=== PATIENT | male | born 1945 | race Caucasian/White ===

== ENCOUNTER → 2018-08-25 | Outpatient (CLI) | payer MEDICARE | END | disposition home or self-care (01) | LOC: LABWHC1 11:49 | PROVIDERS: ATTEND Urology | DX: N40.1 Benign prostatic hyperplasia with lower urinary tract symptoms (principal) | CPT/HCPCS: 36415; 84153 ==

== ENCOUNTER 2018-11-19 08:04 | Emergency (ER) | payer MEDICARE ==
[2018-11-19 08:21] VITALS: TEMP 98.4
--- NOTE | 2018-11-19 08:49 | ED ---
Extremity Problem HPI - General Chief complaint: Extremity Problem,Nontraumatic Stated complaint: Leg pain Time Seen by Provider: 11/19/18 08:26 Source: patient, RN notes reviewed, old records reviewed Mode of arrival: ambulatory Limitations: no limitations - History of Present Illness Initial comments: 33-year-old male with history of CABG hypertension hyperlipidemia presents recurrent today with complaints of left lower extremity swelling and pain. He reports it's nontraumatic. He reports pain over the medial aspect of the ankle. Patient states that he's had history of blood clots of 4. Not currently on blood thinners. He denies any chest pain or shortness of breath. - Related Data Home Medications Medication Instructions Recorded Confirmed Aspirin 81 mg PO DAILY 06/08/14 11/19/18 Carvedilol [Coreg] 6.25 mg PO BID 06/08/14 11/19/18 Dutasteride [Avodart] 0.5 mg PO Q48H 06/08/14 11/19/18 Enalapril [Vasotec] 10 mg PO BID 06/08/14 11/19/18 Fluticasone/Salmeterol [Advair 1 puff INHALATION RT-BID 06/08/14 11/19/18 500-50 Diskus] Montelukast [Singulair] 10 mg PO HS 06/08/14 11/19/18 Simvastatin [Zocor] 80 mg PO DAILY 06/08/14 11/19/18 Tamsulosin [Flomax] 0.4 mg PO BID 06/08/14 11/19/18 Levothyroxine Sodium [Synthroid] 175 mcg PO DAILY 11/19/18 11/19/18 Previous Rx's Medication Instructions Recorded Clopidogrel [Plavix] 75 mg PO DAILY #90 tablet 06/10/14 Isosorbide Mononitrate ER [Imdur] 30 mg PO DAILY #90 tab 06/10/14 Apixaban [Eliquis] 5 mg PO BID #70 tab 11/19/18 Allergies Allergy/AdvReac Type Severity Reaction Status Date / Time No Known Allergies Allergy Verified 11/19/18 09:12 Review of Systems ROS Statement: Those systems with pertinent positive or pertinent negative responses have been documented in the HPI. ROS Other: All systems not noted in ROS Statement are negative. Past Medical History Past Medical History: Asthma, Chest Pain / Angina, Hyperlipidemia, Hypertension, [place]ocardial Infarction ([place]), Prostate Disorder, Thyroid Disorder Additional Past Medical History / Comment(s): ENLARGED PROSTATE,CURRENT CHRONIC UTI, CURRENTLY HAVING CHEST TIGHTNESS WHEN LAYING DOWN AT NIGHTTIME. RT GROIN PUNCTURE SITE-HAD HEMATOMA FROM HEART CATH 06-09-14- STATES "LOOKS GOOD NOW" Last Myocardial Infarction Date:: 2003 History of Any Multi-Drug Resistant Organisms: None Reported Past Surgical History: Coronary Bypass/CABG, Heart Catheterization, Heart Catheterization With Stent, Hernia Repair, Orthopedic Surgery Additional Past Surgical History / Comment(s): CABG-4 VESSEL 2003,UMBILICAL HERNIA REPAIR, RT ANKLE REPLACEMENT,HEART CATH , HEART CATH/ANGIO /STENT PLACEMENT Past Anesthesia/Blood Transfusion Reactions: No Reported Reaction Date of Last Stent Placement:: 06-18-14 Past Psychological History: No Psychological Hx Reported Smoking Status: Never smoker Past Alcohol Use History: None Reported Past Drug Use History: None Reported - Past Family History Father Family Medical History: Myocardial Infarction ([place]) Brother(s) Family Medical History: Myocardial Infarction ([place]) General Exam - General Exam Comments Initial Comments: 73-year-old male. Alert and oriented 3. Patient appears in no significant distress. Limitations: no limitations General appearance: alert, in no apparent distress Head exam: Present: atraumatic, normocephalic, normal inspection Eye exam: Present: normal appearance, PERRL, EOMI. Absent: scleral icterus, conjunctival injection, periorbital swelling ENT exam: Present: normal exam, mucous membranes moist Neck exam: Present: normal inspection. Absent: tenderness, meningismus, lymphadenopathy Respiratory exam: Present: normal lung sounds bilaterally. Absent: respiratory distress, wheezes, rales, rhonchi, stridor Cardiovascular Exam: Present: regular rate, normal rhythm, normal heart sounds. Absent: systolic murmur, diastolic murmur, rubs, gallop, clicks GI/Abdominal exam: Present: soft, normal bowel sounds. Absent: distended, tenderness, guarding, rebound, rigid Left Lower Leg exam: Present: normal inspection, full ROM, erythema Ankle exam: Present: full ROM, tenderness (Patient is tenderness over the medial malleolus), swelling. Absent: normal inspection Foot/Toe exam: Present: normal inspection, full ROM Neurovascular tendon exam: Present: no vascular compromise (Doppler pulse was obtained.) Gait: observed and normal Back exam: Present: normal inspection Neurological exam: Present: alert, oriented X3, CN II-XII intact Psychiatric exam: Present: normal affect, normal mood Skin exam: Present: warm, dry, intact, normal color. Absent: rash Course Vital Signs 11/19/18 11/19/18 11/19/18 08:18 09:00 09:30 Temperature 98.4 F Pulse Rate 70 64 65 Respiratory 18 16 17 Rate Blood Pressure 120/79 97/55 103/87 O2 Sat by Pulse 99 96 97 Oximetry Medical Decision Making - Medical Decision Making Patient is a 73-year-old male presents emergency department today with chief complaint of left leg swelling. Nontraumatic swelling. He does have some erythema. Ultrasound was completed and does show evidence of a DVT. In the mid popliteal vein. There is a question of this could be old. He does have a h istory of blood clots. With patient's worsening swelling and pain I will treat the Patient with Herminia Anderson. Given 1 month free starter pack and emergency department. Discussed that if you having any chest pain or shortness of breath to return. He denies any blow symptoms at this time. All questions were answered and return parameters were discussed. 11/19/18 09:03 EKG shows sinus rhythm with PACs. Otherwise normal EKG. She is a 65 bpm. Was 140 ms. QS duration is 80 ms. QT QTc is 380/43 ms. - Radiology Data Radiology results: report reviewed SHOWS DVT WITHIN THE MID LEFT POPLITEAL VEIN. THIS MAY BE OLD WITH INCOMPLETE OBSTRUCTION AND ECHOGENIC MATERIAL WITHIN THE VESSEL. SOME DISTAL FEMORAL VEIN THROMBOSIS MAY BE PRESENT WELL. Disposition Clinical Impression: DVT (deep venous thrombosis) Disposition: HOME SELF-CARE Condition: Good Instructions (If sedation given, give patient instructions): Deep Vein Thrombosis (ED), Deep Vein Thrombosis Prevention (ED) Additional Instructions: Patient advised to take medication as prescribed. Have close follow-up with PCP. Return to emergency department if any alarming signs or symptoms occur. Prescriptions: Apixaban [Eliquis] 5 mg PO BID #70 tab Is patient prescribed a controlled substance at d/c from ED?: No Referrals: Dom Yeh MD [Primary Care Provider] - 1-2 days Time of Disposition: 10:03
--- NOTE | 2018-11-19 09:32 | US ---
EXAMINATION TYPE: US venous doppler duplex LE LT DATE OF EXAM: 11/19/2018 9:11 AM COMPARISON: NONE CLINICAL HISTORY: Pain. Swellling SIDE PERFORMED: Left TECHNIQUE: The lower extremity deep venous system is examined utilizing real time linear array sonog aneta with graded compression, doppler sonography and color-flow sonography. VESSELS IMAGED: External Iliac Vein (EIV) Common Femoral Vein Deep Femoral Vein Greater Saphenous Vein * Femoral Vein Popliteal Vein Small Saphenous Vein * Proximal Calf Veins (* superficial vessels) Left Leg: Non occluding clot process seen in Lt mid Popliteal vein. Compression occurs, flow is see n around clot. IMPRESSION: 1. Deep venous thrombosis within the left mid popliteal vein. This may be old with incomplete obstruc tion and echogenic material within the vessel. Some distal femoral vein thromboses may be present as well.
[2018-11-19 09:37] VITALS: BP 103/87
[2018-11-19] MEDS ORDERED: APIXABAN 5 MG TAB PO STA (10:06)
[2018-11-19 10:14] VITALS: PULSE 66; RESP 18
== END 2018-11-19 10:27 | disposition home or self-care (01) ==
LOC: EC 08:04
DX: I82.432 Acute embolism and thrombosis of left popliteal vein (principal); J45.909 Unspecified asthma, uncomplicated; E78.5 Hyperlipidemia, unspecified; I10 Essential (primary) hypertension; I25.2 Old myocardial infarction; N42.0 Calculus of prostate; E07.9 Disorder of thyroid, unspecified; Z95.1 Presence of aortocoronary bypass graft; Z95.818 Presence of other cardiac implants and grafts; Z95.5 Presence of coronary angioplasty implant and graft; Z96.661 Presence of right artificial ankle joint; Z79.82 Long term (current) use of aspirin; Z79.51 Long term (current) use of inhaled steroids; Z79.890 Hormone replacement therapy; Z79.899 Other long term (current) drug therapy
CPT/HCPCS: 93005; 99284

== ENCOUNTER 2018-12-15 14:11 | Emergency (ER) | payer MEDICARE ==
[2018-12-15 14:21] VITALS: TEMP 97.3
[2018-12-15] MEDS ORDERED: SODIUM CHLORIDE 0.9% 500 ML 500 ML IV STA (14:34)
[2018-12-15] MEDS ORDERED: IPRATROPIUM-ALBUTEROL 3 ML NEB INHALATION STA (14:39)
--- NOTE | 2018-12-15 14:39 | ED ---
General Adult HPI - General Chief complaint: Dizziness Stated complaint: Dizziness Time Seen by Provider: 12/15/18 14:15 Source: patient, RN notes reviewed Mode of arrival: EMS Limitations: no limitations - History of Present Illness Initial comments: This is a 73-year-old male who presents emergency Department complaining that he is extremely lightheaded. Patient states his been this way for 2 days but is getting worse per patient denies anytime he stands up he thinks he is going to pass out. Patient states over the last 2 days is also quite a bit of diarrhea. Patient denies any nausea vomiting per patient denies any palpitations. Patient denies any chest pain. Patient denies any abdominal pain. Patient denies any headache patient denies any numbness or focal weakness. Patient denies any syncopal episode. - Related Data Home Medications Medication Instructions Recorded Confirmed Aspirin 81 mg PO DAILY 06/08/14 12/15/18 Carvedilol [Coreg] 6.25 mg PO BID 06/08/14 12/15/18 Dutasteride [Avodart] 0.5 mg PO Q48H 06/08/14 12/15/18 Enalapril [Vasotec] 10 mg PO BID 06/08/14 12/15/18 Montelukast [Singulair] 10 mg PO HS 06/08/14 12/15/18 Simvastatin [Zocor] 80 mg PO DAILY 06/08/14 12/15/18 Tamsulosin [Flomax] 0.4 mg PO BID 06/08/14 12/15/18 Levothyroxine Sodium [Synthroid] 175 mcg PO DAILY 11/19/18 12/15/18 Beclomethasone Dipropionate [Qvar 1 puff INHALATION RT-BID 12/15/18 12/15/18 80 mcg] Meclizine [Antivert] 25 mg PO TID 12/15/18 12/15/18 Sulfamethox-Tmp 400-80Mg [Bactrim 1 tab PO DAILY 12/15/18 12/15/18 SS 400-80 mg] Previous Rx's Medication Instructions Recorded Isosorbide Mononitrate ER [Imdur] 30 mg PO DAILY #90 tab 06/10/14 Apixaban [Eliquis] 5 mg PO BID #70 tab 11/19/18 Allergies Allergy/AdvReac Type Severity Reaction Status Date / Time No Known Allergies Allergy Verified 12/15/18 15:14 Review of Systems ROS Statement: Those systems with pertinent positive or pertinent negative responses have been documented in the HPI. ROS Other: All systems not noted in ROS Statement are negative. Past Medical History Past Medical History: Asthma, Chest Pain / Angina, Hyperlipidemia, Hypertension, [place] ([place]), Prostate Disorder, Thyroid Disorder Additional Past Medical History / Comment(s): ENLARGED PROSTATE,CURRENT CHRONIC UTI, CURRENTLY HAVING CHEST TIGHTNESS WHEN LAYING DOWN AT NIGHTTIME. RT GROIN PUNCTURE SITE-HAD HEMATOMA FROM HEART CATH 06-09-14- STATES "LOOKS GOOD NOW" Last Myocardial Infarction Date:: 2003 History of Any Multi-Drug Resistant Organisms: None Reported Past Surgical History: Coronary Bypass/CABG, Heart Catheterization, Heart Cat heterization With Stent, Hernia Repair, Orthopedic Surgery Additional Past Surgical History / Comment(s): CABG-4 VESSEL 2003,UMBILICAL HERNIA REPAIR, RT ANKLE REPLACEMENT,HEART CATH , HEART CATH/ANGIO /STENT PLACEMENT Past Anesthesia/Blood Transfusion Reactions: No Reported Reaction Date of Last Stent Placement:: 06-18-14 Past Psychological History: No Psychological Hx Reported Smoking Status: Never smoker Past Alcohol Use History: None Reported Past Drug Use History: None Reported - Past Family History Father Family Medical History: Myocardial Infarction ([place]) Brother(s) Family Medical History: [place]ocardial Infarction [place] General Exam - General Exam Comments Initial Comments: GENERAL: Patient is well-developed and well-nourished. Patient is nontoxic and well- hydrated and is in mild distress. ENT: Neck is soft and supple. No significant lymphadenopathy is noted. Oropharynx is clear. Moist mucous membranes. Neck has full range of motion without gautam citing any pain. EYES: The sclera were anicteric and conjunctiva were pink and moist. Extraocular movements were intact and pupils were equal round and reactive to light. Eyelids were unremarkable. PULMONARY: Unlabored respirations. Good breath sounds bilaterally. No audible rales rhonchi or wheezing was noted. CARDIOVASCULAR: There is a regular rate and rhythm without any murmurs gallops or rubs. ABDOMEN: Soft and nontender with normal bowel sounds. No palpable organomegaly was note d. There is no palpable pulsatile mass. SKIN: Skin is clear with no lesions or rashes and otherwise unremarkable. NEUROLOGIC: Patient is alert and oriented x3. Cranial nerves II through XII are grossly intact. Motor and sensory are also intact. Normal speech, volume and content. Symmetrical smile. MUSCULOSKELETAL: Normal extremities with adequate strength and full range of motion. LYMPHATICS: No significant lymphadenopathy is noted PSYCHIATRIC: Normal psychiatric evaluation. Limitations: no limitations Course Vital Signs 12/15/18 12/15/18 12/15/18 14:15 14:19 14:33 Temperature 97.3 F L Pulse Rate 75 Pulse Rate [ 83 Left Sitting] Pulse Rate [ Left Standing] Respiratory 16 Rate Blood Pressure 97/64 Blood Pressure 115/92 [Left Arm Sitting] Blood Pressure [Left Arm Standing] O2 Sat by Pulse 97 Oximetry 12/15/18 12/15/18 12/15/18 14:34 15:42 15:48 Temperature Pulse Rate 82 75 Pulse Rate [ Left Sitting] Pulse Rate [ 74 Left Standing] Respiratory 20 Rate Blood Pressure 130/79 Blood Pressure [Left Arm Sitting] Blood Pressure 72/48 [Left Arm Standing] O2 Sat by Pulse 100 Oximetry 12/15/18 15:53 Temperature Pulse Rate 76 Pulse Rate [ Left Sitting] Pulse Rate [ Left Standing] Respiratory Rate Blood Pressure Blood Pressure [Left Arm Sitting] Blood Pressure [Left Arm Standing] O2 Sat by Pulse Oximetry Medical Decision Making - Medical Decision Making EKG shows sinus rhythm with occasional PAC at 80 bpm [place] interval is 134 QRS is 86 QT interval 366 QTC is 422. Patient's EKG shows no ST segment elevation. Patient is orthostatic positive. Chest x-ray shows no acute abnormality. Patient stated he felt considerably better was able to get up and ambulate without any dizziness. Patient was no longer orthostatic after fluids were given. - Lab Data Result diagrams: 12/15/18 15:00 12/15/18 15:00 Lab Results 12/15/18 12/15/18 12/15/18 Range/Units 15:00 15:00 15:00 WBC 4.5 (3.8-10.6) k/uL RBC 4.06 L (4.30-5.90) m/uL Hgb 12.7 L (13.0-17.5) gm/dL Hct 36.3 L (39.0-53.0) % MCV 89.4 (80.0-100.0) fL MCH 31.1 (25.0-35.0) pg MCHC 34.8 (31.0-37.0) g/dL RDW 13.7 (11.5-15.5) % Plt Count 125 L (150-450) k/uL Neutrophils % 75 % Lymphocytes % 13 % Monocytes % 9 % Eosinophils % 2 % Basophils % 0 % Neutrophils # 3.4 (1.3-7.7) k/uL Lymphocytes # 0.6 L (1.0-4.8) k/uL Monocytes # 0.4 (0-1.0) k/uL Eosinophils # 0.1 (0-0.7) k/uL Basophils # 0.0 (0-0.2) k/uL PT 10.4 (9.0-12.0) sec INR 1.0 (<1.2) APTT 26.5 (22.0-30.0) sec Sodium 137 (137-145) mmol/L Potassium 4.5 (3.5-5.1) mmol/L Chloride 106 (98-107) mmol/L Carbon Dioxide 25 (22-30) mmol/L Anion Gap 6 mmol/L BUN 31 H (9-20) mg/dL Creatinine 1.12 (0.66-1.25) mg/dL Est GFR (CKD-EPI)AfAm 75 (>60 ml/min/1.73 sqM) Est GFR (CKD-EPI)NonAf 65 (>60 ml/min/1.73 sqM) Glucose 96 (74-99) mg/dL Calcium 8.2 L (8.4-10.2) mg/dL Magnesium 1.8 (1.6-2.3) mg/dL Total Bilirubin 1.6 H (0.2-1.3) mg/dL AST 40 (17-59) U/L ALT 38 (21-72) U/L Alkaline Phosphatase 25 L (38-126) U/L Troponin I (0.000-0.034) ng/mL Total Protein 5.7 L (6.3-8.2) g/dL Albumin 3.0 L (3.5-5.0) g/dL 12/15/18 Range/Units 15:00 WBC (3.8-10.6) k/uL RBC (4.30-5.90) m/uL Hgb (13.0-17.5) gm/dL Hct (39.0-53.0) % MCV (80.0-100.0) fL MCH (25.0-35.0) pg MCHC (31.0-37.0) g/dL RDW (11.5-15.5) % Plt Count (150-450) k/uL Neutrophils % % Lymphocytes % % Monocytes % % Eosinophils % % Basophils % % Neutrophils # (1.3-7.7) k/uL Lymphocytes # (1.0-4.8) k/uL Monocytes # (0-1.0) k/uL Eosinophils # (0-0.7) k/uL Basophils # (0-0.2) k/uL PT (9.0-12.0) sec INR (<1.2) APTT (22.0-30.0) sec Sodium (137-145) mmol/L Potassium (3.5-5.1) mmol/L Chloride (98-107) mmol/L Carbon Dioxide (22-30) mmol/L Anion Gap mmol/L BUN (9-20) mg/dL Creatinine (0.66-1.25) mg/dL Est GFR (CKD-EPI)AfAm (>60 ml/min/1.73 sqM) Est GFR (CKD-EPI)NonAf (>60 ml/min/1.73 sqM) Glucose (74-99) mg/dL Calcium (8.4-10.2) mg/dL Magnesium (1.6-2.3) mg/dL Total Bilirubin (0.2-1.3) mg/dL AST (17-59) U/L ALT (21-72) U/L Alkaline Phosphatase (38-126) U/L Troponin I 0.018 (0.000-0.034) ng/mL Total Protein (6.3-8.2) g/dL Albumin (3.5-5.0) g/dL Disposition Clinical Impression: Orthostatic hypotension, Diarrhea, Dehydration Disposition: HOME SELF-CARE Condition: Good Instructions (If sedation given, give patient instructions): Hypotension (ED), Acute Diarrhea (ED) Is patient prescribed a controlled substance at d/c from ED?: No Referrals: Dom Yeh MD [Primary Care Provider] - 1-2 days Time of Disposition: 17:42
[2018-12-15 15:20] LABS: Basophils % (A) 0 %; Eosinophils # (A) 0.1 k/uL (0-0.7); Eosinophils % (A) 2 %; HCT 36.3 % (39.0-53.0); HGB 12.7 gm/dL (13.0-17.5); Lymphocytes # (A) 0.6 k/uL (1.0-4.8); Lymphocytes % (A) 13 %; MCH 31.1 pg (25.0-35.0); MCHC 34.8 g/dL (31.0-37.0); MCV 89.4 fL (80.0-100.0); Mean Platelet Volume 7.7; Monocytes # (A) 0.4 k/uL (0-1.0); Monocytes % (A) 9 %; Neutrophils # (A) 3.4 k/uL (1.3-7.7); Neutrophils % (A) 75 %; Platelet Count 125 k/uL (150-450); RBC 4.06 m/uL (4.30-5.90); RDW 13.7 % (11.5-15.5); WBC 4.5 k/uL (3.8-10.6)
[2018-12-15 15:28] LABS: Partial Thromboplastin Time 26.5 sec (22.0-30.0); Prothrombin Time 10.4 sec (9.0-12.0)
[2018-12-15 15:45] LABS: Calcium 8.2 mg/dL (8.4-10.2); Magnesium 1.8 mg/dL (1.6-2.3); Total Bilirubin 1.6 mg/dL (0.2-1.3); Total Protein 5.7 g/dL (6.3-8.2)
[2018-12-15 15:49] VITALS: RESP 20
[2018-12-15 15:53] LABS: Potassium 4.5 mmol/L (3.5-5.1)
--- NOTE | 2018-12-15 16:52 | XR ---
EXAMINATION TYPE: XR chest 2V DATE OF EXAM: 12/15/2018 COMPARISON: Chest x-ray November 20, 2012 HISTORY: Chest pain and dizziness. TECHNIQUE: Frontal and lateral views of the chest are obtained. FINDINGS: Overlying EKG leads are seen. Low lung volumes are redemonstrated with chronic parenchymal change. There is no focal air space opacity, pleural effusion, or pneumothorax seen. The cardiac gloria houette size remains enlarged. Overlying sternal wires are redemonstrated with mediastinal clips. Th e osseous structures are intact. IMPRESSION: Cardiomegaly and chronic parenchymal changes without acute pulmonary process.
[2018-12-15] MEDS ORDERED: SODIUM CHLORIDE 0.9% 1,000 ML IV ONE (18:33)
[2018-12-15] MEDS ORDERED: SODIUM CHLORIDE 0.9% 500 ML 500 ML IV ONE (18:33)
[2018-12-15 19:51] VITALS: BP 144/82; PULSE 86
== END 2018-12-15 19:52 | disposition home or self-care (01) ==
LOC: EC 14:11
DX: I95.1 Orthostatic hypotension (principal); R19.7 Diarrhea, unspecified; E86.0 Dehydration; J45.909 Unspecified asthma, uncomplicated; E78.5 Hyperlipidemia, unspecified; I10 Essential (primary) hypertension; I25.2 Old myocardial infarction; N40.0 Benign prostatic hyperplasia without lower urinary tract symptoms; E07.9 Disorder of thyroid, unspecified; Z95.1 Presence of aortocoronary bypass graft; Z95.818 Presence of other cardiac implants and grafts; Z95.5 Presence of coronary angioplasty implant and graft; Z96.661 Presence of right artificial ankle joint; Z79.82 Long term (current) use of aspirin; Z79.890 Hormone replacement therapy; Z79.51 Long term (current) use of inhaled steroids; Z79.899 Other long term (current) drug therapy
CPT/HCPCS: 36415; 71046; 80053; 83735; 84484; 85025; 85610; 85730; 93005; 94640; 96360; 96361; 99284

== ENCOUNTER 2019-01-24 23:29 | Emergency (ER) | payer MEDICARE ==
[2019-01-25 01:31] LABS: Basophils % (A) 1 %; Eosinophils # (A) 0.3 k/uL (0-0.7); Eosinophils % (A) 6 %; HCT 41.7 % (39.0-53.0); HGB 13.5 gm/dL (13.0-17.5); Lymphocytes # (A) 1.1 k/uL (1.0-4.8); Lymphocytes % (A) 26 %; MCH 30.5 pg (25.0-35.0); MCHC 32.4 g/dL (31.0-37.0); MCV 94.2 fL (80.0-100.0); Mean Platelet Volume 6.7; Monocytes # (A) 0.5 k/uL (0-1.0); Monocytes % (A) 11 %; Neutrophils # (A) 2.4 k/uL (1.3-7.7); Neutrophils % (A) 54 %; Platelet Count 212 k/uL (150-450); RBC 4.43 m/uL (4.30-5.90); RDW 14.3 % (11.5-15.5); WBC 4.4 k/uL (3.8-10.6)
[2019-01-25 01:39] LABS: INR 0.9 (<1.2); Partial Thromboplastin Time 23.7 sec (22.0-30.0)
[2019-01-25 01:40] LABS: ALT 35 U/L (21-72); AST 23 U/L (17-59); Albumin 3.5 g/dL (3.5-5.0); Alkaline Phosphatase 65 U/L (38-126); Anion Gap 3 mmol/L; Blood Urea Nitrogen 27 mg/dL (9-20); Calcium 9.4 mg/dL (8.4-10.2); Carbon Dioxide 32 mmol/L (22-30); Chloride 108 mmol/L (98-107); Glucose 107 mg/dL (74-99); Potassium 4.3 mmol/L (3.5-5.1); Sodium 143 mmol/L (137-145); Total Bilirubin 0.8 mg/dL (0.2-1.3); Total Protein 5.9 g/dL (6.3-8.2)
--- NOTE | 2019-01-25 01:41 | US ---
EXAM: US Duplex Left Lower Extremity Veins CLINICAL HISTORY: ITS.REASON US Reason: Pain TECHNIQUE: Real-time duplex ultrasound scan of the left lower extremity veins integrating B-mode two-dimensional vascular structure, Doppler spectral analysis, color flow Doppler imaging and compression. COMPARISON: 12/02 FINDINGS: Deep veins: Nonocclusive DVT at the proximal popliteal vein. Mid and distal popliteal veins are occluded and not compressible. Superficial veins: Unremarkable. No thrombus in the visualized great saphenous vein. Soft tissues: No suspicious findings. No popliteal cyst. 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 <MYCVCSECTION> Critical Value Communications 01/25/19 01:49 Verify Receipt Verified receipt with Dr. Potter on 01/25 01:48 (-04:00)
[2019-01-25] MEDS ORDERED: ENOXAPARIN 120 MG/0.8 ML SYRINGE SQ STA (01:51)
--- NOTE | 2019-01-25 02:11 | XR ---
EXAM: XR Chest, 2 Views CLINICAL HISTORY: ITS.REASON XR Reason: Pain TECHNIQUE: Frontal and lateral views of the chest. COMPARISON: No relevant prior studies available. FINDINGS: Lungs: Unremarkable. No consolidation. Pleural space: Unremarkable. No pneumothorax. Heart: No suspicious enlargement. Mediastinum: Unremarkable. Bones/joints: No acute fracture. IMPRESSION: No acute findings.
--- NOTE | 2019-01-25 02:34 | ED ---
General Adult HPI - General Source: patient, RN notes reviewed, old records reviewed Mode of arrival: ambulatory Limitations: no limitations <Carl Potter - Last Filed: 01/25/19 03:40> <Indiana Forman - Last Filed: 01/26/19 06:21> - General Chief complaint: Extremity Problem,Nontraumatic Stated complaint: Lt leg swollen Time Seen by Provider: 01/25/19 00:40 - History of Present Illness Initial comments: 73-year-old male patient with passed medical history of coronary artery bypass graft, hypertension, prior DVT presents to ED with approximately 2 days of left lower extremity edema, pain. Patient states that the. There is posterior calf. Patient states that he feels as if his leg is very tight and swollen. Patient denies any chest pain, shortness of breath, abdominal pain, nausea vomiting diarrhea. Patient is currently anticoagulated with eliquis. Denies all other complaints. Systemic: Pt denies fatigue, myalgia, fever/chills, rash. Pt denies weakness, night sweats, weight loss. Neuro: Pt denies headache, visual disturbances, syncope or pre-syncope. HEENT: Pt denies ocular discharge or irritation, otalgia, rhinorrhea, pharyngitis or notable lymphadenopathy. Cardiopulmonary: Pt denies chest pain, SOB, heart palpitations, dyspnea on exertion. Abdominal/GI: Pt denies abdominal pain, n/v/d. : Pt denies dysuria, burning w/ urination, frequency/urgency. Denies new onset urinary or bowel incontinence. MSK: Pt denies myalgia, loss of strength or function in extremities. Neuro: Pt denies new onset weakness, paresthesias. (Carl Potter) - Related Data Home Medications Medication Instructions Recorded Confirmed Aspirin 81 mg PO DAILY 06/08/14 12/15/18 Carvedilol [Coreg] 6.25 mg PO BID 06/08/14 12/15/18 Dutasteride [Avodart] 0.5 mg PO Q48H 06/08/14 12/15/18 Enalapril [Vasotec] 10 mg PO BID 06/08/14 12/15/18 Montelukast [Singulair] 10 mg PO HS 06/08/14 12/15/18 Simvastatin [Zocor] 80 mg PO DAILY 06/08/14 12/15/18 Tamsulosin [Flomax] 0.4 mg PO BID 06/08/14 12/15/18 Levothyroxine Sodium [Synthroid] 175 mcg PO DAILY 11/19/18 12/15/18 Beclomethasone Dipropionate [Qvar 1 puff INHALATION RT-BID 12/15/18 12/15/18 80 mcg] Meclizine [Antivert] 25 mg PO TID 12/15/18 12/15/18 Sulfamethox-Tmp 400-80Mg [Bactrim 1 tab PO DAILY 12/15/18 12/15/18 SS 400-80 mg] Previous Rx's Medication Instructions Recorded Isosorbide Mononitrate ER [Imdur] 30 mg PO DAILY #90 tab 06/10/14 Apixaban [Eliquis] 5 mg PO BID #70 tab 11/19/18 Enoxaparin [Lovenox] 100 mg SQ Q12H #14 syr 01/25/19 Allergies Allergy/AdvReac Type Severity Reaction Status Date / Time No Known Allergies Allergy Verified 01/25/19 00:17 Review of Systems ROS Other: All systems not noted in ROS Statement are negative. <Carl Potter - Last Filed: 01/25/19 03:40> ROS Other: All systems not noted in ROS Statement are negative. <[place]iana Forman - Last Filed: 01/26/19 06:21> ROS Statement: Those systems with pertinent positive or pertinent negative responses have been documented in the HPI. Past Medical History Past Medical History: Asthma, Chest Pain / Angina, Deep Vein Thrombosis (DVT), Hyperlipidemia, Hypertension, Myocardial Infarction ([place]), Prostate Disorder, Thyroid Disorder Additional Past Medical History / Comment(s): ENLARGED PROSTATE,CURRENT CHRONIC UTI, CURRENTLY HAVING CHEST TIGHTNESS WHEN LAYING DOWN AT NIGHTTIME. RT GROIN PUNCTURE SITE-HAD HEMATOMA FROM HEART CATH 06-09-14- STATES "LOOKS GOOD NOW" Last Myocardial Infarction Date:: 2003 History of Any Multi-Drug Resistant Organisms: None Reported Past Surgical History: Coronary Bypass/CABG, Heart Catheterization, Heart Catheterization With Stent, Hernia Repair, Orthopedic Surgery Additional Past Surgical History / Comment(s): CABG-4 VESSEL 2003,UMBILICAL HERNIA REPAIR, RT ANKLE REPLACEMENT,HEART CATH , HEART CATH/ANGIO /STENT PLACEMENT Past Anesthesia/Blood Transfusion Reactions: No Reported Reaction Date of Last Stent Placement:: 06-18-14 Past Psychological History: No Psychological Hx Reported Smoking Status: Never smoker Past Alcohol Use History: None Reported Past Drug Use History: None Reported - Past Family History Father Family Medical History: Myocardial Infarction ([place]) Brother(s) Family Medical History: Myocardial Infarction ([place]) <Carl Potter - Last Filed: 01/25/19 03:40> General Exam Limitations: no limitations <Carl Potter - Last Filed: 01/25/19 03:40> - General Exam Comments Initial Comments: Constitutional: NAD, AOX3, Pt has pleasant affect. HEENT: NC/AT, trachea midline, neck supple, no lymphadenopathy. Posterior pharynx non erythematous, without exudates. External ears appear normal, without discharge. Mucous membranes moist. Eyes PERRLA, EOM intact. There is no scleral icterus. No pallor noted. Cardiopulmonary: RRR, no murmurs, rubs or gallops, no JVD noted. Lungs CTAB in anterior and posterior noel. No peripheral edema. Abdominal exam: Abdomen soft and non-distended. Abdomen non-tender to palpation in all 4 quadrants. Bowel sounds active in LLQ. No hepatosplenomegaly. No ecchymosis Neuro: CN II-XII grossly intact. No nuchal rigidity. MSK: Mild amount of left posterior calf tenderness. Left Tasia sign positive. No right posterior calf tenderness. No Homans sign negative. +1 posterior tibialis pulse bilaterally. Sensation intact in upper and lower extremities. Full active ROM in upper and lower extremities, 5/5 stregnth. (Carl Potter) Course Vital Signs 01/25/19 01/25/19 00:12 04:10 Temperature 98.2 F 98.7 F Pulse Rate 75 73 Respiratory 20 15 Rate Blood Pressure 160/104 154/103 O2 Sat by Pulse 96 96 Oximetry Medical Decision Making - Lab Data Result diagrams: 01/25/19 01:21 01/25/19 01:21 <Carl Potter - Last Filed: 01/25/19 03:40> - Lab Data Result diagrams: 01/25/19 01:21 01/25/19 01:21 <Indiana Forman - Last Filed: 01/26/19 06:21> - Medical Decision Making 73-year-old male patient with passed medical history of coronary artery bypass graft, hypertension, prior DVT presents to ED with approximately 2 days of left lower extremity edema, pain. Patient states that the. There is posterior calf. Patient states that he feels as if his leg is very tight and swollen. Patient denies any chest pain, shortness of breath, abdominal pain, nausea vomiting diarrhea. Patient is currently anticoagulated with eliquis. Denies all other complaints. Pt VSS, afebrile. Physical exam displayed: Mild amount of left posterior calf tenderness. Left Tasia sign positive. No right posterior calf tenderness. No Homans sign negative. +1 posterior tibialis pulse bilaterally. Laboratory investigations revealed non-impressive CBC. Coagulation studies within normal limits. CMP nonimmpressive. Troponin negative. BNP within normal limits. Chest x-ray revealed no acute findings. Ultrasound venous Doppler revealed acute on chronic DVT in the popliteal vein. Nonocclusive DVT at the proximal popliteal vein. Mid and distal popliteal veins occluded and not compressible. Patient understood Lovenox and ED. Patient will be discharged with Lovenox injections every q12. Patient will continue his eliquis. Patient will follow-up with his primary care provider tomorrow. Pt will return to ER if condition worsens. Case discussed with Dr. Forman. Pt physician covering for PCP was attempted to be contacted and did not respond. (Carl Potter) I was available for consultation in the emergency department. The history and physical exam were done by the midlevel provider. I was consulted for this patient's care. I reviewed the case with the midlevel provider, patient is currently on a novel oral anticoagulated but has a propagating distal DVT with no femoral DVT. Patient and family are comfortable with the plan for subcutaneous Lovenox twice a day until he can follow up with their primary care physician to discuss transition to other anticoagulant likely Coumadin. (Indiana Forman) - Lab Data Lab Results 01/25/19 01/25/19 01/25/19 Range/Units 01:21 01:21 01:21 WBC 4.4 (3.8-10.6) k/uL RBC 4.43 (4.30-5.90) m/uL Hgb 13.5 (13.0-17.5) gm/dL Hct 41.7 (39.0-53.0) % MCV 94.2 (80.0-100.0) fL MCH 30.5 (25.0-35.0) pg MCHC 32.4 (31.0-37.0) g/dL RDW 14.3 (11.5-15.5) % Plt Count 212 (150-450) k/uL Neutrophils % 54 % Lymphocytes % 26 % Monocytes % 11 % Eosinophils % 6 % Basophils % 1 % Neutrophils # 2.4 (1.3-7.7) k/uL Lymphocytes # 1.1 (1.0-4.8) k/uL Monocytes # 0.5 (0-1.0) k/uL Eosinophils # 0.3 (0-0.7) k/uL Basophils # 0.0 (0-0.2) k/uL PT 10.0 (9.0-12.0) sec INR 0.9 (<1.2) APTT 23.7 (22.0-30.0) sec Sodium 143 (137-145) mmol/L Potassium 4.3 (3.5-5.1) mmol/L Chloride 108 H (98-107) mmol/L Carbon Dioxide 32 H (22-30) mmol/L Anion Gap 3 mmol/L BUN 27 H (9-20) mg/dL Creatinine 0.96 (0.66-1.25) mg/dL Est GFR (CKD-EPI)AfAm >90 (>60 ml/min/1.73 sqM) Est GFR (CKD-EPI)NonAf 78 (>60 ml/min/1.73 sqM) Glucose 107 H (74-99) mg/dL Calcium 9.4 (8.4-10.2) mg/dL Total Bilirubin 0.8 (0.2-1.3) mg/dL AST 23 (17-59) U/L ALT 35 (21-72) U/L Alkaline Phosphatase 65 (38-126) U/L Troponin I (0.000-0.034) ng/mL NT-Pro-B Natriuret Pep pg/mL Total Protein 5.9 L (6.3-8.2) g/dL Albumin 3.5 (3.5-5.0) g/dL 01/25/19 01/25/19 Range/Units 01:21 01:21 WBC (3.8-10.6) k/uL RBC (4.30-5.90) m/uL Hgb (13.0-17.5) gm/dL Hct (39.0-53.0) % MCV (80.0-100.0) fL MCH (25.0-35.0) pg MCHC (31.0-37.0) g/dL RDW (11.5-15.5) % Plt Count (150-450) k/uL Neutrophils % % Lymphocytes % % Monocytes % % Eosinophils % % Basophils % % Neutrophils # (1.3-7.7) k/uL Lymphocytes # (1.0-4.8) k/uL Monocytes # (0-1.0) k/uL Eosinophils # (0-0.7) k/uL Basophils # (0-0.2) k/uL PT (9.0-12.0) sec INR (<1.2) APTT (22.0-30.0) sec Sodium (137-145) mmol/L Potassium (3.5-5.1) mmol/L Chloride (98-107) mmol/L Carbon Dioxide (22-30) mmol/L Anion Gap mmol/L BUN (9-20) mg/dL Creatinine (0.66-1.25) mg/dL Est GFR (CKD-EPI)AfAm (>60 ml/min/1.73 sqM) Est GFR (CKD-EPI)NonAf (>60 ml/min/1.73 sqM) Glucose (74-99) mg/dL Calcium (8.4-10.2) mg/dL Total Bilirubin (0.2-1.3) mg/dL AST (17-59) U/L ALT (21-72) U/L Alkaline Phosphatase (38-126) U/L Troponin I <0.012 (0.000-0.034) ng/mL NT-Pro-B Natriuret Pep 303 pg/mL Total Protein (6.3-8.2) g/dL Albumin (3.5-5.0) g/dL Disposition Is patient prescribed a controlled substance at d/c from ED?: No <Carl Potter - Last Filed: 01/25/19 03:40> <[place] P - Last Filed: 01/26/19 06:21> Clinical Impression: DVT (deep venous thrombosis) Disposition: HOME SELF-CARE Condition: Stable Instructions (If sedation given, give patient instructions): Deep Vein Thrombosis (ED) Additional Instructions: Patient to adhere to previously discussed treatment plan and will take medication(s) as directed. Patient to follow up with PCP in 1-2 days. Patient to return to ED if symptoms do not improve. Continue to take eliquis. Began taking Lovenox injections every 12 hours. Follow-up with primary care provider tomorrow. Return to ER if condition w sherrie. Prescriptions: Enoxaparin [Lovenox] 100 mg SQ Q12H #14 syr Referrals: Dom Yeh MD [Primary Care Provider] - 1-2 days
[2019-01-25 04:31] VITALS: PULSE 73; TEMP 98.7
[2019-01-25 04:51] VITALS: BP 154/103; RESP 15
== END 2019-01-25 04:48 | disposition home or self-care (01) ==
LOC: EC 23:29
DX: I82.532 Chronic embolism and thrombosis of left popliteal vein (principal); I82.432 Acute embolism and thrombosis of left popliteal vein; J45.909 Unspecified asthma, uncomplicated; E78.5 Hyperlipidemia, unspecified; I10 Essential (primary) hypertension; I25.2 Old myocardial infarction; N40.0 Benign prostatic hyperplasia without lower urinary tract symptoms; E07.9 Disorder of thyroid, unspecified; Z79.82 Long term (current) use of aspirin; Z79.51 Long term (current) use of inhaled steroids; Z79.899 Other long term (current) drug therapy; Z79.01 Long term (current) use of anticoagulants; Z95.5 Presence of coronary angioplasty implant and graft; Z95.1 Presence of aortocoronary bypass graft; Z96.661 Presence of right artificial ankle joint
CPT/HCPCS: 36415; 83880; 80053; 84484; 85025; 85610; 85730; 71046; 93971; 99284; J1650

== ENCOUNTER → 2019-01-27 | Outpatient (CLI) | payer MEDICARE | END | disposition home or self-care (01) | LOC: LABWHC1 15:05 | PROVIDERS: ATTEND Physician Assistant Medical | DX: L29.8 Other pruritus (principal); L12.0 Bullous pemphigoid | CPT/HCPCS: 36415 ==

== ENCOUNTER 2023-01-21 15:18 | Inpatient (IN) | payer MEDICARE ==
[2023-01-21] MEDS ORDERED: SODIUM CHLORIDE 0.9% 500 ML 500 ML IV ONE (15:46)
[2023-01-21] MEDS ORDERED: SODIUM CHLORIDE 0.9% 1,000 ML IV ONE (15:50)
[2023-01-21 16:15] LABS: Glucose,Whole Blood 120 mg/dL (70-110)
--- NOTE | 2023-01-21 16:22 | ED ---
URI HPI - General Chief Complaint: Upper Respiratory Infection Stated Complaint: Flu Time Seen by Provider: 01/21/23 15:42 Source: EMS Mode of arrival: EMS Limitations: altered mental status, physical limitation - History of Present Illness Initial Comments: Patient is a 77-year-old male presenting with chief complaint of altered mental status. I'm unable to obtain any history from the patient. The nurse tells me that patient lives alone, friend went over to visit him today and he was extremely lethargic. Patient has been experiencing URI like symptoms for about a week and has been treated with antibiotics and steroids. Patient vomited while here. - Related Data Home Medications Medication Instructions Recorded Confirmed Carvedilol [Coreg] 6.25 mg PO BID 06/08/14 01/21/23 Dutasteride [Avodart] 0.5 mg PO Q48H 06/08/14 01/21/23 Montelukast [Singulair] 10 mg PO HS 06/08/14 01/21/23 Tamsulosin [Flomax] 0.4 mg PO BID 06/08/14 01/21/23 Acetaminophen Tab [Tylenol Tab] 500 mg PO Q4H PRN 01/21/23 01/21/23 Amoxicillin 500 mg PO Q8H 01/21/23 01/21/23 Atorvastatin [Lipitor] 40 mg PO DIRECTED 01/21/23 01/21/23 Cetirizine HCl [Zyrtec] 10 mg PO DAILY 01/21/23 01/21/23 Enalapril [Vasotec] 20 mg PO DIRECTED 01/21/23 01/21/23 Fluticasone Propion/Salmeterol 1 puff INHALATION DIRECTED 01/21/23 01/21/23 [Wixela 500-50 Inhub] Ibuprofen [Motrin Ib] 200 mg PO Q4H PRN 01/21/23 01/21/23 Levothyroxine Sodium [Synthroid] 150 mcg PO DAILY 01/21/23 01/21/23 Prevagen 1 cap PO DAILY 01/21/23 01/21/23 Triamcinolone 0.1% Lotion [Kenalog 1 applic TOPICAL DAILY PRN 01/21/23 01/21/23 0.1% Lotion] Ubidecarenone [Coenzyme Q10] 200 mg PO DAILY 01/21/23 01/21/23 Previous Rx's Medication Instructions Recorded Apixaban [Eliquis] 5 mg PO BID #70 tab 11/19/18 Allergies Allergy/AdvReac Type Severity Reaction Status Date / Time No Known Allergies Allergy Verified 01/21/23 17:18 Review of Systems ROS Statement: Those systems with pertinent positive or pertinent negative responses have been documented in the HPI. ROS Other: All systems not noted in ROS Statement are negative. Past Medical History Past Medical History: Asthma, Chest Pain / Angina, Deep Vein Thrombosis (DVT), Hyperlipidemia, Hypertension, Myocardial Infarction (IA), Prostate Disorder, Thyroid Disorder Additional Past Medical History / Comment(s): ENLARGED PROSTATE,CURRENT CHRONIC UTI, CURRENTLY HAVING CHEST TIGHTNESS WHEN LAYING DOWN AT NIGHTTIME. RT GROIN PUNCTURE SITE-HAD HEMATOMA FROM HEART CATH 06-09-14- STATES "LOOKS GOOD NOW" Last Myocardial Infarction Date:: 2003 History of Any Multi-Drug Resistant Organisms: None Reported Past Surgical History: Coronary Bypass/CABG, Heart Catheterization, Heart Catheterization With Stent, Hernia Repair, Orthopedic Surgery Additional Past Surgical History / Comment(s): CABG-4 VESSEL 2003,UMBILICAL HERNIA REPAIR, RT ANKLE REPLACEMENT,HEART CATH , HEART CATH/ANGIO /STENT PLACEMENT Past Anesthesia/Blood Transfusion Reactions: No Reported Reaction Date of Last Stent Placement:: 06-18-14 Past Psychological History: No Psychological Hx Reported Smoking Status: Unknown if ever smoked Past Alcohol Use History: None Reported Past Drug Use History: None Reported - Past Family History Father Family Medical History: Myocardial Infarction (IA) Brother(s) Family Medical History: Myocardial Infarction (IA) General Exam Limitations: altered mental status, physical limitation General appearance: lethargic Head exam: Present: atraumatic, normocephalic, normal inspection Eye exam: Present: normal appearance, PERRL, EOMI Neck exam: Present: normal inspection Respiratory exam: Present: rales. Absent: respiratory distress Cardiovascular Exam: Present: normal rhythm, tachycardia, normal heart sounds. Absent: systolic murmur, diastolic murmur, rubs, gallop, clicks Neurological exam: Present: altered Expanded Eye Response: (3) open to voice Motor Response: (5) localizes to pain Verbal Response: (4) confused conversation Danuta Total: 13 Skin exam: Present: warm, dry, intact, normal color. Absent: rash Course Vital Signs 01/21/23 01/21/23 01/21/23 15:22 16:10 16:52 Temperature 99.2 F Pulse Rate 108 H 100 97 Respiratory 18 20 18 Rate Blood Pressure 178/95 154/97 154/97 O2 Sat by Pulse 95 97 98 Oximetry 01/21/23 01/21/23 01/21/23 18:00 20:00 21:53 Temperature Pulse Rate 92 95 82 Respiratory 18 16 17 Rate Blood Pressure 129/80 115/80 O2 Sat by Pulse 99 99 99 Oximetry Medical Decision Making - Medical Decision Making Was pt. sent in by a medical professional or institution (, PA, BULK TANK DRIVER, urgent ca re, hospital, or half-way...) When possible be specific @ -No Did you speak to anyone other than the patient for history (EMS, parent, family, police, friend...)? What history was obtained from this source @ -EMS Did you review nursing and triage notes (agree or disagree)? Why? @ -I reviewed and agree with nursing and triage notes Were old charts reviewed (outside hosp., previous admission, EMS record, old EKG, old radiological studies, urgent care reports/EKG's, half-way records)? Report findings @ -No old charts were reviewed Differential Diagnosis (chest pain, altered mental status, abdominal pain women, abdominal pain men, vaginal bleeding, weakness, fever, dyspnea, syncope, headache, dizziness, GI bleed, back pain, seizure, CVA, palpatations, mental health, musculoskeletal)? @ -MDM Differential Altered Mental Status: Hypoglycemia, DKA, hypercapnia, ETOH, overdose, CO poisoning, trauma, myxedema coma, HTN encephalopathy, infection, encephalitis, psychosis, intercranial hemorrhage, hepatic encephalopathy, meningitis, CVA this is not meant to be an all-inclusive list EKG interpreted by me (3pts min.). @ -Sinus rhythm with sinus arrhythmia ventricular rate 102. QRS 95. QT 322. QTc 381. No acute ischemic changes. Machine read as atrial fibrillation with RVR, however my attending I disagree as P waves are parent and rhythm appears regular X-rays interpreted by me (1pt min.). @ -Chest x-ray shows hypoventilatory changes possible mild pulmonary vascular congestion. Patchy atelectasis versus a developing infiltrate at the left base. CT interpreted by me (1pt min.). @ -CT shows moderate hydrocephalus. Possible normal pressure hydrocephalus with evidence ratio calculated at 0.40 U/S interpreted by me (1pt. min.). @ -None done What testing was considered but not performed or refused? (CT, X-rays, U/S, labs)? Why? @ -None What meds were considered but not given or refused? Why? @ -None Did you discuss the management of the patient with other professionals (professionals i.e. DrViolet, PA, BULK TANK DRIVER, lab, RT, psych nurse, social welfare clerk, bruise trimmer, teacher, trust officer, correctional casework specialist)? Give summary @ -Discussed with admitting physician Dr. Yeh who accepts admission. Discuss CT findings with neurologist on-call Dr. Lee, he agrees to consult during patient's stay Was smoking cessation discussed for >3mins.? @ -No Was critical care preformed (if so, how long)? @ -No Were there social determinants of health that impacted care today? How? (Homelessness, low income, unemployed, alcoholism, drug addiction, transportation, low edu. Level, literacy, decrease access to med. care, alf, rehab)? @ -No Was there de-escalation of care discussed even if they declined (Discuss DNR or withdrawal of care, Hospice)? DNR status @ -No What co-morbidities impacted this encounter? (DM, HTN, Smoking, COPD, CAD, Cancer, CVA, ARF, Chemo, Hep., AIDS, mental health diagnosis, sleep apnea, morbid obesity)? @ -None Was patient admitted / discharged? Hospital course, mention meds given and route, prescriptions, significant lab abnormalities, going to OR and other pertinent info. @ -Patient is a 77-year-old male presenting with altered mental status. He was found to be hypoxic on room air was placed on 2 L nasal cannula. Patient has had a URI for about a week and has been treated with antibiotics and steroids by his PCP. On initial examination I'm unable to obtain any history from the patient, and entire history is obtained from nursing/EMS report. WBC 3.5 and hemoglobin 11.1. BUN 29 and creatinine 1.57. Creatinine kinase 29. Patient is negative for influenza, RSV, and Covid. Chest x-ray shows developing infiltrate. Troponin is elevated at 0.053, likely due to infectious cause as E KG doesn't show any acute ischemic changes. Patient is treated with Rocephin and azithromycin. CT shows possible normal pressure hydrocephalus, I discussed findings with neurologist Dr. Lee who agrees to be on consult during the patient's stay. On reassessment of the patient he is significantly improved he is able to have full conversation with me although still mildly confused. He is much more alert and able to follow commands. He is asking for a sandwich. He denies any chest pain, difficulty breathing, palpitations. Urine is still pending at this time. He'll be admitted, I spoke with Dr. Yeh who accepts admission. Patient agreeable with this plan. I discussed this case with my attending Dr. Blum Undiagnosed new problem with uncertain prognosis? @ -No Drug Therapy requiring intensive monitoring for toxicity (Heparin, Nitro, Insulin, Cardizem)? @ -No Were any procedures done? @ -No Diagnosis/symptom? @ -Hypoxic respiratory failure Acute, or Chronic, or Acute on Chronic? @ -Acute Uncomplicated (without systemic symptoms) or Complicated (systemic symptoms)? @ -Complicated Side effects of treatment? @ -No Exacerbation, Progression, or Severe Exacerbation? @ -No Poses a threat to life or bodily function? How? (Chest pain, USA, IA, pneumonia, PE, COPD, DKA, ARF, appy, cholecystitis, CVA, Diverticulitis, Homicidal, Suicidal, threat to staff... and all critical care pts) @ -yes Diagnosis/symptom? @Pneumonia Acute, or Chronic, or Acute on Chronic? @Acute Uncomplicated (without systemic symptoms) or Complicated (systemic symptoms)? @Complicated Side effects of treatment? @ none Exacerbation, Progression, or Severe Exacerbation] @ no Poses a threat to life or bodily function? @ yes Diagnosis/symptom? @Elevated troponin Acute, or Chronic, or Acute on Chronic? @Acute Uncomplicated (without systemic symptoms) or Complicated (systemic symptoms)? @Complicated Side effects of treatment? @ none Exacerbation, Progression, or Severe Exacerbation] @ no Poses a threat to life or bodily function? @Yes - Lab Data Result diagrams: 01/21/23 16:05 01/21/23 16:05 Lab Results 01/21/23 01/21/23 01/21/23 Range/Units 16:05 16:05 16:05 WBC 3.5 L (3.8-10.6) k/uL RBC 3.71 L (4.30-5.90) m/uL Hgb 11.1 L (13.0-17.5) gm/dL Hct 33.3 L (39.0-53.0) % MCV 89.8 (80.0-100.0) fL MCH 30.0 (25.0-35.0) pg MCHC 33.4 (31.0-37.0) g/dL RDW 12.9 (11.5-15.5) % Plt Count 133 L (150-450) k/uL MPV 8.4 Neutrophils % (Manual) 82 % Band Neuts % (Manual) 5 % Lymphocytes % (Manual) 7 % Monocytes % (Manual) 4 % Eosinophils % (Manual) 1 % Basophils % (Manual) 1 % Myelocytes % Not Reportable Neutrophils # (Manual) 3.00 (1.3-7.7) k/uL Lymphocytes # (Manual) 0.25 L (1.0-4.8) k/uL Monocytes # (Manual) 0.14 (0-1.0) k/uL Eosinophils # (Manual) 0.04 (0-0.7) k/uL Basophils # (Manual) 0.04 (0-0.2) k/uL Myelocytes # (Manual) 0.04 H (0) k/uL Nucleated RBCs 0 (0-0) /100 WBC Manual Slide Review Performed RBC Morphology Normal PT 10.9 (9.0-12.0) sec INR 1.0 (<1.2) APTT 20.2 L (22.0-30.0) sec Sodium (137-145) mmol/L Potassium (3.5-5.1) mmol/L Chloride (98-107) mmol/L Carbon Dioxide (22-30) mmol/L Anion Gap mmol/L BUN (9-20) mg/dL Creatinine (0.66-1.25) mg/dL Est GFR (CKD-EPI)AfAm (>60 ml/min/1.73 sqM) Est GFR (CKD-EPI)NonAf (>60 ml/min/1.73 sqM) Glucose (74-99) mg/dL POC Glucose (mg/dL) (70-110) mg/dL POC Glu Hospice Clinical Supervisor ID Calcium (8.4-10.2) mg/dL Total Bilirubin (0.2-1.3) mg/dL AST (17-59) U/L ALT (4-49) U/L Alkaline Phosphatase (38-126) U/L Creatine Kinase (55-170) U/L Troponin I (0.000-0.034) ng/mL Total Protein (6.3-8.2) g/dL Albumin (3.5-5.0) g/dL Urine Color Yellow Urine Appearance Cloudy (Clear) Urine pH 5.5 (5.0-8.0) Ur Specific [place] 1.014 (1.001-1.035) Urine Protein 1+ H (Negative) Urine Glucose (UA) Negative (Negative) Urine Ketones Negative (Negative) Urine Blood Small H (Negative) Urine Nitrite Positive (Negative) Urine Bilirubin Negative (Negative) Urine Urobilinogen <2.0 (<2.0) mg/dL Ur Leukocyte Esterase Large H (Negative) Urine RBC 6 H (0-5) /hpf Urine WBC >182 H (0-5) /hpf Urine WBC Clumps Few H (None) /hpf Ur Squamous Epith Cells <1 (0-4) /hpf Urine Bacteria Many H (None) /hpf Urine Mucus Rare H (None) /hpf Influenza Type A (PCR) (Not Detectd) Influenza Type B (PCR) (Not Detectd) RSV (PCR) (Not Detectd) SARS-CoV-2 (PCR) (Not Detectd) 01/21/23 01/21/23 01/21/23 Range/Units 16:05 16:05 16:05 WBC (3.8-10.6) k/uL RBC (4.30-5.90) m/uL Hgb (13.0-17.5) gm/dL Hct (39.0-53.0) % MCV (80.0-100.0) fL MCH (25.0-35.0) pg MCHC (31.0-37.0) g/dL RDW (11.5-15.5) % Plt Count (150-450) k/uL MPV Neutrophils % (Manual) % Band Neuts % (Manual) % Lymphocytes % (Manual) % Monocytes % (Manual) % Eosinophils % (Manual) % Basophils % (Manual) % Myelocytes % Neutrophils # (Manual) (1.3-7.7) k/uL Lymphocytes # (Manual) (1.0-4.8) k/uL Monocytes # (Manual) (0-1.0) k/uL Eosinophils # (Manual) (0-0.7) k/uL Basophils # (Manual) (0-0.2) k/uL Myelocytes # (Manual) (0) k/uL Nucleated RBCs (0-0) /100 WBC Manual Slide Review RBC Morphology PT (9.0-12.0) sec INR (<1.2) APTT (22.0-30.0) sec Sodium 138 (137-145) mmol/L Potassium 4.1 (3.5-5.1) mmol/L Chloride 104 (98-107) mmol/L Carbon Dioxide 28 (22-30) mmol/L Anion Gap 6 mmol/L BUN 29 H (9-20) mg/dL Creatinine 1.57 H (0.66-1.25) mg/dL Est GFR (CKD-EPI)AfAm 48 (>60 ml/min/1.73 sqM) Est GFR (CKD-EPI)NonAf 42 (>60 ml/min/1.73 sqM) Glucose 121 H (74-99) mg/dL POC Glucose (mg/dL) (70-110) mg/dL POC Glu Hospice Clinical Supervisor ID Calcium 8.4 (8.4-10.2) mg/dL Total Bilirubin 2.7 H (0.2-1.3) mg/dL AST 19 (17-59) U/L ALT 15 (4-49) U/L Alkaline Phosphatase 59 (38-126) U/L Creatine Kinase 29 L (55-170) U/L Troponin I 0.053 H* (0.000-0.034) ng/mL Total Protein 5.4 L (6.3-8.2) g/dL Albumin 3.2 L (3.5-5.0) g/dL Urine Color Urine Appearance (Clear) Urine pH (5.0-8.0) Ur Specific [place] (1.001-1.035) Urine Protein (Negative) Urine Glucose (UA) (Negative) Urine Ketones (Negative) Urine Blood (Negative) Urine Nitrite (Negative) Urine Bilirubin (Negative) Urine Urobilinogen (<2.0) mg/dL Ur Leukocyte Esterase (Negative) Urine RBC (0-5) /hpf Urine WBC (0-5) /hpf Urine WBC Clumps (None) /hpf Ur Squamous Epith Cells (0-4) /hpf Urine Bacteria (None) /hpf Urine Mucus (None) /hpf Influenza Type A (PCR) Not Detected (Not Detectd) Influenza Type B (PCR) Not Detected (Not Detectd) RSV (PCR) Not Detected (Not Detectd) SARS-CoV-2 (PCR) Not Detected (Not Detectd) 01/21/23 Range/Units 16:14 WBC (3.8-10.6) k/uL RBC (4.30-5.90) m/uL Hgb (13.0-17.5) gm/dL Hct (39.0-53.0) % MCV (80.0-100.0) fL MCH (25.0-35.0) pg MCHC (31.0-37.0) g/dL RDW (11.5-15.5) % Plt Count (150-450) k/uL MPV Neutrophils % (Manual) % Band Neuts % (Manual) % Lymphocytes % (Manual) % Monocytes % (Manual) % Eosinophils % (Manual) % Basophils % (Manual) % Myelocytes % Neutrophils # (Manual) (1.3-7.7) k/uL Lymphocytes # (Manual) (1.0-4.8) k/uL Monocytes # (Manual) (0-1.0) k/uL Eosinophils # (Manual) (0-0.7) k/uL Basophils # (Manual) (0-0.2) k/uL Myelocytes # (Manual) (0) k/uL Nucleated RBCs (0-0) /100 WBC Manual Slide Review RBC Morphology PT (9.0-12.0) sec INR (<1.2) APTT (22.0-30.0) sec Sodium (137-145) mmol/L Potassium (3.5-5.1) mmol/L Chloride (98-107) mmol/L Carbon Dioxide (22-30) mmol/L Anion Gap mmol/L BUN (9-20) mg/dL Creatinine (0.66-1.25) mg/dL Est GFR (CKD-EPI)AfAm (>60 ml/min/1.73 sqM) Est GFR (CKD-EPI)NonAf (>60 ml/min/1.73 sqM) Glucose (74-99) mg/dL POC Glucose (mg/dL) 120 H (70-110) mg/dL POC Glu Hospice Clinical Supervisor ID Tito Theodore Calcium (8.4-10.2) mg/dL Total Bilirubin (0.2-1.3) mg/dL AST (17-59) U/L ALT (4-49) U/L Alkaline Phosphatase (38-126) U/L Creatine Kinase (55-170) U/L Troponin I (0.000-0.034) ng/mL Total Protein (6.3-8.2) g/dL Albumin (3.5-5.0) g/dL Urine Color Urine Appearance (Clear) Urine pH (5.0-8.0) Ur Specific [place] (1.001-1.035) Urine Protein (Negative) Urine Glucose (UA) (Negative) Urine Ketones (Negative) Urine Blood (Negative) Urine Nitrite (Negative) Urine Bilirubin (Negative) Urine Urobilinogen (<2.0) mg/dL Ur Leukocyte Esterase (Negative) Urine RBC (0-5) /hpf Urine WBC (0-5) /hpf Urine WBC Clumps (None) /hpf Ur Squamous Epith Cells (0-4) /hpf Urine Bacteria (None) /hpf Urine Mucus (None) /hpf Influenza Type A (PCR) (Not Detectd) Influenza Type B (PCR) (Not Detectd) RSV (PCR) (Not Detectd) SARS-CoV-2 (PCR) (Not Detectd) Disposition Clinical Impression: Pneumonia, Hypoxia Disposition: ADMITTED IP TO THIS HOSP Condition: Serious
[2023-01-21 16:27] LABS: HCT 33.3 % (39.0-53.0); HGB 11.1 gm/dL (13.0-17.5); MCHC 33.4 g/dL (31.0-37.0); MCV 89.8 fL (80.0-100.0); Mean Platelet Volume 8.4; Platelet Count 133 k/uL (150-450); RBC 3.71 m/uL (4.30-5.90); RDW 12.9 % (11.5-15.5); WBC 3.5 k/uL (3.8-10.6)
[2023-01-21 16:45] LABS: Albumin 3.2 g/dL (3.5-5.0); Calcium 8.4 mg/dL (8.4-10.2); Potassium 4.1 mmol/L (3.5-5.1); Total Bilirubin 2.7 mg/dL (0.2-1.3); Total Protein 5.4 g/dL (6.3-8.2)
--- NOTE | 2023-01-21 16:49 | XR ---
EXAMINATION TYPE: XR chest 2V DATE OF EXAM: 01/21/2023 COMPARISON: 01/25/2019 HISTORY: 77-year-old male confusion, altered mental status TECHNIQUE: AP and lateral views FINDINGS: Median sternotomy wires are present in post-CABG clips. Low lung volumes with crowding of vascular ma rkings. Heart is enlarged. Interstitial/vascular prominence. Patchy left basilar opacity. IMPRESSION: 1. Hypoventilatory changes. Possible mild pulmonary vascular congestion. Clinically correlate. 2. Patchy atelectasis versus a developing infiltrate at the left base.
[2023-01-21 16:51] LABS: Prothrombin Time 10.9 sec (9.0-12.0)
[2023-01-21 17:07] LABS: Partial Thromboplastin Time 20.2 sec (22.0-30.0)
[2023-01-21 17:15] LABS: Band Neutrophils % 5 %; Basophils # (M) 0.04 k/uL (0-0.2); Eosinophils # (M) 0.04 k/uL (0-0.7); Lymphocytes # (M) 0.25 k/uL (1.0-4.8); Monocytes # (M) 0.14 k/uL (0-1.0); Myelocytes # (M) 0.04 k/uL (0); Nucleated Red Blood Cells 0 /100 WBC (0-0); Total Cells Counted 100
[2023-01-21 17:16] LABS: Neutrophils % (M) 82 %
[2023-01-21 17:17] LABS: RBC Morphology Normal
--- NOTE | 2023-01-21 17:42 | CT ---
EXAMINATION TYPE: CT brain wo con DATE OF EXAM: 01/21/2023 COMPARISON: None HISTORY: 77-year-old male altered mental status, confusion, weakness TECHNIQUE: Examination was done in axial plane without intravenous contrast. Coronal and sagittal r econstructions performed. CT DLP: 1155.4 mGycm Automated exposure control for dose reduction was used. FINDINGS: There is no evidence of acute intracranial hemorrhage, acute ischemic changes, mass, mass-effect, or extra-axial fluid collection. There is no effacement of cerebral sulci or basal subarachnoid cister ns. There is moderate hydrocephalus with Cameron ratio calculated at 0.40. Mild periventricular white m atter changes. There is no midline shift. Muller-white matter distinction is preserved. Moderate mucosal thickening ethmoid air cells and maxillary sinuses. Leftward nasal septal deviation. Mastoid air cells are well pneumatized. Orbits and globes are intact. IMPRESSION: Moderate hydrocephalus. Possible normal pressure hydrocephalus with Fidel's ratio calculated at 0.40. Appropriate follow-up recommended. Otherwise, no acute intracranial abnormality seen.
[2023-01-21] MEDS ORDERED: cefTRIAXone IN SWFI 1,000 MG/10 ML SYRINGE IVP STA (19:07)
[2023-01-21] MEDS ORDERED: AZITHROMYCIN 500 MG in SODIUM CHLORIDE 0.9% 250 ML IVPB STA (19:07)
[2023-01-21] MEDS ORDERED: NALOXONE 0.4 MG/ML 1 ML VIAL IV PRN (20:04)
[2023-01-21 22:26] LABS: Appearance,Urine Cloudy (Clear); Bacteria,Urine Many /hpf; Bilirubin,Urine Negative (Negative); Blood,Urine Small (Negative); Color,Urine Yellow; Glucose,Urine (UA) Negative (Negative); Ketones,Urine Negative (Negative); Leukocyte Esterase,Urine Large (Negative); Mucus,Urine Rare /hpf; Nitrite,Urine Positive (Negative); PH, Urine 5.5 (5.0-8.0); Protein,Urine 1+ (Negative); RBC,Urine 6 /hpf (0-5); Specific Gravity,Urine 1.014 (1.001-1.035); Squamous Epithelial Cell,Urine <1 /hpf (0-4); Urobilinogen,Urine <2.0 mg/dL (<2.0); WBC,Urine >182 /hpf (0-5)
[2023-01-21 22:28] LABS: Amphetamine Screen,Urine Not Detected (NotDetected); Barbiturate Screen,Urine Not Detected (NotDetected); Benzodiazepines Screen,Urine Not Detected (NotDetected); Cocaine Screen,Urine Not Detected (NotDetected); Methadone Screen, Urine Not Detected (NotDetected); Opiate Screen,Urine Not Detected (NotDetected); Oxycodone Screen, Urine Not Detected (NotDetected); Phencyclidine Screen,Urine Not Detected (NotDetected); Tricyclic Antidepressant,Urine Not Detected (NotDetected); Urn Cannabinoid Scrn Not Detected (NotDetected)
[2023-01-21] MEDS ORDERED: IBUPROFEN 200 MG TAB PO PRN (22:59)
[2023-01-21] MEDS ORDERED: ACETAMINOPHEN TAB 500 MG TAB PO PRN (22:59)
[2023-01-21] MEDS ORDERED: NON FORMULARY DRUG (Enalapril 20 MG Tab) PO SCH (23:00)
[2023-01-21] MEDS ORDERED: ATORVASTATIN 40 MG TAB PO SCH (23:00)
[2023-01-21] MEDS ORDERED: ASPIRIN 81 MG PO STA (23:34)
[2023-01-21] MEDS ORDERED: HEPARIN SODIUM 1,000 UN/ML (10ML VL) IV PRN (23:37)
[2023-01-21] MEDS ORDERED: HEPARIN SODIUM 1,000 UN/ML (10ML VL) IV ONE (23:37)
[2023-01-21] MEDS ORDERED: HEPARIN SOD,PORK IN 0.45% NACL 25,000 UNIT in 0.45% NACL 1 250ML.BAG IV SCH (23:45)
[2023-01-22] MEDS: PIPERACILLIN-TAZOBACTAM 3.375 GM in SODIUM CHLORIDE 0.9% 100 ML IVPB SCH ×3 (00:03→16:31)
--- NOTE | 2023-01-22 02:40 | HP ---
HISTORY AND PHYSICAL HISTORY OF PRESENT ILLNESS: This is a 77-year-old white male, came with altered mental status, found to have history of being lethargic, found to have pneumonia and urosepsis. Antibiotics and steroids were ordered. Fluids are ordered. HOME MEDICATIONS: 1. Coreg 6.25 b.i.d. 2. Avodart 0.5 every 48. 3. Singulair 10 mg daily. 4. Flomax 0.4 mg b.i.d. 5. Amoxicillin 500 mg q.8h. 6. Lipitor 40 mg q.h.s. 7. Zyrtec 10 mg daily. 8. Vasotec 20 mg daily. 9. Wixela 500/50 one puff b.i.d. 10.Ibuprofen 200 every daily. 11.Synthroid 150 mcg daily. ALLERGIES: Negative. REVIEW OF SYSTEMS: A 14-point review of systems otherwise negative. PAST MEDICAL HISTORY: Asthma, chest pain, angina, DVT, dyslipidemia, hypertension, myocardial infraction, BPH, hypothyroidism. PAST SURGICAL HISTORY: CABG, heart catheterization, hernia repair, orthopedic surgery, surgery, right ankle replacement, and heart stent. FAMILY HISTORY: Father NH, brother NH. PHYSICAL EXAMINATION: GENERAL: Altered mental status, lethargic. O2 saturation 99. HEAD: Normocephalic, atraumatic. Pupils equal, round, reactive. LUNGS: Scattered wheeze. CARDIOVASCULAR: S1, S2. NEUROLOGIC: Cranial nerves intact. LABORATORY DATA: White count 3.5, hemoglobin 11.1, platelets 133, BUN 29, creatinine 1.57. 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 Prognosis guarded. MMODL / IJN: [id number] /
[2023-01-22] MEDS: LEVOTHYROXINE 75 MCG TAB PO SCH (06:32)
[2023-01-22] MEDS: carvediloL 6.25 MG TAB PO SCH ×2 (06:32→17:07)
[2023-01-22 07:36] LABS: Basophils % (A) 0 %; Eosinophils # (A) 0.1 k/uL (0-0.7); Eosinophils % (A) 1 %; HCT 31.4 % (39.0-53.0); HGB 10.3 gm/dL (13.0-17.5); Lymphocytes # (A) 0.5 k/uL (1.0-4.8); Lymphocytes % (A) 7 %; MCH 30.7 pg (25.0-35.0); MCHC 32.7 g/dL (31.0-37.0); Mean Platelet Volume 8.8; Monocytes # (A) 0.7 k/uL (0-1.0); Monocytes % (A) 10 %; Neutrophils % (A) 81 %; Platelet Count 121 k/uL (150-450); RBC 3.34 m/uL (4.30-5.90); RDW 12.7 % (11.5-15.5); WBC 7.4 k/uL (3.8-10.6)
[2023-01-22 08:01] LABS: INR 1.1 (<1.2); Prothrombin Time 11.3 sec (9.0-12.0)
--- NOTE | 2023-01-22 08:20 | CT ---
EXAMINATION TYPE: CT chest wo con CT DLP: 626.5 mGycm, Automated exposure control for dose reduction was used. DATE OF EXAM: 01/22/2023 7:11 AM COMPARISON: Chest radiograph from 01/21/2023 CLINICAL INDICATION:Male, 77 years old with history of dyspnea; PHH, Dyspnea TECHNIQUE: Multiple axial images were obtained through the chest without IV contrast. Lack of IV or o ral contrast limits evaluation of solid and hollow organ viscera. . Coronal and sagittal reformats re viewed. FINDINGS: LUNGS/ PLEURA: No pleural effusion, pneumothorax, or focal consolidation. Linear scarring and/or atel ectasis within the right lower lobe. Right upper lobe 4 mm pulmonary nodule (series 206, image 18). AIRWAY: Patent and unremarkable.. HEART: The heart is mildly increased in size.. Coronary calcifications and/or stents. Post CABG gibbs es. No pericardial effusion. MEDIASTINUM: No gross evidence of adenopathy. VASCULATURE: Ascending thoracic aortic aneurysm measuring up to 4.4 cm. Atherosclerotic calcificatio n of the aorta and its branches. MUSCULOSKELETAL: No acute osseous abnormalities. Lytic lesion within the T12 vertebral body measuring 1.2 cm with additional partially visualized lytic lesion within the L1 vertebral body. Subcentimeter lytic lesion identified within the posterior lateral aspect of the left fourth rib. Median sternotom y wires. SOFT TISSUES/LYMPH NODES: Unremarkable. LOWER NECK: No significant findings. UPPER ABDOMEN: No significant findings. IMPRESSION: 1. No acute thoracic process. 2. Ascending thoracic aortic aneurysm measuring up to 4.4 cm. 3. Right upper lobe 4 mm pulmonary nodule. In a low-risk patient, no follow-up is recommended. In hig h-risk patient, optional CT chest in 12 months is recommended. 4. Couple of nonspecific lytic lesions identified within the T12 and L1 vertebral bodies and the left fourth rib. Consider further evaluation with nuclear medicine bone scan.
[2023-01-22] MEDS ORDERED: TRIAMCINOLONE 0.1% CREAM 80 GM TUBE TOPICAL PRN (09:00)
[2023-01-22] MEDS ORDERED: AZITHROMYCIN 500 MG in SODIUM CHLORIDE 0.9% 250 ML IVPB SCH ×2 (09:00→14:00)
[2023-01-22] MEDS ORDERED: NON FORMULARY DRUG (Prevagen 1 CAP) PO SCH (09:00)
[2023-01-22] MEDS ORDERED: NON FORMULARY DRUG (Ubidecarenone [Coenzyme Q10] 200 MG Capsule) PO SCH (09:00)
[2023-01-22] MEDS: SYMBICORT 160-4.5 MCG INHALER INHALATION SCH ×2 (09:30→21:51)
[2023-01-22] MEDS: LORATADINE 10 MG TAB PO SCH (09:53)
[2023-01-22] MEDS: APIXABAN 5 MG TAB PO SCH ×2 (09:53→20:16)
[2023-01-22] MEDS: FINASTERIDE 5 MG TAB PO SCH (09:53)
[2023-01-22] MEDS: TAMSULOSIN 0.4 MG CAP.ER.24H PO SCH ×2 (09:53→20:16)
--- NOTE | 2023-01-22 13:49 | P.CRDCN ---
History of Present Illness Consult date: 01/22/23 Reason for Consult (text): Elevated troponin History of present illness: History of present illness: This is a 77-year-old male patient of Dr. Freedman last seen in the office May 2022. Patient has a past medical history of coronary artery disease with CABG and stent of the RCA, hypertension, hyperlipidemia, asthma, hypothyroidism. We have been asked to evaluate the patient for elevated troponins. Patient came into the hospital due to having trouble walking trouble with balance and some lightheadedness and dizziness. Patient states this is been going on for a couple of days. He denies having any chest pain, no heaviness or tightness in his chest. He does complain of a cough that is new and he has been on antibiotics and steroids placed by his primary care physician. Patient's daughter is at bedside and saw the patient about a few days ago and he was at his baseline. Patient apparently had some confusion and change in mental status and was brought in for that reason. He was diagnosed with urinary tract infection. He does complain of burning with urination but no bleeding. He denies any fever or chills. No headache. EKG atrial fibrillation with ventricular rate of 102 Chest x-ray: Hypoventilatory changes. Possible mild pulmonary vascular congestion. Patchy atelectasis versus developing infiltrate at the left base. CAT scan of the brain revealed moderate hydrocephalus. Possible normal pressure hydrocephalus otherwise with no acute intracranial abnormality seen. CT of the chest revealed no acute thoracic process. Ascending thoracic aortic aneurysm measuring 4.4 cm. Right upper lobe 4 mm pulmonary nodule. In a low risk patient, no follow-up is recommended. In a high risk patient option of computed tomography scan in 12 months is recommended. Couple of nonspecific lytic lesions identified in the T12 and L1 vertebrae bodies and left fourth rib. Consider further evaluation with nuclear med scan WBC 3.5, hemoglobin 11.1, PERRLA, 133. Electrolytes normal. BUN 29 creatinine 1.57. Troponin 0.053, 0.103 and 0.102. CK 29. Urinalysis positive for urinary tract infection. Urine drug screen negative. Influenza A, influenza B, RSV, Covid 19 not detected. Home cardiac medications: Eliquis 5 mg twice daily, Lipitor 40 mg daily, Coreg 6.25 mg twice daily, Vasotec 20 g daily, levothyroxine 150 g daily Cardiac catheterization [address] Yulissa Kelsey on severe disease involving the mid RCA and subsequently underwent successful stenting with Dr. Dumont patient was also found to have disease involving the proximal left circumflex coronary artery in the intermediate range and LAD was occluded but protected by the [place]. Lexiscan stress test 04/2022 was negative. Probably normal myocardial perfusion and function. EF 51%. Echocardiogram 05/2021 revealed EF of 55%, mild mitral regurgitation, mild tricuspid regurgitation, pulmonary artery systolic pressure 36 mmHg. Review Of Systems: At the time of my evaluation: Constitutional: No fever, no chills. No weakness, fatigue or lethargy. EENT: No headache. No dizziness. Lungs: No shortness of breath, cough, no sputum production. No wheezing. Cardiovascular: No chest pain, no lower extremity edema. No palpitations. No paroxysmal nocturnal dyspnea. No orthopnea. No lightheadedness or dizziness. No syncopal episodes. Abdominal: No abdominal pain. No nausea, vomiting. No diarrhea. No constipation. No bloody or tarry stools. Genitourinary: No dysuria.. No urinary retention. Musculoskeletal: No myalgias. No muscle weakness, no frequent falls. Integumentary: No wounds. No rash. No unusual bruising. Neurologic: No aphasia. No facial droop. No change in mentation. No head injury. No headache. Physical examination: Gen: This is a 77-year-old male. He is resting in bed and appears to be comfortable and in no acute distress. VS: reviewed HEENT: Head is atraumatic, normocephalic. Pupils equal, round. Sclerae is anicteric. NECK: Supple. No JVD. . LUNGS: Clear to auscultation. No wheezes or rhonchi. No intercostal retractions. HEART: Regular rate and rhythm. No murmur. ABDOMEN: Soft No tenderness. EXTREMITIES: No pedal edema. No calf tenderness. NEUROLOGICAL: Patient is awake, alert and oriented x3. Assessment: Elevated troponinS secondary to urinary tract infection and kidney disease History of coronary artery disease with previous CABG and stenting of the RCA Hypertension Hypothyroidism Hyperlipidemia Plan: Continue patient's cardiac medications Discontinue heparin drip No plan for cardiac workup at this time. Patient may follow-up with Dr. Kelsey in 2-3 weeks for outpatient stress testing once patient's infectious process has been treated. Cardiology will sign off and follow on an as-needed basis. Please reconsult for any new concerns. Thank you kindly for this consultation. Nurse practitioner note has been reviewed, I agree with documented findings and plan of care. Patient was seen and examined. Past Medical History Past Medical History: Asthma, Chest Pain / Angina, Deep Vein Thrombosis (DVT), Hyperlipidemia, Hypertension, Myocardial Infarction ([place]), Prostate Disorder, Thyroid Disorder Additional Past Medical History / Comment(s): ENLARGED PROSTATE,CURRENT CHRONIC UTI, CURRENTLY HAVING CHEST TIGHTNESS WHEN LAYING DOWN AT NIGHTTIME. RT GROIN PUNCTURE SITE-HAD HEMATOMA FROM HEART CATH 06-09-14- STATES "LOOKS GOOD NOW" Last Myocardial Infarction Date:: 2003 History of Any Multi-Drug Resistant Organisms: None Reported Past Surgical History: Coronary Bypass/CABG, Heart Catheterization, Heart Catheterization With Stent, Hernia Repair, Orthopedic Surgery Additional Past Surgical History / Comment(s): CABG-4 VESSEL 2003,UMBILICAL HERNIA REPAIR, RT ANKLE REPLACEMENT,HEART CATH , HEART CATH/ANGIO /STENT PLACEMENT Past Anesthesia/Blood Transfusion Reactions: No Reported Reaction Date of Last Stent Placement:: 06-18-14 Past Psychological History: No Psychological Hx Reported Smoking Status: Unknown if ever smoked Past Alcohol Use History: None Reported Past Drug Use History: None Reported - Past Family History Father Family Medical History: Myocardial Infarction ([place]) Brother(s) Family Medical History: Myocardial Infarction ([place]) Medications and Allergies Home Medications Medication Instructions Recorded Confirmed Type Carvedilol [Coreg] 6.25 mg PO BID 06/08/14 01/21/23 History Dutasteride [Avodart] 0.5 mg PO Q48H 06/08/14 01/21/23 History Montelukast [Singulair] 10 mg PO HS 06/08/14 01/21/23 History Tamsulosin [Flomax] 0.4 mg PO BID 06/08/14 01/21/23 History Apixaban [Eliquis] 5 mg PO BID #70 tab 11/19/18 01/21/23 Rx Acetaminophen Tab [Tylenol Tab] 500 mg PO Q4H PRN 01/21/23 01/21/23 History Amoxicillin 500 mg PO Q8H 01/21/23 01/21/23 History Atorvastatin [Lipitor] 40 mg PO DAILY 01/21/23 01/22/23 History Cetirizine HCl [Zyrtec] 10 mg PO DAILY 01/21/23 01/21/23 History Enalapril [Vasotec] 20 mg PO DAILY 01/21/23 01/22/23 History Fluticasone Propion/Salmeterol 1 puff INHALATION RT-BID 01/21/23 01/22/23 History [Wixela 500-50 Inhub] Ibuprofen [Motrin Ib] 200 mg PO Q4H PRN 01/21/23 01/21/23 History Levothyroxine Sodium [Synthroid] 150 mcg PO DAILY 01/21/23 01/21/23 History Prevagen 1 cap PO DAILY 01/21/23 01/21/23 History Triamcinolone 0.1% Lotion [Kenalog 1 applic TOPICAL DAILY PRN 01/21/23 01/21/23 History 0.1% Lotion] Ubidecarenone [Coenzyme Q10] 200 mg PO DAILY 01/21/23 01/21/23 History Allergies Allergy/AdvReac Type Severity Reaction Status Date / Time No Known Allergies Allergy Verified 01/21/23 17:18 Physical Exam Vitals: Vital Signs Temp Pulse Pulse Resp BP BP Pulse Ox 01/22/23 04:00 97.8 F 59 L 18 133/71 98 01/22/23 02:00 18 01/21/23 23:00 98.0 F 73 18 124/72 99 01/21/23 21:53 82 17 115/80 99 01/21/23 20:00 95 16 129/80 99 01/21/23 18:00 92 18 99 01/21/23 16:52 97 18 154/97 98 01/21/23 16:10 100 20 154/97 97 01/21/23 15:22 99.2 F 108 H 18 178/95 95 Intake and Output 01/21/23 01/22/23 01/22/23 22:59 06:59 14:59 Intake Total 0 Output Total 0 425 Balance 0 -425 Intake: Oral 0 Output: Urine 0 425 Other: Voiding Method Urinal Diaper # Voids 0 1 # Bowel Movements 0 1 Weight 104.326 kg Results 01/22/23 07:06 01/21/23 16:05 Cardiac Enzymes 01/21/23 01/21/23 01/21/23 Range/Units 16:05 16:05 22:06 AST 19 (17-59) U/L Troponin I 0.053 H* 0.103 H* (0.000-0.034) ng/mL 01/22/23 Range/Units 00:50 AST (17-59) U/L Troponin I 0.102 H* (0.000-0.034) ng/mL Coagulation 01/21/23 01/22/23 01/22/23 Range/Units 16:05 07:06 07:06 PT 10.9 11.3 (9.0-12.0) sec APTT 20.2 L 35.7 H (22.0-30.0) sec CBC 01/21/23 01/22/23 Range/Units 16:05 07:06 WBC 3.5 L 7.4 (3.8-10.6) k/uL RBC 3.71 L 3.34 L (4.30-5.90) m/uL Hgb 11.1 L 10.3 L (13.0-17.5) gm/dL Hct 33.3 L 31.4 L (39.0-53.0) % Plt Count 133 L 121 L (150-450) k/uL Comprehensive Metabolic Panel 01/21/23 Range/Units 16:05 Sodium 138 (137-145) mmol/L Potassium 4.1 (3.5-5.1) mmol/L Chloride 104 (98-107) mmol/L Carbon Dioxide 28 (22-30) mmol/L BUN 29 H (9-20) mg/dL Creatinine 1.57 H (0.66-1.25) mg/dL Glucose 121 H (74-99) mg/dL Calcium 8.4 (8.4-10.2) mg/dL AST 19 (17-59) U/L ALT 15 (4-49) U/L Alkaline Phosphatase 59 (38-126) U/L Total Protein 5.4 L (6.3-8.2) g/dL Albumin 3.2 L (3.5-5.0) g/dL Current Medications Generic Name Dose Route Start Last Admin Trade Name Freq PRN Reason Stop Dose Admin Acetaminophen 500 mg 01/21/23 22:59 Acetaminophen Tab 500 Mg Tab PO Q4H PRN Pain or Fever > 100.5 Apixaban 5 mg 01/22/23 09:00 Apixaban 5 Mg Tab PO BID [facility] Protocol Budesonide/Formoterol Fumarate 2 puff 01/22/23 08:00 Symbicort 160-4.5 Mcg Inhaler INHALATION RT-BID [facility] Carvedilol 6.25 mg 01/22/23 07:30 01/22/23 06:32 Carvedilol 6.25 Mg Tab PO 6.25 mg BID-W/MEALS [facility] Administration Finasteride 5 mg 01/22/23 09:00 Finasteride 5 Mg Tab PO Q48H [facility] Heparin Sodium (Porcine) 0 unit 01/21/23 23:37 Heparin Sodium 1,000 Un/Ml (10ml Vl) IV PER PROTOCOL PRN Low PTT Protocol Piperacillin Sod/Tazobactam 100 mls @ 25 mls/hr 01/22/23 00:00 01/22/23 00:03 Sod 3.375 gm/ Sodium Chloride IVPB 25 mls/hr Q8HR TOSHIA Administration Protocol Azithromycin 500 mg/ Sodium 250 mls @ 250 mls/hr 01/22/23 09:00 Chloride IVPB 01/24/23 09:59 DAILY [facility] Protocol Heparin Sodium/Sodium Chloride 250 mls @ 10.005 mls/hr 01/21/23 23:45 01/22/23 00:08 25,000 unit/ Sodium Chloride IV 9.59 units/kg/hr .Q24H TOSHIA 10.005 mls/hr Administration Protocol 9.59 UNITS/KG/HR Ibuprofen 200 mg 01/21/23 22:59 Ibuprofen 200 Mg Tab PO Q4H PRN Pain or Fever > 100.5 Levothyroxine Sodium 150 mcg 01/22/23 06:30 01/22/23 06:32 Levothyroxine 75 Mcg Tab PO 150 mcg DAILY@0630 [facility] Administration Loratadine 10 mg 01/22/23 09:00 Loratadine 10 Mg Tab PO DAILY [facility] Montelukast Sodium 10 mg 01/22/23 21:00 Montelukast 10 Mg Tab PO HS [facility] Naloxone HCl 0.2 mg 01/21/23 20:04 Naloxone 0.4 Mg/Ml 1 Ml Vial IV Q2M PRN Opioid Reversal Tamsulosin HCl 0.4 mg 01/22/23 09:00 Tamsulosin 0.4 Mg Cap.Er.24h PO BID [facility] Triamcinolone Acetonide 1 applic 05/09/23 09:00 Triamcinolone 0.1% Cream 80 Gm Tube TOPICAL DAILY PRN irritation Intake and Output 01/21/23 01/22/23 01/22/23 22:59 06:59 14:59 Intake Total 0 Output Total 0 425 Balance 0 -425 Intake: Oral 0 Output: Urine 0 425 Other: Voiding Method Urinal Diaper # Voids 0 1 # Bowel Movements 0 1 Weight 104.326 kg 01/22/23 07:06 01/21/23 16:05
--- NOTE | 2023-01-22 14:34 | P.CNNES ---
History of Present Illness Consult date: 01/22/23 Requesting physician: Billy Corado Reason for Consult: normal pressure hydrocephalus History of Present Illness: This is a 77-year-old gentleman who presented emergency department because of altered mental status. Patient is accompanied with his daughter helps with some of the history. Patient's daughter and the patient resides in the same house. According to patient he felt lightheaded when he stood up and walked. He denies any nausea any vomiting any focal weakness numbness visual disturbance difficulty swallowing. Per the daughter he was sometimes somewhat confused yesterday but drastically improved today. The patient daughter stated that the patient has a wobbling walk-in for the last 6 month and had one episode of a fall that was probably about 6 months ago. Patient has urinary incontinence for the last 1 month. No confusion episodes at home other than that yesterday. No history of seizure. Again the daughter feels the patient's mentation is drastically improved. Yesterday patient had CT of the head and the was suggestive of possible normal pressure hydrocephalus. The ED physician freezer assistant discussed the case with me yesterday and she stated that the she attempted to transfer the patient for neurosurgical evaluation but was notified by the neurosurgeon that that it's an outpatient workup. I did agree with the neurosurgeon that for the NPH it as an outpatient workup. Some of the workup during his hospital visit consisted of: Creatinine is 1.57, AST and ALT, sodium, calcium are within normal limits. Urine analysis C2 suggestive of possible urinary tract infection. Urine drug screen is negative CT of the head is reported as moderate hydrocephalus. Possible normal pressure hydrocephalus with evens ratio calculated at the points 40. Appropriate follow- up recommended. Otherwise no acute intracranial abnormality seen. I personally reviewed the CT and I agree with the report. Review of Systems Review of system: The 12 point system was reviewed and apparent positive and negative per HPI. Past Medical History Past Medical History: Asthma, Chest Pain / Angina, Deep Vein Thrombosis (DVT), Hyperlipidemia, Hypertension, Myocardial Infarction ([place]), Prostate Disorder, Thyroid Disorder Additional Past Medical History / Comment(s): ENLARGED PROSTATE,CURRENT CHRONIC UTI, CURRENTLY HAVING CHEST TIGHTNESS WHEN LAYING DOWN AT NIGHTTIME. RT GROIN PUNCTURE SITE-HAD HEMATOMA FROM HEART CATH 06-09-14- STATES "LOOKS GOOD NOW" Last Myocardial Infarction Date:: 2003 History of Any Multi-Drug Resistant Organisms: None Reported Past Surgical History: Coronary Bypass/CABG, Heart Catheterization, Heart Catheterization With Stent, Hernia Repair, Orthopedic Surgery Additional Past Surgical History / Comment(s): CABG-4 VESSEL 2003,UMBILICAL HERNIA REPAIR, RT ANKLE REPLACEMENT,HEART CATH , HEART CATH/ANGIO /STENT PLACEMENT Past Anesthesia/Blood Transfusion Reactions: No Reported Reaction Date of Last Stent Placement:: 06-18-14 Past Psychological History: No Psychological Hx Reported Smoking Status: Unknown if ever smoked Past Alcohol Use History: None Reported Past Drug Use History: None Reported - Past Family History Father Family Medical History: Myocardial Infarction ([place]) Brother(s) Family Medical History: Myocardial Infarction ([place]) Medications and Allergies Home Medications Medication Instructions Recorded Confirmed Type Carvedilol [Coreg] 6.25 mg PO BID 06/08/14 01/21/23 History Dutasteride [Avodart] 0.5 mg PO Q48H 06/08/14 01/21/23 History Montelukast [Singulair] 10 mg PO HS 06/08/14 01/21/23 History Tamsulosin [Flomax] 0.4 mg PO BID 06/08/14 01/21/23 History Apixaban [Eliquis] 5 mg PO BID #70 tab 11/19/18 01/21/23 Rx Acetaminophen Tab [Tylenol Tab] 500 mg PO Q4H PRN 01/21/23 01/21/23 History Amoxicillin 500 mg PO Q8H 01/21/23 01/21/23 History Atorvastatin [Lipitor] 40 mg PO DAILY 01/21/23 01/22/23 History Cetirizine HCl [Zyrtec] 10 mg PO DAILY 01/21/23 01/21/23 History Enalapril [Vasotec] 20 mg PO DAILY 01/21/23 01/22/23 History Fluticasone Propion/Salmeterol 1 puff INHALATION RT-BID 01/21/23 01/22/23 History [Wixela 500-50 Inhub] Ibuprofen [Motrin Ib] 200 mg PO Q4H PRN 01/21/23 01/21/23 History Levothyroxine Sodium [Synthroid] 150 mcg PO DAILY 01/21/23 01/21/23 History Prevagen 1 cap PO DAILY 01/21/23 01/21/23 History Triamcinolone 0.1% Lotion [Kenalog 1 applic TOPICAL DAILY PRN 01/21/23 01/21/23 History 0.1% Lotion] Ubidecarenone [Coenzyme Q10] 200 mg PO DAILY 01/21/23 01/21/23 History Allergies Allergy/AdvReac Type Severity Reaction Status Date / Time No Known Allergies Allergy Verified 01/21/23 17:18 Physical Examination - Vital Signs Vital Signs: Vital Signs Temp Pulse Pulse Resp BP BP Pulse Ox 01/22/23 12:00 98.1 F 71 18 119/74 98 01/22/23 08:00 98.3 F 61 18 107/62 99 01/22/23 04:00 97.8 F 59 L 18 133/71 98 01/22/23 02:00 18 01/21/23 23:00 98.0 F 73 18 124/72 99 01/21/23 21:53 82 17 115/80 99 01/21/23 20:00 95 16 129/80 99 01/21/23 18:00 92 18 99 01/21/23 16:52 97 18 154/97 98 01/21/23 16:10 100 20 154/97 97 01/21/23 15:22 99.2 F 108 H 18 178/95 95 Intake and Output 01/21/23 01/22/23 01/22/23 22:59 06:59 14:59 Intake Total 0 10 Output Total 0 425 Balance 0 -425 10 Intake: IV 10 Invasive Line 2 10 Oral 0 Output: Urine 0 425 Other: Voiding Method Urinal Urinal Diaper Diaper # Voids 0 1 # Bowel Movements 0 1 Weight 104.326 kg GENERAL: The patient is lying in bed and is not in acute distress. CHEST: The heart rate is regular rate rhythm. No murmurs to auscultation. LUNG: Clear to auscultation bilaterally no wheezing noted throughout. Not labored breathing. ABDOMEN/GI: Bowel sounds present in all 4 quadrants. No tenderness to palpation throughout. NEUROLOGICAL: Higher mental function: The patient is awake, alert, oriented to self, place. Correctly stated the current year. With options he chose the current month. Patient is following commands. No aphasia and no neglect. Cranial nerves: The pupils are round, equal and reactive to light and accommodation. Visual noel are full to confrontation throughout. Extraocular movement is intact no nystagmus is noted. Facial sensation is normal to touch throughout. The facial strength is normal throughout. Hearing is mildly to moderately decreased bilaterally to hand rub. Tongue is midline and moved [id number] without any difficulty. No dysarthria is noted. Shoulder shrug is normal bilaterally. Motor: Gait is mildly slow. The strength is 5 over 5 throughout. Normal tone and bulk. Cerebellum: Normal finger to nose heel to chin bilaterally. Sensation: Sensation is normal to touch throughout. Reflexes (right/left): 1+ throughout. Plantars are mute bilaterally. Results - Laboratory Findings CBC and BMP: 01/22/23 07:06 01/21/23 16:05 Abnormal Lab Findings: Abnormal Labs 01/21/23 01/21/23 01/21/23 16:05 16:05 16:05 WBC 3.5 L RBC 3.71 L Hgb 11.1 L Hct 33.3 L Plt Count 133 L Lymphocytes # Lymphocytes # (Manual) 0.25 L Myelocytes # (Manual) 0.04 H APTT 20.2 L D-Dimer BUN Creatinine Glucose POC Glucose (mg/dL) Total Bilirubin Creatine Kinase Troponin I Total Protein Albumin Urine Protein 1+ H Urine Blood Small H Ur Leukocyte Esterase Large H Urine RBC 6 H Urine WBC >182 H Urine WBC Clumps Few H Urine Bacteria Many H Urine Mucus Rare H 01/21/23 01/21/23 01/21/23 16:05 16:05 16:14 WBC RBC Hgb Hct Plt Count Lymphocytes # Lymphocytes # (Manual) Myelocytes # (Manual) APTT D-Dimer BUN 29 H Creatinine 1.57 H Glucose 121 H POC Glucose (mg/dL) 120 H Total Bilirubin 2.7 H Creatine Kinase 29 L Troponin I 0.053 H* Total Protein 5.4 L Albumin 3.2 L Urine Protein Urine Blood Ur Leukocyte Esterase Urine RBC Urine WBC Urine WBC Clumps Urine Bacteria Urine Mucus 01/21/23 01/22/23 01/22/23 22:06 00:50 00:50 WBC RBC Hgb Hct Plt Count Lymphocytes # Lymphocytes # (Manual) Myelocytes # (Manual) APTT D-Dimer 1.50 H BUN Creatinine Glucose POC Glucose (mg/dL) Total Bilirubin Creatine Kinase Troponin I 0.103 H* 0.102 H* Total Protein Albumin Urine Protein Urine Blood Ur Leukocyte Esterase Urine RBC Urine WBC Urine WBC Clumps Urine Bacteria Urine Mucus 01/22/23 01/22/23 07:06 07:06 WBC RBC 3.34 L Hgb 10.3 L Hct 31.4 L Plt Count 121 L Lymphocytes # 0.5 L Lymphocytes # (Manual) Myelocytes # (Manual) APTT 35.7 H D-Dimer BUN Creatinine Glucose POC Glucose (mg/dL) Total Bilirubin Creatine Kinase Troponin I Total Protein Albumin Urine Protein Urine Blood Ur Leukocyte Esterase Urine RBC Urine WBC Urine WBC Clumps Urine Bacteria Urine Mucus Assessment and Plan Assessment: Probable normal pressure hydrocephalus (per daughter wobbly gait for past 6 month, urinary incontinence for 1 month) Likely underlying urinary tract infection Altered mental status seems due to underlying acute UTI as well as metabolic encephalopathy--mentation improved Plan: I ordered MRI of the brain without. I highly recommend the patient to follow-up with neurologist and neurosurgery as outpatient within 1-2 weeks for Normal pressure hydrocephalus. Recommend a large volume tap and if there is improvement to pursue with the [employer] shunt as outpatient. We'll defer the rest of the medical measure the primary team The plan is discussed with patient and his daughter who is at bedside. Thank you for the consultation Arthur Lee M.D. Time with Patient: Greater than 30
[2023-01-22] MEDS: MONTELUKAST 10 MG TAB PO SCH (20:16)
--- NOTE | 2023-01-22 20:35 | P.CONS ---
History of Present Illness - Reason for Consult Consult date: 01/22/23 - History of Present Illness Patient is a 77-year-old male with a past medical history significant for asthma hypertension hyperlipidemia DVT [place] prostate disorder patient has been brought into the ER yesterday afternoon for evaluation of mental status changes apparently the patient went over to visit the patient and he was noted to be extremely lethargic patient apparently has been complaining of URI symptoms that been going on for about a week and the patient subsequently has developed an cough which has been moderate intensity with occasional sputum production hemoptysis no pleuritic chest pain patient denies any nausea vomiting abdominal pain or any diarrhea on presentation to the hospital did have a low-grade fever of 99.2 patient did have a white count of 3.5 BUN/creatinine was mildly elevated liver enzymes are normal troponin was elevated he did have a positive UA urine testing was negative patient did have a chest x-ray hypoventilatory changes possible mild pulmonary vascular congestion and concern for possible developing infiltrate left base CT of the chest no acute thoracic process ascending thoracic aortic aneurysm and right upper lobe nodule patient has been treated with the Zosyn and Zithromax infectious disease was consulted for further management of antibiotic therapy Past Medical History Past Medical History: Asthma, Chest Pain / Angina, Deep Vein Thrombosis (DVT), Hyperlipidemia, Hypertension, Myocardial Infarction ([place]), Prostate Disorder, Thyroid Disorder Additional Past Medical History / Comment(s): ENLARGED PROSTATE,CURRENT CHRONIC UTI, CURRENTLY HAVING CHEST TIGHTNESS WHEN LAYING DOWN AT NIGHTTIME. RT GROIN PUNCTURE SITE-HAD HEMATOMA FROM HEART CATH 06-09-14- STATES "LOOKS GOOD NOW" Last Myocardial Infarction Date:: 2003 History of Any Multi-Drug Resistant Organisms: None Reported Past Surgical History: Coronary Bypass/CABG, Heart Catheterization, Heart Catheterization With Stent, Hernia Repair, Orthopedic Surgery Additional Past Surgical History / Comment(s): CABG-4 VESSEL 2003,UMBILICAL H ERNIA REPAIR, RT ANKLE REPLACEMENT,HEART CATH , HEART CATH/ANGIO /STENT PLACEMENT Past Anesthesia/Blood Transfusion Reactions: No Reported Reaction Date of Last Stent Placement:: 06-18-14 Past Psychological History: No Psychological Hx Reported Smoking Status: Unknown if ever smoked Past Alcohol Use History: None Reported Past Drug Use History: None Reported - Past Family History Father Family Medical History: Myocardial Infarction ([place]) Brother(s) Family Medical History: Myocardial Infarction ([place]) Medications and Allergies Home Medications Medication Instructions Recorded Confirmed Type Carvedilol [Coreg] 6.25 mg PO BID 06/08/14 01/21/23 History Dutasteride [Avodart] 0.5 mg PO Q48H 06/08/14 01/21/23 History Montelukast [Singulair] 10 mg PO HS 06/08/14 01/21/23 History Tamsulosin [Flomax] 0.4 mg PO BID 06/08/14 01/21/23 History Apixaban [Eliquis] 5 mg PO BID #70 tab 11/19/18 01/21/23 Rx Acetaminophen Tab [Tylenol Tab] 500 mg PO Q4H PRN 01/21/23 01/21/23 History Amoxicillin 500 mg PO Q8H 01/21/23 01/21/23 History Atorvastatin [Lipitor] 40 mg PO DAILY 01/21/23 01/22/23 History Cetirizine HCl [Zyrtec] 10 mg PO DAILY 01/21/23 01/21/23 History Enalapril [Vasotec] 20 mg PO DAILY 01/21/23 01/22/23 History Fluticasone Propion/Salmeterol 1 puff INHALATION RT-BID 01/21/23 01/22/23 History [Wixela 500-50 Inhub] Ibuprofen [Motrin Ib] 200 mg PO Q4H PRN 01/21/23 01/21/23 History Levothyroxine Sodium [Synthroid] 150 mcg PO DAILY 01/21/23 01/21/23 History Prevagen 1 cap PO DAILY 01/21/23 01/21/23 History Triamcinolone 0.1% Lotion [Kenalog 1 applic TOPICAL DAILY PRN 01/21/23 01/21/23 History 0.1% Lotion] Ubidecarenone [Coenzyme Q10] 200 mg PO DAILY 01/21/23 01/21/23 History Allergies Allergy/AdvReac Type Severity Reaction Status Date / Time No Known Allergies Allergy Verified 01/21/23 17:18 Physical Exam Vitals: Vital Signs Temp Pulse Pulse Resp BP BP Pulse Ox 01/22/23 04:00 97.8 F 59 L 18 133/71 98 01/22/23 02:00 18 01/21/23 23:00 98.0 F 73 18 124/72 99 01/21/23 21:53 82 17 115/80 99 01/21/23 20:00 95 16 129/80 99 01/21/23 18:00 92 18 99 01/21/23 16:52 97 18 154/97 98 01/21/23 16:10 100 20 154/97 97 01/21/23 15:22 99.2 F 108 H 18 178/95 95 Intake and Output 01/21/23 01/22/23 01/22/23 22:59 06:59 14:59 Intake Total 0 Output Total 0 425 Balance 0 -425 Intake: Oral 0 Output: Urine 0 425 Other: Voiding Method Urinal Diaper # Voids 0 1 # Bowel Movements 0 1 Weight 104.326 kg Results CBC & Chem 7: 01/22/23 07:06 01/21/23 16:05 Labs: Abnormal Lab Results - Last 24 Hours (Table) 01/21/23 01/21/23 01/21/23 Range/Units 16:05 16:05 16:05 WBC 3.5 L (3.8-10.6) k/uL RBC 3.71 L (4.30-5.90) m/uL Hgb 11.1 L (13.0-17.5) gm/dL Hct 33.3 L (39.0-53.0) % Plt Count 133 L (150-450) k/uL Lymphocytes # (1.0-4.8) k/uL Lymphocytes # (Manual) 0.25 L (1.0-4.8) k/uL Myelocytes # (Manual) 0.04 H (0) k/uL APTT 20.2 L (22.0-30.0) sec D-Dimer (<0.60) mg/L FEU BUN (9-20) mg/dL Creatinine (0.66-1.25) mg/dL Glucose (74-99) mg/dL POC Glucose (mg/dL) (70-110) mg/dL Total Bilirubin (0.2-1.3) mg/dL Creatine Kinase (55-170) U/L Troponin I (0.000-0.034) ng/mL Total Protein (6.3-8.2) g/dL Albumin (3.5-5.0) g/dL Urine Protein 1+ H (Negative) Urine Blood Small H (Negative) Ur Leukocyte Esterase Large H (Negative) Urine RBC 6 H (0-5) /hpf Urine WBC >182 H (0-5) /hpf Urine WBC Clumps Few H (None) /hpf Urine Bacteria Many H (None) /hpf Urine Mucus Rare H (None) /hpf 01/21/23 01/21/23 01/21/23 Range/Units 16:05 16:05 16:14 WBC (3.8-10.6) k/uL RBC (4.30-5.90) m/uL Hgb (13.0-17.5) gm/dL Hct (39.0-53.0) % Plt Count (150-450) k/uL Lymphocytes # (1.0-4.8) k/uL Lymphocytes # (Manual) (1.0-4.8) k/uL Myelocytes # (Manual) (0) k/uL APTT (22.0-30.0) sec D-Dimer (<0.60) mg/L FEU BUN 29 H (9-20) mg/dL Creatinine 1.57 H (0.66-1.25) mg/dL Glucose 121 H (74-99) mg/dL POC Glucose (mg/dL) 120 H (70-110) mg/dL Total Bilirubin 2.7 H (0.2-1.3) mg/dL Creatine Kinase 29 L (55-170) U/L Troponin I 0.053 H* (0.000-0.034) ng/mL Total Protein 5.4 L (6.3-8.2) g/dL Albumin 3.2 L (3.5-5.0) g/dL Urine Protein (Negative) Urine Blood (Negative) Ur Leukocyte Esterase (Negative) Urine RBC (0-5) /hpf Urine WBC (0-5) /hpf Urine WBC Clumps (None) /hpf Urine Bacteria (None) /hpf Urine Mucus (None) /hpf 01/21/23 01/22/23 01/22/23 Range/Units 22:06 00:50 00:50 WBC (3.8-10.6) k/uL RBC (4.30-5.90) m/uL Hgb (13.0-17.5) gm/dL Hct (39.0-53.0) % Plt Count (150-450) k/uL Lymphocytes # (1.0-4.8) k/uL Lymphocytes # (Manual) (1.0-4.8) k/uL Myelocytes # (Manual) (0) k/uL APTT (22.0-30.0) sec D-Dimer 1.50 H (<0.60) mg/L FEU BUN (9-20) mg/dL Creatinine (0.66-1.25) mg/dL Glucose (74-99) mg/dL POC Glucose (mg/dL) (70-110) mg/dL Total Bilirubin (0.2-1.3) mg/dL Creatine Kinase (55-170) U/L Troponin I 0.103 H* 0.102 H* (0.000-0.034) ng/mL Total Protein (6.3-8.2) g/dL Albumin (3.5-5.0) g/dL Urine Protein (Negative) Urine Blood (Negative) Ur Leukocyte Esterase (Negative) Urine RBC (0-5) /hpf Urine WBC (0-5) /hpf Urine WBC Clumps (None) /hpf Urine Bacteria (None) /hpf Urine Mucus (None) /hpf 01/22/23 01/22/23 Range/Units 07:06 07:06 WBC (3.8-10.6) k/uL RBC 3.34 L (4.30-5.90) m/uL Hgb 10.3 L (13.0-17.5) gm/dL Hct 31.4 L (39.0-53.0) % Plt Count 121 L (150-450) k/uL Lymphocytes # 0.5 L (1.0-4.8) k/uL Lymphocytes # (Manual) (1.0-4.8) k/uL Myelocytes # (Manual) (0) k/uL APTT 35.7 H (22.0-30.0) sec D-Dimer (<0.60) mg/L FEU BUN (9-20) mg/dL Creatinine (0.66-1.25) mg/dL Glucose (74-99) mg/dL POC Glucose (mg/dL) (70-110) mg/dL Total Bilirubin (0.2-1.3) mg/dL Creatine Kinase (55-170) U/L Troponin I (0.000-0.034) ng/mL Total Protein (6.3-8.2) g/dL Albumin (3.5-5.0) g/dL Urine Protein (Negative) Urine Blood (Negative) Ur Leukocyte Esterase (Negative) Urine RBC (0-5) /hpf Urine WBC (0-5) /hpf Urine WBC Clumps (None) /hpf Urine Bacteria (None) /hpf Urine Mucus (None) /hpf Microbiology - Last 24 Hours (Table) 01/21/23 16:05 Urine Culture - Preliminary Urine,Voided Assessment and Plan Plan: 1patient was in the hospital mental status changes weakness lethargy with initial concern for possible pneumonia as the patient did have some respiratory symptoms however the patient did have a chest x-ray as well as CT of the chest that has been negative for acute infiltrate did have a positive UA and high clinical suspicion for possible UTI/pyelonephritis 2-positive blood culture gram-negative bacilli likely urinary source 3-we will obtain ultrasound of the kidney bladder area to rule out obstructive uropathy 4-discontinue Zosyn and Zithromax 5-start the patient Rocephin 2 g daily while waiting for the culture to finalize We will follow on clinical condition and cultures to further adjust medication if needed Thank you for this consultation we will follow the patient along with you Time with Patient: Greater than 30
[2023-01-23] MEDS: LEVOTHYROXINE 75 MCG TAB PO SCH (06:00)
[2023-01-23] MEDS: carvediloL 6.25 MG TAB PO SCH ×2 (06:00→16:48)
[2023-01-23] MEDS: LORATADINE 10 MG TAB PO SCH (08:25)
[2023-01-23] MEDS: APIXABAN 5 MG TAB PO SCH ×2 (08:25→20:35)
[2023-01-23] MEDS: TAMSULOSIN 0.4 MG CAP.ER.24H PO SCH ×2 (08:25→20:35)
[2023-01-23] MEDS: SYMBICORT 160-4.5 MCG INHALER INHALATION SCH ×2 (08:33→18:46)
--- NOTE | 2023-01-23 08:49 | US ---
EXAMINATION TYPE: US kidneys/renal and bladder DATE OF EXAM: 01/23/2023 COMPARISON: NONE CLINICAL INDICATION: Male, 77 years old with history of uti and bacteremia; UTI and bacteremia. EXAM MEASUREMENTS: Right Kidney: 10.7 x 6.3 x 5.0 cm Left Kidney: 9.7 x 4.8 x 5.4 cm Multiple grayscale and color Doppler ultrasound images of the kidneys and urinary bladder are obtaine d. Right Kidney: No hydronephrosis or masses seen Left Kidney: No hydronephrosis or masses seen Bladder: Limited, not fully distended. Bilateral Jets seen: Not seen during exam. Limited evaluation due to bladder not being fully disten ded. Prominent prostate seen in bladder imaging. Prostate measures: 6.4 x 6.6 x 6.1 cm. No hydronephrosis, solid mass, or nephrolithiasis identified involving both kidneys. Limited evaluati on urinary bladder due to under distention. No ureteral jets identified. Enlarged prostate gland iden tified which indents upon the urinary bladder base. IMPRESSION: 1. No hydronephrosis or nephrolithiasis. 2. Limited evaluation of the urinary bladder due to under distention. 3. Prostatomegaly. Correlate with PSA values.
--- NOTE | 2023-01-23 11:59 | MR ---
EXAMINATION TYPE: MR brain wo con DATE OF EXAM: 01/23/2023 COMPARISON: CT brain from 2 days earlier. HISTORY: Altered Mental Status TECHNIQUE: Multiplanar, multisequence imaging of the brain and brainstem is performed without IV cont rast. FINDINGS: Diffusion weighted images demonstrate no evidence of a recent infarct or other diffusion abnormality. Prominent ventricular system is redemonstrated greater than degree of sulcal effacement. No fourth ve ntricle dilatation is noted. There are foci of T2 hyperintensity in the white matter that are conflue nt at the periventricular levels presumed product of ependymal flow of CSF. Midline structures demonstrate thinning of the corpus callosum. The craniocervical junction appears within normal limits. Normal vascular flow voids are present. [id number] mucosal thickening inv olving the bilateral maxillary sinuses and ethmoid sinuses is seen. IMPRESSION: No MRI evidence for recent infarct. Moderate normal pressure hydrocephalus redemonstrated . Correlation with old outside CT or MRI would be beneficial. Underlying mild chronic small vessel is chemic change is felt present.
--- NOTE | 2023-01-23 14:52 | P.PN ---
Subjective Progress Note Date: 01/23/23 Principal diagnosis: Urinary tract infection and bacteremia Patient is a 77-year-old male with a past medical history significant for asthma hypertension hyperlipidemia DVT [place] prostate disorder patient has been brought into the ER for mental status changes weakness cough with initial concern for possible pneumonia patient also have a positive UA and blood cultures came back positive with E. coli. On today's evaluation that is 01/23/2023, the patient denies having any fever or any chills he is breathing comfortably on room air patient denies having any chest pain occasional cough no nausea no vomiting no abdominal pain and no diarrhea Objective - Vital Signs Vital signs: Vital Signs Temp 98.2 F 01/23/23 08:18 Pulse 66 01/23/23 13:05 Resp 18 01/23/23 11:35 BP 134/66 01/23/23 11:35 Pulse Ox 98 01/23/23 11:35 FiO2 Intake & Output 01/22/23 01/23/23 01/23/23 18:59 06:59 18:59 Intake Total 710 118 Output Total 350 Balance 710 -350 118 Intake: IV 10 Invasive Line 2 10 Oral 700 118 Output: Urine 350 Other: Voiding Method Urinal Urinal Toilet Diaper Diaper Urinal Diaper # Voids 3 2 # Bowel Movements 1 1 - Exam GENERAL DESCRIPTION: An elderly male lying in bed in no distress RESPIRATORY SYSTEM: Unlabored breathing , decreased breath sounds at bases HEART: S1 S2 regular rate and rhythm , ABDOMEN: Soft , no tenderness EXTREMITIES: No edema feet - Labs CBC & Chem 7: 01/22/23 07:06 01/21/23 16:05 Labs: Abnormal Lab Results - Last 24 Hours (Table) 01/23/23 01/23/23 Range/Units 07:24 07:24 C-Reactive Protein 12.1 H (<1.0) mg/dL Procalcitonin 69.90 H (0.02-0.09) ng/mL Microbiology - Last 24 Hours (Table) 01/21/23 16:05 Urine Culture - Preliminary Urine,Voided Gram Neg Bacilli 01/21/23 20:05 Blood Culture Gram Stain - Preliminary Blood Blood Culture - Preliminary Escherichia coli Assessment and Plan (1) E coli bacteremia Current Visit: Yes Status: Acute Code(s): R78.81 - BACTEREMIA; B96.20 - UNSP ESCHERICHIA COLI THE CAUSE OF DISEASES CLASSD [id number] SNOMED Code(s): 999731296571 (2) UTI (urinary tract infection) Current Visit: Yes Status: Acute Code(s): N39.0 - URINARY TRACT INFECTION, SITE NOT SPECIFIED SNOMED Code(s): 58974607 Plan: 1patient was in the hospital mental status changes weakness lethargy with initial concern for possible pneumonia as the patient did have some respiratory symptoms however the patient did have a chest x-ray as well as CT of the chest that has been negative for acute infiltrate did have a positive UA and high clinical suspicion for possible UTI/pyelonephritis 2-positive blood culture E. coli likely urinary source 3-ultrasound of the kidney bladder area did not show any hydronephrosis 4Patient to continue Rocephin 2 g daily and monitor clinical course closely Time with Patient: Less than 30
--- NOTE | 2023-01-23 15:41 | P.CNPUL ---
History of Present Illness Consult date: 01/22/23 Reason for consult: dyspnea, cough, other Chief complaint: Altered mental status History of present illness: Patient is a 77-year-old male with multiple complex medical issues and problem patient was admitted into hospital with altered mental status x-ray was abnormal with suggestion of left lower lobe atelectasis or pneumonia I was asked to evaluate the patient, patient is arousable still slightly confused but more or less oriented there is a family member present at bedside most of the data obtained from her however his baseline problems includes coronary artery disease status post CABG with history of stent placement, hypertension hypertensive cardiovascular disease, dyslipidemia, asthma and COPD patient was brought into hospital due to confusion and weakness also having component of dizziness lightheadedness his urine analysis suggestive of infectious etiology chest x-ray suggestive of possible left lower lobe pneumonia versus atelectasis however computed tomography scan of the chest is unremarkable except finding of lytic lesion in the lower thoracic vertebra for which a bone scan has been ordered patient is being treated with bronchodilators as well as broad-spectrum antibiotics and rehydration with progressive improvement. Urine for drug screen as well as influenza A and B RSV and cord has been negative Review of Systems All systems: negative Past Medical History Past Medical History: Asthma, Chest Pain / Angina, Deep Vein Thrombosis (DVT), Hyperlipidemia, Hypertension, Myocardial Infarction ([place]), Prostate Disorder, Thyroid Disorder Additional Past Medical History / Comment(s): ENLARGED PROSTATE,CURRENT CHRONIC UTI, CURRENTLY HAVING CHEST TIGHTNESS WHEN LAYING DOWN AT NIGHTTIME. RT GROIN PUNCTURE SITE-HAD HEMATOMA FROM HEART CATH 06-09-14- STATES "LOOKS GOOD NOW" Last Myocardial Infarction Date:: 2003 History of Any Multi-Drug Resistant Organisms: None Reported Past Surgical History: Coronary Bypass/CABG, Heart Catheterization, Heart Catheterization With Stent, Hernia Repair, Orthopedic Surgery Additional Past Surgical History / Comment(s): CABG-4 VESSEL 2003,UMBILICAL HERNIA REPAIR, RT ANKLE REPLACEMENT,HEART CATH , HEART CATH/ANGIO /STENT PLACEMENT Past Anesthesia/Blood Transfusion Reactions: No Reported Reaction Date of Last Stent Placement:: 06-18-14 Past Psychological History: No Psychological Hx Reported Smoking Status: Unknown if ever smoked Past Alcohol Use History: None Reported Past Drug Use History: None Reported - Past Family History Father Family Medical History: Myocardial Infarction ([place]) Brother(s) Family Medical History: Myocardial Infarction ([place]) Medications and Allergies Home Medications Medication Instructions Recorded Confirmed Type Carvedilol [Coreg] 6.25 mg PO BID 06/08/14 01/21/23 History Dutasteride [Avodart] 0.5 mg PO Q48H 06/08/14 01/21/23 History Montelukast [Singulair] 10 mg PO HS 06/08/14 01/21/23 History Tamsulosin [Flomax] 0.4 mg PO BID 06/08/14 01/21/23 History Apixaban [Eliquis] 5 mg PO BID #70 tab 11/19/18 01/21/23 Rx Acetaminophen Tab [Tylenol Tab] 500 mg PO Q4H PRN 01/21/23 01/21/23 History Amoxicillin 500 mg PO Q8H 01/21/23 01/21/23 History Atorvastatin [Lipitor] 40 mg PO DAILY 01/21/23 01/22/23 History Cetirizine HCl [Zyrtec] 10 mg PO DAILY 01/21/23 01/21/23 History Enalapril [Vasotec] 20 mg PO DAILY 01/21/23 01/22/23 History Fluticasone Propion/Salmeterol 1 puff INHALATION RT-BID 01/21/23 01/22/23 History [Wixela 500-50 Inhub] Ibuprofen [Motrin Ib] 200 mg PO Q4H PRN 01/21/23 01/21/23 History Levothyroxine Sodium [Synthroid] 150 mcg PO DAILY 01/21/23 01/21/23 History Prevagen 1 cap PO DAILY 01/21/23 01/21/23 History Triamcinolone 0.1% Lotion [Kenalog 1 applic TOPICAL DAILY PRN 01/21/23 01/21/23 History 0.1% Lotion] Ubidecarenone [Coenzyme Q10] 200 mg PO DAILY 01/21/23 01/21/23 History Allergies Allergy/AdvReac Type Severity Reaction Status Date / Time No Known Allergies Allergy Verified 01/21/23 17:18 Physical Exam Vitals: Vital Signs Temp Pulse Pulse Resp BP BP Pulse Ox 01/22/23 12:00 98.1 F 71 18 119/74 98 01/22/23 08:00 98.3 F 61 18 107/62 99 01/22/23 04:00 97.8 F 59 L 18 133/71 98 01/22/23 02:00 18 01/21/23 23:00 98.0 F 73 18 124/72 99 01/21/23 21:53 82 17 115/80 99 01/21/23 20:00 95 16 129/80 99 01/21/23 18:00 92 18 99 01/21/23 16:52 97 18 154/97 98 01/21/23 16:10 100 20 154/97 97 01/21/23 15:22 99.2 F 108 H 18 178/95 95 Intake and Output 01/21/23 01/22/23 01/22/23 22:59 06:59 14:59 Intake Total 0 10 Output Total 0 425 Balance 0 -425 10 Intake: IV 10 Invasive Line 2 10 Oral 0 Output: Urine 0 425 Other: Voiding Method Urinal Urinal Diaper Diaper # Voids 0 1 # Bowel Movements 0 1 Weight 104.326 kg - Constitutional General appearance: average body habitus, cooperative, disheveled, mild distress - EENT Eyes: EOMI, PERRLA, normal appearance ENT: normal oropharynx Ears: bilateral: normal - Neck Neck: normal ROM Carotids: bilateral: upstroke normal Thyroid: bilateral: normal size - Respiratory Respiratory: bilateral: diminished - Cardiovascular Rhythm: regular Heart sounds: normal: S1, S2 - Gastrointestinal General gastrointestinal: normal bowel sounds, soft - Integumentary +3 chronic edema of the lower extremity Integumentary: normal - Neurologic Neurologic: CNII-XII intact - Musculoskeletal Musculoskeletal: gait normal, generalized weakness, strength equal bilaterally - Psychiatric Psychiatric: A&O x's 3, appropriate affect, intact judgment & insight Results - Laboratory Findings CBC and BMP: 01/22/23 07:06 01/21/23 16:05 PT/INR, D-dimer PT 11.3 sec (9.0-12.0) 01/22/23 07:06 INR 1.1 (<1.2) 01/22/23 07:06 D-Dimer 1.50 mg/L FEU (<0.60) H 01/22/23 00:50 Abnormal lab findings: Abnormal Labs 01/21/23 01/21/23 01/21/23 16:05 16:05 16:05 WBC 3.5 L RBC 3.71 L Hgb 11.1 L Hct 33.3 L Plt Count 133 L Lymphocytes # Lymphocytes # (Manual) 0.25 L Myelocytes # (Manual) 0.04 H APTT 20.2 L D-Dimer BUN Creatinine Glucose POC Glucose (mg/dL) Total Bilirubin Creatine Kinase Troponin I Total Protein Albumin Urine Protein 1+ H Urine Blood Small H Ur Leukocyte Esterase Large H Urine RBC 6 H Urine WBC >182 H Urine WBC Clumps Few H Urine Bacteria Many H Urine Mucus Rare H 01/21/23 01/21/23 01/21/23 16:05 16:05 16:14 WBC RBC Hgb Hct Plt Count Lymphocytes # Lymphocytes # (Manual) Myelocytes # (Manual) APTT D-Dimer BUN 29 H Creatinine 1.57 H Glucose 121 H POC Glucose (mg/dL) 120 H Total Bilirubin 2.7 H Creatine Kinase 29 L Troponin I 0.053 H* Total Protein 5.4 L Albumin 3.2 L Urine Protein Urine Blood Ur Leukocyte Esterase Urine RBC Urine WBC Urine WBC Clumps Urine Bacteria Urine Mucus 01/21/23 01/22/23 01/22/23 22:06 00:50 00:50 WBC RBC Hgb Hct Plt Count Lymphocytes # Lymphocytes # (Manual) Myelocytes # (Manual) APTT D-Dimer 1.50 H BUN Creatinine Glucose POC Glucose (mg/dL) Total Bilirubin Creatine Kinase Troponin I 0.103 H* 0.102 H* Total Protein Albumin Urine Protein Urine Blood Ur Leukocyte Esterase Urine RBC Urine WBC Urine WBC Clumps Urine Bacteria Urine Mucus 01/22/23 01/22/23 07:06 07:06 WBC RBC 3.34 L Hgb 10.3 L Hct 31.4 L Plt Count 121 L Lymphocytes # 0.5 L Lymphocytes # (Manual) Myelocytes # (Manual) APTT 35.7 H D-Dimer BUN Creatinine Glucose POC Glucose (mg/dL) Total Bilirubin Creatine Kinase Troponin I Total Protein Albumin Urine Protein Urine Blood Ur Leukocyte Esterase Urine RBC Urine WBC Urine WBC Clumps Urine Bacteria Urine Mucus - Diagnostic Findings Chest x-ray: report reviewed, image reviewed (Chest x-ray Patchy infiltrate at the left base, post CABG changes lobe volume with vascular markings, CT chest of 4 mm lung nodule seen in the right upper lobe, lytic lesion was seen in 12 thoracic vertebra and first lumbar vertebra and left fourth rib) CT scan - chest: report reviewed, image reviewed (Finding as noted above) Assessment and Plan Assessment: Altered mental status Sepsis Urinary tract infection Possible pneumonia COPD Likely sleep disorder breathing and sleep apnea Elevated troponin History of coronary artery disease status post CABG and stent placement in RCA Elevated d-dimer likely related to inflammatory process and sepsis Plan: Continue broad-spectrum antibiotics Gentle rehydration Follow-up on urine and blood cultures Continue bronchodilator Patient has signs and symptoms is still of severe and significant sleep disorder breathing and sleep apnea would recommend evaluation and sleep study as outpatient Time with Patient: Greater than 30
--- NOTE | 2023-01-23 15:49 | P.PN ---
Subjective Progress Note Date: 01/23/23 Principal diagnosis: Altered mental status secondary due to E. coli bacteremia and urinary tract infection Sepsis related to E. coli likely source urinary tract Lytic process in an L1 and T12 and fourth left rib of unknown significance bone scan is pending Urinary tract infection Possible pneumonia COPD Likely sleep disorder breathing and sleep apnea Elevated troponin History of coronary artery disease status post CABG and stent placement in RCA Elevated d-dimer likely related to inflammatory process and sepsis 01/23/2023, patient seen eval examined during rounds overall mental status more clear now awake and alert, denies any chest pain, denies any back pain, mental status including confusion almost resolved, patient able to get him move around, not using any oxygen, bone scan has been done and results are pending also have MRI of the brain no acute process except normal pressure hydrocephalus seen, abdominal and bladder ultrasound unremarkable, computed tomography scan positive for lytic lesion in T12-L1 and left fourth vertebra bone scan is pending in addition urine and blood has been positive for E. coli with a likely source of urinary tract infection Patient is a 77-year-old male with multiple complex medical issues and problem patient was admitted into hospital with altered mental status x-ray was abnormal with suggestion of left lower lobe atelectasis or pneumonia I was asked to evaluate the patient, patient is arousable still slightly confused but more or less oriented there is a family member present at bedside most of the data obtained from her however his baseline problems includes coronary artery disease status post CABG with history of stent placement, hypertension hypertensive cardiovascular disease, dyslipidemia, asthma and COPD patient was brought into hospital due to confusion and weakness also having component of dizziness lightheadedness his urine analysis suggestive of infectious etiology chest x-ray suggestive of possible left lower lobe pneumonia versus atelectasis however computed tomography scan of the chest is unremarkable except finding of lytic lesion in the lower thoracic vertebra for which a bone scan has been ordered patient is being treated with bronchodilators as well as broad-spectrum antibiotics and rehydration with progressive improvement. Urine for drug screen as well as influenza A and B RSV and cord has been negative Objective - Vital Signs Vital signs: Vital Signs Temp 98.2 F 01/23/23 08:18 Pulse 66 01/23/23 13:05 Resp 18 01/23/23 11:35 BP 134/66 01/23/23 11:35 Pulse Ox 98 01/23/23 11:35 FiO2 Intake & Output 01/22/23 01/23/23 01/23/23 18:59 06:59 18:59 Intake Total 710 118 Output Total 350 Balance 710 -350 118 Intake: IV 10 Invasive Line 2 10 Oral 700 118 Output: Urine 350 Other: Voiding Method Urinal Urinal Toilet Diaper Diaper Urinal Diaper # Voids 3 2 # Bowel Movements 1 1 - Exam - Constitutional General appearance: average body habitus, cooperative, disheveled, mild distress - EENT Eyes: EOMI, PERRLA, normal appearance ENT: normal oropharynx Ears: bilateral: normal - Neck Neck: normal ROM Carotids: bilateral: upstroke normal Thyroid: bilateral: normal size - Respiratory Respiratory: bilateral: diminished - Cardiovascular Rhythm: regular Heart sounds: normal: S1, S2 - Gastrointestinal General gastrointestinal: normal bowel sounds, soft - Integumentary +3 chronic edema of the lower extremity Integumentary: normal - Neurologic Neurologic: CNII-XII intact - Musculoskeletal Musculoskeletal: gait normal, generalized weakness, strength equal bilaterally - Psychiatric Psychiatric: A&O x's 3, appropriate affect, intact judgment & insight - Labs CBC & Chem 7: 01/22/23 07:06 01/21/23 16:05 Labs: Abnormal Lab Results - Last 24 Hours (Table) 01/23/23 01/23/23 Range/Units 07:24 07:24 C-Reactive Protein 12.1 H (<1.0) mg/dL Procalcitonin 69.90 H (0.02-0.09) ng/mL Microbiology - Last 24 Hours (Table) 01/21/23 16:05 Urine Culture - Preliminary Urine,Voided Gram Neg Bacilli 01/21/23 20:05 Blood Culture Gram Stain - Preliminary Blood Blood Culture - Preliminary Escherichia coli Assessment and Plan Assessment: Altered mental status secondary due to E. coli bacteremia and urinary tract infection Sepsis related to E. coli likely source urinary tract Lytic process in an L1 and T12 and fourth left rib of unknown significance bone scan is pending Urinary tract infection Possible pneumonia COPD Likely sleep disorder breathing and sleep apnea Elevated troponin History of coronary artery disease status post CABG and stent placement in RCA Elevated d-dimer likely related to inflammatory process and sepsis Plan: Continue broad-spectrum antibiotics and have been simplified to Rocephin from Zosyn Gentle rehydration Follow-up on bone scan Reviewed reports of culture of urine and blood cultures Continue bronchodilator Patient has signs and symptoms is still of severe and significant sleep disorder breathing and sleep apnea would recommend evaluation and sleep study as outpatient Time with Patient: Greater than 30
--- NOTE | 2023-01-23 15:59 | NM ---
EXAMINATION TYPE: NM bone scan whole body DATE OF EXAM: 01/23/2023 COMPARISON: 01/22/2023 CT chest HISTORY: Spinal lytic lesions Delayed whole-body scanning was performed following the injection of 22.8 mCi Tc 99m MDP. Images wer e acquired 6 hours post injection. FINDINGS: There is mild increased radiotracer accumulation at the bilateral ankles, likely degenerative in natu re. Attention is paid to the T12-L1 region. No suspicious uptake is evident within these regions. No larg e photopenic defect or focal uptake at the thoracolumbar junction to correspond to the large defect i dentified on the CT is evident. IMPRESSION: 1. Suspicious uptake to suggest metastasis not identified.
--- NOTE | 2023-01-23 16:06 | P.PN ---
Subjective Progress Note Date: 01/23/23 The patient seen at bedside and he is accompanied with his daughter and his girlfriend and his mentation is improved and the family are in agreement. Denies any new neurological issues. No further confusions. Objective - Vital Signs Vital signs: Vital Signs Temp 98.1 F 01/23/23 15:04 Pulse 70 01/23/23 15:04 Resp 18 01/23/23 15:04 BP 155/86 01/23/23 15:04 Pulse Ox 97 01/23/23 15:04 FiO2 Intake & Output 01/22/23 01/23/23 01/23/23 18:59 06:59 18:59 Intake Total 710 118 Output Total 350 Balance 710 -350 118 Intake: IV 10 Invasive Line 2 10 Oral 700 118 Output: Urine 350 Other: Voiding Method Urinal Urinal Toilet Diaper Diaper Urinal Diaper # Voids 3 3 # Bowel Movements 1 1 - Exam GENERAL: The patient is sitting at side of bed and is not in acute distress. NEUROLOGICAL: Higher mental function: The patient is awake, alert, oriented to self, place. Correctly stated the current year. With options he chose the current month. Patient is following commands. No aphasia and no neglect. Cranial nerves: The pupils are round, equal and reactive to light and accommodation. Visual noel are full to confrontation throughout. Extraocular movement is intact no nystagmus is noted. Facial sensation is normal to touch throughout. The facial strength is normal throughout. Hearing is mildly to moderately decreased bilaterally to hand rub. Tongue is midline and moved [id number] without any difficulty. No dysarthria is noted. Shoulder shrug is normal bilaterally. Motor: The strength is 5 over 5 throughout. Normal tone and bulk. Cerebellum: Normal finger to nose heel to chin bilaterally. Sensation: Sensation is normal to touch throughout. Reflexes (right/left): 1+ throughout. Plantars are mute bilaterally. Some of the workup during his hospital visit consisted of: Creatinine is 1.57, AST and ALT, sodium, calcium are within normal limits. Urine analysis C2 suggestive of possible urinary tract infection. Urine drug screen is negative CT of the head is reported as moderate hydrocephalus. Possible normal pressure hydrocephalus with evens ratio calculated at the points 40. Appropriate follow- up recommended. Otherwise no acute intracranial abnormality seen. I personally reviewed the CT and I agree with the report. MRI the brain is reported as no MRI evidence for recurrent infarct. Moderate normal pressure hydrocephalus redemonstrated. Correlation with old outside CT or MRI could be beneficial. Underlying mild chronic small vessel ischemic c hange is felt present. - Labs CBC & Chem 7: 01/22/23 07:06 01/21/23 16:05 Labs: Abnormal Lab Results - Last 24 Hours (Table) 01/23/23 01/23/23 Range/Units 07:24 07:24 C-Reactive Protein 12.1 H (<1.0) mg/dL Procalcitonin 69.90 H (0.02-0.09) ng/mL Microbiology - Last 24 Hours (Table) 01/21/23 16:05 Urine Culture - Preliminary Urine,Voided Gram Neg Bacilli 01/21/23 20:05 Blood Culture Gram Stain - Preliminary Blood Blood Culture - Preliminary Escherichia coli Assessment and Plan Assessment: Probable normal pressure hydrocephalus (per daughter wobbly gait for past 6 month, urinary incontinence for 1 month) Likely underlying urinary tract infection Altered mental status seems due to underlying acute UTI as well as metabolic encephalopathy--mentation improved Plan: I highly recommend the patient to follow-up with neurologist and neurosurgery (consider Dr. Kevin Mendez over at [facility]) as outpatient within 1-2 weeks for Normal pressure hydrocephalus. Recommend a large volume tap and if there is improvement to pursue with the EMERGENCY MANAGEMENT PROGRAM SPECIALIST shunt as outpatient. We'll defer the rest of the medical measure the primary team The plan is discussed with patient and his daughter who is at bedside. Otherwise no additional work-up and patient is clear from neurological perspective. Will sign off. Please reconsult if needed. Time with Patient: Less than 30
[2023-01-23] MEDS ORDERED: ALBUTEROL NEBULIZED 2.5 MG/3 ML INHALATION PRN (18:36)
[2023-01-23] MEDS: IPRATROPIUM-ALBUTEROL 3 ML NEB INHALATION SCH (18:46)
[2023-01-23] MEDS: MONTELUKAST 10 MG TAB PO SCH (20:35)
--- NOTE | 2023-01-24 00:35 | PN ---
PROGRESS NOTE SUBJECTIVE: This 77-year-old white male remains on Rocephin, antibiotics for UTI. Waiting for antibiotics culture to come back from E. coli and bacteremia treatment for this as well. White count is 7.4, hemoglobin is 7.3. He had a D-dimer of 1.50. We ordered a CTA of the chest, BUN is 49, creatinine is 1.57 on admission. He came with some confusion. Did have a brain MRI ordered by Neurology, which showed moderate normal- pressure hydrocephalus, no recent infarct. Wait for Neurology recommendations on this. He had a bone scan due to possible spots on his bones that were seen on a CAT scan. No suspicious uptake was seen on the nuclear bone scan, will order a CTA of the chest as he has positive D-dimer. He had a regular CT of the chest which shows a right upper lobe 4 mm pulmonary nodule, scar in the right lower lobe, ascending thoracic aneurysm 4.[address] of the chest due to elevated D-dimer. Continue current treatment for E. coli UTI and bacteremia. PROGNOSIS: Guarded. Wait for final culture. MMODL / IJN: [id number] /
[2023-01-24] MEDS: LEVOTHYROXINE 75 MCG TAB PO SCH (06:06)
[2023-01-24] MEDS: carvediloL 6.25 MG TAB PO SCH ×2 (06:06→17:24)
[2023-01-24] MEDS: SYMBICORT 160-4.5 MCG INHALER INHALATION SCH ×2 (09:20→21:28)
[2023-01-24] MEDS: FINASTERIDE 5 MG TAB PO SCH (09:20)
[2023-01-24] MEDS: IPRATROPIUM-ALBUTEROL 3 ML NEB INHALATION SCH ×4 (09:20→21:28)
[2023-01-24] MEDS: LORATADINE 10 MG TAB PO SCH (09:20)
[2023-01-24] MEDS: TAMSULOSIN 0.4 MG CAP.ER.24H PO SCH ×2 (09:20→20:55)
[2023-01-24] MEDS: APIXABAN 5 MG TAB PO SCH ×2 (09:20→20:55)
[2023-01-24 10:12] LABS: Basophils % (A) 0 %; Eosinophils # (A) 0.3 k/uL (0-0.7); Eosinophils % (A) 5 %; HCT 33.5 % (39.0-53.0); HGB 10.8 gm/dL (13.0-17.5); Lymphocytes # (A) 0.5 k/uL (1.0-4.8); Lymphocytes % (A) 9 %; MCH 30.1 pg (25.0-35.0); MCHC 32.2 g/dL (31.0-37.0); MCV 93.5 fL (80.0-100.0); Mean Platelet Volume 8.6; Monocytes # (A) 0.5 k/uL (0-1.0); Monocytes % (A) 9 %; Neutrophils # (A) 4.1 k/uL (1.3-7.7); Neutrophils % (A) 74 %; Platelet Count 153 k/uL (150-450); RBC 3.59 m/uL (4.30-5.90); RDW 12.4 % (11.5-15.5); WBC 5.6 k/uL (3.8-10.6)
[2023-01-24 10:40] LABS: Calcium 8.4 mg/dL (8.4-10.2); Potassium 3.9 mmol/L (3.5-5.1); Total Bilirubin 0.8 mg/dL (0.2-1.3); Total Protein 5.1 g/dL (6.3-8.2)
--- NOTE | 2023-01-24 12:48 | CA ---
Transthoracic Echo Report Name: Kash Kruse Age: 77 Gender: M : 1945 Exam Date: 01/24/2023 07:24 Exam Location: [place] [facility] Ht (in): 75 Wt (lb): 230 Ordering Physician: Jett Yeh MD Attending/Referring Phys: Broadcast Operations Technician Evelina Mendes RDCS Procedure CPT: Indications: dyspnea Cardiac Hx: Technical Quality: Fair Contrast 1: Total Dose (mL): Contrast 2: Total Dose (mL): MEASUREMENTS (Male / Female) Normal Values 2D ECHO LV Diastolic Diameter PLAX 6.1 cm 4.2 - 5.9 / 3.9 - 5.3 cm LV Systolic Diameter PLAX 4.5 cm IVS Diastolic Thickness 1.3 cm 0.6 - 1.0 / 0.6 - 0.9 cm LVPW Diastolic Thickness 1.3 cm 0.6 - 1.0 / 0.6 - 0.9 cm LV Relative Wall Thickness 0.4 RV Internal Dim ED PLAX 3.1 cm LVOT Diameter 2.5 cm LA Systolic Diameter LX 4.4 cm 3.0 - 4.0 / 2.7 - 3.8 cm LA Volume 84.0 cm??? 18 - 58 / 22 - 52 cm??? M-MODE Aortic Root Diameter MM 4.0 cm MV E Point Septal Separation 0.8 cm AV Cusp Separation MM 1.5 cm DOPPLER AV Peak Velocity 226.2 cm/s AV Peak Gradient 20.5 mmHg AV Mean Velocity 152.6 cm/s AV Mean Gradient 10.6 mmHg AV Velocity Time Integral 51.4 cm LVOT Peak Velocity 94.0 cm/s LVOT Peak Gradient 3.5 mmHg AV Area Cont Eq pk 2.1 cm??? MV Area PHT 2.6 cm??? Mitral E Point Velocity 70.9 cm/s Mitral A Point Velocity 94.5 cm/s Mitral E to A Ratio 0.8 MV Deceleration Time 291.0 ms MV E' Velocity 7.4 cm/s Mitral E to MV E' Ratio 9.5 TR Peak Velocity 257.3 cm/s TR Peak Gradient 26.5 mmHg Right Ventricular Systolic Press 31.5 mmHg FINDINGS Left Ventricle Left ventricular ejection fraction is estimated at 40-45 %. Mildly increased septal wall thickness. Mildly increased left ventricular diastolic diameter. Mildly reduced global left ventricular systolic function. Right Ventricle Normal right ventricular size. Right ventricular systolic pressure within normal limits. Right Atrium Normal right atrial size. Left Atrium Mildly increased left atrial diameter. Severely increased left atrial volume. Mildly increased left atrial area. Mitral Valve Mild mitral annular calcification. Mild mitral regurgitation. Aortic Valve Trileaflet aortic valve. Aortic valve sclerosis. Mild aortic stenosis with a peak gradient of 21 mmHg and a mean gradient of 11 mmHg. Tricuspid Valve Tricuspid valve not well visualized. Mild tricuspid regurgitation. Pulmonic Valve Pulmonic valve not well visualized. Pericardium Normal pericardium. No pericardial effusion. Aorta Mild aortic dilatation at the level of the sinuses of valsalva 40 mm CONCLUSIONS Left ventricular ejection fraction 40-45% Mildly increased left ventricular wall thickness Mildly dilated left atrium Mild aortic stenosis Mild tricuspid regurgitation No pericardial effusion RVSP 31 Previewed by: Dr. Saleem Glover DO (Electronically Signed) Final Date: 24 Jan 2023 12:47
--- NOTE | 2023-01-24 14:17 | CDI ---
Documentation Clarification Form Date: 01/24/2023 1:50:47 PM From: Taty Thurston RN, CCDS Admit Date: 01/21/2023 9:40:00 PM Patient Name: Kash Kruse Visit Number: [id number] Discharge Date: ATTENTION: The Clinical Documentation Specialists (CDI) and [facility] Coding Staff appreciate your assistance in clarifying documentation. Please respond to the clarification below the line at the bottom and electronically sign. The CDI & [facility] Coding staff will review the response and follow-up if needed. Please note: Queries are made part of the Legal Health Record. If you have any questions, please contact the author of this message via ITS. Dr. Alayna Wall There is documentation of E coli bacteremia likely urinary source. Bacteremia is considered a lab finding. Additional clarification regarding bacteremia is requested. Patient history/risk factors: Hypertension, Hyperlipidemia Asthma, Clinical Indicators: 77-year-old male present with mental status changes weakness, concern for possible pneumonia and ruled in for UTI /Pyelonephritis. 01/21 VS: 178/95 108 18 99.2 95% 2/L NC 01/21 WBC: 3.5 BUN 29, Creatinine 1.57 01/21 Blood Culture: Escherichia coli 01/21 UA: Leukocyte Esterase Large, WBC >182 01/23 C-Reactive Protein 12.1, Procalcitonin 69.90 Treatment: Cardiac/Telemetry monitoring Rocephin 2 GM Daily 01/22-01/24 Invanz 1 GM IVPB Daily 01/24 Please provide additional clarification regarding the etiology/cause and/or clinical significance of the bacteremia: [ ] Bacteremia is related to sepsis secondary to UTI [ x ] Bacteremia is due to UTI without Sepsis [ ] Other, please specify [ ] Unable to determine (Template Last Revised: November 2020) MTDD
--- NOTE | 2023-01-24 15:14 | P.PN ---
Subjective Progress Note Date: 01/24/23 Principal diagnosis: Urinary tract infection and bacteremia Patient is a 77-year-old male with a past medical history significant for asthma hypertension hyperlipidemia DVT IL prostate disorder patient has been brought into the ER for mental status changes weakness cough with initial concern for possible pneumonia patient also have a positive UA and blood cultures came back positive with E. coli. On today's evaluation that is 01/24/2023, the patient remains to be afebrile, the patient is breathing comfortably on room air patient denies having any chest pain occasional cough no nausea no vomiting no abdominal pain and no diarrhea Objective - Vital Signs Vital signs: Vital Signs Temp 98.3 F 01/24/23 08:00 Pulse 75 01/24/23 12:00 Resp 16 01/24/23 12:00 BP 146/70 01/24/23 12:00 Pulse Ox 96 01/24/23 12:00 FiO2 Intake & Output 01/23/23 01/24/23 01/24/23 18:59 06:59 18:59 Intake Total 236 540 120 Balance 236 540 120 Intake: Oral 236 540 120 Other: Voiding Method Toilet Toilet Toilet Urinal Urinal Urinal Diaper Diaper Diaper # Voids 1 1 # Bowel Movements 1 - Exam GENERAL DESCRIPTION: An elderly male lying in bed in no distress RESPIRATORY SYSTEM: Unlabored breathing , decreased breath sounds at bases HEART: S1 S2 regular rate and rhythm , ABDOMEN: Soft , no tenderness EXTREMITIES: No edema feet - Labs CBC & Chem 7: 01/24/23 09:52 01/24/23 09:52 Labs: Abnormal Lab Results - Last 24 Hours (Table) 01/24/23 01/24/23 Range/Units 09:52 09:52 RBC 3.59 L (4.30-5.90) m/uL Hgb 10.8 L (13.0-17.5) gm/dL Hct 33.5 L (39.0-53.0) % Lymphocytes # 0.5 L (1.0-4.8) k/uL BUN 26 H (9-20) mg/dL Creatinine 1.73 H (0.66-1.25) mg/dL Glucose 111 H (74-99) mg/dL Total Protein 5.1 L (6.3-8.2) g/dL Albumin 3.0 L (3.5-5.0) g/dL Microbiology - Last 24 Hours (Table) 01/21/23 20:05 Blood Culture Gram Stain - Final Blood Blood Culture - Final Escherichia coli 01/21/23 16:05 Urine Culture - Preliminary Urine,Voided Gram Neg Bacilli Assessment and Plan (1) E coli bacteremia Current Visit: Yes Status: Acute Code(s): R78.81 - BACTEREMIA; B96.20 - UNSP ESCHERICHIA COLI THE CAUSE OF DISEASES [facility] SNOMED Code(s): 493336938892 (2) UTI (urinary tract infection) Current Visit: Yes Status: Acute Code(s): N39.0 - URINARY TRACT INFECTION, SITE NOT SPECIFIED SNOMED Code(s): 94846390 Plan: 1patient was in the hospital mental status changes weakness lethargy with initial concern for possible pneumonia as the patient did have some respiratory symptoms however the patient did have a chest x-ray as well as CT of the chest that has been negative for acute infiltrate did have a positive UA and high clinical suspicion for possible UTI/pyelonephritis 2-positive blood culture E. coli likely urinary source, initially identified as this to pathogen however now has been identified as ESBL E. coli 3-ultrasound of the kidney bladder area did not show any hydronephrosis 4we will discontinue Rocephin and start the patient on Invanz he will need IV antibiotic on discharge Time with Patient: Less than 30
[2023-01-24] MEDS: ERTAPENEM 1 GM in SODIUM CHLORIDE 0.9% 50 ML IVPB SCH (17:24)
[2023-01-24] MEDS: MONTELUKAST 10 MG TAB PO SCH (20:55)
[2023-01-24] MEDS ORDERED: hydrALAZINE HCL 20 MG/ML 1 ML VIAL IVP PRN (23:13)
--- NOTE | 2023-01-25 01:03 | PN ---
PROGRESS NOTE SUBJECTIVE: Remains on ertapenem IV for UTI with E coli sepsis. Home medicines have been reordered. He is on Eliquis, Symbicort, DuoNeb, , ertapenem, carvedilol, Synthroid, Claritin, Singulair, Flomax, Kenalog. The patient is slowly improving. He has normal-pressure hydrocephalus. Neurology is being monitoring him. OBJECTIVE: VITAL SIGNS: Temperature 97.3, pulse 74, respiratory rate 16 to 18, blood pressure 117/96, and O2 is 96 on room air. CARDIOVASCULAR: S1, S2. LUNGS: Clear. GI: ASSESSMENT: Normal-pressure hydrocephalus, UTI, COPD, E coli sepsis. He had echocardiogram which showed biventricular systolic pressure 31, ejection fraction 40% to 45% with mildly reduced global systolic function, severely increased left atrial pressure, mild aortic stenosis. Mild tricuspid regurgitation, mild aortic stenosis. Prognosis guarded. Continue with IV antibiotics. Cardiac workup in for systolic heart failure , wait for cardiology recommendations. Please see further orders. Normal-pressure hydrocephalus, Dr. Arthur Lee has given his recommendations. Prognosis guarded. MMODL / IJN: [id number] /
[2023-01-25] MEDS: SACUBITRIL/VALSARTAN 24 MG-26 MG TABLET PO SCH ×3 (01:38→20:18)
[2023-01-25] MEDS: FAMOTIDINE 20 MG TAB PO SCH ×2 (01:38→09:43)
[2023-01-25] MEDS: carvediloL 6.25 MG TAB PO SCH ×2 (06:47→17:17)
[2023-01-25] MEDS: LEVOTHYROXINE 75 MCG TAB PO SCH (06:47)
[2023-01-25] MEDS: IPRATROPIUM-ALBUTEROL 3 ML NEB INHALATION SCH ×4 (07:45→21:19)
[2023-01-25] MEDS: SYMBICORT 160-4.5 MCG INHALER INHALATION SCH ×2 (07:45→21:18)
[2023-01-25] MEDS: ERTAPENEM 1 GM in SODIUM CHLORIDE 0.9% 50 ML IVPB SCH (09:42)
[2023-01-25] MEDS: APIXABAN 5 MG TAB PO SCH ×2 (09:43→20:18)
[2023-01-25] MEDS: LORATADINE 10 MG TAB PO SCH (09:43)
[2023-01-25] MEDS: TAMSULOSIN 0.4 MG CAP.ER.24H PO SCH ×2 (09:43→20:18)
[2023-01-25 10:02] LABS: Basophils % (A) 1 %; Eosinophils # (A) 0.3 k/uL (0-0.7); Eosinophils % (A) 5 %; HCT 33.7 % (39.0-53.0); HGB 11.2 gm/dL (13.0-17.5); Lymphocytes # (A) 0.5 k/uL (1.0-4.8); Lymphocytes % (A) 11 %; MCH 29.9 pg (25.0-35.0); MCHC 33.2 g/dL (31.0-37.0); MCV 89.9 fL (80.0-100.0); Mean Platelet Volume 8.7; Monocytes # (A) 0.5 k/uL (0-1.0); Monocytes % (A) 10 %; Neutrophils # (A) 3.4 k/uL (1.3-7.7); Neutrophils % (A) 70 %; Platelet Count 172 k/uL (150-450); RBC 3.75 m/uL (4.30-5.90); RDW 12.7 % (11.5-15.5); WBC 4.8 k/uL (3.8-10.6)
--- NOTE | 2023-01-25 10:15 | P.PN ---
Subjective Progress Note Date: 01/25/23 Principal diagnosis: Altered mental status secondary due to E. coli bacteremia and urinary tract infection ESBL E. coli sepsis and bacteremia Lytic process in an L1 and T12 and fourth left rib of unknown significance bone scan is not suggestive of metastatic disease Urinary tract infection Possible pneumonia COPD Likely sleep disorder breathing and sleep apnea Elevated troponin History of coronary artery disease status post CABG and stent placement in RCA Elevated d-dimer likely related to inflammatory process and sepsis 01/25/2023, patient seen eval examined during rounds labs reviewed medications reviewed care plan discussed with the daughter present at bedside as well as the patient, patient continued to manifest signs symptoms of sleep disorder breathing at night time with the snoring and apneic events however patient is reluctant to be evaluated by Ketan agreeable to follow-up as outpatient. Hemodynamically stable, CBC within normal limit, urine and blood culture has been positive for gram-negative bacilli which is E. coli however is ESBL patient has been appropriately placed on Ertapenem 1 g once daily and ID service have been following 01/23/2023, patient seen eval examined during rounds overall mental status more clear now awake and alert, denies any chest pain, denies any back pain, mental status including confusion almost resolved, patient able to get him move around, not using any oxygen, bone scan has been done and results are pending also have MRI of the brain no acute process except normal pressure hydrocephalus seen, abdominal and bladder ultrasound unremarkable, computed tomography scan positive for lytic lesion in T12-L1 and left fourth vertebra bone scan is pending in addition urine and blood has been positive for E. coli with a likely source of urinary tract infection Patient is a 77-year-old male with multiple complex medical issues and problem patient was admitted into hospital with altered mental status x-ray was abnormal with suggestion of left lower lobe atelectasis or pneumonia I was asked to evaluate the patient, patient is arousable still slightly confused but more or less oriented there is a family member present at bedside most of the data obtained from her however his baseline problems includes coronary artery disease status post CABG with history of stent placement, hypertension hypertensive card iovascular disease, dyslipidemia, asthma and COPD patient was brought into hospital due to confusion and weakness also having component of dizziness lightheadedness his urine analysis suggestive of infectious etiology chest x-ray suggestive of possible left lower lobe pneumonia versus atelectasis however computed tomography scan of the chest is unremarkable except finding of lytic lesion in the lower thoracic vertebra for which a bone scan has been ordered patient is being treated with bronchodilators as well as broad-spectrum antibiotics and rehydration with progressive improvement. Urine for drug screen as well as influenza A and B RSV and cord has been negative Objective - Vital Signs Vital signs: Vital Signs Temp 98.0 F 01/25/23 08:00 Pulse 68 01/25/23 08:01 Resp 16 01/25/23 08:00 BP 155/94 01/25/23 08:00 Pulse Ox 98 01/25/23 08:00 FiO2 Intake & Output 01/24/23 01/25/23 01/25/23 18:59 06:59 18:59 Intake Total 360 240 Balance 360 240 Intake: Oral 360 240 Other: Voiding Method Toilet Toilet Toilet Urinal Urinal Urinal Diaper Diaper Diaper # Voids 2 1 - Exam - Constitutional General appearance: average body habitus, cooperative, disheveled, mild distress - EENT Eyes: EOMI, PERRLA, normal appearance ENT: normal oropharynx Ears: bilateral: normal - Neck Neck: normal ROM Carotids: bilateral: upstroke normal Thyroid: bilateral: normal size - Respiratory Respiratory: bilateral: diminished - Cardiovascular Rhythm: regular Heart sounds: normal: S1, S2 - Gastrointestinal General gastrointestinal: normal bowel sounds, soft - Integumentary +3 chronic edema of the lower extremity Integumentary: normal - Neurologic Neurologic: CNII-XII intact - Musculoskeletal Musculoskeletal: gait normal, generalized weakness, strength equal bilaterally - Psychiatric Psychiatric: A&O x's 3, appropriate affect, intact judgment & insight - Labs CBC & Chem 7: 01/25/23 09:26 01/24/23 09:52 Labs: Abnormal Lab Results - Last 24 Hours (Table) 01/24/23 01/24/23 01/25/23 Range/Units 09:52 09:52 09:26 RBC 3.59 L 3.75 L (4.30-5.90) m/uL Hgb 10.8 L 11.2 L (13.0-17.5) gm/dL Hct 33.5 L 33.7 L (39.0-53.0) % Lymphocytes # 0.5 L 0.5 L (1.0-4.8) k/uL BUN 26 H (9-20) mg/dL Creatinine 1.73 H (0.66-1.25) mg/dL Glucose 111 H (74-99) mg/dL Total Protein 5.1 L (6.3-8.2) g/dL Albumin 3.0 L (3.5-5.0) g/dL Microbiology - Last 24 Hours (Table) 01/21/23 16:05 Urine Culture - Final Urine,Voided Escherichia coli 01/21/23 20:05 Blood Culture Gram Stain - Final Blood Blood Culture - Final Escherichia coli Assessment and Plan Assessment: Altered mental status secondary due to E. coli bacteremia and urinary tract infection Sepsis related to E. coli likely source urinary tract Lytic process in an L1 and T12 and fourth left rib of unknown significance bone scan is pending Urinary tract infection Possible pneumonia COPD Likely sleep disorder breathing and sleep apnea Elevated troponin History of coronary artery disease status post CABG and stent placement in RCA Elevated d-dimer likely related to inflammatory process and sepsis Plan: Continue broad-spectrum antibiotics and have been switched to ertapenem being ESBL E. coli Gentle rehydration Follow-up on bone scan report reviewed suspicious uptake to suggest metastasis and not identified Reviewed reports of culture of urine and blood cultures Continue bronchodilator Patient has signs and symptoms is still of severe and significant sleep disorder breathing and sleep apnea would recommend evaluation and sleep study as outpatient We will sign off now follow-up as outpatient for further workup and evaluation of sleep disorder breathing and COPD Time with Patient: Greater than 30
[2023-01-25 10:16] LABS: Calcium 8.5 mg/dL (8.4-10.2); Potassium 4.1 mmol/L (3.5-5.1); Total Bilirubin 0.7 mg/dL (0.2-1.3); Total Protein 5.2 g/dL (6.3-8.2)
--- NOTE | 2023-01-25 12:19 | P.PN ---
Subjective Progress Note Date: 01/25/23 History of present illness: This is a 77-year-old male patient of Dr. Freedman last seen in the office Raymond dabry 2021. Patient has a past medical history of coronary artery disease with CABG and stent of the RCA, hypertension, hyperlipidemia, asthma, hypothyroidism, paroxysmal atrial fibrillation on eliquis. We have been asked to evaluate the patient for elevated troponins. Patient came into the hospital due to having trouble walking trouble with balance and some lightheadedness and dizziness. Patient states this is been going on for a couple of days. He denies having any chest pain, no heaviness or tightness in his chest. He does complain of a cough that is new and he has been on antibiotics and steroids placed by his primary care physician. Patient's daughter is at bedside and saw the patient about a few days ago and he was at his baseline. Patient apparently had some confusion and change in mental status and was brought in for that reason. He was diagnosed with urinary tract infection. He does complain of burning with urination but no bleeding. He denies any fever or chills. No headache. EKG atrial fibrillation with ventricular rate of 102 Chest x-ray: Hypoventilatory changes. Possible mild pulmonary vascular congestion. Patchy atelectasis versus developing infiltrate at the left base. CAT scan of the brain revealed moderate hydrocephalus. Possible normal pressure hydrocephalus otherwise with no acute intracranial abnormality seen. CT of the chest revealed no acute thoracic process. Ascending thoracic aortic aneurysm measuring 4.4 cm. Right upper lobe 4 mm pulmonary nodule. In a low risk patient, no follow-up is recommended. In a high risk patient option of computed tomography scan in 12 months is recommended. Couple of nonspecific lytic lesions identified in the T12 and L1 vertebrae bodies and left fourth rib. Consider further evaluation with nuclear med scan WBC 3.5, hemoglobin 11.1, PERRLA, 133. Electrolytes normal. BUN 29 creatinine 1.57. Troponin 0.053, 0.103 and 0.102. CK 29. Urinalysis positive for urinary tract infection. Urine drug screen negative. Influenza A, influenza B, RSV, Covid 19 not detected. Home cardiac medications: Eliquis 5 mg twice daily, Lipitor 40 mg daily, Coreg 6.25 mg twice daily, Vasotec 20 g daily, levothyroxine 150 g daily Cardiac catheterization [address] Yulissa Kelsey on severe disease involving the mid RCA and subsequently underwent successful stenting with Dr. Dumont patient was also found to have disease involving the proximal left circumflex coronary artery in the intermediate range and LAD was occluded but protected by the [place]. Lexiscan stress test 04/2022 was negative. Probably normal myocardial perfusion and function. EF 51%. Echocardiogram 05/2021 revealed EF of 55%, mild mitral regurgitation, mild tricuspid regurgitation, pulmonary artery systolic pressure 36 mmHg. 01/25 Patient was previously seen by cardiology on 01/22 for elevated troponins secondary to acute kidney injury and abnormal renal function, urinary tract infection. Cardiology signed off at that time. We have been reconsulted regarding coronary artery disease. Patient has known coronary artery disease with previous CABG followed by stenting of the RCA. She denies having any chest pain or shortness of breath. He has E. coli bacteremia and according to his daughter, he will be going home on IV antibiotics. Likely today. Telemetry is a sinus rhythm with PACs. Physical examination: Gen: This is a 77-year-old male. He is resting in bed and appears to be comfortable and in no acute distress. VS: reviewed HEENT: Head is atraumatic, normocephalic. Pupils equal, round. Sclerae is anicteric. NECK: Supple. No JVD. . LUNGS: Clear to auscultation. No wheezes or rhonchi. No intercostal retractions. HEART: Irregular rate and rhythm. No murmur. ABDOMEN: Soft No tenderness. EXTREMITIES: No pedal edema. No calf tenderness. NEUROLOGICAL: Patient is awake, alert and oriented x3. Assessment: Elevated troponinS secondary to urinary tract infection and kidney disease History of coronary artery disease with previous CABG and stenting of the RCA Paroxysmal atrial fibrillation on eliquis Hypertension Hypothyroidism Hyperlipidemia Plan: Continue patient's cardiac medications Patient may follow-up with Dr. Freedman in 2-3 weeks for outpatient stress testing once patient's infectious process has been treated. Cardiology will sign off and follow on an as-needed basis. Please reconsult for any new concerns. Thank you kindly for this consultation. Nurse practitioner note has been reviewed, I agree with documented findings and plan of care. Patient was seen and examined. Objective - Vital Signs Vital signs: Vital Signs Temp 98.0 F 01/25/23 08:00 Pulse 68 01/25/23 08:01 Resp 16 05/12/23 08:00 BP 155/94 01/25/23 08:00 Pulse Ox 98 01/25/23 08:00 FiO2 Intake & Output 01/24/23 01/25/23 01/25/23 18:59 06:59 18:59 Intake Total 360 240 Balance 360 240 Intake: Oral 360 240 Other: Voiding Method Toilet Toilet Toilet Urinal Urinal Urinal Diaper Diaper Diaper # Voids 2 1 - Labs CBC & Chem 7: 01/25/23 09:26 01/25/23 09:26 Labs: Abnormal Lab Results - Last 24 Hours (Table) 01/25/23 01/25/23 Range/Units 09:26 09:26 RBC 3.75 L (4.30-5.90) m/uL Hgb 11.2 L (13.0-17.5) gm/dL Hct 33.7 L (39.0-53.0) % Lymphocytes # 0.5 L (1.0-4.8) k/uL Carbon Dioxide 32 H (22-30) mmol/L BUN 24 H (9-20) mg/dL Creatinine 1.89 H (0.66-1.25) mg/dL Glucose 102 H (74-99) mg/dL AST 15 L (17-59) U/L Total Protein 5.2 L (6.3-8.2) g/dL Albumin 3.0 L (3.5-5.0) g/dL Microbiology - Last 24 Hours (Table) 01/21/23 16:05 Urine Culture - Final Urine,Voided Escherichia coli 01/21/23 20:05 Blood Culture Gram Stain - Final Blood Blood Culture - Final Escherichia coli
--- NOTE | 2023-01-25 13:30 | P.PN ---
Subjective Progress Note Date: 01/25/23 Principal diagnosis: Urinary tract infection and bacteremia Patient is a 77-year-old male with a past medical history significant for asthma hypertension hyperlipidemia DVT DE prostate disorder patient has been brought into the ER for mental status changes weakness cough with initial concern for possible pneumonia patient also have a positive UA and blood cultures came back positive with E. coli. On today's evaluation that is 01/25/2023, the patient continues to be afebrile, the patient is breathing comfortably on room air patient denies chest pain shortness of breath or cough, no nausea no vomiting no abdominal pain no diarrhea Objective - Vital Signs Vital signs: Vital Signs Temp 98.0 F 01/25/23 08:00 Pulse 68 01/25/23 08:01 Resp 16 01/25/23 08:00 BP 155/94 01/25/23 08:00 Pulse Ox 98 01/25/23 08:00 FiO2 Intake & Output 01/24/23 01/25/23 01/25/23 18:59 06:59 18:59 Intake Total 360 240 Balance 360 240 Intake: Oral 360 240 Other: Voiding Method Toilet Toilet Toilet Urinal Urinal Urinal Diaper Diaper Diaper # Voids 2 1 - Labs CBC & Chem 7: 01/25/23 09:26 01/25/23 09:26 Labs: Abnormal Lab Results - Last 24 Hours (Table) 01/25/23 01/25/23 Range/Units 09:26 09:26 RBC 3.75 L (4.30-5.90) m/uL Hgb 11.2 L (13.0-17.5) gm/dL Hct 33.7 L (39.0-53.0) % Lymphocytes # 0.5 L (1.0-4.8) k/uL Carbon Dioxide 32 H (22-30) mmol/L BUN 24 H (9-20) mg/dL Creatinine 1.89 H (0.66-1.25) mg/dL Glucose 102 H (74-99) mg/dL AST 15 L (17-59) U/L Total Protein 5.2 L (6.3-8.2) g/dL Albumin 3.0 L (3.5-5.0) g/dL Microbiology - Last 24 Hours (Table) 01/21/23 16:05 Urine Culture - Final Urine,Voided Escherichia coli 01/21/23 20:05 Blood Culture Gram Stain - Final Blood Blood Culture - Final Escherichia coli Assessment and Plan (1) E coli bacteremia Current Visit: Yes Status: Acute Code(s): R78.81 - BACTEREMIA; B96.20 - UNSP ESCHERICHIA COLI THE CAUSE OF DISEASES CLASSD [facility] SNOMED Code(s): 54085 6603874 (2) UTI (urinary tract infection) Current Visit: Yes Status: Acute Code(s): N39.0 - URINARY TRACT INFECTION, SITE NOT SPECIFIED SNOMED Code(s): 93314564 Plan: 1patient was in the hospital mental status changes weakness lethargy with init ial concern for possible pneumonia as the patient did have some respiratory symptoms however the patient did have a chest x-ray as well as CT of the chest that has been negative for acute infiltrate did have a positive UA and high clinical suspicion for possible UTI/pyelonephritis 2-positive blood culture E. coli likely urinary source, initially identified as sensitive pathogen however that culture has been finalized as ESBL E. coli 3-ultrasound of the kidney bladder area did not show any hydronephrosis 4patient to continue with Invanz daily, patient will need midline for outpatient IV antibiotics therapy 10 days this was explained in detail to the patient daughter well as case management specialist Time with Patient: Less than 30
[2023-01-25] MEDS: MONTELUKAST 10 MG TAB PO SCH (20:18)
--- NOTE | 2023-01-25 23:22 | PN ---
PROGRESS NOTE SUBJECTIVE: This is a 77-year-old white male with E coli sepsis. EKG shows atrial fibrillation with RVR. Chest x-ray, pulmonary vascular congestion, patchy infiltrates at the base. CAT scan of the brain shows moderate hydrocephalus. CT of the chest negative except for an aneurysm 4.4 cm, 4 mm pulmonary nodule, nonspecific vertebral areas which were negative with a bone scan. The patient remains on systolic CHF medications including Eliquis, carvedilol, Lipitor, levothyroxine. Cardiac catheterization with Dr. Freedman shows severe disease in the past of the mid RCA, which has been fixed. He had a negative stress test in April 2022. Echo recently done, please see report. OBJECTIVE: HEENT: Normocephalic, atraumatic. LUNGS: Clear. HEART: S1, S2. ABDOMEN: Soft. EXTREMITIES: No cyanosis, clubbing, or edema. NEUROLOGIC: Alert and oriented x3. ASSESSMENT: Elevated troponin secondary to urinary tract infection, kidney disease, history of coronary disease with previous CABG, stenting of the RCA, paroxysmal atrial fib on Eliquis, hypertension, hypothyroidism, dyslipidemia. Current cardiac medications, Cardiology signed off. Will wait for further IV antibiotics per Dr. Wall's recommendation. Possibly IV antibiotics for a week or 2 at the intermediate for E. coli sepsis. He has no nausea, vomiting, diarrhea. BUN is 24, creatinine 1.89, hemoglobin is 11.2. He has UTI, E coli bacteremia from UTI, positive blood cultures from urinary source, ESBL E coli. No hydronephrosis on kidney ultrasound. Continue on daily for 10 days. 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 Prognosis guarded. MMODL / IJN: [id number] /
[2023-01-26] MEDS: LEVOTHYROXINE 75 MCG TAB PO SCH (05:54)
[2023-01-26] MEDS: carvediloL 6.25 MG TAB PO SCH ×2 (05:54→16:16)
[2023-01-26] MEDS: FAMOTIDINE 20 MG TAB PO SCH (08:50)
[2023-01-26] MEDS: ERTAPENEM 1 GM in SODIUM CHLORIDE 0.9% 50 ML IVPB SCH (08:51)
[2023-01-26] MEDS: APIXABAN 5 MG TAB PO SCH ×2 (08:51→20:06)
[2023-01-26 08:52] LABS: Basophils % (A) 1 %; Eosinophils # (A) 0.3 k/uL (0-0.7); Eosinophils % (A) 8 %; HCT 33.9 % (39.0-53.0); Lymphocytes # (A) 0.7 k/uL (1.0-4.8); Lymphocytes % (A) 16 %; MCH 29.2 pg (25.0-35.0); MCHC 32.4 g/dL (31.0-37.0); Mean Platelet Volume 8.4; Monocytes # (A) 0.3 k/uL (0-1.0); Monocytes % (A) 8 %; Neutrophils # (A) 2.7 k/uL (1.3-7.7); Neutrophils % (A) 64 %; Platelet Count 180 k/uL (150-450); RBC 3.76 m/uL (4.30-5.90); RDW 12.8 % (11.5-15.5); WBC 4.3 k/uL (3.8-10.6)
[2023-01-26] MEDS: FINASTERIDE 5 MG TAB PO SCH (08:52)
[2023-01-26] MEDS: SACUBITRIL/VALSARTAN 24 MG-26 MG TABLET PO SCH ×2 (08:52→20:06)
[2023-01-26] MEDS: LORATADINE 10 MG TAB PO SCH (08:52)
[2023-01-26] MEDS: TAMSULOSIN 0.4 MG CAP.ER.24H PO SCH ×2 (08:52→20:06)
[2023-01-26 09:07] LABS: Albumin 2.8 g/dL (3.5-5.0); Calcium 8.3 mg/dL (8.4-10.2); Potassium 3.7 mmol/L (3.5-5.1); Total Bilirubin 0.7 mg/dL (0.2-1.3); Total Protein 4.9 g/dL (6.3-8.2)
[2023-01-26] MEDS: IPRATROPIUM-ALBUTEROL 3 ML NEB INHALATION SCH ×4 (09:35→20:33)
[2023-01-26] MEDS: SYMBICORT 160-4.5 MCG INHALER INHALATION SCH ×2 (09:36→20:33)
[2023-01-26] MEDS: MONTELUKAST 10 MG TAB PO SCH (20:06)
--- NOTE | 2023-01-26 21:51 | P.PN ---
Subjective Progress Note Date: 01/26/23 Principal diagnosis: Urinary tract infection and bacteremia Patient is a 77-year-old male with a past medical history significant for asthma hypertension hyperlipidemia DVT [place] prostate disorder patient has been brought into the ER for mental status changes weakness cough with initial concern for possible pneumonia patient also have a positive UA and blood cultures came back positive with E. coli. On today's evaluation that is 01/26/2023, the patient continues to be afebrile, the patient is breathing comfortably on room air, the patient denies chest pain shortness of breath or cough, , the patient denies nausea no vomiting no abdominal pain no diarrhea Objective - Vital Signs Vital signs: Vital Signs Temp 97.9 F 01/26/23 12:00 Pulse 72 01/26/23 13:02 Resp 17 01/26/23 12:00 BP 144/68 01/26/23 12:00 Pulse Ox 99 01/26/23 12:00 FiO2 Intake & Output 01/25/23 01/26/23 01/26/23 18:59 06:59 18:59 Intake Total 240 450 Balance 240 450 Intake: Oral 240 450 Other: Voiding Method Toilet Toilet Toilet Urinal Urinal Urinal Diaper Diaper Diaper # Voids 2 1 - Exam GENERAL DESCRIPTION: An elderly male lying in bed in no distress RESPIRATORY SYSTEM: Unlabored breathing , decreased breath sounds at bases HEART: S1 S2 regular rate and rhythm , ABDOMEN: Soft , no tenderness EXTREMITIES: No edema feet - Labs CBC & Chem 7: 01/26/23 08:02 01/26/23 08:02 Labs: Abnormal Lab Results - Last 24 Hours (Table) 01/26/23 01/26/23 Range/Units 08:02 08:02 RBC 3.76 L (4.30-5.90) m/uL Hgb 11.0 L (13.0-17.5) gm/dL Hct 33.9 L (39.0-53.0) % Lymphocytes # 0.7 L (1.0-4.8) k/uL BUN 21 H (9-20) mg/dL Creatinine 1.72 H (0.66-1.25) mg/dL Glucose 138 H (74-99) mg/dL Calcium 8.3 L (8.4-10.2) mg/dL AST 13 L (17-59) U/L Total Protein 4.9 L (6.3-8.2) g/dL Albumin 2.8 L (3.5-5.0) g/dL Microbiology - Last 24 Hours (Table) 01/24/23 10:06 Blood Culture - Preliminary Blood Assessment and Plan (1) E coli bacteremia Current Visit: Yes Status: Acute Code(s): R78.81 - BACTEREMIA; B96.20 - UNSP ESCHERICHIA COLI THE CAUSE OF DISEASES CL[facility]SD [facility] SNOMED Code(s): 602092746044 (2) UTI (urinary tract infection) Current Visit: Yes Status: Acute Code(s): N39.0 - URINARY TRACT INFECTION, SITE NOT SPECIFIED SNOMED Code(s): 59170718 Plan: 1patient was in the hospital mental status changes weakness lethargy with initial concern for possible pneumonia as the patient did have some respiratory symptoms however the patient did have a chest x-ray as well as CT of the chest that has been negative for acute infiltrate did have a positive UA and high clinical suspicion for possible UTI/pyelonephritis 2-positive blood culture E. coli likely urinary source, initially identified as sensitive pathogen however that culture has been finalized as ESBL E. coli, blood culture had been repeatedly so far negative 3-ultrasound of the kidney bladder area did not show any hydronephrosis 4patient to continue with Invanz daily, patient will need midline for outpatient IV antibiotics therapy, possibly planned for Saturday Time with Patient: Less than 30
--- NOTE | 2023-01-27 00:28 | PN ---
PROGRESS NOTE SUBJECTIVE: A 77-year-old white male remains on Symbicort inhaler, DuoNeb updrafts, Eliquis for atrial fibrillation for DVT and PE prophylaxis, Coreg for hypertension, ertapenem for E coli, ESBL with bacteremia, Pepcid for GI prophylaxis, Synthroid for hypothyroidism, Claritin for significant allergic rhinitis, Entresto for systolic CHF, Flomax for BPH. The patient appears to be sitting up, giving appropriate answers. OBJECTIVE: CARDIOVASCULAR: S1, S2. LUNGS: Clear. PSYCH: Fair mood and affect. GI: Soft. VITAL SIGNS: Temperature 98.5, , pulse 87. ASSESSMENT: Systolic CHF, UTI, COPD, bacteremia from E coli, for IV antibiotics and use 7 more days of treatment for systolic CHF. PROGNOSIS: Guarded. BELLAL / IJN: [id number] /
[2023-01-27] MEDS: LEVOTHYROXINE 75 MCG TAB PO SCH (06:06)
[2023-01-27] MEDS: carvediloL 6.25 MG TAB PO SCH ×2 (06:06→16:26)
[2023-01-27] MEDS: SYMBICORT 160-4.5 MCG INHALER INHALATION SCH ×2 (08:09→21:26)
[2023-01-27] MEDS: IPRATROPIUM-ALBUTEROL 3 ML NEB INHALATION SCH ×4 (08:10→21:26)
[2023-01-27] MEDS: TAMSULOSIN 0.4 MG CAP.ER.24H PO SCH ×2 (09:33→21:02)
[2023-01-27] MEDS: ERTAPENEM 1 GM in SODIUM CHLORIDE 0.9% 50 ML IVPB SCH (09:33)
[2023-01-27] MEDS: LORATADINE 10 MG TAB PO SCH (09:33)
[2023-01-27] MEDS: SACUBITRIL/VALSARTAN 24 MG-26 MG TABLET PO SCH ×2 (09:33→21:02)
[2023-01-27] MEDS: APIXABAN 5 MG TAB PO SCH ×2 (09:34→21:02)
[2023-01-27] MEDS: FAMOTIDINE 20 MG TAB PO SCH (09:39)
[2023-01-27 11:11] LABS: HCT 32.5 % (39.0-53.0); HGB 10.9 gm/dL (13.0-17.5); MCH 30.3 pg (25.0-35.0); MCHC 33.5 g/dL (31.0-37.0); MCV 90.5 fL (80.0-100.0); Mean Platelet Volume 8.4; Platelet Count 193 k/uL (150-450); RBC 3.59 m/uL (4.30-5.90); WBC 4.9 k/uL (3.8-10.6)
[2023-01-27 11:24] LABS: Albumin 2.7 g/dL (3.5-5.0); Calcium 8.3 mg/dL (8.4-10.2); Potassium 4.1 mmol/L (3.5-5.1); Total Bilirubin 0.5 mg/dL (0.2-1.3); Total Protein 4.7 g/dL (6.3-8.2)
[2023-01-27 13:22] LABS: Band Neutrophils % 1 %; Basophils # (M) 0.05 k/uL (0-0.2); Eosinophils # (M) 0.29 k/uL (0-0.7); Lymphocytes # (M) 0.78 k/uL (1.0-4.8); Monocytes # (M) 0.59 k/uL (0-1.0); Myelocytes # (M) 0.05 k/uL (0); Myelocytes % 1 %; Neutrophils % (M) 65 %; Nucleated Red Blood Cells 0 /100 WBC (0-0); Total Cells Counted 200
--- NOTE | 2023-01-27 15:04 | P.PN ---
Subjective Progress Note Date: 01/27/23 Principal diagnosis: Urinary tract infection and bacteremia Patient is a 77-year-old male with a past medical history significant for asthma hypertension hyperlipidemia DVT PR prostate disorder patient has been brought into the ER for mental status changes weakness cough with initial concern for possible pneumonia patient also have a positive UA and blood cultures came back positive with E. coli. On today's evaluation that is 01/27/2023, the patient remains to be afebrile, the patient is breathing comfortably on room air, the patient denies chest pain shortness of breath and no significant cough, , the patient denies nausea no vomiting no abdominal pain no diarrhea with antibiotic therapy Objective - Vital Signs Vital signs: Vital Signs Temp 97.7 F 01/27/23 12:00 Pulse 64 01/27/23 12:00 Resp 16 01/27/23 12:00 BP 158/93 01/27/23 12:00 Pulse Ox 97 01/27/23 12:00 FiO2 21 01/27/23 08:05 Intake & Output 01/26/23 01/27/23 01/27/23 18:59 06:59 18:59 Intake Total 450 240 Balance 450 240 Intake: Oral 450 240 Other: Voiding Method Toilet Toilet Toilet Urinal Urinal Urinal Diaper Diaper Diaper # Voids 1 2 1 - Exam GENERAL DESCRIPTION: An elderly male lying in bed in no distress RESPIRATORY SYSTEM: Unlabored breathing , decreased breath sounds at bases HEART: S1 S2 regular rate and rhythm , ABDOMEN: Soft , no tenderness EXTREMITIES: No edema feet - Labs CBC & Chem 7: 01/27/23 10:49 01/27/23 10:49 Labs: Abnormal Lab Results - Last 24 Hours (Table) 01/27/23 01/27/23 Range/Units 10:49 10:49 RBC 3.59 L (4.30-5.90) m/uL Hgb 10.9 L (13.0-17.5) gm/dL Hct 32.5 L (39.0-53.0) % Lymphocytes # (Manual) 0.78 L (1.0-4.8) k/uL Myelocytes # (Manual) 0.05 H (0) k/uL Carbon Dioxide 32 H (22-30) mmol/L BUN 22 H (9-20) mg/dL Creatinine 1.85 H (0.66-1.25) mg/dL Glucose 116 H (74-99) mg/dL Calcium 8.3 L (8.4-10.2) mg/dL AST 15 L (17-59) U/L Total Protein 4.7 L (6.3-8.2) g/dL Albumin 2.7 L (3.5-5.0) g/dL Microbiology - Last 24 Hours (Table) 01/25/23 09:50 Blood Culture - Preliminary Blood 01/24/23 10:06 Blood Culture - Preliminary Blood Assessment and Plan (1) E coli bacteremia Current Visit: Yes Status: Acute Code(s): R78.81 - BACTEREMIA; B96.20 - UNSP ESCHERICHIA COLI THE CAUSE OF DISEASES CLASSD [facility] SNOMED Code(s): 823593457899 (2) UTI (urinary tract infection) Current Visit: Yes Status: Acute Code(s): N39.0 - URINARY TRACT INFECTION, SITE NOT SPECIFIED SNOMED Code(s): 72430018 Plan: 1patient was in the hospital mental status changes weakness lethargy with initial concern for possible pneumonia as the patient did have some respiratory symptoms however the patient did have a chest x-ray as well as CT of the chest that has been negative for acute infiltrate did have a positive UA and high clinical suspicion for possible UTI/pyelonephritis 2-positive blood culture E. coli likely urinary source, initially identified as sensitive pathogen however that culture has been finalized as ESBL E. coli, blood culture had been repeated so far negative 3-ultrasound of the kidney bladder area did not show any hydronephrosis 4patient seemed to showing clinical improvement. Blood cultures have been so far, to continue with Invanz daily, patient will get midline for outpatient IV antibiotics therapy tomorrow, questions concerned were answered Time with Patient: Less than 30
[2023-01-27] MEDS: MONTELUKAST 10 MG TAB PO SCH (21:02)
--- NOTE | 2023-01-27 22:05 | PN ---
PROGRESS NOTE SUBJECTIVE: The patient is doing better. Hemoglobin is stable at 10.9. He is on IV antibiotics at home for tomorrow to go home with. BUN and creatinine is 22 and 0.85, glucose mid 100s. PROGNOSIS: Guarded. FOLLOWUP: In next 24 to 48 hours for discharge. BELLAL / AMANDAN: [id number] /
[2023-01-28] MEDS: LEVOTHYROXINE 75 MCG TAB PO SCH (06:24)
[2023-01-28] MEDS: carvediloL 6.25 MG TAB PO SCH (06:24)
[2023-01-28] MEDS: IPRATROPIUM-ALBUTEROL 3 ML NEB INHALATION SCH ×3 (07:47→15:25)
[2023-01-28] MEDS: SYMBICORT 160-4.5 MCG INHALER INHALATION SCH (07:47)
[2023-01-28] MEDS: SACUBITRIL/VALSARTAN 24 MG-26 MG TABLET PO SCH (09:12)
[2023-01-28] MEDS: FINASTERIDE 5 MG TAB PO SCH (09:13)
[2023-01-28] MEDS: TAMSULOSIN 0.4 MG CAP.ER.24H PO SCH (09:13)
[2023-01-28] MEDS: FAMOTIDINE 20 MG TAB PO SCH (09:13)
[2023-01-28] MEDS: APIXABAN 5 MG TAB PO SCH (09:13)
[2023-01-28] MEDS: LORATADINE 10 MG TAB PO SCH (09:13)
[2023-01-28] MEDS: ERTAPENEM 1 GM in SODIUM CHLORIDE 0.9% 50 ML IVPB SCH (10:24)
[2023-01-28 10:59] VITALS: RESP 16; TEMP 98.5
[2023-01-28 11:59] VITALS: BMI 28.7
[2023-01-28 12:02] VITALS: BP 116/78; PULSE 70
== END 2023-01-28 15:23 | disposition home health service (06) | DRG 689 ==
LOC: EC 15:18 → 3SCARD 21:40
PROVIDERS: ADMIT Family Medicine; ATTEND Family Medicine
DX: N39.0 Urinary tract infection, site not specified (principal); G93.41 Metabolic encephalopathy; Z16.12 Extended spectrum beta lactamase (ESBL) resistance; G91.2 (Idiopathic) normal pressure hydrocephalus; I50.20 Unspecified systolic (congestive) heart failure; N17.9 Acute kidney failure, unspecified; B96.20 Unspecified Escherichia coli [E. coli] as the cause of diseases classified elsewhere; Z71.3 Dietary counseling and surveillance; R32 Unspecified urinary incontinence; Z20.822 Contact with and (suspected) exposure to COVID-19; J45.909 Unspecified asthma, uncomplicated; R77.8 Other specified abnormalities of plasma proteins; E03.9 Hypothyroidism, unspecified; N40.0 Benign prostatic hyperplasia without lower urinary tract symptoms; Z82.49 Family history of ischemic heart disease and other diseases of the circulatory system; E78.5 Hyperlipidemia, unspecified; E86.0 Dehydration; G47.30 Sleep apnea, unspecified; I48.0 Paroxysmal atrial fibrillation; I25.2 Old myocardial infarction; I11.0 Hypertensive heart disease with heart failure; Z79.01 Long term (current) use of anticoagulants; Z79.890 Hormone replacement therapy; Z79.899 Other long term (current) drug therapy; Z95.1 Presence of aortocoronary bypass graft; Z95.5 Presence of coronary angioplasty implant and graft
CPT/HCPCS: 36410; 36415; 70450; 70551; 71046; 71250; 76770; 76937; 78306; 80053; 80306; 81001; 82550; 84145; 84153; 84154; 84484; 85025; 85379; 85610; 85730; 86140; 87040; 87077; 87086; 87186; 87636; 93005; 93306; 94640; 94760; 96361; 96365; 96366; 96375; 99285

== ENCOUNTER 2023-05-07 08:20 | Day surgery (SDC) | payer MEDICARE ==
[2023-05-07 08:42] VITALS: BP 118/67; PULSE 57; RESP 16; TEMP 97.7
[2023-05-07] MEDS ORDERED: diazePAM 5 MG TAB PO STA (08:45)
== END 2023-05-07 09:15 | disposition home or self-care (01) ==
LOC: RADPROMAIN 08:20
PROVIDERS: ATTEND Psychiatry & Neurology Neurology
DX: G91.2 (Idiopathic) normal pressure hydrocephalus (principal); Z53.9 Procedure and treatment not carried out, unspecified reason

== ENCOUNTER 2023-06-04 08:30 | Day surgery (SDC) | payer MEDICARE ==
[2023-06-04 09:31] VITALS: TEMP 98.1
[2023-06-04] MEDS ORDERED: HYDROcodone/APAP 5-325MG 1 EACH TAB PO PRN (11:12)
[2023-06-04 18:53] VITALS: RESP 16
[2023-06-04 18:57] VITALS: PULSE 71
[2023-06-04 19:01] VITALS: BP 139/67
--- NOTE | 2023-06-05 21:43 | FL ---
Lumbar puncture INDICATION: Cisternogram for normal pressure hydrocephalus FINDINGS: Fluoroscopy time: 1 minute 42 seconds. Images obtained: 0. The procedure was explained to the patient. Risks complications and benefits were discussed. Alternat cayden were discussed. All questions were answered. Informed consent was obtained. A timeout was performed. The L3-4 and L4-5 levels were chosen for access. Maximum barrier sterile technique was utilized. The skin was cleansed with Betadine and the patient sterilely prepped and draped in the usual manner. The skin and deeper tissue was anesthetized with 1% Lidocaine. Utilizing a 22-gauge spinal needle the sp inal canal was attempted for access. A couple times at the L3-4 level weren't successful. The L4-5 le miley likewise was unsuccessful. Difficulties were discussed with the patient. Patient agreed to have a n associate attempt at puncture which was then successful. Good CSF return was evident. The scheduled radiotracer was administered successfully. The stylette was replaced and the needle withdrawn. The patient tolerated the procedure well. Discharge instructions were discussed with the patient. e patient will return for nuclear medicine scan at the appropriate time intervals. Findings: Attending nuclear medicine scan IMPRESSION: 1. Successful Lumbar Puncture.
== END 2023-06-04 14:37 | disposition home or self-care (01) ==
LOC: RADPROMAIN 08:30
PROVIDERS: ATTEND Psychiatry & Neurology Neurology
DX: G91.2 (Idiopathic) normal pressure hydrocephalus (principal)
CPT/HCPCS: 62328; J2001

== ENCOUNTER 2023-08-01 15:26 | Inpatient (IN) | payer MEDICARE ==
--- NOTE | 2023-08-01 16:30 | ED ---
General Adult HPI - General Chief complaint: Recheck/Abnormal Lab/Rx Stated complaint: kidney issues Time Seen by Provider: 08/01/23 16:10 Source: patient, RN notes reviewed Mode of arrival: ambulatory Limitations: no limitations - History of Present Illness Initial comments: 78 year old male presents to the emergency department for chief complaint of k idney issues. Patient states that he had preop blood work drawn yesterday and was told that his GFR was 10. Dr. Veronika Yeh sent him to the emergency department because of this. He denies any nausea, vomiting. Denies difficulty urinating, denies hematuria. Denies any pain at this time. Denies known history of CKD. He is scheduled for brain shunt 08/15/23. - Related Data Home Medications Medication Instructions Recorded Confirmed Carvedilol [Coreg] 6.25 mg PO BID 06/08/14 08/01/23 Montelukast [Singulair] 10 mg PO HS 06/08/14 08/01/23 Tamsulosin [Flomax] 0.4 mg PO BID 06/08/14 08/01/23 Acetaminophen Tab [Tylenol] 1,000 mg PO BID 01/21/23 08/01/23 Atorvastatin [Lipitor] 40 mg PO DAILY 01/21/23 08/01/23 Cetirizine HCl [Zyrtec] 10 mg PO DAILY 01/21/23 08/01/23 Fluticasone Propion/Salmeterol 1 puff INHALATION RT-BID 01/21/23 08/01/23 [Wixela 500-50 Inhub] Ibuprofen [Motrin Ib] 200 mg PO Q4H PRN 01/21/23 08/01/23 Levothyroxine Sodium [Synthroid] 150 mcg PO DAILY 01/21/23 08/01/23 Prevagen 1 cap PO DAILY 01/21/23 08/01/23 Triamcinolone 0.1% Lotion [Kenalog 1 applic TOPICAL DAILY PRN 01/21/23 08/01/23 0.1% Lotion] Ubidecarenone [Coenzyme Q10] 200 mg PO DAILY 01/21/23 08/01/23 Clopidogrel [Plavix] 75 mg PO DAILY 05/07/23 08/01/23 Sacubitril/Valsartan [Entresto 24 1 tab PO BID 08/01/23 08/01/23 mg-26 mg Tablet] Previous Rx's Medication Instructions Recorded Apixaban [Eliquis] 5 mg PO BID #70 tab 11/19/18 Famotidine [Pepcid] 20 mg PO DAILY 90 Days #90 tab 01/27/23 Finasteride [Proscar] 5 mg PO Q48H 45 Days #45 tab 01/27/23 Ipratropium-Albuterol Nebulize 3 ml INHALATION RT-QID 30 Days 01/27/23 [Duoneb 0.5 mg-3 mg/3 ml Soln] #120 each Allergies Allergy/AdvReac Type Severity Reaction Status Date / Time No Known Allergies Allergy Verified 08/01/23 20:24 Review of Systems ROS Statement: Those systems with pertinent positive or pertinent negative responses have been documented in the HPI. ROS Other: All systems not noted in ROS Statement are negative. Past Medical History Past Medical History: Asthma, Chest Pain / Angina, Deep Vein Thrombosis (DVT), Hyperlipidemia, Hypertension, Myocardial Infarction ([place]), Prostate Disorder, Thyroid Disorder Additional Past Medical History / Comment(s): ENLARGED PROSTATE,CURRENT CHRONIC UTI, CURRENTLY HAVING CHEST TIGHTNESS WHEN LAYING DOWN AT NIGHTTIME. RT GROIN PUNCTURE SITE-HAD HEMATOMA FROM HEART CATH 06-09-14- STATES "LOOKS GOOD NOW" Last Myocardial Infarction Date:: 2003 History of Any Multi-Drug Resistant Organisms: None Reported Past Surgical History: Coronary Bypass/CABG, Heart Catheterization, Heart Catheterization With Stent, Hernia Repair, Orthopedic Surgery Additional Past Surgical History / Comment(s): CABG-4 VESSEL 2003,UMBILICAL HERNIA REPAIR, RT ANKLE REPLACEMENT,HEART CATH , HEART CATH/ANGIO /STENT PLACEMENT Past Anesthesia/Blood Transfusion Reactions: No Reported Reaction Date of Last Stent Placement:: 06-18-14 Past Psychological History: No Psychological Hx Reported Smoking Status: Never smoker, Unknown if ever smoked Past Alcohol Use History: None Reported Past Drug Use History: None Reported - Past Family History Father Family Medical History: Myocardial Infarction ([place]) Brother(s) Family Medical History: Myocardial Infarction ([place]) General Exam Limitations: no limitations General appearance: alert, in no apparent distress Head exam: Present: atraumatic, normocephalic, normal inspection Eye exam: Present: normal appearance, PERRL, EOMI. Absent: scleral icterus, conjunctival injection, periorbital swelling ENT exam: Present: normal exam, mucous membranes moist Neck exam: Present: normal inspection. Absent: tenderness, meningismus, lymphadenopathy Respiratory exam: Present: normal lung sounds bilaterally. Absent: respiratory distress, wheezes, rales, rhonchi, stridor Cardiovascular Exam: Present: regular rate, normal rhythm, systolic murmur. Absent: diastolic murmur, rubs, gallop, clicks GI/Abdominal exam: Present: soft, normal bowel sounds. Absent: distended, tenderness, guarding, rebound, rigid Back exam: Present: normal inspection. Absent: CVA tenderness (R), CVA tenderness (L) Neurological exam: Present: alert, oriented X3 Psychiatric exam: Present: normal affect, normal mood Skin exam: Present: warm, dry, intact, normal color. Absent: rash Course Vital Signs 08/01/23 08/01/23 08/01/23 16:02 17:25 17:55 Temperature 98.1 F 97.7 F Pulse Rate 68 64 68 Respiratory 18 18 17 Rate Blood Pressure 112/71 124/72 132/86 O2 Sat by Pulse 97 96 95 Oximetry 08/01/23 08/01/23 18:02 19:41 Temperature 97.7 F Pulse Rate 67 67 Respiratory 18 18 Rate Blood Pressure 139/86 136/89 O2 Sat by Pulse 99 95 Oximetry Medical Decision Making - Medical Decision Making Was pt. sent in by a medical professional or institution (, [facility], RAIL BENDER, urgent care, hospital, or halfway...) When possible be specific @ -Patient sent in by PCP Dr. Dom Yeh Did you speak to anyone other than the patient for history (EMS, parent, family, police, friend...)? What history was obtained from this source @ -No Did you review nursing and triage notes (agree or disagree)? Why? @ -I reviewed and agree with nursing and triage notes Were old charts reviewed (outside hosp., previous admission, EMS record, old EKG, old radiological studies, urgent care reports/EKG's, halfway records)? Report findings @ -Prior laboratory studies reviewed from January compared to Cr today Differential Diagnosis (chest pain, altered mental status, abdominal pain women, abdominal pain men, vaginal bleeding, weakness, fever, dyspnea, syncope, headache, dizziness, GI bleed, back pain, seizure, CVA, palpatations, mental he alth, musculoskeletal)? @ -not applicable EKG interpreted by me (3pts min.). @ -EKG at 1814 shows sinus rhythm occasional premature beats, rate 73, RI 151, QRS 91, QTQTc 39 3419 X-rays interpreted by me (1pt min.). @ -None done CT interpreted by me (1pt min.). @ -None done U/S interpreted by me (1pt. min.). @ -Kidney ultrasound shows no acute process What testing was considered but not performed or refused? (CT, X-rays, U/S, labs)? Why? @ -None What meds were considered but not given or refused? Why? @ -None Did you discuss the management of the patient with other professionals (professionals i.e. , PA, RAIL BENDER, lab, RT, psych nurse, social media developer, criminal defense lawyer, teacher, catapult and arresting gear officer, manager rn case)? Give summary @ -Management discussed with [place] Bardales with [facility] who is accepting of the admission Was smoking cessation discussed for >3mins.? @ -No Was critical care preformed (if so, how long)? @ -No Were there social determinants of health that impacted care today? How? (Homelessness, low income, unemployed, alcoholism, drug addiction, transportation, low edu. Level, literacy, decrease access to med. care, senior living, rehab)? @ -No Was there de-escalation of care discussed even if they declined (Discuss DNR or withdrawal of care, Hospice)? DNR status @ -No What co-morbidities impacted this encounter? (DM, HTN, Smoking, COPD, CAD, C ancer, CVA, ARF, Chemo, Hep., AIDS, mental health diagnosis, sleep apnea, morbid obesity)? @ -None Was patient admitted / discharged? Hospital course, mention meds given and route, prescriptions, significant lab abnormalities, going to OR and other pertinent info. @ -admitted. Patient sent in by PCP, Dr. Jake Yeh for renal failure. Linda salguero does not have any significant complaints at this time. Vital signs stable. Laboratory studies show WBC 4.0, hemoglobin 10.1; CMP shows potassium 4.6, BUN 63, creatinine 6.32. Creatinine 01/27/23 1.85. UA shows WBC, leukocyte esterase. Patient will be started on antibiotics for UTI, urine sent for culture. Kidney ultrasound pending at time of admission. Case discussed with Indiana Bardales with [facility] who is accepting of the admission. Case discussed with Dr. Quinones. Undiagnosed new problem with uncertain prognosis? @ -No Drug Therapy requiring intensive monitoring for toxicity (Heparin, Nitro, Insulin, Cardizem)? @ -No Were any procedures done? @ -No Diagnosis/symptom? @ -renal failure Acute, or Chronic, or Acute on Chronic? @ -acute Uncomplicated (without systemic symptoms) or Complicated (systemic symptoms)? @ -uncomplicated Side effects of treatment? @ -No Exacerbation, Progression, or Severe Exacerbation? @ -No Poses a threat to life or bodily function? How? (Chest pain, USA, [place], pneumonia, PE, COPD, DKA, ARF, appy, cholecystitis, CVA, Diverticulitis, Homicidal, Suicidal, threat to staff... and all critical care pts) @ -ARF - Lab Data Result diagrams: 08/01/23 17:15 08/01/23 17:15 Lab Results 08/01/23 08/01/23 08/01/23 Range/Units 17:15 17:15 17:15 WBC 4.0 (3.8-10.6) k/uL RBC 3.07 L (4.30-5.90) m/uL Hgb 10.1 L (13.0-17.5) gm/dL Hct 29.0 L (39.0-53.0) % MCV 94.4 (80.0-100.0) fL MCH 32.9 (25.0-35.0) pg MCHC 34.9 (31.0-37.0) g/dL RDW 12.4 (11.5-15.5) % Plt Count 145 L (150-450) k/uL MPV 8.2 Neutrophils % 66 % Lymphocytes % 19 % Monocytes % 8 % Eosinophils % 6 % Basophils % 1 % Neutrophils # 2.7 (1.3-7.7) k/uL Lymphocytes # 0.8 L (1.0-4.8) k/uL Monocytes # 0.3 (0-1.0) k/uL Eosinophils # 0.2 (0-0.7) k/uL Basophils # 0.0 (0-0.2) k/uL PT 11.5 (10.0-12.5) sec INR 1.1 (<1.2) APTT 25.7 (22.0-30.0) sec Sodium (137-145) mmol/L Potassium (3.5-5.1) mmol/L Chloride (98-107) mmol/L Carbon Dioxide (22-30) mmol/L Anion Gap mmol/L BUN (9-20) mg/dL Creatinine (0.66-1.25) mg/dL Est GFR (CKD-EPI)AfAm (>60 ml/min/1.73 sqM) Est GFR (CKD-EPI)NonAf (>60 ml/min/1.73 sqM) Glucose (74-99) mg/dL Calcium (8.4-10.2) mg/dL Magnesium (1.6-2.3) mg/dL Total Bilirubin (0.2-1.3) mg/dL AST (17-59) U/L ALT (4-49) U/L Alkaline Phosphatase (38-126) U/L Total Protein (6.3-8.2) g/dL Albumin (3.5-5.0) g/dL Urine Color Colorless Urine Appearance Cloudy (Clear) Urine pH 5.0 (5.0-8.0) Ur Specific [place] 1.012 (1.001-1.035) Urine Protein 1+ H (Negative) Urine Glucose (UA) Negative (Negative) Urine Ketones Negative (Negative) Urine Blood Negative (Negative) Urine Nitrite Negative (Negative) Urine Bilirubin Negative (Negative) Urine Urobilinogen <2.0 (<2.0) mg/dL Ur Leukocyte Esterase Large H (Negative) Urine RBC 5 (0-5) /hpf Urine WBC 48 H (0-5) /hpf Ur Squamous Epith Cells 1 (0-4) /hpf Urine Bacteria Occasional H (None) /hpf Urine Mucus Rare H (None) /hpf 08/01/23 Range/Units 17:15 WBC (3.8-10.6) k/uL RBC (4.30-5.90) m/uL Hgb (13.0-17.5) gm/dL Hct (39.0-53.0) % MCV (80.0-100.0) fL MCH (25.0-35.0) pg MCHC (31.0-37.0) g/dL RDW (11.5-15.5) % Plt Count (150-450) k/uL MPV Neutrophils % % Lymphocytes % % Monocytes % % Eosinophils % % Basophils % % Neutrophils # (1.3-7.7) k/uL Lymphocytes # (1.0-4.8) k/uL Monocytes # (0-1.0) k/uL Eosinophils # (0-0.7) k/uL Basophils # (0-0.2) k/uL PT (10.0-12.5) sec INR (<1.2) APTT (22.0-30.0) sec Sodium 142 (137-145) mmol/L Potassium 4.6 (3.5-5.1) mmol/L Chloride 109 H (98-107) mmol/L Carbon Dioxide 23 (22-30) mmol/L Anion Gap 10 mmol/L BUN 63 H (9-20) mg/dL Creatinine 6.32 H (0.66-1.25) mg/dL Est GFR (CKD-EPI)AfAm 9 (>60 ml/min/1.73 sqM) Est GFR (CKD-EPI)NonAf 8 (>60 ml/min/1.73 sqM) Glucose 102 H (74-99) mg/dL Calcium 8.6 (8.4-10.2) mg/dL Magnesium 2.0 (1.6-2.3) mg/dL Total Bilirubin 0.8 (0.2-1.3) mg/dL AST 17 (17-59) U/L ALT 17 (4-49) U/L Alkaline Phosphatase 48 (38-126) U/L Total Protein 5.3 L (6.3-8.2) g/dL Albumin 3.2 L (3.5-5.0) g/dL Urine Color Urine Appearance (Clear) Urine pH (5.0-8.0) Ur Specific [place] (1.001-1.035) Urine Protein (Negative) Urine Glucose (UA) (Negative) Urine Ketones (Negative) Urine Blood (Negative) Urine Nitrite (Negative) Urine Bilirubin (Negative) Urine Urobilinogen (<2.0) mg/dL Ur Leukocyte Esterase (Negative) Urine RBC (0-5) /hpf Urine WBC (0-5) /hpf Ur Squamous Epith Cells (0-4) /hpf Urine Bacteria (None) /hpf Urine Mucus (None) /hpf Disposition Clinical Impression: UTI (urinary tract infection), HILDA (acute kidney injury) Disposition: ADMITTED IP TO THIS HOSP Condition: Stable Is patient prescribed a controlled substance at d/c from ED?: No
[2023-08-01 17:43] LABS: Basophils % (A) 1 %; Eosinophils # (A) 0.2 k/uL (0-0.7); Eosinophils % (A) 6 %; HGB 10.1 gm/dL (13.0-17.5); Lymphocytes # (A) 0.8 k/uL (1.0-4.8); Lymphocytes % (A) 19 %; MCH 32.9 pg (25.0-35.0); MCHC 34.9 g/dL (31.0-37.0); MCV 94.4 fL (80.0-100.0); Mean Platelet Volume 8.2; Monocytes # (A) 0.3 k/uL (0-1.0); Monocytes % (A) 8 %; Neutrophils # (A) 2.7 k/uL (1.3-7.7); Neutrophils % (A) 66 %; Platelet Count 145 k/uL (150-450); RBC 3.07 m/uL (4.30-5.90); RDW 12.4 % (11.5-15.5)
[2023-08-01 17:50] LABS: Appearance,Urine Cloudy (Clear); Bacteria,Urine Occasional /hpf; Bilirubin,Urine Negative (Negative); Blood,Urine Negative (Negative); Color,Urine Colorless; Glucose,Urine (UA) Negative (Negative); Ketones,Urine Negative (Negative); Leukocyte Esterase,Urine Large (Negative); Mucus,Urine Rare /hpf; Nitrite,Urine Negative (Negative); Protein,Urine 1+ (Negative); RBC,Urine 5 /hpf (0-5); Specific Gravity,Urine 1.012 (1.001-1.035); Squamous Epithelial Cell,Urine 1 /hpf (0-4); Urobilinogen,Urine <2.0 mg/dL (<2.0); WBC,Urine 48 /hpf (0-5)
[2023-08-01 17:57] LABS: INR 1.1 (<1.2); Partial Thromboplastin Time 25.7 sec (22.0-30.0); Prothrombin Time 11.5 sec (10.0-12.5)
[2023-08-01 18:15] LABS: ALT 17 U/L (4-49); AST 17 U/L (17-59); African American GFR (CKD) 9 (>60 ml/min/1.73 sqM); Albumin 3.2 g/dL (3.5-5.0); Alkaline Phosphatase 48 U/L (38-126); Anion Gap 10 mmol/L; Blood Urea Nitrogen 63 mg/dL (9-20); Calcium 8.6 mg/dL (8.4-10.2); Carbon Dioxide 23 mmol/L (22-30); Chloride 109 mmol/L (98-107); Glucose 102 mg/dL (74-99); Non-African American GFR(CKD) 8 (>60 ml/min/1.73 sqM); Potassium 4.6 mmol/L (3.5-5.1); Sodium 142 mmol/L (137-145); Total Bilirubin 0.8 mg/dL (0.2-1.3); Total Protein 5.3 g/dL (6.3-8.2)
[2023-08-01] MEDS ORDERED: NALOXONE 0.4 MG/ML 1 ML VIAL IV PRN (19:01)
[2023-08-01] MEDS: SODIUM CHLORIDE 0.9% 1,000 ML IV SCH (19:38)
--- NOTE | 2023-08-01 20:57 | US ---
EXAMINATION TYPE: US kidneys/renal and bladder DATE OF EXAM: 08/01/2023 COMPARISON: 01/23/23 CLINICAL INDICATION: Male, 78 years old with history of ceasrio; Very low GFR. Inpatient. EXAM MEASUREMENTS: Right Kidney: 9.1 x 4.4 x 4.5 cm Left Kidney: 9.9 x 5.3 x 6.1 cm Right Kidney: No hydronephrosis. Cyst sup pole measuring 1.6 x 1.7 x 1.6 cm. Right renal parenchyma i s hyperechoic to liver. Left Kidney: No hydronephrosis or masses seen. Left renal parenchyma is hyperechoic the spleen. Bladder: wnl Bilateral Jets seen: No IMPRESSION: No acute process.
[2023-08-02] MEDS: ACETAMINOPHEN TAB 325 MG TAB PO PRN (02:02)
[2023-08-02] MEDS ORDERED: LIDOCAINE 2% URO-JET JELLY 5 ML KIT URETHRAL ONE (03:07)
[2023-08-02] MEDS: SODIUM CHLORIDE 0.9% 1,000 ML IV SCH ×2 (03:40→10:52)
[2023-08-02] MEDS ORDERED: HYDROcodone/APAP 5-325MG 1 EACH TAB PO STA (03:58)
--- NOTE | 2023-08-02 06:37 | P.GSCN ---
History of Present Illness Consult date: 08/02/23 History of present illness: 78-year-old male who came to the hospital via Dr. Jake Yeh because of kidney failure. Patient had labs done preoperatively at Dr. Yeh's office and his BUNs was 63 and his creatinine was 6.3. Since the emergency room. There is question of urine retention. His urine looked infected. Ultrasound did not show any evidence of hydronephrosis. Bladder scan after catheters placed still showed that there was a lot of urine in the bladder. Nursing staff is having a problem with the catheter. That reason I assessed to see the patient. The patient does have a known history of a larger prostate. He has had urinary frequency as of late but was not really complaining of burning frequency or hematuria. Review the ultrasound and there is no hydronephrosis. I did a bladder scan and there is about 250 mL in the bladder. He was recently incontinent urine here in the emergency room. Review of Systems All systems: negative - Constitutional Denies fever, Denies weight loss - EENT Eyes: denies blurred vision Ears, nose, mouth and throat: Denies dysphagia - Cardiovascular Denies chest pain, Denies shortness of breath - Respiratory Denies cough, Denies 7 - Gastrointestinal Reports as per HPI - Genitourinary Denies dysuria, Denies hematuria - Integumentary Denies rash, Denies unusual bruising - Neurological Denies headaches, Denies syncope - Hematologic/Lymphatic Denies easy bleeding, Denies easy bruising Past Medical History Past Medical History: Asthma, Chest Pain / Angina, Deep Vein Thrombosis (DVT), Hyperlipidemia, Hypertension, Myocardial Infarction ([place]), Prostate Disorder, Thyroid Disorder Additional Past Medical History / Comment(s): ENLARGED PROSTATE,CURRENT CHRONIC UTI, CURRENTLY HAVING CHEST TIGHTNESS WHEN LAYING DOWN AT NIGHTTIME. RT GROIN PUNCTURE SITE-HAD HEMATOMA FROM HEART CATH 06-09-14- STATES "LOOKS GOOD NOW" Last Myocardial Infarction Date:: 2003 History of Any Multi-Drug Resistant Organisms: None Reported Past Surgical History: Coronary Bypass/CABG, Heart Catheterization, Heart Catheterization With Stent, Hernia Repair, Orthopedic Surgery Additional Past Surgical History / Comment(s): CABG-4 VESSEL 2003,UMBILICAL HERNIA REPAIR, RT ANKLE REPLACEMENT,HEART CATH , HEART CATH/ANGIO /STENT PLACEMENT Past Anesthesia/Blood Transfusion Reactions: No Reported Reaction Date of Last Stent Placement:: 06-18-14 Past Psychological History: No Psychological Hx Reported Smoking Status: Never smoker, Unknown if ever smoked Past Alcohol Use History: None Reported Past Drug Use History: None Reported - Past Family History Father Family Medical History: Myocardial Infarction ([place]) Brother(s) Family Medical History: Myocardial Infarction ([place]) Medications and Allergies Home Medications Medication Instructions Recorded Confirmed Type Carvedilol [Coreg] 6.25 mg PO BID 06/08/14 08/01/23 History Montelukast [Singulair] 10 mg PO HS 06/08/14 08/01/23 History Tamsulosin [Flomax] 0.4 mg PO BID 06/08/14 08/01/23 History Apixaban [Eliquis] 5 mg PO BID #70 tab 11/19/18 08/01/23 Rx Acetaminophen Tab [Tylenol] 1,000 mg PO BID 01/21/23 08/01/23 History Atorvastatin [Lipitor] 40 mg PO DAILY 01/21/23 08/01/23 History Cetirizine HCl [Zyrtec] 10 mg PO DAILY 01/21/23 08/01/23 History Fluticasone Propion/Salmeterol 1 puff INHALATION RT-BID 01/21/23 08/01/23 History [Wixela 500-50 Inhub] Ibuprofen [Motrin Ib] 200 mg PO Q4H PRN 01/21/23 08/01/23 History Levothyroxine Sodium [Synthroid] 150 mcg PO DAILY 01/21/23 08/01/23 History Prevagen 1 cap PO DAILY 01/21/23 08/01/23 History Triamcinolone 0.1% Lotion [Kenalog 1 applic TOPICAL DAILY PRN 01/21/23 08/01/23 History 0.1% Lotion] Ubidecarenone [Coenzyme Q10] 200 mg PO DAILY 01/21/23 08/01/23 History Famotidine [Pepcid] 20 mg PO DAILY 90 Days #90 tab 01/27/23 08/01/23 Rx Finasteride [Proscar] 5 mg PO Q48H 45 Days #45 tab 01/27/23 08/01/23 Rx Ipratropium-Albuterol Nebulize 3 ml INHALATION RT-QID 30 Days 01/27/23 08/01/23 Rx [Duoneb 0.5 mg-3 mg/3 ml Soln] #120 each Clopidogrel [Plavix] 75 mg PO DAILY 05/07/23 08/01/23 History Sacubitril/Valsartan [Entresto 24 1 tab PO BID 08/01/23 08/01/23 History mg-26 mg Tablet] Allergies Allergy/AdvReac Type Severity Reaction Status Date / Time No Known Allergies Allergy Verified 08/01/23 20:24 Surgical - Exam Vital Signs Temp Pulse Resp BP Pulse Ox 98.1 F 68 18 112/71 97 08/01/23 16:02 08/01/23 16:02 08/01/23 16:02 08/01/23 16:02 08/01/23 16:02 - General well developed, well nourished, no distress - Eyes normal ocular movement, no icteric - ENT no hearing loss, no congestion - Neck no masses, trachea midline - Respiratory normal respiratory effort, clear to auscultation - Abdomen Abdomen: soft, non tender, no guarding, no rigid, no rebound - Integumentary no rash, no abnormal pigmentation - Neurologic no disoriented, no combative - Psychiatric oriented to time, oriented to person, oriented to place, speech is normal, memory intact Results - Labs 08/01/23 17:15 08/01/23 17:15 Abnormal Lab Results - Last 24 Hours (Table) 08/01/23 08/01/23 08/01/23 Range/Units 17:15 17:15 17:15 RBC 3.07 L (4.30-5.90) m/uL Hgb 10.1 L (13.0-17.5) gm/dL Hct 29.0 L (39.0-53.0) % Plt Count 145 L (150-450) k/uL Lymphocytes # 0.8 L (1.0-4.8) k/uL Chloride 109 H (98-107) mmol/L BUN 63 H (9-20) mg/dL Creatinine 6.32 H (0.66-1.25) mg/dL Glucose 102 H (74-99) mg/dL Total Protein 5.3 L (6.3-8.2) g/dL Albumin 3.2 L (3.5-5.0) g/dL Urine Protein 1+ H (Negative) Ur Leukocyte Esterase Large H (Negative) Urine WBC 48 H (0-5) /hpf Urine Bacteria Occasional H (None) /hpf Urine Mucus Rare H (None) /hpf Diabetes panel 08/01/23 Range/Units 17:15 Sodium 142 (137-145) mmol/L Potassium 4.6 (3.5-5.1) mmol/L Chloride 109 H (98-107) mmol/L Carbon Dioxide 23 (22-30) mmol/L BUN 63 H (9-20) mg/dL Creatinine 6.32 H (0.66-1.25) mg/dL Glucose 102 H (74-99) mg/dL Calcium 8.6 (8.4-10.2) mg/dL AST 17 (17-59) U/L ALT 17 (4-49) U/L Alkaline Phosphatase 48 (38-126) U/L Total Protein 5.3 L (6.3-8.2) g/dL Albumin 3.2 L (3.5-5.0) g/dL Calcium panel 08/01/23 Range/Units 17:15 Calcium 8.6 (8.4-10.2) mg/dL Albumin 3.2 L (3.5-5.0) g/dL Pituitary panel 08/01/23 Range/Units 17:15 Sodium 142 (137-145) mmol/L Potassium 4.6 (3.5-5.1) mmol/L Chloride 109 H (98-107) mmol/L Carbon Dioxide 23 (22-30) mmol/L BUN 63 H (9-20) mg/dL Creatinine 6.32 H (0.66-1.25) mg/dL Glucose 102 H (74-99) mg/dL Calcium 8.6 (8.4-10.2) mg/dL Adrenal panel 08/01/23 Range/Units 17:15 Sodium 142 (137-145) mmol/L Potassium 4.6 (3.5-5.1) mmol/L Chloride 109 H (98-107) mmol/L Carbon Dioxide 23 (22-30) mmol/L BUN 63 H (9-20) mg/dL Creatinine 6.32 H (0.66-1.25) mg/dL Glucose 102 H (74-99) mg/dL Calcium 8.6 (8.4-10.2) mg/dL Total Bilirubin 0.8 (0.2-1.3) mg/dL AST 17 (17-59) U/L ALT 17 (4-49) U/L Alkaline Phosphatase 48 (38-126) U/L Total Protein 5.3 L (6.3-8.2) g/dL Albumin 3.2 L (3.5-5.0) g/dL - Imaging US - kidney/bladder: report reviewed, image reviewed Assessment and Plan Assessment: Impression: Acute on chronic renal failure, nonoliguric and most likely non-urologic. History of recurrent urine infections. History of BPH. Probable urinary infection. Multiple medical illnesses. Recommendations: It is unlikely that his renal failure is due to his bladder and prostate as her is no evidence of hydronephrosis on the ultrasound however rule out the bladder as a contributing factor Long catheter placed. Also can be used for intake and output gentleman's during the evaluation and treatment of the renal insufficiency. I will place a catheter. Time with Patient: Greater than 30
--- NOTE | 2023-08-02 06:40 | P.PCN ---
Date of Procedure: 08/02/23 Preoperative Diagnosis: Urine retention, acute and chronic renal failure, urinary tract infection, inability of nursing staff to place a catheter. Postoperative Diagnosis: Same due to large prostate Procedure(s) Performed: Difficult catheterization with 20 coud-tip catheter., Irrigation of bladder Anesthesia: none Surgeon: Dom Steele Pathology: none sent Condition: stable Indications for Procedure: The patient is in the hospital with acute and chronic renal failure. He is not emptying his bladder very well. He has no hydronephrosis. There is apparent urinary infection. The nursing staffs unable to place a catheter. I will do so. Description of Procedure: The patient is prepped and draped sterilely. Because of previous attempts by the nursing staff at placing catheters in the description of gross hematuria I'll place a 20 coud-tip catheter. With a jelly per urethra and the coud-tip catheter slowly advanced into the bulbar urethra. He is slightly uncomfortable. I'm able to manipulate through the prostate with some difficulty earlier due to patient discomfort. Given the bladder and there is light pink urine. I drained approximately 300 mL. I irrigate the catheter. There may still be a small clot in the bladder. The patient catheter should stay in place until the medical staff is ready to remove it. Catheter can be irrigated as needed.
[2023-08-02 06:50] LABS: Basophils % (A) 0 %; Eosinophils # (A) 0.2 k/uL (0-0.7); Eosinophils % (A) 3 %; HCT 29.2 % (39.0-53.0); HGB 10.1 gm/dL (13.0-17.5); Lymphocytes # (A) 0.7 k/uL (1.0-4.8); Lymphocytes % (A) 11 %; MCH 32.7 pg (25.0-35.0); MCHC 34.5 g/dL (31.0-37.0); MCV 94.7 fL (80.0-100.0); Mean Platelet Volume 8.2; Monocytes # (A) 0.4 k/uL (0-1.0); Monocytes % (A) 7 %; Neutrophils % (A) 78 %; Platelet Count 133 k/uL (150-450); RBC 3.08 m/uL (4.30-5.90); RDW 12.4 % (11.5-15.5); WBC 6.4 k/uL (3.8-10.6)
[2023-08-02 07:05] LABS: African American GFR (CKD) 9 (>60 ml/min/1.73 sqM); Anion Gap 12 mmol/L; Blood Urea Nitrogen 64 mg/dL (9-20); Calcium 8.7 mg/dL (8.4-10.2); Carbon Dioxide 21 mmol/L (22-30); Chloride 111 mmol/L (98-107); Glucose 117 mg/dL (74-99); Non-African American GFR(CKD) 7 (>60 ml/min/1.73 sqM); Potassium 4.9 mmol/L (3.5-5.1); Sodium 144 mmol/L (137-145)
--- NOTE | 2023-08-02 07:48 | P.HPIM ---
History of Present Illness This is a pleasant 78 years old male with multiple medical problems include Asthma, Deep Vein Thrombosis (DVT), Hyperlipidemia, Hypertension benign prostatic hypertrophy, hypothyroidism, previous history of UTI, coronary artery disease status post CABG and stent placement Patient was supposed to get brain shunt and as part of the workup by his PCP his creatinine came back high as 6.3 so he was referred to the emergency room He was here the hospital for acute urinary tract infection and CAT scan of the brain showing dilated ventricle, on computed tomography scan on 01/21/2023 showing moderate hydrocephalus. Patient was referred to his neurologist Dr. Murphy who sent him to neurosurgeon Dr. Damon in [place] where he did spinal tap, some of the fluid and referred him to his PCP to do some preoperative evaluation for shunt placement. Patient has been having some memory issue and problems with balance since before me. But other than that he denies any new current symptom, even as per at bedside patient was has than to come to emergency room yesterday because he didn't complain from any symptoms. He denies chest pain dizziness weakness numbness. No dysuria or urinary complaints. No vomiting diarrhea or abdominal pain. No dyspnea. He denies smoking alcohol or illicit drugs. Has some chronic mild back pain but he takes Tylenol, no nsaids Patient vitals stable Hemoglobin 10.1, platelets 1:30, WBC is normal limits. Creatinine 6.3 and 6.5, baseline around 1. EKG showing normal sinus rhythm at [address] changes Renal ultrasound showed no evidence of hydronephrosis Review of Systems Review of systems CONSTITUTIONAL: No fever, no malaise, no fatigue. HEENT: No recent visual problems or hearing problems. Denied any sore throat. CARDIOVASCULAR: No orthopnea, PND, no palpitations, no syncope. PULMONARY: No shortness of breath, no cough, no hemoptysis. GASTROINTESTINAL: No diarrhea, no nausea, no vomiting, no abdominal pain. Normoactive bowel sounds. NEUROLOGICAL: No headaches, no weakness, no numbness. HEMATOLOGICAL: Denies any bleeding or petechiae. GENITOURINARY: Denies any burning micturition, frequency, or urgency. MUSCULOSKELETAL/RHEUMATOLOGICAL: Denies any joint pain, swelling, or any muscle pain. ENDOCRINE: Denies any polyuria or polydipsia. Past Medical History Past Medical History: Asthma, Chest Pain / Angina, Deep Vein Thrombosis (DVT), Hyperlipidemia, Hypertension, Myocardial Infarction ([place]), Prostate Disorder, Thyroid Disorder Additional Past Medical History / Comment(s): ENLARGED PROSTATE,CURRENT CHRONIC UTI, CURRENTLY HAVING CHEST TIGHTNESS WHEN LAYING DOWN AT NIGHTTIME. RT GROIN PUNCTURE SITE-HAD HEMATOMA FROM HEART CATH 06-09-14- STATES "LOOKS GOOD NOW" Last Myocardial Infarction Date:: 2003 History of Any Multi-Drug Resistant Organisms: None Reported Past Surgical History: Coronary Bypass/CABG, Heart Catheterization, Heart Catheterization With Stent, Hernia Repair, Orthopedic Surgery Additional Past Surgical History / Comment(s): CABG-4 VESSEL 2003,UMBILICAL HERNIA REPAIR, RT ANKLE REPLACEMENT,HEART CATH , HEART CATH/ANGIO /STENT PLACEMENT Past Anesthesia/Blood Transfusion Reactions: No Reported Reaction Date of Last Stent Placement:: 06-18-14 Past Psychological History: No Psychological Hx Reported Smoking Status: Never smoker, Unknown if ever smoked Past Alcohol Use History: None Reported Past Drug Use History: None Reported - Past Family History Father Family Medical History: Myocardial Infarction ([place]) Brother(s) Family Medical History: Myocardial Infarction ([place]) Medications and Allergies Home Medications Medication Instructions Recorded Confirmed Type Carvedilol [Coreg] 6.25 mg PO BID 06/08/14 08/01/23 History Montelukast [Singulair] 10 mg PO HS 06/08/14 08/01/23 History Tamsulosin [Flomax] 0.4 mg PO BID 06/08/14 08/01/23 History Apixaban [Eliquis] 5 mg PO BID #70 tab 11/19/18 08/01/23 Rx Acetaminophen Tab [Tylenol] 1,000 mg PO BID 01/21/23 08/01/23 History Atorvastatin [Lipitor] 40 mg PO DAILY 01/21/23 08/01/23 History Cetirizine HCl [Zyrtec] 10 mg PO DAILY 01/21/23 08/01/23 History Fluticasone Propion/Salmeterol 1 puff INHALATION RT-BID 01/21/23 08/01/23 History [Wixela 500-50 Inhub] Ibuprofen [Motrin Ib] 200 mg PO Q4H PRN 01/21/23 08/01/23 History Levothyroxine Sodium [Synthroid] 150 mcg PO DAILY 01/21/23 08/01/23 History Prevagen 1 cap PO DAILY 01/21/23 08/01/23 History Triamcinolone 0.1% Lotion [Kenalog 1 applic TOPICAL DAILY PRN 01/21/23 08/01/23 History 0.1% Lotion] Ubidecarenone [Coenzyme Q10] 200 mg PO DAILY 01/21/23 08/01/23 History Famotidine [Pepcid] 20 mg PO DAILY 90 Days #90 tab 01/27/23 08/01/23 Rx Finasteride [Proscar] 5 mg PO Q48H 45 Days #45 tab 01/27/23 08/01/23 Rx Ipratropium-Albuterol Nebulize 3 ml INHALATION RT-QID 30 Days 01/27/23 08/01/23 Rx [Duoneb 0.5 mg-3 mg/3 ml Soln] #120 each Clopidogrel [Plavix] 75 mg PO DAILY 05/07/23 08/01/23 History Sacubitril/Valsartan [Entresto 24 1 tab PO BID 08/01/23 08/01/23 History mg-26 mg Tablet] Allergies Allergy/AdvReac Type Severity Reaction Status Date / Time No Known Allergies Allergy Verified 08/01/23 20:24 Physical Exam Vitals: Vital Signs Temp Pulse Pulse Resp BP BP Pulse Ox 08/02/23 06:57 144/95 08/02/23 04:41 78 18 145/75 97 08/02/23 01:12 97.8 F 63 18 120/65 97 08/01/23 22:00 70 17 162/96 98 08/01/23 20:57 65 18 145/87 97 08/01/23 19:41 67 18 136/89 95 08/01/23 18:02 97.7 F 67 18 139/86 99 08/01/23 17:55 97.7 F 68 17 132/86 95 08/01/23 17:25 64 18 124/72 96 08/01/23 16:02 98.1 F 68 18 112/71 97 Intake and Output 08/01/23 08/02/23 08/02/23 22:59 06:59 14:59 Other: Voiding Method Toilet Indwelling Catheter Weight 104.326 kg GENERAL: The patient is alert and oriented x3, not in any acute distress. Well developed, well nourished. HEENT: Pupils are round and equally reacting to light. EOMI. No scleral icterus. No conjunctival pallor. Normocephalic, atraumatic. No pharyngeal erythema. No thyromegaly. CARDIOVASCULAR: S1 and S2 present. No murmurs, rubs, or gallops. PULMONARY: Chest is clear to auscultation, no wheezing , no crackles. ABDOMEN: Soft, nontender, nondistended, normoactive bowel sounds. No palpable organomegaly. MUSCULOSKELETAL: No joint swelling or deformity. EXTREMITIES: No cyanosis, clubbing, or pedal edema. NEUROLOGICAL: Gross neurological examination did not reveal any focal deficits. SKIN: No rashes. no petechiae. Results CBC & Chem 7: 08/02/23 06:24 08/02/23 06:24 Labs: Abnormal Lab Results - Last 24 Hours (Table) 08/01/23 08/01/23 08/01/23 Range/Units 17:15 17:15 17:15 RBC 3.07 L (4.30-5.90) m/uL Hgb 10.1 L (13.0-17.5) gm/dL Hct 29.0 L (39.0-53.0) % Plt Count 145 L (150-450) k/uL Lymphocytes # 0.8 L (1.0-4.8) k/uL Chloride 109 H (98-107) mmol/L Carbon Dioxide (22-30) mmol/L BUN 63 H (9-20) mg/dL Creatinine 6.32 H (0.66-1.25) mg/dL Glucose 102 H (74-99) mg/dL Total Protein 5.3 L (6.3-8.2) g/dL Albumin 3.2 L (3.5-5.0) g/dL Urine Protein 1+ H (Negative) Ur Leukocyte Esterase Large H (Negative) Urine WBC 48 H (0-5) /hpf Urine Bacteria Occasional H (None) /hpf Urine Mucus Rare H (None) /hpf 08/02/23 08/02/23 Range/Units 06:24 06:24 RBC 3.08 L (4.30-5.90) m/uL Hgb 10.1 L (13.0-17.5) gm/dL Hct 29.2 L (39.0-53.0) % Plt Count 133 L (150-450) k/uL Lymphocytes # 0.7 L (1.0-4.8) k/uL Chloride 111 H (98-107) mmol/L Carbon Dioxide 21 L (22-30) mmol/L BUN 64 H (9-20) mg/dL Creatinine 6.53 H (0.66-1.25) mg/dL Glucose 117 H (74-99) mg/dL Total Protein (6.3-8.2) g/dL Albumin (3.5-5.0) g/dL Urine Protein (Negative) Ur Leukocyte Esterase (Negative) Urine WBC (0-5) /hpf Urine Bacteria (None) /hpf Urine Mucus (None) /hpf Assessment and Plan Assessment: Acute kidney injury, nonoliguric chronic kidney disease stage III Acute urinary retention secondary to enlarged prostate most likely status post Long catheter placement Moderate hydrocephalus with embolus gait and memory problems Paroxysmal atrial fibrillation on Eliquis at home Hypertension Hyperlipidemia History of osteoarthritis Hypothyroidism Abnormal urine analysis, asymptomatic, unlike the patient has infection Plan: Continue with Long catheter Continue with normal saline and monitor creatinine Nephrology consult Hold Motrin, losartan from his home medication Labs and medication were reviewed.. Continue same treatment. Continue with symptomatic treatment. Resume home medication. Monitor lytes and vitals. DVT and GI prophylaxis. Further recommendations depends on the clinical course of the patient DVT prophylaxis: eliquis GI Prophylaxis: Pepcid PT/OT: Pending Prognosis is guarded
[2023-08-02] MEDS: ATORVASTATIN 40 MG TAB PO SCH (08:58)
[2023-08-02] MEDS: TAMSULOSIN 0.4 MG CAP.ER.24H PO SCH ×2 (08:58→21:26)
[2023-08-02] MEDS: carvediloL 6.25 MG TAB PO SCH ×2 (08:58→17:13)
[2023-08-02] MEDS: LEVOTHYROXINE 75 MCG TAB PO SCH (08:58)
[2023-08-02] MEDS: FAMOTIDINE 20 MG TAB PO SCH (08:58)
[2023-08-02] MEDS: IPRATROPIUM-ALBUTEROL 3 ML NEB INHALATION PRN ×2 (10:17→21:33)
[2023-08-02] MEDS: SYMBICORT 160-4.5 MCG INHALER INHALATION SCH ×2 (10:17→21:33)
[2023-08-02] MEDS ORDERED: hydrALAZINE HCL 20 MG/ML 1 ML VIAL IVP PRN (11:38)
--- NOTE | 2023-08-02 11:41 | P.NPCON ---
History of Present Illness - Reason for Consult acute renal failure - History of Present Illness Reason for consultation: Acute kidney injury History of present illness: Patient is a 78-year-old male seen in renal consultation for acute kidney injury. Patient's creatinine on admission was 6.32 and a 6.53 this morning. Patient's creatinine in January 2023 was in the range of 1.5-1.8. Noted to be as low as 0.96 in January 2019. Daughter is present at bedside. Patient came to the hospital after hip blood work done and was noted to be in renal failure. He was advised by his primary care physician to come to the ER. Patient has been voiding but has noticed that the urine output was less than the usual amount. He was noted to have urinary retention and Long catheter was placed by urology this morning. No hydronephrosis noted on kidney ultrasound. Patient has history of coronary artery disease and is status post CABG as well as cardiac stent placement in the past. Patient has hydrocephalus and is scheduled for a shunt placement later this month. Patient had an LP done about 3 weeks ago. He denies history of diabetes. Denies use of nonsteroidals. No vomiting or diarrhea. Oral intake.. Hemodynamically stable. Vital signs are stable. General: No acute distress. HEENT: Head exam is unremarkable. LUNGS: No audible rhonchi or wheezes. HEART: Rate and Rhythm are regular. ABDOMEN: Nontender. EXTREMITITES: No edema. Past Medical History Past Medical History: Asthma, Chest Pain / Angina, Deep Vein Thrombosis (DVT), Hyperlipidemia, Hypertension, [place]ocardial Infarction ([place]), Prostate Disorder, Thyroid Disorder Additional Past Medical History / Comment(s): ENLARGED PROSTATE,CURRENT CHRONIC UTI, CURRENTLY HAVING CHEST TIGHTNESS WHEN LAYING DOWN AT NIGHTTIME. RT GROIN PUNCTURE SITE-HAD HEMATOMA FROM HEART CATH 06-09-14- STATES "LOOKS GOOD NOW" Last Myocardial Infarction Date:: 2003 History of Any Multi-Drug Resistant Organisms: None Reported Past Surgical History: Coronary Bypass/CABG, Heart Catheterization, Heart Catheterization With Stent, Hernia Repair, Orthopedic Surgery Additional Past Surgical History / Comment(s): CABG-4 VESSEL 2003,UMBILICAL HERNIA REPAIR, RT ANKLE REPLACEMENT,HEART CATH , HEART CATH/ANGIO /STENT PLACEMENT Past Anesthesia/Blood Transfusion Reactions: No Reported Reaction Date of Last Stent Placement:: 06-18-14 Past Psychological History: No Psychological Hx Reported Smoking Status: Never smoker, Unknown if ever smoked Past Alcohol Use History: None Reported Past Drug Use History: None Reported - Past Family History Father Family Medical History: Myocardial Infarction ([place]) Brother(s) Family Medical History: Myocardial Infarction ([place]) Medications and Allergies Home Medications Medication Instructions Recorded Confirmed Type Carvedilol [Coreg] 6.25 mg PO BID 06/08/14 08/01/23 History Montelukast [Singulair] 10 mg PO HS 06/08/14 08/01/23 History Tamsulosin [Flomax] 0.4 mg PO BID 06/08/14 08/01/23 History Apixaban [Eliquis] 5 mg PO BID #70 tab 11/19/18 08/01/23 Rx Acetaminophen Tab [Tylenol] 1,000 mg PO BID 01/21/23 08/01/23 History Atorvastatin [Lipitor] 40 mg PO DAILY 01/21/23 08/01/23 History Cetirizine HCl [Zyrtec] 10 mg PO DAILY 01/21/23 08/01/23 History Fluticasone Propion/Salmeterol 1 puff INHALATION RT-BID 01/21/23 08/01/23 History [Wixela 500-50 Inhub] Ibuprofen [Motrin Ib] 200 mg PO Q4H PRN 01/21/23 08/01/23 History Levothyroxine Sodium [Synthroid] 150 mcg PO DAILY 01/21/23 08/01/23 History Prevagen 1 cap PO DAILY 01/21/23 08/01/23 History Triamcinolone 0.1% Lotion [Kenalog 1 applic TOPICAL DAILY PRN 01/21/23 08/01/23 History 0.1% Lotion] Ubidecarenone [Coenzyme Q10] 200 mg PO DAILY 01/21/23 08/01/23 History Famotidine [Pepcid] 20 mg PO DAILY 90 Days #90 tab 01/27/23 08/01/23 Rx Finasteride [Proscar] 5 mg PO Q48H 45 Days #45 tab 01/27/23 08/01/23 Rx Ipratropium-Albuterol Nebulize 3 ml INHALATION RT-QID 30 Days 01/27/23 08/01/23 Rx [Duoneb 0.5 mg-3 mg/3 ml Soln] #120 each Clopidogrel [Plavix] 75 mg PO DAILY 05/07/23 08/01/23 History Sacubitril/Valsartan [Entresto 24 1 tab PO BID 08/01/23 08/01/23 History mg-26 mg Tablet] Allergies Allergy/AdvReac Type Severity Reaction Status Date / Time No Known Allergies Allergy Verified 08/01/23 20:24 Physical Exam Vitals: Vital Signs Temp Pulse Pulse Resp BP BP Pulse Ox 08/02/23 11:00 70 18 156/65 98 08/02/23 10:30 75 08/02/23 10:18 71 08/02/23 08:57 80 18 156/104 98 08/02/23 06:57 144/95 08/02/23 04:41 78 18 145/75 97 08/02/23 01:12 97.8 F 63 18 120/65 97 08/01/23 22:00 70 17 162/96 98 08/01/23 20:57 65 18 145/87 97 08/01/23 19:41 67 18 136/89 95 08/01/23 18:02 97.7 F 67 18 139/86 99 08/01/23 17:55 97.7 F 68 17 132/86 95 08/01/23 17:25 64 18 124/72 96 08/01/23 16:02 98.1 F 68 18 112/71 97 Intake and Output 08/01/23 08/02/23 08/02/23 22:59 06:59 14:59 Output Total 500 Balance -500 Output: Urine 500 Other: Voiding Method Toilet Indwelling Catheter Weight 104.326 kg Results - Lab Results Most recent lab results Calcium 8.7 mg/dL (8.4-10.2) 08/02/23 06:24 Magnesium 2.0 mg/dL (1.6-2.3) 08/02/23 06:24 08/02/23 06:24 08/02/23 06:24 Assessment and Plan Plan: Assessment: 1. Acute kidney injury secondary to ATN and urinary retention. Creatinine 6.53 today. Creatinine in the range of 1.5-1.8 in January 2023 and as low as 0.96 in January 2019. No hydronephrosis noted on kidney ultrasound. 2. Urinary retention. Long catheter placed by urology. On Proscar and Flomax. 3. Benign hypertension. 4. Metabolic acidosis secondary to acute kidney injury and IV fluids. 5. Hydrocephalus scheduled for shunt placement later this month. Plan: Maintain normal saline at 75 mL an hour. Maintain Long catheter. Add oral bicarb. Avoid nephrotoxins. Hold entresto for now. Add amlodipine 5 mg once daily. Add as needed hydralazine. Continue to monitor renal function and urine output. Continue to assess daily for need for renal replacement therapy. Thank you for the consultation. I will continue to follow the patient with you during his hospital stay.
[2023-08-02] MEDS: amLODIPine 5 MG TAB PO SCH (12:35)
[2023-08-02] MEDS: SODIUM BICARBONATE TAB 650 MG TAB PO SCH ×2 (12:35→21:26)
[2023-08-02] MEDS: MONTELUKAST 10 MG TAB PO SCH (21:25)
[2023-08-02] MEDS: APIXABAN 5 MG TAB PO SCH (21:26)
[2023-08-03] MEDS: SODIUM CHLORIDE 0.9% 1,000 ML IV SCH ×2 (04:00→13:59)
[2023-08-03] MEDS: carvediloL 6.25 MG TAB PO SCH ×2 (06:27→16:18)
[2023-08-03] MEDS: LEVOTHYROXINE 75 MCG TAB PO SCH (06:27)
[2023-08-03] MEDS: APIXABAN 5 MG TAB PO SCH ×2 (08:09→21:36)
[2023-08-03] MEDS: SODIUM BICARBONATE TAB 650 MG TAB PO SCH ×2 (08:09→21:36)
[2023-08-03] MEDS: FINASTERIDE 5 MG TAB PO SCH (08:09)
[2023-08-03] MEDS: ATORVASTATIN 40 MG TAB PO SCH (08:09)
[2023-08-03] MEDS: amLODIPine 5 MG TAB PO SCH (08:10)
[2023-08-03] MEDS: CLOPIDOGREL 75 MG TAB PO SCH (08:10)
[2023-08-03] MEDS: FAMOTIDINE 20 MG TAB PO SCH (08:10)
[2023-08-03] MEDS: TAMSULOSIN 0.4 MG CAP.ER.24H PO SCH ×2 (08:10→21:36)
[2023-08-03] MEDS: SYMBICORT 160-4.5 MCG INHALER INHALATION SCH ×2 (08:25→21:43)
[2023-08-03] MEDS: IPRATROPIUM-ALBUTEROL 3 ML NEB INHALATION PRN ×3 (08:25→21:43)
[2023-08-03 09:24] LABS: Basophils % (A) 0 %; Eosinophils # (A) 0.2 k/uL (0-0.7); Eosinophils % (A) 4 %; HCT 27.5 % (39.0-53.0); HGB 9.4 gm/dL (13.0-17.5); Lymphocytes # (A) 0.8 k/uL (1.0-4.8); Lymphocytes % (A) 15 %; MCV 97.3 fL (80.0-100.0); Mean Platelet Volume 8.4; Monocytes # (A) 0.5 k/uL (0-1.0); Monocytes % (A) 9 %; Neutrophils # (A) 3.5 k/uL (1.3-7.7); Neutrophils % (A) 70 %; Platelet Count 134 k/uL (150-450); RBC 2.83 m/uL (4.30-5.90); RDW 12.4 % (11.5-15.5)
[2023-08-03 09:32] LABS: Prothrombin Time 11.2 sec (10.0-12.5)
[2023-08-03 09:44] LABS: African American GFR (CKD) 9 (>60 ml/min/1.73 sqM); Anion Gap 10 mmol/L; Blood Urea Nitrogen 66 mg/dL (9-20); Calcium 8.1 mg/dL (8.4-10.2); Carbon Dioxide 19 mmol/L (22-30); Chloride 112 mmol/L (98-107); Glucose 98 mg/dL (74-99); Non-African American GFR(CKD) 8 (>60 ml/min/1.73 sqM); Potassium 4.5 mmol/L (3.5-5.1); Sodium 141 mmol/L (137-145)
--- NOTE | 2023-08-03 10:30 | P.PN ---
Subjective Progress Note Date: 08/03/23 the patient is in the hospital for ARF. Creatinine was 6.5 it is 6.1 today. The patient had a catheter placed for I&O and incomplete voiding. The cr hasnt changed much with the cath and there was no hydro. He has a known history of a large prostate. Objective - Vital Signs Vital signs: Vital Signs Temp 98.1 F 08/03/23 08:06 Pulse 80 08/03/23 08:38 Resp 18 08/03/23 08:06 BP 156/83 08/03/23 08:06 Pulse Ox 92 L 08/03/23 08:06 FiO2 Intake & Output 08/02/23 08/03/23 08/03/23 18:59 06:59 18:59 Intake Total 236 Output Total 1150 1400 Balance -914 -1400 Weight 104.326 kg Intake: Oral 236 Output: Urine 1150 1400 Other: Voiding Method Indwelling Catheter Indwelling Catheter Indwelling Catheter - Labs CBC & Chem 7: 08/03/23 07:21 08/03/23 07:21 Labs: Abnormal Lab Results - Last 24 Hours (Table) 08/03/23 08/03/23 Range/Units 07:21 07:21 RBC 2.83 L (4.30-5.90) m/uL Hgb 9.4 L (13.0-17.5) gm/dL Hct 27.5 L (39.0-53.0) % Plt Count 134 L (150-450) k/uL Lymphocytes # 0.8 L (1.0-4.8) k/uL Chloride 112 H (98-107) mmol/L Carbon Dioxide 19 L (22-30) mmol/L BUN 66 H (9-20) mg/dL Creatinine 6.15 H (0.66-1.25) mg/dL Calcium 8.1 L (8.4-10.2) mg/dL Assessment and Plan Assessment: Impression: ARF uncertain etiology. Incomplete voiding secondary to a large prostate. Plan: Im not certain how much the prostate/bladder is contributing to the ARF. We will follow with you. Continue with the juárez for now.
--- NOTE | 2023-08-03 13:25 | P.PN ---
Subjective Progress Note Date: 08/03/23 Follow-up for acute kidney injury. Urine output of 800 ML's in the last 24 hours. Creatinine still high. Baseline in January 2023 1.5-1.8 MG per DL. No nausea vomiting or diarrhea. Objective - Vital Signs Vital signs: Vital Signs Temp 97.7 F 08/03/23 11:45 Pulse 66 08/03/23 11:45 Resp 18 08/03/23 11:45 BP 134/71 08/03/23 11:45 Pulse Ox 96 08/03/23 11:45 FiO2 Intake & Output 08/02/23 08/03/23 08/03/23 18:59 06:59 18:59 Intake Total 236 120 Output Total 1150 1400 800 Balance -914 -1400 -680 Weight 104.326 kg Intake: Oral 236 120 Output: Urine 1150 1400 800 Other: Voiding Method Indwelling Catheter Indwelling Catheter Indwelling Catheter - Exam No acute distress S1-S2 heard Lungs clear Abdomen soft No edema - Labs CBC & Chem 7: 08/03/23 07:21 08/03/23 07:21 Labs: Abnormal Lab Results - Last 24 Hours (Table) 08/03/23 08/03/23 Range/Units 07:21 07:21 RBC 2.83 L (4.30-5.90) m/uL Hgb 9.4 L (13.0-17.5) gm/dL Hct 27.5 L (39.0-53.0) % Plt Count 134 L (150-450) k/uL Lymphocytes # 0.8 L (1.0-4.8) k/uL Chloride 112 H (98-107) mmol/L Carbon Dioxide 19 L (22-30) mmol/L BUN 66 H (9-20) mg/dL Creatinine 6.15 H (0.66-1.25) mg/dL Calcium 8.1 L (8.4-10.2) mg/dL Microbiology - Last 24 Hours (Table) 08/01/23 17:15 Urine Culture - Final Urine,Voided Assessment and Plan Assessment: #1 acute kidney injury secondary to ATN/urinary retention. -Baseline creatinine 1.5-1.8 MG per DL. -Urine analysis [place]. -Renal ultrasound no hydronephrosis. #2 chronic kidney disease stage III a suspected nephrosclerosis. #3 metabolic acidosis secondary to acute kidney injury #4 hydrocephalus awaiting for surgery this point #5 anemia with chronic kidney disease #6 hypertension with chronic kidney disease Plan: #1 renal function high per stable. #2 continue with normal saline at 75 ML's an hour. #3 Entresto currently on hold. #4 check serology. #5 no acute indication for renal replacement therapy at this time.
--- NOTE | 2023-08-03 18:37 | P.PN ---
Subjective This is a pleasant 78 years old male with multiple medical problems include Asthma, Deep Vein Thrombosis (DVT), Hyperlipidemia, Hypertension benign prostatic hypertrophy, hypothyroidism, previous history of UTI, coronary artery disease status post CABG and stent placement Patient was supposed to get brain shunt and as part of the workup by his PCP his creatinine came back high as 6.3 so he was referred to the emergency room He was here the hospital for acute urinary tract infection and CAT scan of the brain showing dilated ventricle, on computed tomography scan on 01/21/2023 showing moderate hydrocephalus. Patient was referred to his neurologist Dr. Murphy who sent him to neurosurgeon Dr. Damon in [place] where he did spinal tap, some of the fluid and referred him to his PCP to do some preoperative evaluation for shunt placement. Patient has been having some memory issue and problems with balance since before me. But other than that he denies any new current symptom, even as per at bedside patient was has than to come to emergency room yesterday because he didn't complain from any symptoms. He denies chest pain dizziness weakness numbness. No dysuria or urinary complaints. No vomiting diarrhea or abdominal pain. No dyspnea. He denies smoking alcohol or illicit drugs. Has some chronic mild back pain but he takes Tylenol, no nsaids Patient vitals stable Hemoglobin 10.1, platelets 1:30, WBC is normal limits. Creatinine 6.3 and 6.5, baseline around 1. EKG showing normal sinus rhythm at [address] T changes Renal ultrasound showed no evidence of hydronephrosis 08/03/2023 No new complaints. In bed comfortable. He remains on normal saline 75 mL/h. Creatinine is trending down 6.5 down to 6.[address] Gooden at bedside and all questions of the patient and daughter were answered to their satisfaction. Patient wishes no code Active Medications Generic Name Dose Route Start Last Admin Trade Name Freq PRN Reason Stop Dose Admin Acetaminophen 650 mg 08/01/23 19:01 08/02/23 02:02 Acetaminophen Tab 325 Mg Tab PO 650 mg Q6HR PRN Administration Mild Pain or Fever > 100.5 Albuterol/Ipratropium 3 ml 08/02/23 07:42 08/03/23 17:22 Ipratropium-Albuterol 3 Ml Neb INHALATION 3 ml RT-QID PRN Administration Shortness Of Breath Amlodipine Besylate 5 mg 08/02/23 11:45 08/03/23 08:10 Amlodipine 5 Mg Tab PO 5 mg DAILY TOSHIA Administration Apixaban 5 mg 08/02/23 21:00 08/03/23 08:09 Apixaban 5 Mg Tab PO 5 mg BID TOSHIA Administration Protocol Atorvastatin Calcium 40 mg 08/02/23 09:00 08/03/23 08:09 Atorvastatin 40 Mg Tab PO 40 mg DAILY TOSHIA Administration Budesonide/Formoterol Fumarate 2 puff 08/02/23 08:00 08/03/23 08:25 Symbicort 160-4.5 Mcg Inhaler INHALATION 2 puff RT-BID TOSHIA Administration Carvedilol 6.25 mg 08/02/23 09:00 08/03/23 16:18 Carvedilol 6.25 Mg Tab PO 6.25 mg BID-W/MEALS TOSHIA Administration Clopidogrel Bisulfate 75 mg 08/03/23 09:00 08/03/23 08:10 Clopidogrel 75 Mg Tab PO 75 mg DAILY TOSHIA Administration Famotidine 20 mg 08/02/23 09:00 08/03/23 08:10 Famotidine 20 Mg Tab PO 20 mg DAILY TOSHIA Administration Finasteride 5 mg 08/03/23 09:00 08/03/23 08:09 Finasteride 5 Mg Tab PO 5 mg Q48H TOSHIA Administration Hydralazine HCl 10 mg 08/02/23 11:38 Hydralazine Hcl 20 Mg/Ml 1 Ml Vial IVP Q6HR PRN Blood Pressure - High Sodium Chloride 1,000 mls @ 70 mls/hr 08/01/23 18:45 08/03/23 13:59 Saline 0.9% IV 70 mls/hr .[id number] TOSHIA Administration Levothyroxine Sodium 150 mcg 08/02/23 09:00 08/03/23 06:27 Levothyroxine 75 Mcg Tab PO 150 mcg DAILY@0630 TOSHIA Administration Montelukast Sodium 10 mg 08/02/23 21:00 08/02/23 21:25 Montelukast 10 Mg Tab PO 10 mg HS TOSHIA Administration Naloxone HCl 0.2 mg 08/01/23 19:01 Naloxone 0.4 Mg/Ml 1 Ml Vial IV Q2M PRN Opioid Reversal Sodium Bicarbonate 650 mg 08/02/23 11:45 08/03/23 08:09 Sodium Bicarbonate Tab 650 Mg Tab PO 650 mg BID TOSHIA Administration Tamsulosin HCl 0.4 mg 08/02/23 09:00 08/03/23 08:10 Tamsulosin 0.4 Mg Cap.Er.24h PO 0.4 mg BID TOSHIA Administration Objective - Vital Signs Vital signs: Vital Signs Temp 98.1 F 08/03/23 08:06 Pulse 80 08/03/23 08:38 Resp 18 08/03/23 08:06 BP 156/83 08/03/23 08:06 Pulse Ox 92 L 08/03/23 08:06 FiO2 Intake & Output 08/02/23 08/03/23 08/03/23 18:59 06:59 18:59 Intake Total 236 120 Output Total 1150 1400 Balance -914 -1400 120 Weight 104.326 kg Intake: Oral 236 120 Output: Urine 1150 1400 Other: Voiding Method Indwelling Catheter Indwelling Catheter Indwelling Catheter - Exam GENERAL: The patient is alert and oriented x3, not in any acute distress. Well developed, well nourished. HEENT: Pupils are round and equally reacting to light. EOMI. No scleral icterus. No conjunctival pallor. Normocephalic, atraumatic. No pharyngeal erythema. No thyromegaly. CARDIOVASCULAR: S1 and S2 present. No murmurs, rubs, or gallops. PULMONARY: Chest is clear to auscultation, no wheezing , no crackles. ABDOMEN: Soft, nontender, nondistended, normoactive bowel sounds. No palpable organomegaly. MUSCULOSKELETAL: No joint swelling or deformity. EXTREMITIES: No cyanosis, clubbing, or pedal edema. NEUROLOGICAL: Gross neurological examination did not reveal any focal deficits. SKIN: No rashes. no petechiae. - Labs CBC & Chem 7: 08/03/23 07:21 08/03/23 07:21 Labs: Abnormal Lab Results - Last 24 Hours (Table) 08/03/23 08/03/23 Range/Units 07:21 07:21 RBC 2.83 L (4.30-5.90) m/uL Hgb 9.4 L (13.0-17.5) gm/dL Hct 27.5 L (39.0-53.0) % Plt Count 134 L (150-450) k/uL Lymphocytes # 0.8 L (1.0-4.8) k/uL Chloride 112 H (98-107) mmol/L Carbon Dioxide 19 L (22-30) mmol/L BUN 66 H (9-20) mg/dL Creatinine 6.15 H (0.66-1.25) mg/dL Calcium 8.1 L (8.4-10.2) mg/dL Assessment and Plan Assessment: Acute kidney injury, nonoliguric chronic kidney disease stage III Acute urinary retention secondary to enlarged prostate most likely status post Long catheter placement Moderate hydrocephalus with embolus gait and memory problems Paroxysmal atrial fibrillation on Eliquis at home Hypertension Hyperlipidemia History of osteoarthritis Hypothyroidism Abnormal urine analysis, asymptomatic, unlike the patient has infection Plan: Continue with Long catheter Continue with normal saline and monitor creatinine Nephrology consult Hold Motrin, losartan from his home medication Labs and medication were reviewed.. Continue same treatment. Continue with symptomatic treatment. Resume home medication. Monitor lytes and vitals. DVT and GI prophylaxis. Further recommendations depends on the clinical course of the patient DVT prophylaxis: eliquis GI Prophylaxis: Pepcid PT/OT: Pending Prognosis is guarded
[2023-08-03] MEDS: ACETAMINOPHEN TAB 325 MG TAB PO PRN (21:35)
[2023-08-03] MEDS: MONTELUKAST 10 MG TAB PO SCH (21:36)
[2023-08-04] MEDS: SODIUM CHLORIDE 0.9% 1,000 ML IV SCH ×2 (04:00→14:58)
[2023-08-04 06:49] LABS: Hepatitis B Surface AB- Quant 3.5 mIU/mL; Hepatitis B Surface Antigen Nonreactive; Hepatitis C IgG Antibody Nonreactive
[2023-08-04] MEDS: LEVOTHYROXINE 75 MCG TAB PO SCH (06:58)
[2023-08-04] MEDS: carvediloL 6.25 MG TAB PO SCH ×2 (06:58→16:25)
[2023-08-04] MEDS: IPRATROPIUM-ALBUTEROL 3 ML NEB INHALATION PRN ×4 (07:14→21:12)
[2023-08-04] MEDS: SYMBICORT 160-4.5 MCG INHALER INHALATION SCH ×2 (07:15→21:12)
[2023-08-04 08:22] LABS: African American GFR (CKD) 9 (>60 ml/min/1.73 sqM); Anion Gap 7 mmol/L; Blood Urea Nitrogen 61 mg/dL (9-20); Calcium 8.3 mg/dL (8.4-10.2); Carbon Dioxide 22 mmol/L (22-30); Chloride 111 mmol/L (98-107); Glucose 108 mg/dL (74-99); Non-African American GFR(CKD) 8 (>60 ml/min/1.73 sqM); Potassium 4.7 mmol/L (3.5-5.1); Sodium 140 mmol/L (137-145)
[2023-08-04] MEDS: APIXABAN 5 MG TAB PO SCH ×2 (08:53→20:31)
[2023-08-04] MEDS: CLOPIDOGREL 75 MG TAB PO SCH (08:53)
[2023-08-04] MEDS: FAMOTIDINE 20 MG TAB PO SCH (08:54)
[2023-08-04] MEDS: amLODIPine 5 MG TAB PO SCH (08:54)
[2023-08-04] MEDS: SODIUM BICARBONATE TAB 650 MG TAB PO SCH ×2 (08:54→20:32)
[2023-08-04] MEDS: ATORVASTATIN 40 MG TAB PO SCH (08:54)
[2023-08-04] MEDS: TAMSULOSIN 0.4 MG CAP.ER.24H PO SCH ×2 (08:54→20:32)
--- NOTE | 2023-08-04 09:36 | P.PN ---
Subjective This is a pleasant 78 years old male with multiple medical problems include Asthma, Deep Vein Thrombosis (DVT), Hyperlipidemia, Hypertension benign prostatic hypertrophy, hypothyroidism, previous history of UTI, coronary artery disease status post CABG and stent placement Patient was supposed to get brain shunt and as part of the workup by his PCP his creatinine came back high as 6.3 so he was referred to the emergency room He was here the hospital for acute urinary tract infection and CAT scan of the brain showing dilated ventricle, on computed tomography scan on 01/21/2023 showing moderate hydrocephalus. Patient was referred to his neurologist Dr. Murphy who sent him to neurosurgeon Dr. Damon in [place] where he did spinal tap, some of the fluid and referred him to his PCP to do some preoperative evaluation for shunt placement. Patient has been having some memory issue and problems with balance since before me. But other than that he denies any new current symptom, even as per at bedside patient was has than to come to emergency room yesterday because he didn't complain from any symptoms. He denies chest pain dizziness weakness numbness. No dysuria or urinary complaints. No vomiting diarrhea or abdominal pain. No dyspnea. He denies smoking alcohol or illicit drugs. Has some chronic mild back pain but he takes Tylenol, no nsaids Patient vitals stable Hemoglobin 10.1, platelets 1:30, WBC is normal limits. Creatinine 6.3 and 6.5, baseline around 1. EKG showing normal sinus rhythm at [address] T changes Renal ultrasound showed no evidence of hydronephrosis 08/03/2023 No new complaints. In bed comfortable. He remains on normal saline 75 mL/h. Creatinine is trending down 6.5 down to 6.[address] Gooden at bedside and all questions of the patient and daughter were answered to their satisfaction. Patient wishes no code 08/04/2023 Patient remains asymptomatic, lying in bed comfortable with no new complaints Hemodynamics stable Creatinine today 6.09 which is not much different than yesterday. He remains on normal saline 75 mL/h entresto is on hold Objective - Vital Signs Vital signs: Vital Signs Temp 98.0 F 08/04/23 08:50 Pulse 80 08/04/23 08:50 Resp 18 08/04/23 08:51 BP 148/88 08/04/23 08:50 Pulse Ox 95 08/04/23 08:50 FiO2 Intake & Output 08/03/23 08/04/23 08/04/23 18:59 06:59 18:59 Intake Total 240 Output Total 1625 1000 Balance -1385 -1000 Intake: Oral 240 Output: Urine 1625 1000 Other: Voiding Method Indwelling Catheter Indwelling Catheter Indwelling Catheter # Bowel Movements 1 - Exam GENERAL: The patient is alert and oriented x3, not in any acute distress. Well developed, well nourished. HEENT: Pupils are round and equally reacting to light. EOMI. No scleral icterus. No conjunctival pallor. Normocephalic, atraumatic. No pharyngeal erythema. No thyromegaly. CARDIOVASCULAR: S1 and S2 present. No murmurs, rubs, or gallops. PULMONARY: Chest is clear to auscultation, no wheezing , no crackles. ABDOMEN: Soft, nontender, nondistended, normoactive bowel sounds. No palpable organomegaly. MUSCULOSKELETAL: No joint swelling or deformity. EXTREMITIES: No cyanosis, clubbing, or pedal edema. NEUROLOGICAL: Gross neurological examination did not reveal any focal deficits. SKIN: No rashes. no petechiae. - Labs CBC & Chem 7: 08/03/23 07:21 08/04/23 07:29 Labs: Abnormal Lab Results - Last 24 Hours (Table) 08/03/23 08/04/23 Range/Units 07:21 07:29 Chloride 112 H 111 H (98-107) mmol/L Carbon Dioxide 19 L (22-30) mmol/L BUN 66 H 61 H (9-20) mg/dL Creatinine 6.15 H 6.29 H (0.66-1.25) mg/dL Glucose 108 H (74-99) mg/dL Calcium 8.1 L 8.3 L (8.4-10.2) mg/dL Microbiology - Last 24 Hours (Table) 08/01/23 17:15 Urine Culture - Final Urine,Voided Assessment and Plan Assessment: Acute kidney injury, nonoliguric chronic kidney disease stage III Acute urinary retention secondary to enlarged prostate most likely status post Long catheter placement Moderate hydrocephalus with embolus gait and memory problems Paroxysmal atrial fibrillation on Eliquis at home Hypertension Hyperlipidemia History of osteoarthritis Hypothyroidism Abnormal urine analysis, asymptomatic, unlike the patient has infection Plan: Continue with Long catheter Continue with normal saline and monitor creatinine Nephrology consult Hold Motrin, losartan from his home medication Labs and medication were reviewed.. Continue same treatment. Continue with symptomatic treatment. Resume home medication. Monitor lytes and vitals. DVT and GI prophylaxis. Further recommendations depends on the clinical course of the patient DVT prophylaxis: eliquis GI Prophylaxis: Pepcid PT/OT: Pending Prognosis is guarded
--- NOTE | 2023-08-04 15:50 | P.PN ---
Subjective Progress Note Date: 08/04/23 Follow-up for acute kidney injury. Urine output of 2600 ML's in the last 24 hours. Creatinine still high. Baseline in January 2023 1.5-1.8 MG per DL. No nausea vomiting or diarrhea. Daughter at bedside Objective - Vital Signs Vital signs: Vital Signs Temp 98.2 F 08/04/23 14:57 Pulse 84 08/04/23 15:40 Resp 18 08/04/23 14:57 BP 135/71 08/04/23 14:57 Pulse Ox 93 L 08/04/23 14:57 FiO2 Intake & Output 08/03/23 08/04/23 08/04/23 18:59 06:59 18:59 Intake Total 240 120 Output Total 1625 1000 875 Balance -1385 -1000 -755 Intake: Oral 240 120 Output: Urine 1625 1000 875 Other: Voiding Method Indwelling Catheter Indwelling Catheter Indwelling Catheter # Bowel Movements 1 - Exam No acute distress S1-S2 heard Lungs clear Abdomen soft No edema - Labs CBC & Chem 7: 08/03/23 07:21 08/04/23 07:29 Labs: Abnormal Lab Results - Last 24 Hours (Table) 08/04/23 Range/Units 07:29 Chloride 111 H (98-107) mmol/L BUN 61 H (9-20) mg/dL Creatinine 6.29 H (0.66-1.25) mg/dL Glucose 108 H (74-99) mg/dL Calcium 8.3 L (8.4-10.2) mg/dL Microbiology - Last 24 Hours (Table) 08/01/23 17:15 Urine Culture - Final Urine,Voided Assessment and Plan Assessment: #1 acute kidney injury secondary to ATN/urinary retention. -Baseline creatinine 1.5-1.8 MG per DL. -Urine analysis [place]. -Renal ultrasound no hydronephrosis. #2 chronic kidney disease stage III a suspected nephrosclerosis. #3 metabolic acidosis secondary to acute kidney injury #4 hydrocephalus awaiting for surgery this point #5 anemia with chronic kidney disease #6 hypertension with chronic kidney disease Plan: #1 renal function high per stable. #2 continue with normal saline at 75 ML's an hour. #3 Entresto currently on hold. #4 serology pending #5 no acute indication for renal replacement therapy at this time. Discussed with the daughter at length, she is agreeable for dialysis if need arises. All questions answered. Told her to no other definite answer, he needs a kidney biopsy. Awaiting serologies.
[2023-08-04] MEDS: MONTELUKAST 10 MG TAB PO SCH (20:31)
[2023-08-05] MEDS: SODIUM CHLORIDE 0.9% 1,000 ML IV SCH ×2 (04:27→22:44)
[2023-08-05] MEDS: IPRATROPIUM-ALBUTEROL 3 ML NEB INHALATION PRN ×2 (05:32→19:27)
[2023-08-05] MEDS: SYMBICORT 160-4.5 MCG INHALER INHALATION SCH ×2 (05:46→19:27)
[2023-08-05] MEDS: carvediloL 6.25 MG TAB PO SCH ×2 (06:25→16:12)
[2023-08-05] MEDS: LEVOTHYROXINE 75 MCG TAB PO SCH (06:25)
--- NOTE | 2023-08-05 06:37 | P.PN ---
Subjective Progress Note Date: 08/05/23 the patient is in the hospital with arf. There is a question of urine retention. He has a known large prostate. His cr remains elevated at 6.29 Objective - Vital Signs Vital signs: Vital Signs Temp 99 F 08/05/23 04:00 Pulse 85 08/05/23 06:27 Resp 18 08/05/23 04:00 BP 131/63 08/05/23 06:27 Pulse Ox 96 08/05/23 04:00 FiO2 Intake & Output 08/04/23 08/04/23 08/05/23 06:59 18:59 06:59 Intake Total 240 0 Output Total 5333 995 4938 Balance -7840 -862 -2808 Intake: Oral 240 0 Output: Urine 3742 752 5562 Other: Voiding Method Indwelling Catheter Indwelling Catheter Indwelling Catheter - Labs CBC & Chem 7: 08/03/23 07:21 08/04/23 07:29 Labs: Abnormal Lab Results - Last 24 Hours (Table) 08/04/23 Range/Units 07:29 Chloride 111 H (98-107) mmol/L BUN 61 H (9-20) mg/dL Creatinine 6.29 H (0.66-1.25) mg/dL Glucose 108 H (74-99) mg/dL Calcium 8.3 L (8.4-10.2) mg/dL Assessment and Plan Assessment: Impression: ARf Plan: the patients questionable retention[see consult note] doesnt seem to be related to his ARF as the cr hasnot changed since the juárez catheter. the catheter can be removed whenever medicine and nephrology want to.
[2023-08-05 09:04] LABS: African American GFR (CKD) 10 (>60 ml/min/1.73 sqM); Anion Gap 8 mmol/L; Blood Urea Nitrogen 62 mg/dL (9-20); Calcium 8.1 mg/dL (8.4-10.2); Carbon Dioxide 21 mmol/L (22-30); Chloride 112 mmol/L (98-107); Glucose 96 mg/dL (74-99); Non-African American GFR(CKD) 9 (>60 ml/min/1.73 sqM); Potassium 4.3 mmol/L (3.5-5.1); Sodium 141 mmol/L (137-145)
[2023-08-05] MEDS: FAMOTIDINE 20 MG TAB PO SCH (09:37)
[2023-08-05] MEDS: SODIUM BICARBONATE TAB 650 MG TAB PO SCH ×2 (09:37→20:20)
[2023-08-05] MEDS: TAMSULOSIN 0.4 MG CAP.ER.24H PO SCH ×2 (09:37→20:19)
[2023-08-05] MEDS: amLODIPine 5 MG TAB PO SCH (09:37)
[2023-08-05] MEDS: ATORVASTATIN 40 MG TAB PO SCH (09:37)
[2023-08-05] MEDS: FINASTERIDE 5 MG TAB PO SCH (09:37)
[2023-08-05] MEDS: CLOPIDOGREL 75 MG TAB PO SCH (09:37)
[2023-08-05] MEDS: APIXABAN 5 MG TAB PO SCH ×2 (09:38→20:19)
[2023-08-05 11:58] LABS: Free Kappa Lt Chain Qnt, Serum 108.23 mg/dL (0.33-1.94); Free Lambda Lt Chain Qnt, Seru 1.42 mg/dL (0.57-2.63)
--- NOTE | 2023-08-05 12:29 | P.PN ---
Subjective Patient is seen for follow-up for acute kidney injury. No significant complaints today Good urine output, 2.3 L for 24 hours. Serum creatinine decreased today to 5.5 from 6.2 yesterday. Objective - Vital Signs Vital signs: Vital Signs Temp 98.2 F 08/05/23 12:11 Pulse 77 08/05/23 12:11 Resp 20 08/05/23 12:11 BP 136/78 08/05/23 12:11 Pulse Ox 93 L 08/05/23 12:11 FiO2 Intake & Output 08/04/23 08/05/23 08/05/23 18:59 06:59 18:59 Intake Total 240 0 0 Output Total 875 1450 Balance -635 -1450 0 Intake: Oral 240 0 0 Output: Urine 875 1450 Other: Voiding Method Indwelling Catheter Indwelling Catheter Indwelling Catheter - Exam Awake, comfortable, no acute distress Examination of the heart S1 and S2 Examination of the lungs bilateral breath sounds are heard Abdomen is soft nontender Examination lower extremity shows no significant edema [employer]GER exam grossly intact - Labs CBC & Chem 7: 08/03/23 07:21 08/05/23 08:03 Labs: Abnormal Lab Results - Last 24 Hours (Table) 08/04/23 08/05/23 Range/Units 07:29 08:03 Chloride 112 H (98-107) mmol/L Carbon Dioxide 21 L (22-30) mmol/L BUN 62 H (9-20) mg/dL Creatinine 5.53 H (0.66-1.25) mg/dL Calcium 8.1 L (8.4-10.2) mg/dL Free [place] LC, Quant 108.23 H (0.33-1.94) mg/dL Assessment and Plan Assessment: 1. Acute kidney injury, ATN. NSAIDs also noted on home med list prior to admission. Currently nonoliguric with some improvement in renal function. No evidence of hydronephrosis on ultrasound. UA shows 1+ protein and 5 RBCs. Serologies ordered and currently pending. 2. CK D stage III b secondary to nephrosclerosis with previous creatinine at 1.7-1.8 mg/dL in January 2023 3. Metabolic acidosis secondary to acute kidney injury 4. Hypertension with CK D stage III B 5. Anemia of chronic kidney disease Plan: Continue with IV fluids Repeat labs in a.m. No acute indication for hemodialysis initiation. Repeat CBC and and add Aranesp if hemoglobin remains below 10 g/dL
--- NOTE | 2023-08-05 13:39 | P.PN ---
Subjective Progress Note Date: 08/05/23 This is a pleasant 78 years old male with multiple medical problems include Asthma, Deep Vein Thrombosis (DVT), Hyperlipidemia, Hypertension benign prostatic hypertrophy, hypothyroidism, previous history of UTI, coronary artery disease status post CABG and stent placement Patient was supposed to get brain shunt and as part of the workup by his PCP his creatinine came back high as 6.3 so he was referred to the emergency room He was here the hospital for acute urinary tract infection and CAT scan of the brain showing dilated ventricle, on computed tomography scan on 01/21/2023 showing moderate hydrocephalus. Patient was referred to his neurologist Dr. Murphy who sent him to neurosurgeon Dr. Damon in [place] where he did spinal tap, some of the fluid and referred him to his PCP to do some preoperative evaluation for shunt placement. Patient has been having some memory issue and problems with balance since before me. But other than that he denies any new current symptom, even as per at bedside patient was has than to come to emergency room yesterday because he didn't complain from any symptoms. He denies chest pain dizziness weakness numbness. No dysuria or urinary complaints. No vomiting diarrhea or abdominal pain. No dyspnea. He denies smoking alcohol or illicit drugs. Has some chronic mild back pain but he takes Tylenol, no nsaids Patient vitals stable Hemoglobin 10.1, platelets 1:30, WBC is normal limits. Creatinine 6.3 and 6.5, baseline around 1. EKG showing normal sinus rhythm at [address] T changes Renal ultrasound showed no evidence of hydronephrosis 08/03/2023 No new complaints. In bed comfortable. He remains on normal saline 75 mL/h. Creatinine is trending down 6.5 down to 6.[address] Gooden at bedside and all questions of the patient and daughter were answered to their satisfaction. Patient wishes no code 08/04/2023 Patient remains asymptomatic, lying in bed comfortable with no new complaints Hemodynamics stable Creatinine today 6.09 which is not much different than yesterday. He remains on normal saline 75 mL/h entresto is on hold 08/05. Patient seen and examined. Blood work done this morning showed sodium 141, potassium 4.3, BUN 62, creatinine 5.530. Patient sitting upright in the chair. Daughter at the bedside. Patient denies any weakness. Patient is 1 person assist. REVIEW OF SYSTEMS: CONSTITUTIONAL: No fever, no malaise,. CARDIOVASCULAR: No chest pain, no palpitations, no syncope. PULMONARY: No shortness of breath, no cough, GASTROINTESTINAL: No diarrhea, no nausea, no vomiting, no abdominal pain. NEUROLOGICAL: No headaches, no weakness, PHYSICAL EXAMINATION: GENERAL: The patient is alert and oriented x3, not in any acute distress. Well developed, well nourished. HEENT: Pupils are round and equally reacting to light. EOMI. No scleral icterus. No conjunctival pallor. Normocephalic, atraumatic. No pharyngeal erythema. No thyromegaly. CARDIOVASCULAR: S1 and S2 present. No murmurs, rubs, or gallops. PULMONARY: Chest is clear to auscultation, no wheezing or crackles. ABDOMEN: Soft, nontender, nondistended, normoactive bowel sounds. No palpable organomegaly. MUSCULOSKELETAL: No joint swelling or deformity. EXTREMITIES: No cyanosis, clubbing, or pedal edema. NEUROLOGICAL: Gross neurological examination did not reveal any focal deficits. SKIN: No rashes. Assessment and plan Acute kidney injury, nonoliguric chronic kidney disease stage III Acute urinary retention secondary to enlarged prostate most likely status post Long catheter placement Moderate hydrocephalus with gait and memory problems Paroxysmal atrial fibrillation on Eliquis at home Hypertension Hyperlipidemia History of osteoarthritis Hypothyroidism Abnormal urine analysis, asymptomatic, unlike the patient has infection Monitor vital signs Monitor CBC Monitor CMP Continue telemetry monitoring Encourage use of incentive spirometer Continue with Long catheter Continue with normal saline and monitor creatinine Avoid nephrotoxic agents Continue Eliquis In regards to hypertension continue Norvasc, Coreg Regards to hyperlipidemia continue Lipitor In regards to hypothyroid continue Synthyroid nephrology following Labs and medication were reviewed.. Continue same treatment. Continue with symptomatic treatment. Resume home medication. Monitor labs and vitals. DVT and GI prophylaxis. Further recommendations as per clinical course of the patient Dictation was produced using [employer] dictation software. please excuse any grammatical, word or spelling errors. Objective - Vital Signs Vital signs: Vital Signs Temp 99 F 08/05/23 04:00 Pulse 85 08/05/23 06:27 Resp 18 08/05/23 04:00 BP 131/63 08/05/23 06:27 Pulse Ox 96 08/05/23 04:00 FiO2 Intake & Output 08/04/23 08/05/23 08/05/23 18:59 06:59 18:59 Intake Total 240 0 0 Output Total 875 1450 Balance -635 -1450 0 Intake: Oral 240 0 0 Output: Urine 875 1450 Other: Voiding Method Indwelling Catheter Indwelling Catheter Indwelling Catheter - Labs CBC & Chem 7: 08/03/23 07:21 08/05/23 08:03 Labs: Abnormal Lab Results - Last 24 Hours (Table) 08/05/23 Range/Units 08:03 Chloride 112 H (98-107) mmol/L Carbon Dioxide 21 L (22-30) mmol/L BUN 62 H (9-20) mg/dL Creatinine 5.53 H (0.66-1.25) mg/dL Calcium 8.1 L (8.4-10.2) mg/dL
[2023-08-05 14:19] LABS: Anti-DNA, DS unit <1.0 IU/mL; DNA Double-Stranded Negative (Negative)
[2023-08-05 14:33] LABS: C-ANCA <1:20 Titer (<1:20)
[2023-08-05 15:13] LABS: Anti-Glomerular Basement Memb <1.5 U/mL (<7.0)
--- NOTE | 2023-08-05 15:20 | P.CRDCN ---
History of Present Illness Consult date: 08/05/23 Reason for Consult (text): Medication adjustment with renal failure History of present illness: History of present illness: History of present illness: This is a 78-year-old male patient of Dr. Freedman last seen in the office January 2023. Patient has a past medical history of coronary artery disease with CABG and stent of the RCA, hypertension, hyperlipidemia, asthma, hypothyroidism and pulmonary embolism/DVT on eliquis. We have been asked to evaluate the patient for medication adjustment due to renal failure. Patient was recently diagnosed with hydrocephalus and needing surgery. Patient was undergoing preop testing and he received a call that his kidney function was abnormal and was sent in the hospital for treatment. Patient had no symptoms and no reason to come in the hospital otherwise. Patient has baseline shortness of breath which he feels is unchanged. Patient has been found to be in acute kidney injury with creatinine initially 6.32 followed by nephrology and also had some urinary retention requiring Long catheter placement. Entresto has been placed on hold since admission. Patient is noted to have blood in his Long. EKG sinus rhythm at 73 bpm WBC 5, hemoglobin 9.4, platelet count 134. Sodium 141, potassium 4.3, chloride 112, CO2 21, BUN 62 creatinine 5.53. [place] screen positive. Free kappa elevated. Home cardiac medications: Eliquis 5 mg twice daily, Lipitor 40 mg daily, Coreg 6.25 mg twice daily, Entresto 2426 milligrams twice daily, levothyroxine 150 g daily Cardiac catheterization [address] Yulissa Kelsey on severe disease involving the mid RCA and subsequently underwent successful stenting with Dr. Dumont patient was also found to have disease involving the proximal left circumflex coronary artery in the intermediate range and LAD was occluded but protected by the [place]. Lexiscan stress test 04/2022 was negative. Probably normal myocardial perfusion and function. EF 51%. Echocardiogram 01/2023 reveals EF 40-45%, mild aortic stenosis, mild tricuspid regurgitation, RVSP 31. . Review Of Systems: At the time of my evaluation: Constitutional: No fever, no chills. No weakness, fatigue or lethargy. EENT: No headache. No dizziness. Lungs: No shortness of breath, cough, no sputum production. No wheezing. Cardiovascular: No chest pain, no lower extremity edema. No palpitations. No paroxysmal nocturnal dyspnea. No orthopnea. No lightheadedness or dizziness. No syncopal episodes. Abdominal: No abdominal pain. No nausea, vomiting. No diarrhea. No constip ation. Genitourinary: + urinary retention. Musculoskeletal: No myalgias. No muscle weakness, no frequent falls. Integumentary: No wounds. No rash. No unusual bruising. Neurologic: No aphasia. No facial droop. No change in mentation. Physical examination: Gen: This is a 78-year-old male. He is resting in bed and appears to be comfortable and in no acute distress. VS: reviewed HEENT: Head is atraumatic, normocephalic. Pupils equal, round. Sclerae is anicteric. NECK: Supple. No JVD. LUNGS: Clear to auscultation. No wheezes or rhonchi. No intercostal retractions. HEART: Regular rate and rhythm. No murmur. ABDOMEN: Soft No tenderness. EXTREMITIES: No pedal edema. No calf tenderness. NEUROLOGICAL: Patient is awake, alert and oriented x3. Assessment: Acute kidney injury DVT/PE history History of coronary artery disease with previous CABG and stenting of the RCA Hypertension Hypothyroidism Hyperlipidemia Plan: Continue patient's cardiac medications Continue to hold Entresto Continue eliquis at 5 mg twice daily Thank you kindly for this consultation. Nurse practitioner note has been reviewed, I agree with documented findings and plan of care. Patient was seen and examined. Past Medical History Past Medical History: Asthma, Chest Pain / Angina, Deep Vein Thrombosis (DVT), Hyperlipidemia, Hypertension, Myocardial Infarction ([place]), Prostate Disorder, Thyroid Disorder Additional Past Medical History / Comment(s): ENLARGED PROSTATE, hydrocephalus with shunt planned 08/15/23 Last Myocardial Infarction Date:: 2003 History of Any Multi-Drug Resistant Organisms: None Reported Past Surgical History: Coronary Bypass/CABG, Heart Catheterization, Heart Catheterization With Stent, Hernia Repair, Orthopedic Surgery Additional Past Surgical History / Comment(s): CABG-4 VESSEL 2003,UMBILICAL HE RNIA REPAIR, RT ANKLE REPLACEMENT,HEART CATH , HEART CATH/ANGIO /STENT PLACEMENT Past Anesthesia/Blood Transfusion Reactions: No Reported Reaction Date of Last Stent Placement:: 06-18- Past Psychological History: No Psychological Hx Reported Smoking Status: Never smoker, Unknown if ever smoked Past Alcohol Use History: None Reported Past Drug Use History: None Reported - Past Family History Father Family Medical History: Myocardial Infarction ([place]) Brother(s) Family Medical History: Myocardial Infarction ([place]) Medications and Allergies Home Medications Medication Instructions Recorded Confirmed Type Carvedilol [Coreg] 6.25 mg PO BID 06/08/14 08/01/23 History Montelukast [Singulair] 10 mg PO HS 06/08/14 08/01/23 History Tamsulosin [Flomax] 0.4 mg PO BID 06/08/14 08/01/23 History Apixaban [Eliquis] 5 mg PO BID #70 tab 11/19/18 08/01/23 Rx Acetaminophen Tab [Tylenol] 1,000 mg PO BID 01/21/23 08/01/23 History Atorvastatin [Lipitor] 40 mg PO DAILY 01/21/23 08/01/23 History Cetirizine HCl [Zyrtec] 10 mg PO DAILY 01/21/23 08/01/23 History Fluticasone Propion/Salmeterol 1 puff INHALATION RT-BID 01/21/23 08/01/23 History [Wixela 500-50 Inhub] Ibuprofen [Motrin Ib] 200 mg PO Q4H PRN 01/21/23 08/01/23 History Levothyroxine Sodium [Synthroid] 150 mcg PO DAILY 01/21/23 08/01/23 History Prevagen 1 cap PO DAILY 01/21/23 08/01/23 History Triamcinolone 0.1% Lotion [Kenalog 1 applic TOPICAL DAILY PRN 01/21/23 08/01/23 History 0.1% Lotion] Ubidecarenone [Coenzyme Q10] 200 mg PO DAILY 01/21/23 08/01/23 History Famotidine [Pepcid] 20 mg PO DAILY 90 Days #90 tab 01/27/23 08/01/23 Rx Finasteride [Proscar] 5 mg PO Q48H 45 Days #45 tab 01/27/23 08/01/23 Rx Ipratropium-Albuterol Nebulize 3 ml INHALATION RT-QID 30 Days 01/27/23 08/01/23 Rx [Duoneb 0.5 mg-3 mg/3 ml Soln] #120 each Clopidogrel [Plavix] 75 mg PO DAILY 05/07/23 08/01/23 History Sacubitril/Valsartan [Entresto 24 1 tab PO BID 08/01/23 08/01/23 History mg-26 mg Tablet] Allergies Allergy/AdvReac Type Severity Reaction Status Date / Time No Known Allergies Allergy Verified 08/01/23 20:24 Physical Exam Vitals: Vital Signs Temp Pulse Pulse Resp BP BP Pulse Ox 08/05/23 12:11 98.2 F 77 20 136/78 93 L 08/05/23 08:00 98.6 F 73 18 126/74 97 08/05/23 06:27 85 131/63 08/05/23 05:46 80 08/05/23 05:32 80 08/05/23 04:00 99 F 84 18 155/76 96 08/04/23 23:10 99.1 F 85 18 127/64 96 08/04/23 21:24 76 08/04/23 21:13 76 08/04/23 19:47 98.7 F 87 16 126/62 95 08/04/23 15:40 84 08/04/23 15:22 80 08/04/23 14:57 98.2 F 81 18 135/71 93 L Intake and Output 08/04/23 08/05/23 08/05/23 22:59 06:59 14:59 Intake Total 120 0 Output Total 675 1100 Balance -555 -1100 0 Intake: Oral 120 0 Output: Urine 675 1100 Other: Voiding Method Indwelling Catheter Indwelling Catheter Indwelling Catheter Results 08/03/23 07:21 08/05/23 08:03 Comprehensive Metabolic Panel 08/05/23 Range/Units 08:03 Sodium 141 (137-145) mmol/L Potassium 4.3 (3.5-5.1) mmol/L Chloride 112 H (98-107) mmol/L Carbon Dioxide 21 L (22-30) mmol/L BUN 62 H (9-20) mg/dL Creatinine 5.53 H (0.66-1.25) mg/dL Glucose 96 (74-99) mg/dL Calcium 8.1 L (8.4-10.2) mg/dL Current Medications Generic Name Dose Route Start Last Admin Trade Name Freq PRN Reason Stop Dose Admin Acetaminophen 650 mg 08/01/23 19:01 08/02/23 02:02 Acetaminophen Tab 325 Mg Tab PO 650 mg Q6HR PRN Administration Mild Pain or Fever > 100.5 Albuterol/Ipratropium 3 ml 08/02/23 07:42 08/05/23 05:32 Ipratropium-Albuterol 3 Ml Neb INHALATION 3 ml RT-QID PRN Administration Shortness Of Breath Amlodipine Besylate 5 mg 08/02/23 11:45 08/05/23 09:37 Amlodipine 5 Mg Tab PO 5 mg DAILY TOSHIA Administration Apixaban 5 mg 08/02/23 21:00 08/05/23 09:38 Apixaban 5 Mg Tab PO 5 mg BID TOSHIA Administration Protocol Atorvastatin Calcium 40 mg 08/02/23 09:00 08/05/23 09:37 Atorvastatin 40 Mg Tab PO 40 mg DAILY TOSHIA Administration Budesonide/Formoterol Fumarate 2 puff 08/02/23 08:00 08/05/23 05:46 Symbicort 160-4.5 Mcg Inhaler INHALATION 2 puff RT-BID TOSHIA Administration Carvedilol 6.25 mg 08/02/23 09:00 08/05/23 06:25 Carvedilol 6.25 Mg Tab PO 6.25 mg BID-W/MEALS TOSHIA Administration Clopidogrel Bisulfate 75 mg 08/03/23 09:00 08/05/23 09:37 Clopidogrel 75 Mg Tab PO 75 mg DAILY TOSHIA Administration Famotidine 20 mg 08/02/23 09:00 08/05/23 09:37 Famotidine 20 Mg Tab PO 20 mg DAILY TOSHIA Administration Finasteride 5 mg 08/03/23 09:00 08/05/23 09:37 Finasteride 5 Mg Tab PO 5 mg Q48H TOSHIA Administration Hydralazine HCl 10 mg 08/02/23 11:38 Hydralazine Hcl 20 Mg/Ml 1 Ml Vial IVP Q6HR PRN Blood Pressure - High Sodium Chloride 1,000 mls @ 70 mls/hr 08/01/23 18:45 08/05/23 04:27 Saline 0.9% IV 70 mls/hr .[id number] TOSHIA Administration Levothyroxine Sodium 150 mcg 08/02/23 09:00 08/05/23 06:25 Levothyroxine 75 Mcg Tab PO 150 mcg DAILY@0630 TOSHIA Administration Montelukast Sodium 10 mg 08/02/23 21:00 08/04/23 20:31 Montelukast 10 Mg Tab PO 10 mg HS TOSHIA Administration Naloxone HCl 0.2 mg 08/01/23 19:01 Naloxone 0.4 Mg/Ml 1 Ml Vial IV Q2M PRN Opioid Reversal Sodium Bicarbonate 650 mg 08/02/23 11:45 08/05/23 09:37 Sodium Bicarbonate Tab 650 Mg Tab PO 650 mg BID TOSHIA Administration Tamsulosin HCl 0.4 mg 08/02/23 09:00 08/05/23 09:37 Tamsulosin 0.4 Mg Cap.Er.24h PO 0.4 mg BID TOSIHA Administration Intake and Output 08/04/23 08/05/23 08/05/23 22:59 06:59 14:59 Intake Total 120 0 Output Total 675 1100 Balance -555 -1100 0 Intake: Oral 120 0 Output: Urine 675 1100 Other: Voiding Method Indwelling Catheter Indwelling Catheter Indwelling Catheter 08/03/23 07:21 08/05/23 08:03
[2023-08-05] MEDS: MONTELUKAST 10 MG TAB PO SCH (20:19)
[2023-08-05] MEDS: ACETAMINOPHEN TAB 325 MG TAB PO PRN (23:58)
[2023-08-06] MEDS: LEVOTHYROXINE 75 MCG TAB PO SCH (05:12)
[2023-08-06] MEDS: carvediloL 6.25 MG TAB PO SCH ×2 (05:13→16:49)
[2023-08-06 07:27] LABS: HGB 9.2 gm/dL (13.0-17.5); MCH 32.6 pg (25.0-35.0); MCHC 34.2 g/dL (31.0-37.0); MCV 95.3 fL (80.0-100.0); Mean Platelet Volume 9.3; Platelet Count 123 k/uL (150-450); RBC 2.83 m/uL (4.30-5.90); RDW 12.2 % (11.5-15.5); WBC 4.7 k/uL (3.8-10.6)
[2023-08-06 07:46] LABS: Anion Gap 8 mmol/L; Carbon Dioxide 23 mmol/L (22-30); Chloride 111 mmol/L (98-107); Glucose 103 mg/dL (74-99); Potassium 4.1 mmol/L (3.5-5.1); Sodium 142 mmol/L (137-145); Total Protein 5.1 g/dL (6.3-8.2)
[2023-08-06 07:47] LABS: ALT 13 U/L (4-49); AST 15 U/L (17-59); African American GFR (CKD) 11 (>60 ml/min/1.73 sqM); Alkaline Phosphatase 38 U/L (38-126); Blood Urea Nitrogen 59 mg/dL (9-20); Calcium 8.4 mg/dL (8.4-10.2); Non-African American GFR(CKD) 10 (>60 ml/min/1.73 sqM); Total Bilirubin 1.1 mg/dL (0.2-1.3)
[2023-08-06] MEDS: SYMBICORT 160-4.5 MCG INHALER INHALATION SCH ×2 (07:49→20:23)
[2023-08-06] MEDS: IPRATROPIUM-ALBUTEROL 3 ML NEB INHALATION PRN ×3 (07:49→20:23)
[2023-08-06] MEDS: CLOPIDOGREL 75 MG TAB PO SCH (08:45)
[2023-08-06] MEDS: TAMSULOSIN 0.4 MG CAP.ER.24H PO SCH ×2 (08:45→20:10)
[2023-08-06] MEDS: SODIUM BICARBONATE TAB 650 MG TAB PO SCH ×2 (08:45→20:10)
[2023-08-06] MEDS: ATORVASTATIN 40 MG TAB PO SCH (08:45)
[2023-08-06] MEDS: FAMOTIDINE 20 MG TAB PO SCH (08:45)
[2023-08-06] MEDS: APIXABAN 5 MG TAB PO SCH ×2 (08:45→20:10)
[2023-08-06] MEDS: amLODIPine 5 MG TAB PO SCH (08:45)
[2023-08-06] MEDS: SODIUM CHLORIDE 0.9% 1,000 ML IV SCH (11:12)
--- NOTE | 2023-08-06 11:46 | P.PN ---
Subjective Patient is seen for follow-up for acute kidney injury. No significant complaints today Good urine output, 2.1 L for 24 hours. Serum creatinine decreased today but only slightly. Long catheter was replaced yesterday as patient was leaking around the catheter. An 18-[place] has been placed instead of a previous 16-[place] catheter. Serologies revealed positive ANAs. Free kappa light chains are significantly elevated at 108.23 suggesting underlying myeloma kidney. We will proceed with kidney biopsy and hematology consult. Discussed with daughter. Objective - Vital Signs Vital signs: Vital Signs Temp 98.2 F 08/06/23 08:42 Pulse 80 08/06/23 11:10 Resp 20 08/06/23 11:10 BP 149/83 08/06/23 11:10 Pulse Ox 95 08/06/23 11:10 FiO2 Intake & Output 08/05/23 08/06/23 08/06/23 18:59 06:59 18:59 Intake Total 0 120 Output Total 350 1825 Balance -350 -1825 120 Intake: Oral 0 120 Output: Urine 350 1825 Other: Voiding Method Indwelling Catheter Indwelling Catheter Indwelling Catheter # Bowel Movements 1 - Exam Awake, comfortable, no acute distress Examination of the heart S1 and S2 Examination of the lungs bilateral breath sounds are heard Abdomen is soft nontender Examination lower extremity shows trace edema [place] exam grossly intact - Labs CBC & Chem 7: 08/06/23 07:14 08/06/23 07:14 Labs: Abnormal Lab Results - Last 24 Hours (Table) 08/04/23 08/04/23 08/06/23 Range/Units 07:29 07:29 07:14 RBC 2.83 L (4.30-5.90) m/uL Hgb 9.2 L (13.0-17.5) gm/dL Hct 27.0 L (39.0-53.0) % Plt Count 123 L (150-450) k/uL Chloride (98-107) mmol/L BUN (9-20) mg/dL Creatinine (0.66-1.25) mg/dL Glucose (74-99) mg/dL AST (17-59) U/L Total Protein (6.3-8.2) g/dL Albumin (3.5-5.0) g/dL [place] Screen POSITIVE A (Negative) Free [place] LC, Quant 108.23 H (0.33-1.94) mg/dL 08/06/23 Range/Units 07:14 RBC (4.30-5.90) m/uL Hgb (13.0-17.5) gm/dL Hct (39.0-53.0) % Plt Count (150-450) k/uL Chloride 111 H (98-107) mmol/L BUN 59 H (9-20) mg/dL Creatinine 5.21 H (0.66-1.25) mg/dL Glucose 103 H (74-99) mg/dL AST 15 L (17-59) U/L Total Protein 5.1 L (6.3-8.2) g/dL Albumin 3.0 L (3.5-5.0) g/dL [place] Screen (Negative) Free [place] LC, Quant (0.33-1.94) mg/dL Assessment and Plan Assessment: 1. 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 ANAs also positive but other serologies are negative. We will proceed with kidney biopsy. No evidence of hydronephrosis on ultrasound. UA shows 1+ protein and 5 RBCs. 2. CK D stage III b secondary to nephrosclerosis with previous creatinine at 1.7-1.8 mg/dL in January 2023 3. Metabolic acidosis secondary to acute kidney injury 4. Hypertension with CK D stage III B 5. Anemia of chronic kidney disease 6. Significantly elevated free Light chains, rule out multiple myeloma. Plan: Arrange for kidney biopsy Proceed with hematology consult Continue with IV fluids Repeat labs in a.m. No acute indication for hemodialysis initiation. Add Aranesp
--- NOTE | 2023-08-06 12:35 | P.PN ---
Subjective Progress Note Date: 08/06/23 This is a pleasant 78 years old male with multiple medical problems include Asthma, Deep Vein Thrombosis (DVT), Hyperlipidemia, Hypertension benign prostatic hypertrophy, hypothyroidism, previous history of UTI, coronary artery disease status post CABG and stent placement Patient was supposed to get brain shunt and as part of the workup by his PCP his creatinine came back high as 6.3 so he was referred to the emergency room He was here the hospital for acute urinary tract infection and CAT scan of the brain showing dilated ventricle, on computed tomography scan on 01/21/2023 showing moderate hydrocephalus. Patient was referred to his neurologist Dr. Murphy who sent him to neurosurgeon Dr. Damon in [place] where he did spinal tap, some of the fluid and referred him to his PCP to do some preoperative evaluation for shunt placement. Patient has been having some memory issue and problems with balance since before me. But other than that he denies any new current symptom, even as per at bedside patient was has than to come to emergency room yesterday because he didn't complain from any symptoms. He denies chest pain dizziness weakness numbness. No dysuria or urinary complaints. No vomiting diarrhea or abdominal pain. No dyspnea. He denies smoking alcohol or illicit drugs. Has some chronic mild back pain but he takes Tylenol, no nsaids Patient vitals stable Hemoglobin 10.1, platelets 1:30, WBC is normal limits. Creatinine 6.3 and 6.5, baseline around 1. EKG showing normal sinus rhythm at [address] T changes Renal ultrasound showed no evidence of hydronephrosis 08/03/2023 No new complaints. In bed comfortable. He remains on normal saline 75 mL/h. Creatinine is trending down 6.5 down to 6.[address] Gooden at bedside and all questions of the patient and daughter were answered to their satisfaction. Patient wishes no code 08/04/2023 Patient remains asymptomatic, lying in bed comfortable with no new complaints Hemodynamics stable Creatinine today 6.09 which is not much different than yesterday. He remains on normal saline 75 mL/h entresto is on hold 08/05. Patient seen and examined. Blood work done this morning showed sodium 141, potassium 4.3, BUN 62, creatinine 5.530. Patient sitting upright in the chair. Daughter at the bedside. Patient denies any weakness. Patient is 1 person assist. 08/06. Patient seen and examined. Serologies revealed positive ANAs. Free kappa light chains are significantly elevated at 108.23 suggesting underlying myeloma kidney. Denies any lightheadedness or dizziness. Denies abdominal pain. Vital signs stable REVIEW OF SYSTEMS: CONSTITUTIONAL: No fever, no malaise,. CARDIOVASCULAR: No chest pain, no palpitations, no syncope. PULMONARY: No shortness of breath, no cough, GASTROINTESTINAL: No diarrhea, no nausea, no vomiting, no abdominal pain. NEUROLOGICAL: No headaches, no weakness, PHYSICAL EXAMINATION: GENERAL: The patient is alert and oriented x3, not in any acute distress. Well developed, well nourished. HEENT: Pupils are round and equally reacting to light. EOMI. No scleral icterus. No conjunctival pallor. Normocephalic, atraumatic. No pharyngeal erythema. No thyromegaly. CARDIOVASCULAR: S1 and S2 present. No murmurs, rubs, or gallops. PULMONARY: Chest is clear to auscultation, no wheezing or crackles. ABDOMEN: Soft, nontender, nondistended, normoactive bowel sounds. No palpable organomegaly. MUSCULOSKELETAL: No joint swelling or deformity. EXTREMITIES: No cyanosis, clubbing, or pedal edema. NEUROLOGICAL: Gross neurological examination did not reveal any focal deficits. SKIN: No rashes. Assessment and plan Acute kidney injury, nonoliguric chronic kidney disease stage III Acute urinary retention secondary to enlarged prostate most likely status post Long catheter placement Moderate hydrocephalus with gait and memory problems Paroxysmal atrial fibrillation on Eliquis at home Hypertension Hyperlipidemia History of osteoarthritis Hypothyroidism Abnormal urine analysis, asymptomatic, unlike the patient has infection Monitor vital signs Monitor CBC Monitor CMP Continue telemetry monitoring Encourage use of incentive spirometer Continue with Long catheter Continue with normal saline Avoid nephrotoxic agents Continue Eliquis In regards to hypertension continue Norvasc, Coreg Regards to hyperlipidemia continue Lipitor In regards to hypothyroid continue Synthyroid nephrology following, arranging for kidney biopsy Hematology oncology consulted for possible multiple myeloma Labs and medication were reviewed.. Continue same treatment. Continue with symptomatic treatment. Resume home medication. Monitor labs and vitals. DVT and GI prophylaxis. Further recommendations as per clinical course of the patient Dictation was produced using xkoto dictation software. please excuse any grammatical, word or spelling errors. Objective - Vital Signs Vital signs: Vital Signs Temp 98.2 F 08/06/23 08:42 Pulse 84 08/06/23 08:42 Resp 20 08/06/23 08:42 BP 137/71 08/06/23 08:42 Pulse Ox 94 L 08/06/23 08:42 FiO2 Intake & Output 08/05/23 08/06/23 08/06/23 18:59 06:59 18:59 Intake Total 0 120 Output Total 350 1825 Balance -350 -1825 120 Intake: Oral 0 120 Output: Urine 350 1825 Other: Voiding Method Indwelling Catheter Indwelling Catheter Indwelling Catheter # Bowel Movements 1 - Labs CBC & Chem 7: 08/06/23 07:14 08/06/23 07:14 Labs: Abnormal Lab Results - Last 24 Hours (Table) 08/04/23 08/04/23 08/06/23 Range/Units 07:29 07:29 07:14 RBC 2.83 L (4.30-5.90) m/uL Hgb 9.2 L (13.0-17.5) gm/dL Hct 27.0 L (39.0-53.0) % Plt Count 123 L (150-450) k/uL Chloride (98-107) mmol/L BUN (9-20) mg/dL Creatinine (0.66-1.25) mg/dL Glucose (74-99) mg/dL AST (17-59) U/L Total Protein (6.3-8.2) g/dL Albumin (3.5-5.0) g/dL [place] Screen POSITIVE A (Negative) Free [place] LC, Quant 108.23 H (0.33-1.94) mg/dL 08/06/23 Range/Units 07:14 RBC (4.30-5.90) m/uL Hgb (13.0-17.5) gm/dL Hct (39.0-53.0) % Plt Count (150-450) k/uL Chloride 111 H (98-107) mmol/L BUN 59 H (9-20) mg/dL Creatinine 5.21 H (0.66-1.25) mg/dL Glucose 103 H (74-99) mg/dL AST 15 L (17-59) U/L Total Protein 5.1 L (6.3-8.2) g/dL Albumin 3.0 L (3.5-5.0) g/dL [place] Screen (Negative) Free [place] LC, Quant (0.33-1.94) mg/dL
[2023-08-06 15:06] LABS: ANA Pattern SPK
--- NOTE | 2023-08-06 17:12 | P.PN ---
Subjective Progress Note Date: 08/06/23 History of present illness: This is a 78-year-old male patient of Dr. Freedman last seen in the office February 02. Patient has a past medical history of coronary artery disease with CABG and stent of the RCA, hypertension, hyperlipidemia, asthma, hypothyroidism and pulmonary embolism/DVT on eliquis. We have been asked to evaluate the patient for medication adjustment due to renal failure. Patient was recently diagnosed with hydrocephalus and needing surgery. Patient was undergoing preop testing and he received a call that his kidney function was abnormal and was sent in the hospital for treatment. Patient had no symptoms and no reason to come in the hospital otherwise. Patient has baseline shortness of breath which he feels is unchanged. Patient has been found to be in acute kidney injury with creatinine initially 6.32 followed by nephrology and also had some urinary retention requiring Long catheter placement. Entresto has been placed on hold since admission. Patient is noted to have blood in his Long. EKG sinus rhythm at 73 bpm WBC 5, hemoglobin 9.4, platelet count 134. Sodium 141, potassium 4.3, chloride 112, CO2 21, BUN 62 creatinine 5.53. [place] screen positive. Free kappa elevated. Home cardiac medications: Eliquis 5 mg twice daily, Lipitor 40 mg daily, Coreg 6.25 mg twice daily, Entresto 2426 milligrams twice daily, levothyroxine 150 g daily Cardiac catheterization [address] Yulissa Kelsey on severe disease involving the mid RCA and subsequently underwent successful stenting with Dr. Dumont patient was also found to have disease involving the proximal left circumflex coronary artery in the intermediate range and LAD was occluded but protected by the [place]. Lexiscan stress test 04/2022 was negative. Probably normal myocardial perfusion and function. EF 51%. Echocardiogram 01/2023 reveals EF 40-45%, mild aortic stenosis, mild tricuspid regurgitation, RVSP 31. . 08/06 Patient states that he is feeling fair today. Entresto remains on hold due to kidney failure but upon review of his echocardiogram, patient does not need to continue on Entresto. Physical examination: Gen: This is a 78-year-old male. He is resting in bed and appears to be comfortable and in no acute distress. VS: reviewed HEENT: Head is atraumatic, normocephalic. Pupils equal, round. Sclerae is anicteric. NECK: Supple. No JVD. LUNGS: Clear to auscultation. No wheezes or rhonchi. No intercostal retractions. HEART: Regular rate and rhythm. No murmur. ABDOMEN: Soft No tenderness. EXTREMITIES: No pedal edema. No calf tenderness. NEUROLOGICAL: Patient is awake, alert and oriented x3. Assessment: Acute kidney injury DVT/PE history History of coronary artery disease with previous CABG and stenting of the RCA Hypertension Hypothyroidism Hyperlipidemia Plan: Continue patient's cardiac medications Patient does not need to resume Entresto discharge but consider adding BAR inhibitor or ARB once his renal function is improved or he goes on dialysis. Continue eliquis at 5 mg twice daily Cardiology will sign off this case and follow on an as-needed basis. Please rec onsult for any new concerns. Patient may follow-up in the office in one to 2 weeks. Nurse practitioner note has been reviewed, I agree with documented findings and plan of care. Patient was seen and examined. Objective - Vital Signs Vital signs: Vital Signs Temp 98.6 F 08/06/23 05:00 Pulse 80 08/06/23 08:04 Resp 16 08/06/23 05:00 BP 149/82 08/06/23 05:00 Pulse Ox 97 08/06/23 05:00 FiO2 Intake & Output 08/05/23 08/06/23 08/06/23 18:59 06:59 18:59 Intake Total 0 120 Output Total 350 1825 Balance -350 -1825 120 Intake: Oral 0 120 Output: Urine 350 1825 Other: Voiding Method Indwelling Catheter Indwelling Catheter # Bowel Movements 1 - Labs CBC & Chem 7: 08/06/23 07:14 08/06/23 07:14 Labs: Abnormal Lab Results - Last 24 Hours (Table) 08/04/23 08/04/23 08/05/23 Range/Units 07:29 07:29 08:03 RBC (4.30-5.90) m/uL Hgb (13.0-17.5) gm/dL Hct (39.0-53.0) % Plt Count (150-450) k/uL Chloride 112 H (98-107) mmol/L Carbon Dioxide 21 L (22-30) mmol/L BUN 62 H (9-20) mg/dL Creatinine 5.53 H (0.66-1.25) mg/dL Glucose (74-99) mg/dL Calcium 8.1 L (8.4-10.2) mg/dL AST (17-59) U/L Total Protein (6.3-8.2) g/dL Albumin (3.5-5.0) g/dL [place] Screen POSITIVE A (Negative) Free [place] LC, Quant 108.23 H (0.33-1.94) mg/dL 08/06/23 08/06/23 Range/Units 07:14 07:14 RBC 2.83 L (4.30-5.90) m/uL Hgb 9.2 L (13.0-17.5) gm/dL Hct 27.0 L (39.0-53.0) % Plt Count 123 L (150-450) k/uL Chloride 111 H (98-107) mmol/L Carbon Dioxide (22-30) mmol/L BUN 59 H (9-20) mg/dL Creatinine 5.21 H (0.66-1.25) mg/dL Glucose 103 H (74-99) mg/dL Calcium (8.4-10.2) mg/dL AST 15 L (17-59) U/L Total Protein 5.1 L (6.3-8.2) g/dL Albumin 3.0 L (3.5-5.0) g/dL [place] Screen (Negative) Free [place] LC, Quant (0.33-1.94) mg/dL
[2023-08-06] MEDS: ACETAMINOPHEN TAB 325 MG TAB PO PRN (17:26)
--- NOTE | 2023-08-06 17:31 | CA ---
Transthoracic Echo Report Name: Kash Kruse Age: 78 Gender: M : 1945 Exam Date: 08/06/2023 09:27 Exam Location: [place] [facility] Ht (in): 75 Wt (lb): 230 Ordering Physician: Beatriz Stephens Attending/Referring Phys: [id number], Angelo Actuarial Technician Evelina Mendes, VITO Procedure CPT: Indications: LVF Cardiac Hx: Hx of CABG Technical Quality: Good Contrast 1: Definity Total Dose (mL): 1 Contrast 2: Total Dose (mL): MEASUREMENTS (Male / Female) Normal Values 2D ECHO LV Diastolic Diameter PLAX 5.2 cm 4.2 - 5.9 / 3.9 - 5.3 cm LV Systolic Diameter PLAX 3.6 cm IVS Diastolic Thickness 1.5 cm 0.6 - 1.0 / 0.6 - 0.9 cm LVPW Diastolic Thickness 1.3 cm 0.6 - 1.0 / 0.6 - 0.9 cm LV Relative Wall Thickness 0.5 RV Internal Dim ED PLAX 2.8 cm LA Systolic Diameter LX 3.9 cm 3.0 - 4.0 / 2.7 - 3.8 cm LV Diastolic Volume MOD BP 83.9 cm??? 67 - 155 / 56 - 104 cm??? LV Systolic Volume MOD BP 31.0 cm??? 22 - 58 / 19 - 49 cm??? LV Ejection Fraction MOD BP 63.1 % >= 55 % LV Cardiac Index MOD BP 1855.2 cm???/min???m??? LV Diastolic Volume MOD 4C 91.3 cm??? LV Systolic Volume MOD 4C 34.3 cm??? LV Ejection Fraction MOD 4C 62.4 % LV Cardiac Index MOD 4C 1997.2 cm???/min???m??? LV Diastolic Length 4C 8.0 cm LV Systolic Length 4C 6.9 cm LV Diastolic Volume MOD 2C 73.2 cm??? LV Systolic Volume MOD 2C 27.3 cm??? LV Ejection Fraction MOD 2C 62.7 % LV Cardiac Index MOD 2C 1608.4 cm???/min???m??? LV Diastolic Length 2C 7.6 cm LV Systolic Length 2C 6.6 cm LA Volume 72.8 cm??? 18 - 58 / 22 - 52 cm??? LA Volume Index 30.7 cm???/m??? 16 - 28 cm???/m??? M-MODE Aortic Root Diameter MM 3.7 cm MV E Point Septal Separation 0.4 cm AV Cusp Separation MM 2.0 cm DOPPLER AV Peak Velocity 257.7 cm/s AV Peak Gradient 26.6 mmHg AV Mean Velocity 166.5 cm/s AV Mean Gradient 13.0 mmHg AV Velocity Time Integral 53.8 cm LVOT Peak Velocity 100.4 cm/s LVOT Peak Gradient 4.0 mmHg MV Area PHT 3.4 cm??? MV Deceleration Time 250.7 ms MV E' Velocity 7.4 cm/s TR Peak Velocity 260.9 cm/s TR Peak Gradient 27.2 mmHg Right Ventricular Systolic Press 31.6 mmHg FINDINGS Left Ventricle Left ventricular ejection fraction is estimated at 50-55 %. Moderate concentric left ventricular hypertrophy. Left ventricular cavity size normal. Right Ventricle Normal right ventricular size. Right ventricular systolic pressure within normal limits. Right Atrium Normal right atrial size. Left Atrium Mildly increased left atrial volume. Mildly increased left atrial area. Mitral Valve Structurally normal mitral valve. Aortic Valve Aortic valve sclerosis. Mild aortic stenosis with a peak gradient of 27 mmHg and a mean gradient of 13 mmHg. Tricuspid Valve Structurally normal tricuspid valve. Mild tricuspid regurgitation. Pulmonic Valve Pulmonic valve not well visualized. Pericardium No pericardial effusion. Aorta Normal size aortic root and proximal ascending aorta. CONCLUSIONS Technically suboptimal study secondary to poor echo windows Mild aortic stenosis and preserved LV function with an ejection fraction of 50- 55% Previewed by: Dr. Melvin Freedman MD (Electronically Signed) Final Date: 06 August 2023 17:30
[2023-08-06 18:33] LABS: % Iron Saturation 13.2 (15.00-50.00)
[2023-08-06] MEDS: HYDROcodone/APAP 5-325MG 1 EACH TAB PO PRN (18:51)
[2023-08-06] MEDS: MONTELUKAST 10 MG TAB PO SCH (20:10)
[2023-08-07] MEDS: ACETAMINOPHEN TAB 325 MG TAB PO PRN ×2 (04:13→11:50)
[2023-08-07] MEDS: SODIUM CHLORIDE 0.9% 1,000 ML IV SCH ×2 (04:14→19:52)
[2023-08-07] MEDS: carvediloL 6.25 MG TAB PO SCH ×2 (06:19→18:20)
[2023-08-07] MEDS: HYDROcodone/APAP 5-325MG 1 EACH TAB PO PRN ×2 (06:19→18:20)
[2023-08-07] MEDS: LEVOTHYROXINE 75 MCG TAB PO SCH (06:19)
[2023-08-07 07:35] LABS: Basophils % (A) 0 %; Eosinophils # (A) 0.3 k/uL (0-0.7); Eosinophils % (A) 8 %; HCT 25.9 % (39.0-53.0); HGB 8.9 gm/dL (13.0-17.5); Lymphocytes # (A) 0.6 k/uL (1.0-4.8); Lymphocytes % (A) 14 %; MCH 32.7 pg (25.0-35.0); MCHC 34.3 g/dL (31.0-37.0); MCV 95.3 fL (80.0-100.0); Mean Platelet Volume 8.4; Monocytes # (A) 0.5 k/uL (0-1.0); Monocytes % (A) 11 %; Neutrophils # (A) 2.8 k/uL (1.3-7.7); Neutrophils % (A) 66 %; Platelet Count 134 k/uL (150-450); RBC 2.72 m/uL (4.30-5.90); WBC 4.4 k/uL (3.8-10.6)
[2023-08-07] MEDS: IPRATROPIUM-ALBUTEROL 3 ML NEB INHALATION PRN ×2 (07:46→15:37)
[2023-08-07] MEDS: SYMBICORT 160-4.5 MCG INHALER INHALATION SCH ×2 (07:46→21:38)
[2023-08-07 07:56] LABS: ALT 12 U/L (4-49); AST 14 U/L (17-59); African American GFR (CKD) 13 (>60 ml/min/1.73 sqM); Albumin 2.7 g/dL (3.5-5.0); Alkaline Phosphatase 38 U/L (38-126); Anion Gap 9 mmol/L; Blood Urea Nitrogen 55 mg/dL (9-20); Calcium 8.3 mg/dL (8.4-10.2); Carbon Dioxide 21 mmol/L (22-30); Chloride 112 mmol/L (98-107); Glucose 96 mg/dL (74-99); Non-African American GFR(CKD) 11 (>60 ml/min/1.73 sqM); Sodium 142 mmol/L (137-145); Total Bilirubin 0.8 mg/dL (0.2-1.3); Total Protein 4.8 g/dL (6.3-8.2)
[2023-08-07] MEDS: TAMSULOSIN 0.4 MG CAP.ER.24H PO SCH ×2 (08:47→20:01)
[2023-08-07] MEDS: APIXABAN 5 MG TAB PO SCH (08:47)
[2023-08-07] MEDS: amLODIPine 5 MG TAB PO SCH (08:47)
[2023-08-07] MEDS: CLOPIDOGREL 75 MG TAB PO SCH (08:47)
[2023-08-07] MEDS: FAMOTIDINE 20 MG TAB PO SCH (08:47)
[2023-08-07] MEDS: ATORVASTATIN 40 MG TAB PO SCH (08:47)
[2023-08-07] MEDS: SODIUM BICARBONATE TAB 650 MG TAB PO SCH ×2 (08:47→20:01)
[2023-08-07] MEDS: FINASTERIDE 5 MG TAB PO SCH (08:47)
[2023-08-07] MEDS ORDERED: HEPARIN SODIUM 1,000 UN/ML (10ML VL) IV PRN (11:14)
[2023-08-07 12:45] VITALS: BMI 28.7
[2023-08-07 12:46] LABS: Basophils % (A) 0 %; Eosinophils # (A) 0.3 k/uL (0-0.7); Eosinophils % (A) 6 %; HCT 26.4 % (39.0-53.0); HGB 8.9 gm/dL (13.0-17.5); Lymphocytes # (A) 0.4 k/uL (1.0-4.8); Lymphocytes % (A) 10 %; MCH 31.9 pg (25.0-35.0); MCHC 33.6 g/dL (31.0-37.0); Mean Platelet Volume 8.9; Monocytes # (A) 0.4 k/uL (0-1.0); Monocytes % (A) 10 %; Neutrophils # (A) 3.1 k/uL (1.3-7.7); Neutrophils % (A) 73 %; Platelet Count 129 k/uL (150-450); RBC 2.78 m/uL (4.30-5.90); RDW 12.1 % (11.5-15.5); WBC 4.3 k/uL (3.8-10.6)
[2023-08-07 13:05] LABS: INR 1.1 (<1.2); Partial Thromboplastin Time 29.5 sec (22.0-30.0); Prothrombin Time 11.9 sec (10.0-12.5)
--- NOTE | 2023-08-07 13:36 | P.PN ---
Subjective Progress Note Date: 08/07/23 This is a pleasant 78 years old male with multiple medical problems include Asthma, Deep Vein Thrombosis (DVT), Hyperlipidemia, Hypertension benign prostatic hypertrophy, hypothyroidism, previous history of UTI, coronary artery disease status post CABG and stent placement Patient was supposed to get brain shunt and as part of the workup by his PCP his creatinine came back high as 6.3 so he was referred to the emergency room He was here the hospital for acute urinary tract infection and CAT scan of the brain showing dilated ventricle, on computed tomography scan on 01/21/2023 showing moderate hydrocephalus. Patient was referred to his neurologist Dr. Murphy who sent him to neurosurgeon Dr. Damon in [place] where he did spinal tap, some of the fluid and referred him to his PCP to do some preoperative evaluation for shunt placement. Patient has been having some memory issue and problems with balance since before me. But other than that he denies any new current symptom, even as per at bedside patient was has than to come to emergency room yesterday because he didn't complain from any symptoms. He denies chest pain dizziness weakness numbness. No dysuria or urinary complaints. No vomiting diarrhea or abdominal pain. No dyspnea. He denies smoking alcohol or illicit drugs. Has some chronic mild back pain but he takes Tylenol, no nsaids Patient vitals stable Hemoglobin 10.1, platelets 1:30, WBC is normal limits. Creatinine 6.3 and 6.5, baseline around 1. EKG showing normal sinus rhythm at [address] T changes Renal ultrasound showed no evidence of hydronephrosis 08/03/2023 No new complaints. In bed comfortable. He remains on normal saline 75 mL/h. Creatinine is trending down 6.5 down to 6.[address] Gooden at bedside and all questions of the patient and daughter were answered to their satisfaction. Patient wishes no code 08/04/2023 Patient remains asymptomatic, lying in bed comfortable with no new complaints Hemodynamics stable Creatinine today 6.09 which is not much different than yesterday. He remains on normal saline 75 mL/h entresto is on hold 08/05. Patient seen and examined. Blood work done this morning showed sodium 141, potassium 4.3, BUN 62, creatinine 5.530. Patient sitting upright in the chair. Daughter at the bedside. Patient denies any weakness. Patient is 1 person assist. 08/06. Patient seen and examined. Serologies revealed positive ANAs. Free kappa light chains are significantly elevated at 108.23 suggesting underlying myeloma kidney. Denies any lightheadedness or dizziness. Denies abdominal pain. Vital signs stable 08/07. Patient seen and examined. Lab work done this morning showed WBC 4.4, hemoglobin 8.9, sodium 142, potassium 4, BUN 55, creatinine 4.58. Bone marrow biopsy being planned for Saturday, DC Eliquis and start patient on heparin from [facility]. REVIEW OF SYSTEMS: CONSTITUTIONAL: No fever, no malaise,. CARDIOVASCULAR: No chest pain, no palpitations, no syncope. PULMONARY: No shortness of breath, no cough, GASTROINTESTINAL: No diarrhea, no nausea, no vomiting, no abdominal pain. NEUROLOGICAL: No headaches, no weakness, PHYSICAL EXAMINATION: GENERAL: The patient is alert and oriented x3, not in any acute distress. Well developed, well nourished. HEENT: Pupils are round and equally reacting to light. EOMI. No scleral icterus. No conjunctival pallor. Normocephalic, atraumatic. No pharyngeal erythema. No thyromegaly. CARDIOVASCULAR: S1 and S2 present. No murmurs, rubs, or gallops. PULMONARY: Chest is clear to auscultation, no wheezing or crackles. ABDOMEN: Soft, nontender, nondistended, normoactive bowel sounds. No palpable organomegaly. MUSCULOSKELETAL: No joint swelling or deformity. EXTREMITIES: No cyanosis, clubbing, or pedal edema. NEUROLOGICAL: Gross neurological examination did not reveal any focal deficits. SKIN: No rashes. Assessment and plan Acute kidney injury, nonoliguric chronic kidney disease stage III Acute urinary retention secondary to enlarged prostate most likely status post Long catheter placement Moderate hydrocephalus with gait and memory problems Paroxysmal atrial fibrillation on Eliquis at home Hypertension Hyperlipidemia History of osteoarthritis Hypothyroidism Abnormal urine analysis, asymptomatic, unlike the patient has infection Monitor vital signs Monitor CBC Monitor CMP Continue telemetry monitoring Encourage use of incentive spirometer Continue with Long catheter Continue with normal saline Avoid nephrotoxic agents DC Eliquis, Will start patient on pharmacy dose heparin from [facility]. In regards to hypertension continue Norvasc, Coreg Regards to hyperlipidemia continue Lipitor In regards to hypothyroid continue Synthyroid nephrology following, arranging for kidney biopsy Hematology oncology consulted for possible multiple myeloma, planning bone marrow biopsy for Saturday Labs and medication were reviewed.. Continue same treatment. Continue with symptomatic treatment. Resume home medication. Monitor labs and vitals. DVT and GI prophylaxis. Further recommendations as per clinical course of the isca ent Dictation was produced using [employer] dictation software. please excuse any grammatical, word or spelling errors. Objective - Vital Signs Vital signs: Vital Signs Temp 98.3 F 08/07/23 08:45 Pulse 75 08/07/23 08:45 Resp 16 08/07/23 08:45 BP 119/64 08/07/23 08:45 Pulse Ox 92 L 08/07/23 08:45 FiO2 Intake & Output 08/06/23 08/07/23 08/07/23 18:59 06:59 18:59 Intake Total 120 118 Output Total 1600 1750 Balance -1480 -1750 118 Intake: Oral 120 118 Output: Urine 1600 1750 Other: Voiding Method Indwelling Catheter Indwelling Catheter - Labs CBC & Chem 7: 08/07/23 12:31 08/07/23 06:23 Labs: Abnormal Lab Results - Last 24 Hours (Table) 08/06/23 08/07/23 08/07/23 Range/Units 07:14 06:23 06:23 RBC 2.72 L (4.30-5.90) m/uL Hgb 8.9 L (13.0-17.5) gm/dL Hct 25.9 L (39.0-53.0) % Plt Count 134 L (150-450) k/uL Lymphocytes # 0.6 L (1.0-4.8) k/uL Chloride 112 H (98-107) mmol/L Carbon Dioxide 21 L (22-30) mmol/L BUN 55 H (9-20) mg/dL Creatinine 4.58 H (0.66-1.25) mg/dL Calcium 8.3 L (8.4-10.2) mg/dL Iron 26 L (65-175) UG/DL TIBC 197 L (228-460) UG/DL % Saturation 13.20 L (15.00-50.00) Transferrin 141.0 L (204.0-354.0) mg/dL AST 14 L (17-59) U/L Total Protein 4.8 L (6.3-8.2) g/dL Albumin 2.7 L (3.5-5.0) g/dL
--- NOTE | 2023-08-07 14:25 | P.PN ---
Subjective Patient is seen in follow-up for acute kidney injury on chronic kidney disease. Renal function improving. Receiving IV fluids. Oral intake poor. No vomiting or diarrhea. Nonoliguric. Vital signs are stable. General: No acute distress. HEENT: Head exam is unremarkable. LUNGS: No audible rhonchi or wheezes. HEART: Rate and Rhythm are regular. ABDOMEN: Nontender. EXTREMITITES: No edema. Objective - Vital Signs Vital signs: Vital Signs Temp 97.8 F 08/07/23 11:30 Pulse 93 08/07/23 11:30 Resp 16 08/07/23 11:30 BP 150/86 08/07/23 11:30 Pulse Ox 95 08/07/23 11:30 FiO2 Intake & Output 08/06/23 08/07/23 08/07/23 18:59 06:59 18:59 Intake Total 120 238 Output Total 1600 1750 Balance -1480 -1750 238 Weight 104.326 kg Intake: Oral 120 238 Output: Urine 1600 1750 Other: Voiding Method Indwelling Catheter Indwelling Catheter Indwelling Catheter - Labs CBC & Chem 7: 08/07/23 12:31 08/07/23 06:23 Labs: Abnormal Lab Results - Last 24 Hours (Table) 08/06/23 08/07/23 08/07/23 Range/Units 07:14 06:23 06:23 RBC 2.72 L (4.30-5.90) m/uL Hgb 8.9 L (13.0-17.5) gm/dL Hct 25.9 L (39.0-53.0) % Plt Count 134 L (150-450) k/uL Lymphocytes # 0.6 L (1.0-4.8) k/uL Chloride 112 H (98-107) mmol/L Carbon Dioxide 21 L (22-30) mmol/L BUN 55 H (9-20) mg/dL Creatinine 4.58 H (0.66-1.25) mg/dL Calcium 8.3 L (8.4-10.2) mg/dL Iron 26 L (65-175) UG/DL TIBC 197 L (228-460) UG/DL % Saturation 13.20 L (15.00-50.00) Transferrin 141.0 L (204.0-354.0) mg/dL AST 14 L (17-59) U/L Total Protein 4.8 L (6.3-8.2) g/dL Albumin 2.7 L (3.5-5.0) g/dL 08/07/23 Range/Units 12:31 RBC 2.78 L (4.30-5.90) m/uL Hgb 8.9 L (13.0-17.5) gm/dL Hct 26.4 L (39.0-53.0) % Plt Count 129 L (150-450) k/uL Lymphocytes # 0.4 L (1.0-4.8) k/uL Chloride (98-107) mmol/L Carbon Dioxide (22-30) mmol/L BUN (9-20) mg/dL Creatinine (0.66-1.25) mg/dL Calcium (8.4-10.2) mg/dL Iron (65-175) UG/DL TIBC (228-460) UG/DL % Saturation (15.00-50.00) Transferrin (204.0-354.0) mg/dL AST (17-59) U/L Total Protein (6.3-8.2) g/dL Albumin (3.5-5.0) g/dL Assessment and Plan Plan: Assessment: 1. Acute kidney injury secondary to ATN and urinary retention. Creatinine peaked at 6.53 this admission and is 4.58 today. Creatinine in the range of 1.5-1.8 in January 2023 and as low as 0.96 in January 2019. No hydronephrosis noted on kidney ultrasound. 2. Urinary retention. Long catheter placed by urology. On Proscar and Flomax. 3. Benign hypertension. Stable. 4. Metabolic acidosis secondary to acute kidney injury and IV fluids. On oral bicarbonate. 5. Hydrocephalus scheduled for shunt placement later this month. 6. Elevated kappa light chains. Oncology following. Plan: Maintain IV fluids. Maintain Long catheter. Avoid nephrotoxins. Continue to monitor renal function and urine output. Continue to assess daily for need for renal replacement therapy. No urgency at this time. Serologies show positive [place] and elevated kappa light chain. Serum immunofixation pending. Bone marrow biopsy pending. Will also try to schedule kidney biopsy while anticoagulation is being held. DDAVP to be given prior to kidney biopsy. Interventional radiology consulted. Discussed with patient and his daughter present at bedside.
[2023-08-07 14:43] LABS: Glucose,Whole Blood 119 mg/dL (70-110)
[2023-08-07 18:03] LABS: Albumin 3.2 g/dL (3.8-4.9); Immunoglobulin A <65.0 mg/dL (60.0-350.0); Immunoglobulin M <35.0 mg/dL (40.0-280.0); Protein, Total 4.7 g/dL (6.2-8.2)
--- NOTE | 2023-08-07 18:11 | P.CONS ---
History of Present Illness - Reason for Consult Consult date: 08/07/23 Paraproteinemia, HILDA - History of Present Illness The patient is a 78-year-old white male, with multiple medical problems. He came into the hospital, because outpatient blood work had revealed him to be in acute renal failure. His baseline creatinine a few months ago was in the 1.85 and 1.9 range. Recent bloodwork had shown it to be in the 5.8-6.3 range. The patient was admitted and seen by nephrology. As part of his workup he had light chains ordered, that showed marked elevation of kappa light chain at 1082 mg/L, with lambda light chain actually normal. This is felt to be very suspicious for overt multiple myeloma, due to which hematology oncology were consulted. The patient's daughter was at the bedside, and provided most of the history. The patient denied any major symptoms, other than feeling somewhat more fatigued, and noticing somewhat decreased urine output over the past few weeks. There has been some decrease in appetite, with weight loss of about 10-12 pounds over the past 2 months. However during this time the patient was diagnosed with normal pressure hydrocephalus, and was scheduled for shunt surgery next week. No history of any other malignancy, or blood related problems. Other labs during this hospitalization showed hemoglobin in the 8-9 range, and calcium in the low 8 range. Echocardiogram showed preserved LV function with mild aortic stenosis. Ultrasound KUB did not show any evidence of obstruction The patient is on Eliquis because of prior history of DVT and PE. She states that this occurred about 2-3 years ago. She was not aware of any provoking factors. She does not believe that the patient saw a senior game designer for the same. Review of Systems Constitutional: Reports anorexia, Reports fatigue, Reports weight loss Eyes: denies blurred vision, denies pain Ears: deny: decreased hearing, ear discharge, earache, tinnitus Ears, nose, mouth and throat: Denies headache, Denies sore throat Cardiovascular: Reports decreased exercise tolerance Respiratory: Denies cough Gastrointestinal: Denies abdominal pain, Denies diarrhea, Denies nausea, Denies vomiting Genitourinary: Reports as per HPI Musculoskeletal: Reports low back pain Integumentary: Denies pruritus, Denies rash Neurological: Reports weakness Psychiatric: Denies anxiety, Denies depression Endocrine: Reports fatigue, Reports weight change Hematologic/Lymphatic: Reports as per HPI Past Medical History Past Medical History: Asthma, Chest Pain / Angina, Deep Vein Thrombosis (DVT), Hyperlipidemia, Hypertension, Myocardial Infarction ([place]), Prostate Disorder, Thyroid Disorder Additional Past Medical History / Comment(s): ENLARGED PROSTATE, hydrocephalus with shunt planned 08/15/23 Last Myocardial Infarction Date:: 2003 History of Any Multi-Drug Resistant Organisms: None Reported Past Surgical History: Coronary Bypass/CABG, Heart Catheterization, Heart Catheterization With Stent, Hernia Repair, Orthopedic Surgery Additional Past Surgical History / Comment(s): CABG-4 VESSEL 2003,UMBILICAL HERNIA REPAIR, RT ANKLE REPLACEMENT,HEART CATH , HEART CATH/ANGIO /STENT PLACEMENT Past Anesthesia/Blood Transfusion Reactions: No Reported Reaction Date of Last Stent Placement:: 06-18-14 Past Psychological History: No Psychological Hx Reported Smoking Status: Never smoker, Unknown if ever smoked Past Alcohol Use History: None Reported Past Drug Use History: None Reported - Past Family History Father Family Medical History: Myocardial Infarction ([place]) Brother(s) Family Medical History: Myocardial Infarction ([place]) Medications and Allergies Home Medications Medication Instructions Recorded Confirmed Type Carvedilol [Coreg] 6.25 mg PO BID 06/08/14 08/01/23 History Montelukast [Singulair] 10 mg PO HS 06/08/14 08/01/23 History Tamsulosin [Flomax] 0.4 mg PO BID 06/08/14 08/01/23 History Apixaban [Eliquis] 5 mg PO BID #70 tab 11/19/18 08/01/23 Rx Acetaminophen Tab [Tylenol] 1,000 mg PO BID 01/21/23 08/01/23 History Atorvastatin [Lipitor] 40 mg PO DAILY 01/21/23 08/01/23 History Cetirizine HCl [Zyrtec] 10 mg PO DAILY 01/21/23 08/01/23 History Fluticasone Propion/Salmeterol 1 puff INHALATION RT-BID 01/21/23 08/01/23 History [Wixela 500-50 Inhub] Ibuprofen [Motrin Ib] 200 mg PO Q4H PRN 01/21/23 08/01/23 History Levothyroxine Sodium [Synthroid] 150 mcg PO DAILY 01/21/23 08/01/23 History Prevagen 1 cap PO DAILY 01/21/23 08/01/23 History Triamcinolone 0.1% Lotion [Kenalog 1 applic TOPICAL DAILY PRN 01/21/23 08/01/23 History 0.1% Lotion] Ubidecarenone [Coenzyme Q10] 200 mg PO DAILY 01/21/23 08/01/23 History Famotidine [Pepcid] 20 mg PO DAILY 90 Days #90 tab 01/27/23 08/01/23 Rx Finasteride [Proscar] 5 mg PO Q48H 45 Days #45 tab 01/27/23 08/01/23 Rx Ipratropium-Albuterol Nebulize 3 ml INHALATION RT-QID 30 Days 01/27/23 08/01/23 Rx [Duoneb 0.5 mg-3 mg/3 ml Soln] #120 each Clopidogrel [Plavix] 75 mg PO DAILY 05/07/23 08/01/23 History Sacubitril/Valsartan [Entresto 24 1 tab PO BID 08/01/23 08/01/23 History mg-26 mg Tablet] Allergies Allergy/AdvReac Type Severity Reaction Status Date / Time No Known Allergies Allergy Verified 08/01/23 20:24 Physical Exam Vitals: Vital Signs Temp Pulse Pulse Pulse Resp BP Pulse Ox 08/07/23 15:49 92 08/07/23 15:37 94 08/07/23 11:30 97.8 F 93 16 150/86 95 08/07/23 08:45 98.3 F 75 16 119/64 92 L 08/07/23 07:59 92 08/07/23 07:46 90 08/07/23 04:00 97.8 F 80 17 134/72 98 08/07/23 00:00 81 17 140/77 96 08/06/23 20:34 88 08/06/23 20:23 86 08/06/23 20:11 98 F 89 18 162/81 98 Intake and Output 08/07/23 08/07/23 08/07/23 06:59 14:59 22:59 Intake Total 238 Output Total 1000 1250 Balance -1000 -1012 Intake: Oral 238 Output: Urine 1000 1250 Other: Voiding Method Indwelling Catheter Indwelling Catheter Weight 104.326 kg - Constitutional General appearance: no acute distress - EENT Eyes: EOMI, PERRLA ENT: hearing grossly normal, normal oropharynx - Neck Neck: no lymphadenopathy Thyroid: bilateral: normal size - Respiratory Respiratory: bilateral: CTA - Cardiovascular Rhythm: regular Heart sounds: normal: S1, S2 - Gastrointestinal General gastrointestinal: normal bowel sounds, soft - Integumentary Integumentary: normal - Neurologic Neurologic: CNII-XII intact - Musculoskeletal Musculoskeletal: generalized weakness, strength equal bilaterally - Psychiatric Affect and comprehension appeared to be slightly slow, with some difficulty in recall. Psychiatric: A&O x's 3 Results CBC & Chem 7: 08/07/23 12:31 08/07/23 06:23 Labs: Abnormal Lab Results - Last 24 Hours (Table) 08/06/23 08/07/23 08/07/23 Range/Units 07:14 06:23 06:23 RBC 2.72 L (4.30-5.90) m/uL Hgb 8.9 L (13.0-17.5) gm/dL Hct 25.9 L (39.0-53.0) % Plt Count 134 L (150-450) k/uL Lymphocytes # 0.6 L (1.0-4.8) k/uL Chloride 112 H (98-107) mmol/L Carbon Dioxide 21 L (22-30) mmol/L BUN 55 H (9-20) mg/dL Creatinine 4.58 H (0.66-1.25) mg/dL POC Glucose (mg/dL) (70-110) mg/dL Calcium 8.3 L (8.4-10.2) mg/dL Iron 26 L (65-175) UG/DL TIBC 197 L (228-460) UG/DL % Saturation 13.20 L (15.00-50.00) Transferrin 141.0 L (204.0-354.0) mg/dL AST 14 L (17-59) U/L Total Protein 4.8 L (6.3-8.2) g/dL Albumin 2.7 L (3.5-5.0) g/dL 08/07/23 08/07/23 Range/Units 12:31 14:41 RBC 2.78 L (4.30-5.90) m/uL Hgb 8.9 L (13.0-17.5) gm/dL Hct 26.4 L (39.0-53.0) % Plt Count 129 L (150-450) k/uL Lymphocytes # 0.4 L (1.0-4.8) k/uL Chloride (98-107) mmol/L Carbon Dioxide (22-30) mmol/L BUN (9-20) mg/dL Creatinine (0.66-1.25) mg/dL POC Glucose (mg/dL) 119 H (70-110) mg/dL Calcium (8.4-10.2) mg/dL Iron (65-175) UG/DL TIBC (228-460) UG/DL % Saturation (15.00-50.00) Transferrin (204.0-354.0) mg/dL AST (17-59) U/L Total Protein (6.3-8.2) g/dL Albumin (3.5-5.0) g/dL Comments: Echocardiogram report reviewed US - abdomen: report reviewed Assessment and Plan (1) Monoclonal paraproteinemia Narrative/Plan: The patient had light chain studies ordered because of presentation with acute kidney injury. This revealed marked elevation of the kappa light chain, compared to lambda, which is highly concerning for overt multiple myeloma. - The findings, implications and etiology were discussed in detail with the patient and his daughter. Additional workup will be ordered with serum electrophoresis and immunofixation, as well as bone survey and 24-hour urine studies. - The patient does have some anemia, which could be due to the acute kidney injury and/or his renal failure. Calcium level is not elevated. He does have some low back pain. - Given the high level of protein, and the possibility that this could be the cause of his renal failure, bone marrow aspiration biopsy was recommended for confirmation of diagnosis. The procedure was explained in detail to the patient and his daughter. This has been scheduled for the a.m. of 08/09/23. - Once the procedure was completed, the patient was started on high-dose steroids. If he has a response to those, and that corresponds to improvement in his creatinine, then it would indicate that the renal failure is likely due to the direct effect of the paraproteinemia. - Once diagnosis is confirmed that he can be switched to a more specific regimen. - Eliquis and Plavix will be held for the procedure. Current Visit: Yes Status: Acute Code(s): D47.2 - MONOCLONAL GAMMOPATHY SNOMED Code(s): 748956204 (2) HILDA (acute kidney injury) Narrative/Plan: At this point malignant paraproteinemia is a major differential diagnosis as a cause. A renal biopsy is being considered, and would be an appropriate measure for definite confirmation of this clinical impression. As noted, in the meantime, the plan is to start the patient on high-dose steroids once the bone marrow has been obtained. In that case, if the patient shows a response, both in terms of paraproteinemia and renal function, that would essentially clinically confirm myeloma involvement. Therefore in that fashion, if the kidney biopsy has not been performed yet, it could be held. Current Visit: Yes Status: Acute Code(s): N17.9 - ACUTE KIDNEY FAILURE, UNSPECIFIED SNOMED Code(s): 24489002 Plan: Case discussed with the admitting service
[2023-08-07] MEDS: MELATONIN 3 MG TABLET PO SCH (20:01)
[2023-08-07] MEDS: MONTELUKAST 10 MG TAB PO SCH (20:01)
[2023-08-07] MEDS: HEPARIN SOD,PORK IN 0.45% NACL 25,000 UNIT in 0.45% NACL 1 250ML.BAG IV SCH (20:02)
[2023-08-07] MEDS ORDERED: HEPARIN SODIUM 1,000 UN/ML (10ML VL) IV ONE (21:00)
[2023-08-08] MEDS: IPRATROPIUM-ALBUTEROL 3 ML NEB INHALATION PRN ×5 (04:42→21:35)
[2023-08-08] MEDS: guaiFENesin SYRUP 100MG/5ML 200 MG/10 ML CUP PO PRN ×2 (04:46→23:28)
[2023-08-08] MEDS: HYDROcodone/APAP 5-325MG 1 EACH TAB PO PRN ×3 (06:18→23:34)
[2023-08-08] MEDS: LEVOTHYROXINE 75 MCG TAB PO SCH (06:19)
[2023-08-08] MEDS: carvediloL 6.25 MG TAB PO SCH ×2 (06:19→16:34)
[2023-08-08 07:05] LABS: Basophils % (A) 0 %; Eosinophils # (A) 0.3 k/uL (0-0.7); Eosinophils % (A) 7 %; Eosinophils % (A) 8 %; HCT 25.2 % (39.0-53.0); HCT 25.4 % (39.0-53.0); HGB 8.6 gm/dL (13.0-17.5); HGB 8.7 gm/dL (13.0-17.5); Lymphocytes # (A) 0.6 k/uL (1.0-4.8); Lymphocytes # (A) 0.7 k/uL (1.0-4.8); Lymphocytes % (A) 15 %; Lymphocytes % (A) 16 %; MCH 32.2 pg (25.0-35.0); MCH 32.7 pg (25.0-35.0); MCHC 34.4 g/dL (31.0-37.0); MCV 94.9 fL (80.0-100.0); Mean Platelet Volume 8.4; Monocytes # (A) 0.3 k/uL (0-1.0); Monocytes # (A) 0.4 k/uL (0-1.0); Monocytes % (A) 10 %; Monocytes % (A) 8 %; Neutrophils # (A) 2.7 k/uL (1.3-7.7); Neutrophils # (A) 2.9 k/uL (1.3-7.7); Neutrophils % (A) 67 %; Platelet Count 133 k/uL (150-450); Platelet Count 136 k/uL (150-450); RBC 2.66 m/uL (4.30-5.90); RBC 2.68 m/uL (4.30-5.90); RDW 12.1 % (11.5-15.5); WBC 4.3 k/uL (3.8-10.6)
[2023-08-08 07:07] LABS: INR 1.1 (<1.2); Prothrombin Time 11.7 sec (10.0-12.5)
[2023-08-08 07:27] LABS: ALT 12 U/L (4-49); AST 14 U/L (17-59); African American GFR (CKD) 15 (>60 ml/min/1.73 sqM); Albumin 2.7 g/dL (3.5-5.0); Alkaline Phosphatase 34 U/L (38-126); Anion Gap 8 mmol/L; Blood Urea Nitrogen 52 mg/dL (9-20); Calcium 8.3 mg/dL (8.4-10.2); Carbon Dioxide 23 mmol/L (22-30); Chloride 110 mmol/L (98-107); Glucose 122 mg/dL (74-99); Non-African American GFR(CKD) 13 (>60 ml/min/1.73 sqM); Potassium 3.7 mmol/L (3.5-5.1); Sodium 141 mmol/L (137-145); Total Bilirubin 0.8 mg/dL (0.2-1.3); Total Protein 4.7 g/dL (6.3-8.2)
[2023-08-08] MEDS: SYMBICORT 160-4.5 MCG INHALER INHALATION SCH ×2 (08:04→21:35)
[2023-08-08] MEDS: amLODIPine 5 MG TAB PO SCH (09:55)
[2023-08-08] MEDS: ATORVASTATIN 40 MG TAB PO SCH (09:55)
[2023-08-08] MEDS: TAMSULOSIN 0.4 MG CAP.ER.24H PO SCH ×2 (09:55→21:32)
[2023-08-08] MEDS: SODIUM BICARBONATE TAB 650 MG TAB PO SCH ×2 (09:55→21:32)
[2023-08-08] MEDS: FAMOTIDINE 20 MG TAB PO SCH (09:55)
[2023-08-08] MEDS: LACTATED RINGERS 1,000 ML IV SCH (09:55)
--- NOTE | 2023-08-08 11:27 | XR ---
EXAMINATION TYPE: XR bone survey complete DATE OF EXAM: 08/08/2023 COMPARISON: NONE HISTORY: Suspected myeloma, back pain Bony calvarium : 2 views of the bony calvarium demonstrate no lytic or sclerotic lesion seen. Spine: Two views of the cervical, thoracic and lumbar spines are submitted. There is somewhat mottle d appearance involving the cervical spine segments of C3-C7. The thoracic and lumbar segments are harley ssly unremarkable. PELVIS: Single view of the pelvis demonstrates no lytic or sclerotic lesions. UPPER EXTREMITIES: Two views of the upper extremities demonstrate vague lytic lesions of the middle o ne third left humeral diaphysis. LOWER EXTREMITIES: 2 views of the lower extremities demonstrates lytic lesion of the proximal left fe moral diaphysis. IMPRESSION: A few scattered lytic lesions as discussed suspicious for multiple myeloma.
[2023-08-08 11:42] LABS: Erythrocyte Sedimentation Rate 18 mm/Hr (0-20)
--- NOTE | 2023-08-08 12:55 | P.PN ---
Subjective Progress Note Date: 08/08/23 Follow-up for acute kidney injury. Urine output of 1250 ML's in the last 24 hours. Creatinine still high. Baseline in January 2023 1.5-1.8 MG per DL. Objective - Vital Signs Vital signs: Vital Signs Temp 98.5 F 08/08/23 09:50 Pulse 88 08/08/23 11:44 Resp 18 08/08/23 09:50 BP 144/79 08/08/23 09:50 Pulse Ox 98 08/08/23 09:50 FiO2 Intake & Output 08/07/23 08/08/23 08/08/23 18:59 06:59 18:59 Intake Total 238 452.026 262.42 Output Total 1250 Balance -1012 452.026 262.42 Weight 104.326 kg Intake: Intake, IV Titration 52.026 82.42 Amount Heparin Sod,Pork in 0.45% 52.026 82.42 NaCl 25,000 unit In 0.45 % NaCl 1 250ml.bag @ 9.59 UNITS/KG/HR 10.005 mls/ hr IV .Q24H [facility] Rx#: [id number] Oral 238 400 180 Output: Urine 1250 Other: Voiding Method Indwelling Catheter Indwelling Catheter Indwelling Catheter - Exam No acute distress S1-S2 heard Lungs clear Abdomen soft No edema - Labs CBC & Chem 7: 08/08/23 05:54 08/08/23 05:54 Labs: Abnormal Lab Results - Last 24 Hours (Table) 08/07/23 08/07/23 08/08/23 Range/Units 06:23 14:41 00:01 RBC (4.30-5.90) m/uL Hgb (13.0-17.5) gm/dL Hct (39.0-53.0) % Plt Count (150-450) k/uL Lymphocytes # (1.0-4.8) k/uL APTT 40.2 H (22.0-30.0) sec Chloride (98-107) mmol/L BUN (9-20) mg/dL Creatinine (0.66-1.25) mg/dL Glucose (74-99) mg/dL POC Glucose (mg/dL) 119 H (70-110) mg/dL Calcium (8.4-10.2) mg/dL AST (17-59) U/L Alkaline Phosphatase (38-126) U/L Total Protein (6.3-8.2) g/dL Total Protein (PEP) 4.7 L (6.2-8.2) g/dL Albumin (3.5-5.0) g/dL Albumin (PEP) 3.2 L (3.8-4.9) g/dL IgG 405.0 L (700.0-1600.0) mg/dL IgM <35.0 L (40.0-280.0) mg/dL 08/08/23 08/08/23 08/08/23 Range/Units 05:54 05:54 05:54 RBC 2.68 L 2.66 L (4.30-5.90) m/uL Hgb 8.6 L 8.7 L (13.0-17.5) gm/dL Hct 25.4 L 25.2 L (39.0-53.0) % Plt Count 136 L 133 L (150-450) k/uL Lymphocytes # 0.7 L 0.6 L (1.0-4.8) k/uL APTT (22.0-30.0) sec Chloride 110 H (98-107) mmol/L BUN 52 H (9-20) mg/dL Creatinine 4.06 H (0.66-1.25) mg/dL Glucose 122 H (74-99) mg/dL POC Glucose (mg/dL) (70-110) mg/dL Calcium 8.3 L (8.4-10.2) mg/dL AST 14 L (17-59) U/L Alkaline Phosphatase 34 L (38-126) U/L Total Protein 4.7 L (6.3-8.2) g/dL Total Protein (PEP) (6.2-8.2) g/dL Albumin 2.7 L (3.5-5.0) g/dL Albumin (PEP) (3.8-4.9) g/dL IgG (700.0-1600.0) mg/dL IgM (40.0-280.0) mg/dL 08/08/23 Range/Units 05:54 RBC (4.30-5.90) m/uL Hgb (13.0-17.5) gm/dL Hct (39.0-53.0) % Plt Count (150-450) k/uL Lymphocytes # (1.0-4.8) k/uL APTT 53.6 H (22.0-30.0) sec Chloride (98-107) mmol/L BUN (9-20) mg/dL Creatinine (0.66-1.25) mg/dL Glucose (74-99) mg/dL POC Glucose (mg/dL) (70-110) mg/dL Calcium (8.4-10.2) mg/dL AST (17-59) U/L Alkaline Phosphatase (38-126) U/L Total Protein (6.3-8.2) g/dL Total Protein (PEP) (6.2-8.2) g/dL Albumin (3.5-5.0) g/dL Albumin (PEP) (3.8-4.9) g/dL IgG (700.0-1600.0) mg/dL IgM (40.0-280.0) mg/dL Assessment and Plan Assessment: #1 acute kidney injury secondary to ATN/urinary retention. -Baseline creatinine 1.5-1.8 MG per DL. -Urine analysis [place]. -Renal ultrasound no hydronephrosis. #2 chronic kidney disease stage III a suspected nephrosclerosis. #3 metabolic acidosis secondary to acute kidney injury #4 hydrocephalus awaiting for surgery this point #5 anemia with chronic kidney disease #6 hypertension with chronic kidney disease Plan: #1 renal function high, improving and stable. #2 discontinue IV fluids #3 Entresto currently on hold. #4 serology positive for [place]. Elevated IgG, hematology following #5 renal biopsy tomorrow. Give DDAVP prior to surgery
[2023-08-08] MEDS: ACETAMINOPHEN TAB 325 MG TAB PO PRN (13:04)
--- NOTE | 2023-08-08 13:46 | P.PN ---
Subjective Progress Note Date: 08/08/23 This is a pleasant 78 years old male with multiple medical problems include Asthma, Deep Vein Thrombosis (DVT), Hyperlipidemia, Hypertension benign prostatic hypertrophy, hypothyroidism, previous history of UTI, coronary artery disease status post CABG and stent placement Patient was supposed to get brain shunt and as part of the workup by his PCP his creatinine came back high as 6.3 so he was referred to the emergency room He was here the hospital for acute urinary tract infection and CAT scan of the brain showing dilated ventricle, on computed tomography scan on 01/21/2023 showing moderate hydrocephalus. Patient was referred to his neurologist Dr. Murphy who sent him to neurosurgeon Dr. Damon in [place] where he did spinal tap, some of the fluid and referred him to his PCP to do some preoperative evaluation for shunt placement. Patient has been having some memory issue and problems with balance since before me. But other than that he denies any new current symptom, even as per at bedside patient was has than to come to emergency room yesterday because he didn't complain from any symptoms. He denies chest pain dizziness weakness numbness. No dysuria or urinary complaints. No vomiting diarrhea or abdominal pain. No dyspnea. He denies smoking alcohol or illicit drugs. Has some chronic mild back pain but he takes Tylenol, no nsaids Patient vitals stable Hemoglobin 10.1, platelets 1:30, WBC is normal limits. Creatinine 6.3 and 6.5, baseline around 1. EKG showing normal sinus rhythm at [address] T changes Renal ultrasound showed no evidence of hydronephrosis 08/03/2023 No new complaints. In bed comfortable. He remains on normal saline 75 mL/h. Creatinine is trending down 6.5 down to 6.[address] Gooden at bedside and all questions of the patient and daughter were answered to their satisfaction. Patient wishes no code 08/04/2023 Patient remains asymptomatic, lying in bed comfortable with no new complaints Hemodynamics stable Creatinine today 6.09 which is not much different than yesterday. He remains on normal saline 75 mL/h entresto is on hold 08/05. Patient seen and examined. Blood work done this morning showed sodium 141, potassium 4.3, BUN 62, creatinine 5.530. Patient sitting upright in the chair. Daughter at the bedside. Patient denies any weakness. Patient is 1 person assist. 08/06. Patient seen and examined. Serologies revealed positive ANAs. Free kappa light chains are significantly elevated at 108.23 suggesting underlying myeloma kidney. Denies any lightheadedness or dizziness. Denies abdominal pain. Vital signs stable 08/07. Patient seen and examined. Lab work done this morning showed WBC 4.4, hemoglobin 8.9, sodium 142, potassium 4, BUN 55, creatinine 4.58. Bone marrow biopsy being planned for Saturday, will DC Eliquis and start patient on heparin from [facility]. 08/08. Patient seen and examined. Blood work done this morning showed sodium 141, potassium 3.7, BUN 52, creatinine 4.06. Complaining of congestion, complaining of shortness of breath on exertion. REVIEW OF SYSTEMS: CONSTITUTIONAL: No fever, no malaise,. CARDIOVASCULAR: No chest pain, no palpitations, no syncope. PULMONARY: As mentioned above GASTROINTESTINAL: No diarrhea, no nausea, no vomiting, no abdominal pain. NEUROLOGICAL: No headaches, no weakness, PHYSICAL EXAMINATION: GENERAL: The patient is alert and oriented x3, not in any acute distress. Well developed, well nourished. HEENT: Pupils are round and equally reacting to light. EOMI. No scleral icterus. No conjunctival pallor. Normocephalic, atraumatic. No pharyngeal erythema. No thyromegaly. CARDIOVASCULAR: S1 and S2 present. No murmurs, rubs, or gallops. PULMONARY: Coarse breath sounds bilaterally, no wheezing or crackles. ABDOMEN: Soft, nontender, nondistended, normoactive bowel sounds. No palpable organomegaly. MUSCULOSKELETAL: No joint swelling or deformity. EXTREMITIES: No cyanosis, clubbing, or pedal edema. NEUROLOGICAL: Gross neurological examination did not reveal any focal deficits. SKIN: No rashes. Assessment and plan Acute kidney injury, nonoliguric chronic kidney disease stage III Acute urinary retention secondary to enlarged prostate most likely status post Long catheter placement Moderate hydrocephalus with gait and memory problems Paroxysmal atrial fibrillation on Eliquis at home Hypertension Hyperlipidemia History of osteoarthritis Hypothyroidism Abnormal urine analysis, asymptomatic, unlike the patient has infection Monitor vital signs Monitor CBC Monitor CMP Continue telemetry monitoring Encourage use of incentive spirometer DC fluids Avoid nephrotoxic agents Continue pharmacy dose heparin Ordered Mucinex Ordered chest x-ray In regards to hypertension continue Norvasc, Coreg Regards to hyperlipidemia continue Lipitor In regards to hypothyroid continue Synthyroid nephrology following, arranging for kidney biopsy Hematology oncology consulted for possible multiple myeloma, planning bone marrow biopsy for Saturday Labs and medication were reviewed.. Continue same treatment. Continue with symptomatic treatment. Resume home medication. Monitor labs and vitals. DVT and GI prophylaxis. Further recommendations as per clinical course of the patient Dictation was produced using [employer] dictation software. please excuse any grammatical, word or spelling errors. Objective - Vital Signs Vital signs: Vital Signs Temp 97.7 F 08/08/23 04:00 Pulse 88 08/08/23 08:16 Resp 16 08/08/23 04:00 BP 144/64 08/08/23 04:00 Pulse Ox 95 08/08/23 04:00 FiO2 Intake & Output 08/07/23 08/08/23 08/08/23 18:59 06:59 18:59 Intake Total 238 452.026 262.42 Output Total 1250 Balance -1012 452.026 262.42 Weight 104.326 kg Intake: Intake, IV Titration 52.026 82.42 Amount Heparin Sod,Pork in 0.45% 52.026 82.42 NaCl 25,000 unit In 0.45 % NaCl 1 250ml.bag @ 9.59 UNITS/KG/HR 10.005 mls/ hr IV .Q24H [facility] Rx#: [id number] Oral 238 400 180 Output: Urine 1250 Other: Voiding Method Indwelling Catheter Indwelling Catheter - Labs CBC & Chem 7: 08/08/23 05:54 08/08/23 05:54 Labs: Abnormal Lab Results - Last 24 Hours (Table) 08/07/23 08/07/23 08/07/23 Range/Units 06:23 12:31 14:41 RBC 2.78 L (4.30-5.90) m/uL Hgb 8.9 L (13.0-17.5) gm/dL Hct 26.4 L (39.0-53.0) % Plt Count 129 L (150-450) k/uL Lymphocytes # 0.4 L (1.0-4.8) k/uL APTT (22.0-30.0) sec Chloride (98-107) mmol/L BUN (9-20) mg/dL Creatinine (0.66-1.25) mg/dL Glucose (74-99) mg/dL POC Glucose (mg/dL) 119 H (70-110) mg/dL Calcium (8.4-10.2) mg/dL AST (17-59) U/L Alkaline Phosphatase (38-126) U/L Total Protein (6.3-8.2) g/dL Total Protein (PEP) 4.7 L (6.2-8.2) g/dL Albumin (3.5-5.0) g/dL Albumin (PEP) 3.2 L (3.8-4.9) g/dL IgG 405.0 L (700.0-1600.0) mg/dL IgM <35.0 L (40.0-280.0) mg/dL 08/08/23 08/08/23 08/08/23 Range/Units 00:01 05:54 05:54 RBC 2.68 L (4.30-5.90) m/uL Hgb 8.6 L (13.0-17.5) gm/dL Hct 25.4 L (39.0-53.0) % Plt Count 136 L (150-450) k/uL Lymphocytes # 0.7 L (1.0-4.8) k/uL APTT 40.2 H (22.0-30.0) sec Chloride 110 H (98-107) mmol/L BUN 52 H (9-20) mg/dL Creatinine 4.06 H (0.66-1.25) mg/dL Glucose 122 H (74-99) mg/dL POC Glucose (mg/dL) (70-110) mg/dL Calcium 8.3 L (8.4-10.2) mg/dL AST 14 L (17-59) U/L Alkaline Phosphatase 34 L (38-126) U/L Total Protein 4.7 L (6.3-8.2) g/dL Total Protein (PEP) (6.2-8.2) g/dL Albumin 2.7 L (3.5-5.0) g/dL Albumin (PEP) (3.8-4.9) g/dL IgG (700.0-1600.0) mg/dL IgM (40.0-280.0) mg/dL 08/08/23 08/08/23 Range/Units 05:54 05:54 RBC 2.66 L (4.30-5.90) m/uL Hgb 8.7 L (13.0-17.5) gm/dL Hct 25.2 L (39.0-53.0) % Plt Count 133 L (150-450) k/uL Lymphocytes # 0.6 L (1.0-4.8) k/uL APTT 53.6 H (22.0-30.0) sec Chloride (98-107) mmol/L BUN (9-20) mg/dL Creatinine (0.66-1.25) mg/dL Glucose (74-99) mg/dL POC Glucose (mg/dL) (70-110) mg/dL Calcium (8.4-10.2) mg/dL AST (17-59) U/L Alkaline Phosphatase (38-126) U/L Total Protein (6.3-8.2) g/dL Total Protein (PEP) (6.2-8.2) g/dL Albumin (3.5-5.0) g/dL Albumin (PEP) (3.8-4.9) g/dL IgG (700.0-1600.0) mg/dL IgM (40.0-280.0) mg/dL
--- NOTE | 2023-08-08 15:09 | XR ---
EXAMINATION TYPE: XR chest 2V DATE OF EXAM: 08/08/2023 COMPARISON: 01/21/2023 HISTORY: Shortness of breath TECHNIQUE: Frontal and lateral views of the chest are obtained. FINDINGS: Scattered senescent parenchymal changes noted. Hyperinflation compatible with COPD. No evidence for infiltrate. No evidence for atelectasis. Heart size is stable. Mediastinal structures are stable and grossly unremarkable. No evidence for hilar prominence. Degenerative changes dorsal spine. IMPRESSION: 1. No evidence for acute pulmonary disease.
[2023-08-08] MEDS: HEPARIN SOD,PORK IN 0.45% NACL 25,000 UNIT in 0.45% NACL 1 250ML.BAG IV SCH (16:35)
[2023-08-08] MEDS: guaiFENesin 600 MG TABLET.ER PO SCH (21:32)
[2023-08-08] MEDS: traZODone HCL 50 MG TAB PO SCH (21:32)
[2023-08-08] MEDS: MONTELUKAST 10 MG TAB PO SCH (21:32)
[2023-08-08] MEDS: SODIUM CHLORIDE 0.9% 1,000 ML IV SCH ×2 (21:50→23:25)
[2023-08-08] MEDS: MELATONIN 3 MG TABLET PO SCH (21:50)
[2023-08-09] MEDS: ACETAMINOPHEN TAB 325 MG TAB PO PRN (06:16)
[2023-08-09] MEDS: carvediloL 6.25 MG TAB PO SCH ×2 (06:16→17:53)
[2023-08-09] MEDS: LEVOTHYROXINE 75 MCG TAB PO SCH (06:16)
[2023-08-09] MEDS ORDERED: DESMOPRESSIN ACETATE 34 MCG in SODIUM CHLORIDE 0.9% 50 ML IVPB ONE (06:30)
[2023-08-09] MEDS: IPRATROPIUM-ALBUTEROL 3 ML NEB INHALATION PRN ×2 (09:27→19:27)
[2023-08-09] MEDS: SYMBICORT 160-4.5 MCG INHALER INHALATION SCH ×2 (09:27→19:27)
[2023-08-09] MEDS: LACTATED RINGERS 1,000 ML IV SCH (10:27)
[2023-08-09] MEDS ORDERED: PROPOFOL 10 MG/ML 20 ML VIAL IV ONE (12:04)
[2023-08-09] MEDS ORDERED: LIDOCAINE 1% INJ 10MG/ML (20 ML MDV) ONE (12:04)
--- NOTE | 2023-08-09 12:10 | P.PN ---
Subjective Progress Note Date: 08/09/23 Follow-up for acute kidney injury. Urine output of 950 ML's in the last 24 hours. Creatinine improving. Baseline in January 2023 1.5-1.8 MG per DL. Objective - Vital Signs Vital signs: Vital Signs Temp 97.7 F 08/09/23 11:21 Pulse 74 08/09/23 11:21 Resp 18 08/09/23 11:21 BP 149/78 08/09/23 11:21 Pulse Ox 96 08/09/23 11:21 FiO2 Intake & Output 08/08/23 08/09/23 08/09/23 18:59 06:59 18:59 Intake Total 1505.597 10 Output Total 400 550 575 Balance 1105.597 -540 -575 Weight 104.326 kg Intake: IV 10 Invasive Line 3 10 Intake, IV Titration 185.597 Amount Heparin Sod,Pork in 0.45% 185.597 NaCl 25,000 unit In 0.45 % NaCl 1 250ml.bag @ 9.59 UNITS/KG/HR 10.005 mls/ hr IV .Q24H [facility] Rx#: [id number] Oral 1320 Output: Urine 400 550 575 Coude 425 Other: Voiding Method Indwelling Catheter Indwelling Catheter Indwelling Catheter - Exam No acute distress S1-S2 heard Lungs clear Abdomen soft No edema - Labs CBC & Chem 7: 08/08/23 05:54 08/08/23 05:54 Labs: Abnormal Lab Results - Last 24 Hours (Table) 08/09/23 Range/Units 09:15 APTT 32.4 H (22.0-30.0) sec Assessment and Plan Assessment: #1 acute kidney injury secondary to ATN/urinary retention. -Baseline creatinine 1.5-1.8 MG per DL. -Urine analysis [place]. -Renal ultrasound no hydronephrosis. #2 chronic kidney disease stage III a suspected nephrosclerosis. #3 metabolic acidosis secondary to acute kidney injury #4 hydrocephalus awaiting for surgery this point #5 anemia with chronic kidney disease #6 hypertension with chronic kidney disease Plan: #1 renal function high, improving and stable. #2 discontinue IV fluids #3 Entresto currently on hold. #4 serology positive for CHARLOTTE. Elevated IgG, hematology following #5 renal biopsy today. Give DDAVP prior to biopsy. #6 no acute indication for renal replacement therapy.
[2023-08-09] MEDS ORDERED: LIDOCAINE 2% INJ 20 MG/ML SQ ONE (12:21)
[2023-08-09] MEDS ORDERED: LACTATED RINGERS 1,000 ML IV ONE (12:31)
--- NOTE | 2023-08-09 12:37 | P.PCN ---
Date of Procedure: 08/09/23 Preoperative Diagnosis: Monoclonal gammopathy, suspected multiple myeloma Postoperative Diagnosis: Same Procedure(s) Performed: Bone marrow aspiration biopsy Anesthesia: MAC Surgeon: Laith Boyle Fret Saw Operator #1: Stated None Estimated Blood Loss (ml): 2 Pathology: other Condition: stable Disposition: floor Indications for Procedure: Patient presenting with significant monoclonal gammopathy with light chain anomaly. Suspected multiple myeloma Operative Findings: Adequate samples Description of Procedure: The procedure was discussed in detail with the patient on the floor, along with his family. Informed consent was obtained on the floor. He was brought to the outpatient endoscopy suite, and placed in left lateral decubitus position. Area over both posterior iliac crest was cleaned and prepped with chlorhexidine and sterile draping. IV sedation was then initiated. Local anesthesia was administered with lidocaine to the right posterior iliac crest. A Jamshidi needle was then inserted and bone marrow aspirate and biopsy obtained. On withdrawal of the needle hemostasis was easily achieved. Blood loss was minimal and recovery from sedation was satisfactory. He appeared to have tolerated the procedure well without any obvious, immediate obligations.
[2023-08-09 12:55] LABS: Reticulocyte % 1.1 % (0.5-2.0)
[2023-08-09] MEDS: amLODIPine 5 MG TAB PO SCH (12:57)
[2023-08-09] MEDS: FAMOTIDINE 20 MG TAB PO SCH (13:00)
[2023-08-09] MEDS: TAMSULOSIN 0.4 MG CAP.ER.24H PO SCH ×2 (13:00→19:59)
[2023-08-09] MEDS: ATORVASTATIN 40 MG TAB PO SCH (13:00)
[2023-08-09] MEDS: SODIUM BICARBONATE TAB 650 MG TAB PO SCH ×2 (13:00→19:59)
[2023-08-09] MEDS: FINASTERIDE 5 MG TAB PO SCH (13:00)
[2023-08-09] MEDS: guaiFENesin 600 MG TABLET.ER PO SCH ×2 (13:00→20:00)
--- NOTE | 2023-08-09 13:24 | P.PN ---
Subjective Progress Note Date: 08/09/23 This is a pleasant 78 years old male with multiple medical problems include Asthma, Deep Vein Thrombosis (DVT), Hyperlipidemia, Hypertension benign prostatic hypertrophy, hypothyroidism, previous history of UTI, coronary artery disease status post CABG and stent placement Patient was supposed to get brain shunt and as part of the workup by his PCP his creatinine came back high as 6.3 so he was referred to the emergency room He was here the hospital for acute urinary tract infection and CAT scan of the brain showing dilated ventricle, on computed tomography scan on 01/21/2023 showing moderate hydrocephalus. Patient was referred to his neurologist Dr. Murphy who sent him to neurosurgeon Dr. Damon in [place] where he did spinal tap, some of the fluid and referred him to his PCP to do some preoperative evaluation for shunt placement. Patient has been having some memory issue and problems with balance since before me. But other than that he denies any new current symptom, even as per at bedside patient was has than to come to emergency room yesterday because he didn't complain from any symptoms. He denies chest pain dizziness weakness numbness. No dysuria or urinary complaints. No vomiting diarrhea or abdominal pain. No dyspnea. He denies smoking alcohol or illicit drugs. Has some chronic mild back pain but he takes Tylenol, no nsaids Patient vitals stable Hemoglobin 10.1, platelets 1:30, WBC is normal limits. Creatinine 6.3 and 6.5, baseline around 1. EKG showing normal sinus rhythm at [address] T changes Renal ultrasound showed no evidence of hydronephrosis 08/03/2023 No new complaints. In bed comfortable. He remains on normal saline 75 mL/h. Creatinine is trending down 6.5 down to 6.[address] Gooden at bedside and all questions of the patient and daughter were answered to their satisfaction. Patient wishes no code 08/04/2023 Patient remains asymptomatic, lying in bed comfortable with no new complaints Hemodynamics stable Creatinine today 6.09 which is not much different than yesterday. He remains on normal saline 75 mL/h entresto is on hold 08/05. Patient seen and examined. Blood work done this morning showed sodium 141, potassium 4.3, BUN 62, creatinine 5.530. Patient sitting upright in the chair. Daughter at the bedside. Patient denies any weakness. Patient is 1 person assist. 08/06. Patient seen and examined. Serologies revealed positive ANAs. Free kappa light chains are significantly elevated at 108.23 suggesting underlying myeloma kidney. Denies any lightheadedness or dizziness. Denies abdominal pain. Vital signs stable 08/07. Patient seen and examined. Lab work done this morning showed WBC 4.4, hemoglobin 8.9, sodium 142, potassium 4, BUN 55, creatinine 4.58. Bone marrow biopsy being planned for Saturday, will DC Beamly and start patient on heparin from [facility]. 08/08. Patient seen and examined. Blood work done this morning showed sodium 141, potassium 3.7, BUN 52, creatinine 4.06. Complaining of congestion, complaining of shortness of breath on exertion. 08/09. Patient seen and examined. Blood work done this morning showed WBC 4.3, hemoglobin 8.7. Patient going for bone marrow biopsy today REVIEW OF SYSTEMS: CONSTITUTIONAL: No fever, no malaise,. CARDIOVASCULAR: No chest pain, no palpitations, no syncope. PULMONARY: As mentioned above GASTROINTESTINAL: No diarrhea, no nausea, no vomiting, no abdominal pain. NEUROLOGICAL: No headaches, no weakness, PHYSICAL EXAMINATION: GENERAL: The patient is alert and oriented x3, not in any acute distress. Well developed, well nourished. HEENT: Pupils are round and equally reacting to light. EOMI. No scleral icterus. No conjunctival pallor. Normocephalic, atraumatic. No pharyngeal erythema. No thyromegaly. CARDIOVASCULAR: S1 and S2 present. No murmurs, rubs, or gallops. PULMONARY: Coarse breath sounds bilaterally, no wheezing or crackles. ABDOMEN: Soft, nontender, nondistended, normoactive bowel sounds. No palpable organomegaly. MUSCULOSKELETAL: No joint swelling or deformity. EXTREMITIES: No cyanosis, clubbing, or pedal edema. NEUROLOGICAL: Gross neurological examination did not reveal any focal deficits. SKIN: No rashes. Assessment and plan Acute kidney injury, nonoliguric chronic kidney disease stage III Acute urinary retention secondary to enlarged prostate most likely status post Long catheter placement Moderate hydrocephalus with gait and memory problems Paroxysmal atrial fibrillation on Eliquis at home Hypertension Hyperlipidemia History of osteoarthritis Hypothyroidism Abnormal urine analysis, asymptomatic, unlike the patient has infection Monitor vital signs Monitor CBC Monitor CMP Continue telemetry monitoring Encourage use of incentive spirometer Avoid nephrotoxic agents pharmacy dose heparin currently on hold for biopsy, can be resumed after the biopsy Continue Mucinex Ordered chest x-ray In regards to hypertension continue Norvasc, Coreg Regards to hyperlipidemia continue Lipitor In regards to hypothyroid continue Synthyroid nephrology following, possible kidney biopsy today Hematology oncology consulted for possible multiple myeloma, planning bone marrow biopsy today Labs and medication were reviewed.. Continue same treatment. Continue with symptomatic treatment. Resume home medication. Monitor labs and vitals. DVT and GI prophylaxis. Further recommendations as per clinical course of the patient Dictation was produced using [employer] dictation software. please excuse any g rammatical, word or spelling errors. Objective - Vital Signs Vital signs: Vital Signs Temp 98.1 F 08/09/23 07:56 Pulse 76 08/09/23 09:40 Resp 20 08/09/23 07:56 BP 129/73 08/09/23 07:56 Pulse Ox 98 08/09/23 09:27 FiO2 Intake & Output 08/08/23 08/09/23 08/09/23 18:59 06:59 18:59 Intake Total 1505.597 10 Output Total 400 550 575 Balance 1105.597 -540 -575 Intake: IV 10 Invasive Line 3 10 Intake, IV Titration 185.597 Amount Heparin Sod,Pork in 0.45% 185.597 NaCl 25,000 unit In 0.45 % NaCl 1 250ml.bag @ 9.59 UNITS/KG/HR 10.005 mls/ hr IV .Q24H [facility] Rx#: [id number] Oral 1320 Output: Urine 400 550 575 Coude 425 Other: Voiding Method Indwelling Catheter Indwelling Catheter Indwelling Catheter - Labs CBC & Chem 7: 08/08/23 05:54 08/08/23 05:54
[2023-08-09] MEDS: SODIUM CHLORIDE 0.9% 1,000 ML IV SCH (16:13)
[2023-08-09] MEDS: HEPARIN SOD,PORK IN 0.45% NACL 25,000 UNIT in 0.45% NACL 1 250ML.BAG IV SCH (17:53)
[2023-08-09] MEDS: guaiFENesin SYRUP 100MG/5ML 200 MG/10 ML CUP PO PRN (18:53)
[2023-08-09] MEDS: MONTELUKAST 10 MG TAB PO SCH (19:59)
[2023-08-09] MEDS: MELATONIN 3 MG TABLET PO SCH (19:59)
[2023-08-09] MEDS: traZODone HCL 50 MG TAB PO SCH (20:00)
--- NOTE | 2023-08-10 00:50 | P.PN ---
Subjective Progress Note Date: 08/09/23 the patient was evaluated prior to his bone marrow aspiration biopsy today. He reports stable symptoms of generalized weakness, some back pain and overall decreased appetite. He has been having some cough that is productive of clear sputum intermittently. Objective - Vital Signs Vital signs: Vital Signs Temp 98.4 F 08/09/23 23:44 Pulse 78 08/09/23 23:44 Resp 18 08/09/23 23:44 BP 128/79 08/09/23 23:44 Pulse Ox 95 08/09/23 23:44 FiO2 Intake & Output 08/09/23 08/09/23 08/10/23 06:59 18:59 06:59 Intake Total 10 288 Output Total 550 1250 575 Balance -540 -962 -575 Weight 104.326 kg Intake: IV 10 50 Invasive Line 3 10 Oral 238 Output: Urine 550 1250 575 Coude 750 Other: Voiding Method Indwelling Catheter Indwelling Catheter Indwelling Catheter - Constitutional General appearance: Present: no acute distress - EENT Eyes: Present: EOMI ENT: Present: hearing grossly normal - Respiratory Respiratory: bilateral: CTA - Cardiovascular Rhythm: regular Heart sounds: normal: S1, S2 - Gastrointestinal General gastrointestinal: Present: normal bowel sounds, soft - Integumentary Integumentary: Present: normal - Neurologic Neurologic: Present: CNII-XII intact - Musculoskeletal Musculoskeletal: Present: generalized weakness, strength equal bilaterally - Psychiatric Psychiatric: Present: A&O x's 3 - Labs CBC & Chem 7: 08/08/23 05:54 08/08/23 05:54 Labs: Abnormal Lab Results - Last 24 Hours (Table) 08/08/23 08/09/23 Range/Units 05:54 09:15 RBC 2.66 L (4.30-5.90) m/uL Hgb 8.7 L (13.0-17.5) gm/dL Hct 25.2 L (39.0-53.0) % Plt Count 133 L (150-450) k/uL Lymphocytes # 0.6 L (1.0-4.8) k/uL APTT 32.4 H (22.0-30.0) sec Assessment and Plan (1) Monoclonal paraproteinemia Narrative/Plan: is still workup is ongoing in terms of labs, including 24-hour urine studies. bone survey does indicate probable lytic lesions in upper and lower extremities. The patient had bone marrow aspiration biopsy today for pathologic confirmation - The initial plan was to start the patient on bolus Decadron, in view of the marked acute kidney injury. However his creatinine has improved from 6+ to 4.06. Case was discussed with nephrology. Hold off on starting steroids today and check labs tomorrow. If creatinine continues to improve, then he can be initiated directly on a more specific induction regimen, once pathology is confirmed. The patient will need systemic treatment even if his kidney function improves, as he does have evidence of bone lesions. Current Visit: Yes Status: Acute Code(s): D47.2 - MONOCLONAL GAMMOPATHY SNOMED Code(s): 431588754 (2) HILDA (acute kidney injury) Narrative/Plan: there has been significant improvement, as noted. Check labs in the a.m. Plan as described above. If creatinine stabilizes, or worsens, then bolus Decadron will be initiated. - As bone survey has shown lytic lesions, the patient already meets criteria for active treatment for myeloma, regardless of the results of the kidney biopsy. Current Visit: Yes Status: Acute Code(s): N17.9 - ACUTE KIDNEY FAILURE, UNSPECIFIED SNOMED Code(s): 07312080 Plan: add: Case was discussed with nursing. On evaluation about 5-6 hours after the procedure, the patient had no evidence of any unusual bleeding or bruising. It was therefore felt that he could be reinitiated on anticoagulation. In case he needs to have a kidney biopsy early next week, he'll be placed back on IV heparin for now. - Resume Plavix in a.m., if no evidence of any unusual bleeding or bruising with the heparin.
[2023-08-10] MEDS ORDERED: HEPARIN SODIUM 1,000 UN/ML (10ML VL) IV PRN (01:03)
[2023-08-10] MEDS: SODIUM CHLORIDE 0.9% 1,000 ML IV SCH (03:52)
[2023-08-10] MEDS: LEVOTHYROXINE 75 MCG TAB PO SCH (04:59)
[2023-08-10 06:18] LABS: Basophils % (A) 0 %; Eosinophils # (A) 0.3 k/uL (0-0.7); Eosinophils % (A) 7 %; HCT 24.3 % (39.0-53.0); HGB 8.3 gm/dL (13.0-17.5); Lymphocytes # (A) 0.7 k/uL (1.0-4.8); Lymphocytes % (A) 17 %; MCH 32.4 pg (25.0-35.0); MCHC 34.1 g/dL (31.0-37.0); MCV 95.2 fL (80.0-100.0); Mean Platelet Volume 8.4; Monocytes # (A) 0.4 k/uL (0-1.0); Monocytes % (A) 9 %; Neutrophils # (A) 2.8 k/uL (1.3-7.7); Neutrophils % (A) 64 %; Platelet Count 164 k/uL (150-450); RBC 2.55 m/uL (4.30-5.90); RDW 12.3 % (11.5-15.5); WBC 4.3 k/uL (3.8-10.6)
[2023-08-10 06:34] LABS: ALT 11 U/L (4-49); AST 15 U/L (17-59); African American GFR (CKD) 17 (>60 ml/min/1.73 sqM); Albumin 2.6 g/dL (3.5-5.0); Alkaline Phosphatase 43 U/L (38-126); Anion Gap 8 mmol/L; Blood Urea Nitrogen 48 mg/dL (9-20); Calcium 8.2 mg/dL (8.4-10.2); Carbon Dioxide 21 mmol/L (22-30); Chloride 111 mmol/L (98-107); Glucose 93 mg/dL (74-99); Non-African American GFR(CKD) 15 (>60 ml/min/1.73 sqM); Potassium 4.3 mmol/L (3.5-5.1); Sodium 140 mmol/L (137-145); Total Bilirubin 0.4 mg/dL (0.2-1.3); Total Protein 4.6 g/dL (6.3-8.2)
[2023-08-10] MEDS: SYMBICORT 160-4.5 MCG INHALER INHALATION SCH ×2 (07:30→19:06)
[2023-08-10] MEDS: IPRATROPIUM-ALBUTEROL 3 ML NEB INHALATION PRN ×3 (07:30→19:06)
[2023-08-10] MEDS: ATORVASTATIN 40 MG TAB PO SCH (08:22)
[2023-08-10] MEDS: amLODIPine 5 MG TAB PO SCH (08:22)
[2023-08-10] MEDS: FAMOTIDINE 20 MG TAB PO SCH (08:22)
[2023-08-10] MEDS: SODIUM BICARBONATE TAB 650 MG TAB PO SCH ×2 (08:23→21:31)
[2023-08-10] MEDS: carvediloL 6.25 MG TAB PO SCH ×2 (08:23→18:14)
[2023-08-10] MEDS: guaiFENesin 600 MG TABLET.ER PO SCH ×2 (08:23→21:31)
[2023-08-10] MEDS: TAMSULOSIN 0.4 MG CAP.ER.24H PO SCH ×2 (08:23→21:31)
--- NOTE | 2023-08-10 14:25 | P.PN ---
Subjective Progress Note Date: 08/10/23 Follow-up for acute kidney injury. Urine output of 2400 ML's in the last 24 hours. Creatinine improving. Baseline in January 2023 1.5-1.8 MG per DL. Objective - Vital Signs Vital signs: Vital Signs Temp 98.7 F 08/10/23 13:05 Pulse 65 08/10/23 13:05 Resp 17 08/10/23 13:05 BP 135/71 08/10/23 13:05 Pulse Ox 97 08/10/23 13:05 FiO2 Intake & Output 08/09/23 08/10/23 08/10/23 18:59 06:59 18:59 Intake Total 288 75.333 Output Total 1250 1175 450 Balance -962 -1099.667 -450 Weight 104.326 kg Intake: IV 50 Intake, IV Titration 75.333 Amount Heparin Sod,Pork in 0.45% 75.333 NaCl 25,000 unit In 0.45 % NaCl 1 250ml.bag @ 9. 585 UNITS/KG/HR 10 mls/hr IV .Q24H [facility] Rx#: [id number] Oral 238 Output: Urine 1250 1175 450 Coude 750 Other: Voiding Method Indwelling Catheter Indwelling Catheter Indwelling Catheter - Exam No acute distress S1-S2 heard Lungs clear Abdomen soft No edema - Labs CBC & Chem 7: 08/10/23 05:28 08/10/23 05:28 Labs: Abnormal Lab Results - Last 24 Hours (Table) 08/10/23 08/10/23 08/10/23 Range/Units 00:08 05:28 05:28 RBC 2.55 L (4.30-5.90) m/uL Hgb 8.3 L (13.0-17.5) gm/dL Hct 24.3 L (39.0-53.0) % Lymphocytes # 0.7 L (1.0-4.8) k/uL APTT 41.3 H (22.0-30.0) sec Chloride 111 H (98-107) mmol/L Carbon Dioxide 21 L (22-30) mmol/L BUN 48 H (9-20) mg/dL Creatinine 3.73 H (0.66-1.25) mg/dL Calcium 8.2 L (8.4-10.2) mg/dL AST 15 L (17-59) U/L Total Protein 4.6 L (6.3-8.2) g/dL Albumin 2.6 L (3.5-5.0) g/dL 08/10/23 Range/Units 05:28 RBC (4.30-5.90) m/uL Hgb (13.0-17.5) gm/dL Hct (39.0-53.0) % Lymphocytes # (1.0-4.8) k/uL APTT 53.0 H (22.0-30.0) sec Chloride (98-107) mmol/L Carbon Dioxide (22-30) mmol/L BUN (9-20) mg/dL Creatinine (0.66-1.25) mg/dL Calcium (8.4-10.2) mg/dL AST (17-59) U/L Total Protein (6.3-8.2) g/dL Albumin (3.5-5.0) g/dL Assessment and Plan Assessment: #1 acute kidney injury secondary to ATN/urinary retention. -Baseline creatinine 1.5-1.8 MG per DL. -Urine analysis [place]. -Renal ultrasound no hydronephrosis. #2 chronic kidney disease stage III a suspected nephrosclerosis. #3 metabolic acidosis secondary to acute kidney injury #4 hydrocephalus awaiting for surgery this point #5 anemia with chronic kidney disease #6 hypertension with chronic kidney disease Plan: #1 renal function high, improving and stable. #2 encourage by mouth intake #3 Entresto currently on hold. #4 serology positive for [place]TE. Elevated IgG [place]. Status post bone marrow biopsy yesterday #5 renal biopsy plan early next week. #6 no acute indication for renal replacement therapy.
--- NOTE | 2023-08-10 14:57 | P.PN ---
Subjective Progress Note Date: 08/10/23 Patient continues to have generalized weakness, and lethargy. Daughter was at bedside. He tolerated the bone marrow aspiration biopsy well. No unusual bleeding or bruising. Appetite is somewhat diminished. He denies any new areas of pain. Objective - Vital Signs Vital signs: Vital Signs Temp 98.7 F 08/10/23 13:05 Pulse 65 08/10/23 13:05 Resp 17 08/10/23 13:05 BP 135/71 08/10/23 13:05 Pulse Ox 97 08/10/23 13:05 FiO2 Intake & Output 08/09/23 08/10/23 08/10/23 18:59 06:59 18:59 Intake Total 288 75.333 Output Total 1250 1175 450 Balance -962 -1099.667 -450 Weight 104.326 kg Intake: IV 50 Intake, IV Titration 75.333 Amount Heparin Sod,Pork in 0.45% 75.333 NaCl 25,000 unit In 0.45 % NaCl 1 250ml.bag @ 9. 585 UNITS/KG/HR 10 mls/hr IV .Q24H [facility] Rx#: [id number] Oral 238 Output: Urine 1250 1175 450 Coude 750 Other: Voiding Method Indwelling Catheter Indwelling Catheter Indwelling Catheter - Constitutional General appearance: Present: no acute distress - EENT Eyes: Present: EOMI ENT: Present: hearing grossly normal, normal oropharynx - Respiratory Respiratory: bilateral: CTA - Cardiovascular Rhythm: regular Heart sounds: normal: S1, S2 - Gastrointestinal General gastrointestinal: Present: normal bowel sounds, soft - Integumentary Integumentary: Present: normal - Neurologic Neurologic: Present: CNII-XII intact - Musculoskeletal Musculoskeletal: Present: generalized weakness, strength equal bilaterally - Psychiatric Psychiatric: Present: A&O x's 3, appropriate affect - Labs CBC & Chem 7: 08/10/23 05:28 08/10/23 05:28 Labs: Abnormal Lab Results - Last 24 Hours (Table) 08/10/23 08/10/23 08/10/23 Range/Units 00:08 05:28 05:28 RBC 2.55 L (4.30-5.90) m/uL Hgb 8.3 L (13.0-17.5) gm/dL Hct 24.3 L (39.0-53.0) % Lymphocytes # 0.7 L (1.0-4.8) k/uL APTT 41.3 H (22.0-30.0) sec Chloride 111 H (98-107) mmol/L Carbon Dioxide 21 L (22-30) mmol/L BUN 48 H (9-20) mg/dL Creatinine 3.73 H (0.66-1.25) mg/dL Calcium 8.2 L (8.4-10.2) mg/dL AST 15 L (17-59) U/L Total Protein 4.6 L (6.3-8.2) g/dL Albumin 2.6 L (3.5-5.0) g/dL 08/10/23 Range/Units 05:28 RBC (4.30-5.90) m/uL Hgb (13.0-17.5) gm/dL Hct (39.0-53.0) % Lymphocytes # (1.0-4.8) k/uL APTT 53.0 H (22.0-30.0) sec Chloride (98-107) mmol/L Carbon Dioxide (22-30) mmol/L BUN (9-20) mg/dL Creatinine (0.66-1.25) mg/dL Calcium (8.4-10.2) mg/dL AST (17-59) U/L Total Protein (6.3-8.2) g/dL Albumin (3.5-5.0) g/dL Assessment and Plan (1) Monoclonal paraproteinemia Narrative/Plan: Clinical picture is highly consistent with overt myeloma. As noted previously bone survey shows evidence of lytic lesions. Bone marrow aspiration biopsy has been performed for pathologic confirmation, and results are pending. -As the patient's creatinine continues to improve, we'll hold off on starting high-dose steroids. Assuming this to be maintained, he can go apparently to a specific induction treatment regimen Current Visit: Yes Status: Acute Code(s): D47.2 - MONOCLONAL GAMMOPATHY SNOMED Code(s): 373115344 (2) HILDA (acute kidney injury) Narrative/Plan: Creatinine is further improvement today to 3.73 versus 4.06. As noted above, we will forward off on starting high-dose steroids as long as this is maintained. In addition if this continues, a renal biopsy may not be needed from the oncology standpoint, as the patient already meets criteria for treatment for his myeloma based on the bone lesions. Current Visit: Yes Status: Acute Code(s): N17.9 - ACUTE KIDNEY FAILURE, UNSPECIFIED SNOMED Code(s): 43667865 Plan: Resume Plavix today. Continue to monitor labs. As noted above, if creatinine continues to improve and additional biopsies felt to be not needed, he can be switched back to Eliquis from IV heparin
--- NOTE | 2023-08-10 15:04 | P.PN ---
Subjective Progress Note Date: 08/10/23 This is a pleasant 78 years old male with multiple medical problems include Asthma, Deep Vein Thrombosis (DVT), Hyperlipidemia, Hypertension benign prostatic hypertrophy, hypothyroidism, previous history of UTI, coronary artery disease status post CABG and stent placement Patient was supposed to get brain shunt and as part of the workup by his PCP his creatinine came back high as 6.3 so he was referred to the emergency room He was here the hospital for acute urinary tract infection and CAT scan of the brain showing dilated ventricle, on computed tomography scan on 01/21/2023 showing moderate hydrocephalus. Patient was referred to his neurologist Dr. Murphy who sent him to neurosurgeon Dr. Damon in [place] where he did spinal tap, some of the fluid and referred him to his PCP to do some preoperative evaluation for shunt placement. Patient has been having some memory issue and problems with balance since before me. But other than that he denies any new current symptom, even as per at bedside patient was has than to come to emergency room yesterday because he didn't complain from any symptoms. He denies chest pain dizziness weakness numbness. No dysuria or urinary complaints. No vomiting diarrhea or abdominal pain. No dyspnea. He denies smoking alcohol or illicit drugs. Has some chronic mild back pain but he takes Tylenol, no nsaids Patient vitals stable Hemoglobin 10.1, platelets 1:30, WBC is normal limits. Creatinine 6.3 and 6.5, baseline around 1. EKG showing normal sinus rhythm at [address] T changes Renal ultrasound showed no evidence of hydronephrosis 08/03/2023 No new complaints. In bed comfortable. He remains on normal saline 75 mL/h. Creatinine is trending down 6.5 down to 6.[address] Gooden at bedside and all questions of the patient and daughter were answered to their satisfaction. Patient wishes no code 08/04/2023 Patient remains asymptomatic, lying in bed comfortable with no new complaints Hemodynamics stable Creatinine today 6.09 which is not much different than yesterday. He remains on normal saline 75 mL/h entresto is on hold 08/05. Patient seen and examined. Blood work done this morning showed sodium 141, potassium 4.3, BUN 62, creatinine 5.530. Patient sitting upright in the chair. Daughter at the bedside. Patient denies any weakness. Patient is 1 person assist. 08/06. Patient seen and examined. Serologies revealed positive ANAs. Free kappa light chains are significantly elevated at 108.23 suggesting underlying myeloma kidney. Denies any lightheadedness or dizziness. Denies abdominal pain. Vital signs stable 08/07. Patient seen and examined. Lab work done this morning showed WBC 4.4, hemoglobin 8.9, sodium 142, potassium 4, BUN 55, creatinine 4.58. Bone marrow biopsy being planned for Saturday, will LEONEL Brown and start patient on heparin from [employer]. 08/08. Patient seen and examined. Blood work done this morning showed sodium 141, potassium 3.7, BUN 52, creatinine 4.06. Complaining of congestion, complaining of shortness of breath on exertion. 08/09. Patient seen and examined. Blood work done this morning showed WBC 4.3, hemoglobin 8.7. Patient going for bone marrow biopsy today 08/10. Patient seen and examined. Patient underwent bone marrow biopsy yesterday, currently on heparin. BUN is 48, creatinine 3.73. Patient more lethargic this morning, didn't sleep well at all last night. Family at the bedside REVIEW OF SYSTEMS: CONSTITUTIONAL: No fever, no malaise,. CARDIOVASCULAR: No chest pain, no palpitations, no syncope. PULMONARY: As mentioned above GASTROINTESTINAL: No diarrhea, no nausea, no vomiting, no abdominal pain. NEUROLOGICAL: No headaches, no weakness, PHYSICAL EXAMINATION: GENERAL: The patient is alert and oriented x3, not in any acute distress. Well developed, well nourished. HEENT: Pupils are round and equally reacting to light. EOMI. No scleral icterus. No conjunctival pallor. Normocephalic, atraumatic. No pharyngeal erythema. No thyromegaly. CARDIOVASCULAR: S1 and S2 present. No murmurs, rubs, or gallops. PULMONARY: Coarse breath sounds bilaterally, no wheezing or crackles. ABDOMEN: Soft, nontender, nondistended, normoactive bowel sounds. No palpable organomegaly. MUSCULOSKELETAL: No joint swelling or deformity. EXTREMITIES: No cyanosis, clubbing, or pedal edema. NEUROLOGICAL: Gross neurological examination did not reveal any focal deficits. SKIN: No rashes. Assessment and plan Acute kidney injury, nonoliguric chronic kidney disease stage III Acute urinary retention secondary to enlarged prostate most likely status post Long catheter placement Moderate hydrocephalus with gait and memory problems Paroxysmal atrial fibrillation on Eliquis at home Hypertension Hyperlipidemia History of osteoarthritis Hypothyroidism Abnormal urine analysis, asymptomatic, unlike the patient has infection Monitor vital signs Monitor CBC Monitor CMP Continue telemetry monitoring Encourage use of incentive spirometer Avoid nephrotoxic agents pharmacy dose heparin Continue Mucinex In regards to hypertension continue Norvasc, Coreg Regards to hyperlipidemia continue Lipitor In regards to hypothyroid continue Synthyroid nephrology following, kidney biopsy still pending Hematology oncology consulted for possible multiple myeloma, bone marrow biopsy conducted on 08/09. Labs and medication were reviewed.. Continue same treatment. Continue with symptomatic treatment. Resume home medication. Monitor labs and vitals. DVT and GI prophylaxis. Further recommendations as per clinical course of the patient Dictation was produced using [employer] dictation software. please excuse any grammatical, word or spelling errors. Objective - Vital Signs Vital signs: Vital Signs Temp 97.4 F L 08/10/23 07:25 Pulse 100 08/10/23 08:45 Resp 17 08/10/23 08:45 BP 160/94 08/10/23 07:25 Pulse Ox 97 08/10/23 07:32 FiO2 Intake & Output 08/09/23 08/10/23 08/10/23 18:59 06:59 18:59 Intake Total 288 75.333 Output Total 1250 1175 450 Balance -962 -1099.667 -450 Weight 104.326 kg Intake: IV 50 Intake, IV Titration 75.333 Amount Heparin Sod,Pork in 0.45% 75.333 NaCl 25,000 unit In 0.45 % NaCl 1 250ml.bag @ 9. 585 UNITS/KG/HR 10 mls/hr IV .Q24H [facility] Rx#: [id number] Oral 238 Output: Urine 1250 1175 450 [place] 750 Other: Voiding Method Indwelling Catheter Indwelling Catheter Indwelling Catheter - Labs CBC & Chem 7: 08/10/23 05:28 08/10/23 05:28 Labs: Abnormal Lab Results - Last 24 Hours (Table) 08/08/23 08/09/23 08/10/23 Range/Units 05:54 09:15 00:08 RBC 2.66 L (4.30-5.90) m/uL Hgb 8.7 L (13.0-17.5) gm/dL Hct 25.2 L (39.0-53.0) % Plt Count 133 L (150-450) k/uL Lymphocytes # 0.6 L (1.0-4.8) k/uL APTT 32.4 H 41.3 H (22.0-30.0) sec Chloride (98-107) mmol/L Carbon Dioxide (22-30) mmol/L BUN (9-20) mg/dL Creatinine (0.66-1.25) mg/dL Calcium (8.4-10.2) mg/dL AST (17-59) U/L Total Protein (6.3-8.2) g/dL Albumin (3.5-5.0) g/dL 08/10/23 08/10/23 08/10/23 Range/Units 05:28 05:28 05:28 RBC 2.55 L (4.30-5.90) m/uL Hgb 8.3 L (13.0-17.5) gm/dL Hct 24.3 L (39.0-53.0) % Plt Count (150-450) k/uL Lymphocytes # 0.7 L (1.0-4.8) k/uL APTT 53.0 H (22.0-30.0) sec Chloride 111 H (98-107) mmol/L Carbon Dioxide 21 L (22-30) mmol/L BUN 48 H (9-20) mg/dL Creatinine 3.73 H (0.66-1.25) mg/dL Calcium 8.2 L (8.4-10.2) mg/dL AST 15 L (17-59) U/L Total Protein 4.6 L (6.3-8.2) g/dL Albumin 2.6 L (3.5-5.0) g/dL
[2023-08-10] MEDS: HEPARIN SOD,PORK IN 0.45% NACL 25,000 UNIT in 0.45% NACL 1 250ML.BAG IV SCH (15:18)
[2023-08-10] MEDS: MELATONIN 3 MG TABLET PO SCH (21:29)
[2023-08-10] MEDS: MONTELUKAST 10 MG TAB PO SCH (21:30)
[2023-08-10] MEDS: traZODone HCL 50 MG TAB PO SCH (21:30)
[2023-08-11] MEDS: LEVOTHYROXINE 75 MCG TAB PO SCH (05:01)
[2023-08-11] MEDS: SYMBICORT 160-4.5 MCG INHALER INHALATION SCH ×2 (07:51→17:48)
[2023-08-11] MEDS: IPRATROPIUM-ALBUTEROL 3 ML NEB INHALATION PRN ×4 (07:51→17:48)
[2023-08-11] MEDS: amLODIPine 5 MG TAB PO SCH (08:32)
[2023-08-11] MEDS: guaiFENesin 600 MG TABLET.ER PO SCH ×2 (08:32→20:18)
[2023-08-11] MEDS: TAMSULOSIN 0.4 MG CAP.ER.24H PO SCH ×2 (08:33→20:18)
[2023-08-11] MEDS: FINASTERIDE 5 MG TAB PO SCH (08:33)
[2023-08-11] MEDS: carvediloL 6.25 MG TAB PO SCH ×2 (08:33→18:25)
[2023-08-11] MEDS: SODIUM BICARBONATE TAB 650 MG TAB PO SCH ×2 (08:33→22:29)
[2023-08-11] MEDS: ATORVASTATIN 40 MG TAB PO SCH (08:33)
[2023-08-11] MEDS: FAMOTIDINE 20 MG TAB PO SCH (08:33)
[2023-08-11 09:46] LABS: HCT 23.2 % (39.6-50.0); HGB 7.4 g/dL (13.0-17.0); MCH 30.8 pg (27.0-32.0); MCHC 31.9 g/dL (32.0-37.0); MCV 96.7 FL (80.0-97.0); NRBC Per 100 WBC 0 X 10*3/uL (0.00-0.01); Platelet Count 169 X 10*3/uL (140-440); RDW 11.9 % (11.5-14.5); WBC 4.74 X 10*3/uL (4.50-10.00)
[2023-08-11 10:08] LABS: ALT 8 U/L (10-49); AST 11 U/L (14-35); Albumin/Globulin Ratio 2.31 Ratio (1.60-3.17); Alkaline Phosphatase 31 U/L (41-126); BUN/Creat Ratio 11.91 Ratio (12.00-20.00); Blood Urea Nitrogen 41.7 mg/dL (9.0-27.0); Calcium 8.4 mg/dL (8.7-10.3); Carbon Dioxide 23.4 mmol/L (21.6-31.8); Chloride 112 mmol/L (96-109); Globulin 1.3 g/dL (1.6-3.3); Glucose 96 mg/dL (70-110); Potassium 4.4 mmol/L (3.5-5.5); Sodium 146 mmol/L (135-145); Total Bilirubin 0.4 mg/dL (0.3-1.2); Total Protein 4.3 g/dL (6.2-8.2)
[2023-08-11] MEDS: HEPARIN SOD,PORK IN 0.45% NACL 25,000 UNIT in 0.45% NACL 1 250ML.BAG IV SCH (11:40)
[2023-08-11 12:16] LABS: Basophils % (A) 0 %; Eosinophils # (A) 0.3 k/uL (0-0.7); Eosinophils % (A) 6 %; HCT 24.8 % (39.0-53.0); HGB 8.6 gm/dL (13.0-17.5); Lymphocytes # (A) 0.7 k/uL (1.0-4.8); Lymphocytes % (A) 15 %; MCH 32.9 pg (25.0-35.0); MCHC 34.7 g/dL (31.0-37.0); MCV 94.6 fL (80.0-100.0); Mean Platelet Volume 9.5; Monocytes # (A) 0.4 k/uL (0-1.0); Monocytes % (A) 8 %; Neutrophils % (A) 69 %; Platelet Count 162 k/uL (150-450); RBC 2.62 m/uL (4.30-5.90); RDW 12.3 % (11.5-15.5); WBC 4.4 k/uL (3.8-10.6)
[2023-08-11 13:15] LABS: ALT 14 U/L (4-49); AST 17 U/L (17-59); African American GFR (CKD) 18 (>60 ml/min/1.73 sqM); Albumin 2.9 g/dL (3.5-5.0); Albumin/Globulin Ratio 1.4; Alkaline Phosphatase 36 U/L (38-126); Anion Gap 7 mmol/L; Blood Urea Nitrogen 44 mg/dL (9-20); Calcium 8.6 mg/dL (8.4-10.2); Carbon Dioxide 24 mmol/L (22-30); Chloride 109 mmol/L (98-107); Globulin 2.1 g/dL; Glucose 115 mg/dL (74-99); Non-African American GFR(CKD) 16 (>60 ml/min/1.73 sqM); Potassium 4.4 mmol/L (3.5-5.1); Sodium 140 mmol/L (137-145); Total Bilirubin 0.6 mg/dL (0.2-1.3)
--- NOTE | 2023-08-11 13:54 | P.PN ---
Subjective Progress Note Date: 08/11/23 The patient denies any new complaints. Generalized weakness persists. He does have some recall issues. No fever/chills/nausea/vomiting. He denies any new bone pain. Objective - Vital Signs Vital signs: Vital Signs Temp 98.1 F 08/11/23 12:46 Pulse 67 08/11/23 12:46 Resp 18 08/11/23 12:46 BP 149/79 08/11/23 12:46 Pulse Ox 96 08/11/23 12:46 FiO2 Intake & Output 08/10/23 08/11/23 08/11/23 18:59 06:59 18:59 Intake Total 407.794 800 246.152 Output Total 850 1350 650 Balance -442.206 -550 -403.848 Intake: Intake, IV Titration 167.794 246.152 Amount Heparin Sod,Pork in 0.45% 167.794 246.152 NaCl 25,000 unit In 0.45 % NaCl 1 250ml.bag @ 9. 585 UNITS/KG/HR 10 mls/hr IV .Q24H [facility] Rx#: [id number] Oral 240 800 Output: Urine 850 1350 650 Other: Voiding Method Indwelling Catheter Indwelling Catheter Indwelling Catheter # Bowel Movements 1 - Constitutional General appearance: Present: no acute distress - EENT Eyes: Present: EOMI ENT: Present: hearing grossly normal, normal oropharynx - Respiratory Respiratory: bilateral: diminished - Cardiovascular Rhythm: regular Heart sounds: normal: S1, S2 - Gastrointestinal General gastrointestinal: Present: normal bowel sounds, soft - Integumentary Integumentary: Present: normal - Neurologic Neurologic: Present: CNII-XII intact - Musculoskeletal Musculoskeletal: Present: generalized weakness, strength equal bilaterally - Psychiatric Psychiatric: Present: A&O x's 3, appropriate affect - Labs CBC & Chem 7: 08/11/23 12:05 08/11/23 12:05 Labs: Abnormal Lab Results - Last 24 Hours (Table) 08/11/23 08/11/23 08/11/23 Range/Units 05:38 05:38 05:38 RBC 2.40 L (4.40-5.60) X 10*6/uL Hgb 7.4 L (13.0-17.0) g/dL Hct 23.2 L (39.6-50.0) % MCHC 31.9 L (32.0-37.0) g/dL Lymphocytes # (1.0-4.8) k/uL APTT 44.5 H (22.0-30.0) sec Sodium 146 H (135-145) mmol/L Chloride 112 H (96-109) mmol/L BUN 41.7 H (9.0-27.0) mg/dL Creatinine 3.5 H (0.6-1.5) mg/dL Est GFR (CKD-EPI) 17 L (>=60) BUN/Creatinine Ratio 11.91 L (12.00-20.00) Ratio Glucose (74-99) mg/dL Calcium 8.4 L (8.7-10.3) mg/dL AST 11 L (14-35) U/L ALT 8 L (10-49) U/L Alkaline Phosphatase 31 L (41-126) U/L Total Protein 4.3 L (6.2-8.2) g/dL Albumin 3.0 L (3.8-4.9) g/dL Globulin 1.3 L (1.6-3.3) g/dL 08/11/23 08/11/23 Range/Units 12:05 12:05 RBC 2.62 L (4.40-5.60) X 10*6/uL Hgb 8.6 L (13.0-17.0) g/dL Hct 24.8 L (39.6-50.0) % MCHC (32.0-37.0) g/dL Lymphocytes # 0.7 L (1.0-4.8) k/uL APTT (22.0-30.0) sec Sodium (135-145) mmol/L Chloride 109 H (96-109) mmol/L BUN 44 H (9.0-27.0) mg/dL Creatinine 3.51 H (0.6-1.5) mg/dL Est GFR (CKD-EPI) (>=60) BUN/Creatinine Ratio (12.00-20.00) Ratio Glucose 115 H (74-99) mg/dL Calcium (8.7-10.3) mg/dL AST (14-35) U/L ALT (10-49) U/L Alkaline Phosphatase 36 L (41-126) U/L Total Protein 5.0 L (6.2-8.2) g/dL Albumin 2.9 L (3.8-4.9) g/dL Globulin (1.6-3.3) g/dL Assessment and Plan (1) Monoclonal paraproteinemia Narrative/Plan: Status post bone marrow aspiration biopsy with pathology pending. Labs and bone survey indicate overt multiple myeloma. As long as kidney function is improving, the plan would be to start treatment with the specific regimen such as RVD in the first-line, once pathology is confirmed Current Visit: Yes Status: Acute Code(s): D47.2 - MONOCLONAL GAMMOPATHY SNOMED Code(s): 368595632 (2) HILDA (acute kidney injury) Narrative/Plan: Creatinine continues to improve, 3.5 versus 3.73. Continue Long and IV fluids - Continue to monitor. If there is persistent improvement, we discussed with nephrology in a.m. about possibility of canceling kidney biopsy. Current Visit: Yes Status: Acute Code(s): N17.9 - ACUTE KIDNEY FAILURE, UNSPECIFIED SNOMED Code(s): 80493219 Plan: If renal biopsy is not required based on the patient's progress, then he can be switched over from heparin, back to Eliquis.
--- NOTE | 2023-08-11 14:06 | P.PN ---
Subjective Progress Note Date: 08/11/23 This is a pleasant 78 years old male with multiple medical problems include Asthma, Deep Vein Thrombosis (DVT), Hyperlipidemia, Hypertension benign prostatic hypertrophy, hypothyroidism, previous history of UTI, coronary artery disease status post CABG and stent placement Patient was supposed to get brain shunt and as part of the workup by his PCP his creatinine came back high as 6.3 so he was referred to the emergency room He was here the hospital for acute urinary tract infection and CAT scan of the brain showing dilated ventricle, on computed tomography scan on 01/21/2023 showing moderate hydrocephalus. Patient was referred to his neurologist Dr. Murphy who sent him to neurosurgeon Dr. Damon in [place] where he did spinal tap, some of the fluid and referred him to his PCP to do some preoperative evaluation for shunt placement. Patient has been having some memory issue and problems with balance since before me. But other than that he denies any new current symptom, even as per at bedside patient was has than to come to emergency room yesterday because he didn't complain from any symptoms. He denies chest pain dizziness weakness numbness. No dysuria or urinary complaints. No vomiting diarrhea or abdominal pain. No dyspnea. He denies smoking alcohol or illicit drugs. Has some chronic mild back pain but he takes Tylenol, no nsaids Patient vitals stable Hemoglobin 10.1, platelets 1:30, WBC is normal limits. Creatinine 6.3 and 6.5, baseline around 1. EKG showing normal sinus rhythm at [address] T changes Renal ultrasound showed no evidence of hydronephrosis 08/03/2023 No new complaints. In bed comfortable. He remains on normal saline 75 mL/h. Creatinine is trending down 6.5 down to 6.[address] Gooden at bedside and all questions of the patient and daughter were answered to their satisfaction. Patient wishes no code 08/04/2023 Patient remains asymptomatic, lying in bed comfortable with no new complaints Hemodynamics stable Creatinine today 6.09 which is not much different than yesterday. He remains on normal saline 75 mL/h entresto is on hold 08/05. Patient seen and examined. Blood work done this morning showed sodium 141, potassium 4.3, BUN 62, creatinine 5.530. Patient sitting upright in the chair. Daughter at the bedside. Patient denies any weakness. Patient is 1 person assist. 08/06. Patient seen and examined. Serologies revealed positive ANAs. Free kappa light chains are significantly elevated at 108.23 suggesting underlying myeloma kidney. Denies any lightheadedness or dizziness. Denies abdominal pain. Vital signs stable 08/07. Patient seen and examined. Lab work done this morning showed WBC 4.4, hemoglobin 8.9, sodium 142, potassium 4, BUN 55, creatinine 4.58. Bone marrow biopsy being planned for Saturday, will LEONEL Brown and start patient on heparin from [facility]. 08/08. Patient seen and examined. Blood work done this morning showed sodium 141, potassium 3.7, BUN 52, creatinine 4.06. Complaining of congestion, complaining of shortness of breath on exertion. 08/09. Patient seen and examined. Blood work done this morning showed WBC 4.3, hemoglobin 8.7. Patient going for bone marrow biopsy today 08/10. Patient seen and examined. Patient underwent bone marrow biopsy yesterday, currently on heparin. BUN is 48, creatinine 3.73. Patient more lethargic this morning, didn't sleep well at all last night. Family at the bedside 08/11. Patient seen and examined. Sitting upright in the chair. Denies any acute issues overnight. REVIEW OF SYSTEMS: CONSTITUTIONAL: No fever, no malaise,. CARDIOVASCULAR: No chest pain, no palpitations, no syncope. PULMONARY: As mentioned above GASTROINTESTINAL: No diarrhea, no nausea, no vomiting, no abdominal pain. NEUROLOGICAL: No headaches, no weakness, PHYSICAL EXAMINATION: GENERAL: The patient is alert and oriented x3, not in any acute distress. Well developed, well nourished. HEENT: Pupils are round and equally reacting to light. EOMI. No scleral icterus. No conjunctival pallor. Normocephalic, atraumatic. No pharyngeal erythema. No thyromegaly. CARDIOVASCULAR: S1 and S2 present. No murmurs, rubs, or gallops. PULMONARY: Coarse breath sounds bilaterally, no wheezing or crackles. ABDOMEN: Soft, nontender, nondistended, normoactive bowel sounds. No palpable organomegaly. MUSCULOSKELETAL: No joint swelling or deformity. EXTREMITIES: No cyanosis, clubbing, or pedal edema. NEUROLOGICAL: Gross neurological examination did not reveal any focal deficits. SKIN: No rashes. Assessment and plan Acute kidney injury, nonoliguric chronic kidney disease stage III Acute urinary retention secondary to enlarged prostate most likely status post Long catheter placement Moderate hydrocephalus with gait and memory problems Paroxysmal atrial fibrillation on Eliquis at home Hypertension Hyperlipidemia History of osteoarthritis Hypothyroidism Abnormal urine analysis, asymptomatic, unlike the patient has infection Monitor vital signs Monitor CBC Monitor CMP Continue telemetry monitoring Encourage use of incentive spirometer Avoid nephrotoxic agents Continue pharmacy dose heparin Continue Mucinex In regards to hypertension continue Norvasc, Coreg Regards to hyperlipidemia continue Lipitor In regards to hypothyroid continue Synthyroid nephrology following, will discuss with nephrology regarding the need for any biopsy at this time Hematology oncology consulted for possible multiple myeloma, bone marrow biopsy conducted on 08/09. Labs and medication were reviewed.. Continue same treatment. Continue with symptomatic treatment. Resume home medication. Monitor labs and vitals. DVT and GI prophylaxis. Further recommendations as per clinical course of the patient Dictation was produced using [employer] dictation software. please excuse any grammatical, word or spelling errors. Objective - Vital Signs Vital signs: Vital Signs Temp 98.1 F 08/11/23 12:46 Pulse 67 08/11/23 12:46 Resp 18 08/11/23 12:46 BP 149/79 08/11/23 12:46 Pulse Ox 96 08/11/23 12:46 FiO2 Intake & Output 08/10/23 08/11/23 08/11/23 18:59 06:59 18:59 Intake Total 407.794 800 246.152 Output Total 850 1350 650 Balance -442.206 -550 -403.848 Intake: Intake, IV Titration 167.794 246.152 Amount Heparin Sod,Pork in 0.45% 167.794 246.152 NaCl 25,000 unit In 0.45 % NaCl 1 250ml.bag @ 9. 585 UNITS/KG/HR 10 mls/hr IV .Q24H [facility] Rx#: [id number] Oral 240 800 Output: Urine 850 1350 650 Other: Voiding Method Indwelling Catheter Indwelling Catheter Indwelling Catheter # Bowel Movements 1 - Labs CBC & Chem 7: 08/11/23 12:05 08/11/23 12:05 Labs: Abnormal Lab Results - Last 24 Hours (Table) 08/11/23 08/11/23 08/11/23 Range/Units 05:38 05:38 05:38 RBC 2.40 L (4.40-5.60) X 10*6/uL Hgb 7.4 L (13.0-17.0) g/dL Hct 23.2 L (39.6-50.0) % MCHC 31.9 L (32.0-37.0) g/dL Lymphocytes # (1.0-4.8) k/uL APTT 44.5 H (22.0-30.0) sec Sodium 146 H (135-145) mmol/L Chloride 112 H (96-109) mmol/L BUN 41.7 H (9.0-27.0) mg/dL Creatinine 3.5 H (0.6-1.5) mg/dL Est GFR (CKD-EPI) 17 L (>=60) BUN/Creatinine Ratio 11.91 L (12.00-20.00) Ratio Glucose (74-99) mg/dL Calcium 8.4 L (8.7-10.3) mg/dL AST 11 L (14-35) U/L ALT 8 L (10-49) U/L Alkaline Phosphatase 31 L (41-126) U/L Total Protein 4.3 L (6.2-8.2) g/dL Albumin 3.0 L (3.8-4.9) g/dL Globulin 1.3 L (1.6-3.3) g/dL 08/11/23 08/11/23 Range/Units 12:05 12:05 RBC 2.62 L (4.40-5.60) X 10*6/uL Hgb 8.6 L (13.0-17.0) g/dL Hct 24.8 L (39.6-50.0) % MCHC (32.0-37.0) g/dL Lymphocytes # 0.7 L (1.0-4.8) k/uL APTT (22.0-30.0) sec Sodium (135-145) mmol/L Chloride 109 H (96-109) mmol/L BUN 44 H (9.0-27.0) mg/dL Creatinine 3.51 H (0.6-1.5) mg/dL Est GFR (CKD-EPI) (>=60) BUN/Creatinine Ratio (12.00-20.00) Ratio Glucose 115 H (74-99) mg/dL Calcium (8.7-10.3) mg/dL AST (14-35) U/L ALT (10-49) U/L Alkaline Phosphatase 36 L (41-126) U/L Total Protein 5.0 L (6.2-8.2) g/dL Albumin 2.9 L (3.8-4.9) g/dL Globulin (1.6-3.3) g/dL
--- NOTE | 2023-08-11 15:10 | P.PN ---
Subjective Progress Note Date: 08/11/23 Follow-up for acute kidney injury. Urine output of 2200 ML's in the last 24 hours. Creatinine improving. Baseline in January 2023 1.5-1.8 MG per DL. Objective - Vital Signs Vital signs: Vital Signs Temp 98.1 F 08/11/23 12:46 Pulse 84 08/11/23 14:38 Resp 18 08/11/23 12:46 BP 149/79 08/11/23 12:46 Pulse Ox 96 08/11/23 12:46 FiO2 Intake & Output 08/10/23 08/11/23 08/11/23 18:59 06:59 18:59 Intake Total 407.794 800 246.152 Output Total 850 1350 650 Balance -442.206 -550 -403.848 Intake: Intake, IV Titration 167.794 246.152 Amount Heparin Sod,Pork in 0.45% 167.794 246.152 NaCl 25,000 unit In 0.45 % NaCl 1 250ml.bag @ 9. 585 UNITS/KG/HR 10 mls/hr IV .Q24H [facility] Rx#: [id number] Oral 240 800 Output: Urine 850 1350 650 Other: Voiding Method Indwelling Catheter Indwelling Catheter Indwelling Catheter # Bowel Movements 1 - Exam No acute distress S1-S2 heard Lungs clear Abdomen soft No edema - Labs CBC & Chem 7: 08/11/23 12:05 08/11/23 12:05 Labs: Abnormal Lab Results - Last 24 Hours (Table) 08/11/23 08/11/23 08/11/23 Range/Units 05:38 05:38 05:38 RBC 2.40 L (4.40-5.60) X 10*6/uL Hgb 7.4 L (13.0-17.0) g/dL Hct 23.2 L (39.6-50.0) % MCHC 31.9 L (32.0-37.0) g/dL Lymphocytes # (1.0-4.8) k/uL APTT 44.5 H (22.0-30.0) sec Sodium 146 H (135-145) mmol/L Chloride 112 H (96-109) mmol/L BUN 41.7 H (9.0-27.0) mg/dL Creatinine 3.5 H (0.6-1.5) mg/dL Est GFR (CKD-EPI) 17 L (>=60) BUN/Creatinine Ratio 11.91 L (12.00-20.00) Ratio Glucose (74-99) mg/dL Calcium 8.4 L (8.7-10.3) mg/dL AST 11 L (14-35) U/L ALT 8 L (10-49) U/L Alkaline Phosphatase 31 L (41-126) U/L Total Protein 4.3 L (6.2-8.2) g/dL Albumin 3.0 L (3.8-4.9) g/dL Globulin 1.3 L (1.6-3.3) g/dL 08/11/23 08/11/23 Range/Units 12:05 12:05 RBC 2.62 L (4.40-5.60) X 10*6/uL Hgb 8.6 L (13.0-17.0) g/dL Hct 24.8 L (39.6-50.0) % MCHC (32.0-37.0) g/dL Lymphocytes # 0.7 L (1.0-4.8) k/uL APTT (22.0-30.0) sec Sodium (135-145) mmol/L Chloride 109 H (96-109) mmol/L BUN 44 H (9.0-27.0) mg/dL Creatinine 3.51 H (0.6-1.5) mg/dL Est GFR (CKD-EPI) (>=60) BUN/Creatinine Ratio (12.00-20.00) Ratio Glucose 115 H (74-99) mg/dL Calcium (8.7-10.3) mg/dL AST (14-35) U/L ALT (10-49) U/L Alkaline Phosphatase 36 L (41-126) U/L Total Protein 5.0 L (6.2-8.2) g/dL Albumin 2.9 L (3.8-4.9) g/dL Globulin (1.6-3.3) g/dL Assessment and Plan Assessment: #1 acute kidney injury secondary to ATN/urinary retention. -Baseline creatinine 1.5-1.8 MG per DL. -Urine analysis [facility]. -Renal ultrasound no hydronephrosis. #2 chronic kidney disease stage III a suspected nephrosclerosis. #3 metabolic acidosis secondary to acute kidney injury #4 hydrocephalus awaiting for surgery this point #5 anemia with chronic kidney disease #6 hypertension with chronic kidney disease Plan: #1 renal function high, improving and stable. #2 encourage by mouth intake #3 Entresto currently on hold. #4 serology positive for [place]. Elevated IgG [place]. Status post bone marrow biopsy. #5 renal biopsy plan early next week. #6 no acute indication for renal replacement therapy.
[2023-08-11] MEDS: MONTELUKAST 10 MG TAB PO SCH (20:18)
[2023-08-11] MEDS: MELATONIN 3 MG TABLET PO SCH (20:18)
[2023-08-11] MEDS: ACETAMINOPHEN TAB 325 MG TAB PO PRN (20:18)
[2023-08-11] MEDS: traZODone HCL 50 MG TAB PO SCH (20:19)
[2023-08-12] MEDS: CLOPIDOGREL 75 MG TAB PO SCH ×2 (05:14→07:54)
[2023-08-12] MEDS: LEVOTHYROXINE 75 MCG TAB PO SCH (05:14)
[2023-08-12] MEDS: IPRATROPIUM-ALBUTEROL 3 ML NEB INHALATION PRN ×4 (07:27→18:42)
[2023-08-12] MEDS: SYMBICORT 160-4.5 MCG INHALER INHALATION SCH ×2 (07:27→18:42)
[2023-08-12] MEDS: ATORVASTATIN 40 MG TAB PO SCH (07:52)
[2023-08-12] MEDS: carvediloL 6.25 MG TAB PO SCH ×2 (07:52→17:22)
[2023-08-12] MEDS: SODIUM BICARBONATE TAB 650 MG TAB PO SCH ×2 (07:52→20:15)
[2023-08-12] MEDS: guaiFENesin 600 MG TABLET.ER PO SCH ×2 (07:52→20:16)
[2023-08-12] MEDS: FAMOTIDINE 20 MG TAB PO SCH (07:52)
[2023-08-12] MEDS: TAMSULOSIN 0.4 MG CAP.ER.24H PO SCH ×2 (07:52→20:16)
[2023-08-12] MEDS: amLODIPine 5 MG TAB PO SCH (07:52)
[2023-08-12] MEDS: HYDROcodone/APAP 5-325MG 1 EACH TAB PO PRN (07:54)
[2023-08-12] MEDS: HEPARIN SOD,PORK IN 0.45% NACL 25,000 UNIT in 0.45% NACL 1 250ML.BAG IV SCH (08:45)
--- NOTE | 2023-08-12 10:37 | P.PN ---
Subjective Patient is seen in follow-up for acute kidney injury on chronic kidney disease. Renal function gradually improving. Oral intake fair. No vomiting or diarrhea. Nonoliguric. Family present at bedside. Vital signs are stable. General: No acute distress. HEENT: Head exam is unremarkable. LUNGS: No audible rhonchi or wheezes. HEART: Rate and Rhythm are regular. ABDOMEN: Nontender. EXTREMITITES: No edema. Objective - Vital Signs Vital signs: Vital Signs Temp 97.8 F 08/12/23 06:58 Pulse 80 08/12/23 07:40 Resp 18 08/12/23 06:58 BP 145/98 08/12/23 06:58 Pulse Ox 93 L 08/12/23 06:58 FiO2 Intake & Output 08/11/23 08/12/23 08/12/23 18:59 06:59 18:59 Intake Total 246.152 250.000 Output Total 650 1300 Balance -403.848 -1300 250.000 Intake: Intake, IV Titration 246.152 250.000 Amount Heparin Sod,Pork in 0.45% 246.152 250.000 NaCl 25,000 unit In 0.45 % NaCl 1 250ml.bag @ 9. 585 UNITS/KG/HR 10 mls/hr IV .Q24H [facility] Rx#: [id number] Output: Urine 650 1300 Other: Voiding Method Indwelling Catheter Indwelling Catheter Indwelling Catheter # Bowel Movements 1 - Labs CBC & Chem 7: 08/11/23 12:05 08/11/23 12:05 Labs: Abnormal Lab Results - Last 24 Hours (Table) 08/11/23 08/11/23 08/12/23 Range/Units 12:05 12:05 07:11 RBC 2.62 L (4.30-5.90) m/uL Hgb 8.6 L (13.0-17.5) gm/dL Hct 24.8 L (39.0-53.0) % Lymphocytes # 0.7 L (1.0-4.8) k/uL APTT 55.7 H (22.0-30.0) sec Chloride 109 H (98-107) mmol/L BUN 44 H (9-20) mg/dL Creatinine 3.51 H (0.66-1.25) mg/dL Glucose 115 H (74-99) mg/dL Alkaline Phosphatase 36 L (38-126) U/L Total Protein 5.0 L (6.3-8.2) g/dL Albumin 2.9 L (3.5-5.0) g/dL Assessment and Plan Plan: Assessment: 1. Acute kidney injury secondary to ATN and urinary retention. Also concern for myeloma kidney. Creatinine peaked at 6.53 this admission - 3.51 yesterday. Creatinine in the range of 1.5-1.8 in January 2023 and as low as 0.96 in January 2019. No hydronephrosis noted on kidney ultrasound. 2. Urinary retention. Long catheter placed by urology. On Proscar and Flomax. 3. Benign hypertension. Stable. 4. Metabolic acidosis secondary to acute kidney injury and IV fluids. On oral bicarbonate. Improved. 5. Hydrocephalus scheduled for shunt placement in near future. 6. Elevated kappa light chains with lytic lesions on bone scan confirming multiple myeloma. Oncology following. 7. Anemia. Rule out iron deficiency. Plan: Encourage oral intake. Avoid nephrotoxins. Check iron studies. Continue to monitor renal function and urine output. Case discussed with oncology. Patient will be started on multiple myeloma treatment. Kidney biopsy canceled over the weekend and patient is back on Plavix.
[2023-08-12 11:01] LABS: BUN/Creat Ratio 11.59 Ratio (12.00-20.00); Blood Urea Nitrogen 39.4 mg/dL (9.0-27.0); Calcium 8.9 mg/dL (8.7-10.3); Carbon Dioxide 25.2 mmol/L (21.6-31.8); Chloride 110 mmol/L (96-109); Glucose 104 mg/dL (70-110); Potassium 4.2 mmol/L (3.5-5.5); Sodium 145 mmol/L (135-145)
[2023-08-12 11:06] LABS: HCT 25.1 % (39.6-50.0); HGB 8.2 g/dL (13.0-17.0); MCH 31.5 pg (27.0-32.0); MCHC 32.7 g/dL (32.0-37.0); MCV 96.5 FL (80.0-97.0); Mean Platelet Volume 10.5 FL (9.5-12.2); NRBC Per 100 WBC 0 X 10*3/uL (0.00-0.01); Platelet Count 191 X 10*3/uL (140-440); RDW 11.9 % (11.5-14.5); WBC 4.69 X 10*3/uL (4.50-10.00)
--- NOTE | 2023-08-12 12:18 | P.PN ---
Subjective Progress Note Date: 08/12/23 This is a pleasant 78 years old male with multiple medical problems include Asthma, Deep Vein Thrombosis (DVT), Hyperlipidemia, Hypertension benign prostatic hypertrophy, hypothyroidism, previous history of UTI, coronary artery disease status post CABG and stent placement Patient was supposed to get brain shunt and as part of the workup by his PCP his creatinine came back high as 6.3 so he was referred to the emergency room He was here the hospital for acute urinary tract infection and CAT scan of the brain showing dilated ventricle, on computed tomography scan on 01/21/2023 showing moderate hydrocephalus. Patient was referred to his neurologist Dr. Murphy who sent him to neurosurgeon Dr. Damon in [place] where he did spinal tap, some of the fluid and referred him to his PCP to do some preoperative evaluation for shunt placement. Patient has been having some memory issue and problems with balance since before me. But other than that he denies any new current symptom, even as per at bedside patient was has than to come to emergency room yesterday because he didn't complain from any symptoms. He denies chest pain dizziness weakness numbness. No dysuria or urinary complaints. No vomiting diarrhea or abdominal pain. No dyspnea. He denies smoking alcohol or illicit drugs. Has some chronic mild back pain but he takes Tylenol, no nsaids Patient vitals stable Hemoglobin 10.1, platelets 1:30, WBC is normal limits. Creatinine 6.3 and 6.5, baseline around 1. EKG showing normal sinus rhythm at [address] T changes Renal ultrasound showed no evidence of hydronephrosis 08/03/2023 No new complaints. In bed comfortable. He remains on normal saline 75 mL/h. Creatinine is trending down 6.5 down to 6.[address] Gooden at bedside and all questions of the patient and daughter were answered to their satisfaction. Patient wishes no code 08/04/2023 Patient remains asymptomatic, lying in bed comfortable with no new complaints Hemodynamics stable Creatinine today 6.09 which is not much different than yesterday. He remains on normal saline 75 mL/h entresto is on hold 08/05. Patient seen and examined. Blood work done this morning showed sodium 141, potassium 4.3, BUN 62, creatinine 5.530. Patient sitting upright in the chair. Daughter at the bedside. Patient denies any weakness. Patient is 1 person assist. 08/06. Patient seen and examined. Serologies revealed positive ANAs. Free kappa light chains are significantly elevated at 108.23 suggesting underlying myeloma kidney. Denies any lightheadedness or dizziness. Denies abdominal pain. Vital signs stable 08/07. Patient seen and examined. Lab work done this morning showed WBC 4.4, hemoglobin 8.9, sodium 142, potassium 4, BUN 55, creatinine 4.58. Bone marrow biopsy being planned for Saturday, will LEONEL Brown and start patient on heparin from [employer]. 08/08. Patient seen and examined. Blood work done this morning showed sodium 141, potassium 3.7, BUN 52, creatinine 4.06. Complaining of congestion, complaining of shortness of breath on exertion. 08/09. Patient seen and examined. Blood work done this morning showed WBC 4.3, hemoglobin 8.7. Patient going for bone marrow biopsy today 08/10. Patient seen and examined. Patient underwent bone marrow biopsy yesterday, currently on heparin. BUN is 48, creatinine 3.73. Patient more lethargic this morning, didn't sleep well at all last night. Family at the bedside 08/11. Patient seen and examined. Sitting upright in the chair. Denies any acute issues overnight. 08/12. Patient seen and examined. Nephrology will discuss with hematology oncology, plan for kidney biopsy has been discontinued. States he feels much better. Denies any lightheadedness. Still has occasional cough. REVIEW OF SYSTEMS: CONSTITUTIONAL: No fever, no malaise,. CARDIOVASCULAR: No chest pain, no palpitations, no syncope. PULMONARY: As mentioned above GASTROINTESTINAL: No diarrhea, no nausea, no vomiting, no abdominal pain. NEUROLOGICAL: No headaches, no weakness, PHYSICAL EXAMINATION: GENERAL: The patient is alert and oriented x3, not in any acute distress. Well developed, well nourished. HEENT: Pupils are round and equally reacting to light. EOMI. No scleral icterus. No conjunctival pallor. Normocephalic, atraumatic. No pharyngeal erythema. No thyromegaly. CARDIOVASCULAR: S1 and S2 present. No murmurs, rubs, or gallops. PULMONARY: Coarse breath sounds bilaterally, no wheezing or crackles. ABDOMEN: Soft, nontender, nondistended, normoactive bowel sounds. No palpable organomegaly. MUSCULOSKELETAL: No joint swelling or deformity. EXTREMITIES: No cyanosis, clubbing, or pedal edema. NEUROLOGICAL: Gross neurological examination did not reveal any focal deficits. SKIN: No rashes. Assessment and plan Acute kidney injury, nonoliguric chronic kidney disease stage III Acute urinary retention secondary to enlarged prostate most likely status post Long catheter placement Moderate hydrocephalus with gait and memory problems Paroxysmal atrial fibrillation on Eliquis at home Hypertension Hyperlipidemia History of osteoarthritis Hypothyroidism Abnormal urine analysis, asymptomatic, unlike the patient has infection Monitor vital signs Monitor CBC Monitor CMP Continue telemetry monitoring Encourage use of incentive spirometer Avoid nephrotoxic agents Continue pharmacy dose heparin, nephrology will decide about the timing of renal biopsy, if renal biopsy not required, patient will be switched back to oral anticoagulation. Continue Mucinex In regards to hypertension continue Norvasc, Coreg Regards to hyperlipidemia continue Lipitor In regards to hypothyroid continue Synthyroid Nephrology discussed with hematology oncology, plan for kidney biopsy has been discontinued Hematology oncology consulted for possible multiple myeloma, bone marrow biopsy conducted on 08/09. Labs and medication were reviewed.. Continue same treatment. Continue with symptomatic treatment. Resume home medication. Monitor labs and vitals. DVT and GI prophylaxis. Further recommendations as per clinical course of the patient Dictation was produced using [employer] dictation software. please excuse any grammatical, word or spelling errors. Objective - Vital Signs Vital signs: Vital Signs Temp 97.8 F 08/12/23 06:58 Pulse 80 08/12/23 07:40 Resp 18 08/12/23 06:58 BP 145/98 08/12/23 06:58 Pulse Ox 93 L 08/12/23 06:58 FiO2 Intake & Output 08/11/23 08/12/23 08/12/23 18:59 06:59 18:59 Intake Total 246.152 250.000 Output Total 650 1300 Balance -403.848 -1300 250.000 Intake: Intake, IV Titration 246.152 250.000 Amount Heparin Sod,Pork in 0.45% 246.152 250.000 NaCl 25,000 unit In 0.45 % NaCl 1 250ml.bag @ 9. 585 UNITS/KG/HR 10 mls/hr IV .Q24H [facility] Rx#: [id number] Output: Urine 650 1300 Other: Voiding Method Indwelling Catheter Indwelling Catheter Indwelling Catheter # Bowel Movements 1 - Labs CBC & Chem 7: 08/12/23 07:11 08/12/23 07:11 Labs: Abnormal Lab Results - Last 24 Hours (Table) 08/11/23 08/11/23 08/11/23 Range/Units 05:38 12:05 12:05 RBC 2.62 L (4.30-5.90) m/uL Hgb 8.6 L (13.0-17.5) gm/dL Hct 24.8 L (39.0-53.0) % Lymphocytes # 0.7 L (1.0-4.8) k/uL APTT (22.0-30.0) sec Sodium 146 H (135-145) mmol/L Chloride 112 H 109 H (96-109) mmol/L BUN 41.7 H 44 H (9.0-27.0) mg/dL Creatinine 3.5 H 3.51 H (0.6-1.5) mg/dL Est GFR (CKD-EPI) 17 L (>=60) BUN/Creatinine Ratio 11.91 L (12.00-20.00) Ratio Glucose 115 H (74-99) mg/dL Calcium 8.4 L (8.7-10.3) mg/dL AST 11 L (14-35) U/L ALT 8 L (10-49) U/L Alkaline Phosphatase 31 L 36 L (41-126) U/L Total Protein 4.3 L 5.0 L (6.2-8.2) g/dL Albumin 3.0 L 2.9 L (3.8-4.9) g/dL Globulin 1.3 L (1.6-3.3) g/dL 08/12/23 Range/Units 07:11 RBC (4.30-5.90) m/uL Hgb (13.0-17.5) gm/dL Hct (39.0-53.0) % Lymphocytes # (1.0-4.8) k/uL APTT 55.7 H (22.0-30.0) sec Sodium (135-145) mmol/L Chloride (96-109) mmol/L BUN (9.0-27.0) mg/dL Creatinine (0.6-1.5) mg/dL Est GFR (CKD-EPI) (>=60) BUN/Creatinine Ratio (12.00-20.00) Ratio Glucose (74-99) mg/dL Calcium (8.7-10.3) mg/dL AST (14-35) U/L ALT (10-49) U/L Alkaline Phosphatase (41-126) U/L Total Protein (6.2-8.2) g/dL Albumin (3.8-4.9) g/dL Globulin (1.6-3.3) g/dL
--- NOTE | 2023-08-12 15:09 | P.PN ---
Subjective Progress Note Date: 08/12/23 At today's visit patient is resting comfortably in bed. No new complaints, reports persisting generalized weakness Objective - Vital Signs Vital signs: Vital Signs Temp 98.1 F 08/12/23 12:44 Pulse 71 08/12/23 12:44 Resp 17 08/12/23 12:44 BP 145/77 08/12/23 12:44 Pulse Ox 96 08/12/23 12:44 FiO2 Intake & Output 08/11/23 08/12/23 08/12/23 18:59 06:59 18:59 Intake Total 246.152 296.330 Output Total 650 1300 1200 Balance -403.848 -1300 -903.670 Intake: Intake, IV Titration 246.152 296.330 Amount Heparin Sod,Pork in 0.45% 246.152 296.330 NaCl 25,000 unit In 0.45 % NaCl 1 250ml.bag @ 9. 585 UNITS/KG/HR 10 mls/hr IV .Q24H [facility] Rx#: [id number] Output: Urine 650 1300 1200 Other: Voiding Method Indwelling Catheter Indwelling Catheter Indwelling Catheter # Bowel Movements 1 - Constitutional General appearance: Present: average body habitus, no acute distress - EENT Eyes: Present: anicteric sclerae, EOMI ENT: Present: hearing grossly normal - Respiratory Details: breathing is even and unlabored - Cardiovascular Details: skin warm and dry - Integumentary Integumentary: Absent: cyanotic, jaundiced - Musculoskeletal Musculoskeletal: Present: generalized weakness - Psychiatric Psychiatric: Present: A&O x's 3 - Labs CBC & Chem 7: 08/12/23 07:11 08/12/23 07:11 Labs: Abnormal Lab Results - Last 24 Hours (Table) 08/12/23 08/12/23 08/12/23 Range/Units 07:11 07:11 07:11 RBC 2.60 L (4.40-5.60) X 10*6/uL Hgb 8.2 L (13.0-17.0) g/dL Hct 25.1 L (39.6-50.0) % APTT 55.7 H (22.0-30.0) sec Chloride 110 H (96-109) mmol/L BUN 39.4 H (9.0-27.0) mg/dL Creatinine 3.4 H (0.6-1.5) mg/dL Est GFR (CKD-EPI) 18 L (>=60) BUN/Creatinine Ratio 11.59 L (12.00-20.00) Ratio Assessment and Plan (1) HILDA (acute kidney injury) Current Visit: Yes Status: Acute Priority: High Code(s): N17.9 - ACUTE KIDNEY FAILURE, UNSPECIFIED SNOMED Code(s): 18892867 (2) Monoclonal paraproteinemia Current Visit: Yes Status: Acute Priority: High Code(s): D47.2 - MONOCLONAL GAMMOPATHY SNOMED Code(s): 079543729 Plan: Monoclonal paraproteinemia: -Status post bone marrow aspiration biopsy with pathology pending. Labs and bone survey indicate overt multiple myeloma. As long as kidney function is improving, the plan would be to start treatment with the specific regimen such as RVD in the first-line, once pathology is confirmed Above results and plan were discussed in detail with patient and family HILDA: -Creatinine continues to improve, 3.4 today. Continue Long and IV fluids -Continue to monitor. Spoke with nephrology this morning, as kidney function has continued to improve, will hold kidney biopsy at this time. Patient can be switched from heparin, back to Eliquis.
[2023-08-12 17:33] LABS: % Iron Saturation 35.92 (15.00-50.00)
[2023-08-12] MEDS: traZODone HCL 50 MG TAB PO SCH (20:15)
[2023-08-12] MEDS: APIXABAN 5 MG TAB PO SCH (20:16)
[2023-08-12] MEDS: MELATONIN 3 MG TABLET PO SCH (20:16)
[2023-08-12] MEDS: MONTELUKAST 10 MG TAB PO SCH (20:16)
[2023-08-13] MEDS: IPRATROPIUM-ALBUTEROL 3 ML NEB INHALATION PRN ×5 (04:46→18:25)
[2023-08-13] MEDS: SYMBICORT 160-4.5 MCG INHALER INHALATION SCH ×2 (04:58→18:25)
[2023-08-13] MEDS: LEVOTHYROXINE 75 MCG TAB PO SCH (06:00)
[2023-08-13] MEDS: CLOPIDOGREL 75 MG TAB PO SCH (08:24)
[2023-08-13] MEDS: FAMOTIDINE 20 MG TAB PO SCH (08:24)
[2023-08-13] MEDS: carvediloL 6.25 MG TAB PO SCH ×2 (08:24→17:21)
[2023-08-13] MEDS: ATORVASTATIN 40 MG TAB PO SCH (08:24)
[2023-08-13] MEDS: amLODIPine 5 MG TAB PO SCH (08:25)
[2023-08-13] MEDS: APIXABAN 5 MG TAB PO SCH ×2 (08:25→20:14)
[2023-08-13] MEDS: SODIUM BICARBONATE TAB 650 MG TAB PO SCH ×2 (08:25→20:15)
[2023-08-13] MEDS: FINASTERIDE 5 MG TAB PO SCH (08:25)
[2023-08-13] MEDS: guaiFENesin 600 MG TABLET.ER PO SCH ×2 (08:25→20:14)
[2023-08-13] MEDS: TAMSULOSIN 0.4 MG CAP.ER.24H PO SCH ×2 (08:25→20:14)
[2023-08-13 08:30] LABS: Basophils # (A) 0.02 X 10*3/uL (0.00-0.10); Basophils % (A) 0.4 %; Eosinophils # (A) 0.27 X 10*3/uL (0.04-0.35); Eosinophils % (A) 5.7 %; HCT 22.8 % (39.6-50.0); HGB 7.4 g/dL (13.0-17.0); Lymphocytes # (A) 0.65 X 10*3/uL (0.90-5.00); Lymphocytes % (A) 13.7 %; MCHC 32.5 g/dL (32.0-37.0); MCV 95.4 FL (80.0-97.0); Mean Platelet Volume 10.3 FL (9.5-12.2); Monocytes # (A) 0.55 X 10*3/uL (0.20-1.00); Monocytes % (A) 11.6 %; NRBC Per 100 WBC 0 X 10*3/uL (0.00-0.01); Neutrophils # (A) 3.17 X 10*3/uL (1.80-7.70); Neutrophils % (A) 66.9 %; Platelet Count 174 X 10*3/uL (140-440); RBC 2.39 X 10*6/uL (4.40-5.60); RDW 11.9 % (11.5-14.5); WBC 4.74 X 10*3/uL (4.50-10.00)
[2023-08-13 08:46] LABS: Magnesium 1.4 mg/dL (1.5-2.4); Phosphorus 3.7 mg/dL (2.4-5.1)
[2023-08-13 08:53] LABS: ALT 21 U/L (10-49); AST 14 U/L (14-35); Albumin 3.2 g/dL (3.8-4.9); Albumin/Globulin Ratio 2.29 Ratio (1.60-3.17); Alkaline Phosphatase 35 U/L (41-126); BUN/Creat Ratio 11.53 Ratio (12.00-20.00); Blood Urea Nitrogen 36.9 mg/dL (9.0-27.0); Calcium 8.6 mg/dL (8.7-10.3); Carbon Dioxide 24.5 mmol/L (21.6-31.8); Chloride 109 mmol/L (96-109); Globulin 1.4 g/dL (1.6-3.3); Glucose 109 mg/dL (70-110); Potassium 4.3 mmol/L (3.5-5.5); Sodium 143 mmol/L (135-145); Total Bilirubin 0.4 mg/dL (0.3-1.2); Total Protein 4.6 g/dL (6.2-8.2)
[2023-08-13] MEDS ORDERED: Magnesium Replacement Protocol 1 EACH MISC MISCELLANE PRN (09:28)
[2023-08-13] MEDS: MAGNESIUM SULFATE-D5W PMX 1 GM in DEXTROSE/WATER 1 100ML.BAG IVPB SCH ×2 (10:06→12:38)
--- NOTE | 2023-08-13 11:16 | P.PN ---
Subjective Patient is seen in follow-up for acute kidney injury on chronic kidney disease. Renal function gradually improving. Oral intake fair. No vomiting or diarrhea. Nonoliguric. Family present at bedside. No changes overnight. Vital signs are stable. General: No acute distress. HEENT: Head exam is unremarkable. LUNGS: No audible rhonchi or wheezes. HEART: Rate and Rhythm are regular. ABDOMEN: Nontender. EXTREMITITES: No edema. Objective - Vital Signs Vital signs: Vital Signs Temp 97.6 F 08/13/23 07:37 Pulse 72 08/13/23 08:22 Resp 17 08/13/23 07:37 BP 133/77 08/13/23 07:37 Pulse Ox 94 L 08/13/23 07:37 FiO2 Intake & Output 08/12/23 08/13/23 08/13/23 18:59 06:59 18:59 Intake Total 296.330 Output Total 1200 1600 Balance -903.670 -1600 Intake: Intake, IV Titration 296.330 Amount Heparin Sod,Pork in 0.45% 296.330 NaCl 25,000 unit In 0.45 % NaCl 1 250ml.bag @ 9. 585 UNITS/KG/HR 10 mls/hr IV .Q24H [facility] Rx#: [id number] Output: Urine 1200 1600 Other: Voiding Method Indwelling Catheter Indwelling Catheter External Catheter - Labs CBC & Chem 7: 08/13/23 06:10 08/13/23 06:10 Labs: Abnormal Lab Results - Last 24 Hours (Table) 08/12/23 08/13/23 08/13/23 Range/Units 07:11 06:10 06:10 RBC 2.39 L (4.40-5.60) X 10*6/uL Hgb 7.4 L (13.0-17.0) g/dL Hct 22.8 L (39.6-50.0) % Lymphocytes # 0.65 L (0.90-5.00) X 10*3/uL BUN 36.9 H (9.0-27.0) mg/dL Creatinine 3.2 H (0.6-1.5) mg/dL Est GFR (CKD-EPI) 19 L (>=60) BUN/Creatinine Ratio 11.53 L (12.00-20.00) Ratio Calcium 8.6 L (8.7-10.3) mg/dL Magnesium 1.4 L (1.5-2.4) mg/dL TIBC 206 L (228-460) UG/DL Transferrin 147.0 L (204.0-354.0) mg/dL Ferritin 532.0 H (22.0-322.0) ng/mL Alkaline Phosphatase 35 L (41-126) U/L Total Protein 4.6 L (6.2-8.2) g/dL Albumin 3.2 L (3.8-4.9) g/dL Globulin 1.4 L (1.6-3.3) g/dL Assessment and Plan Plan: Assessment: 1. Acute kidney injury secondary to ATN and urinary retention. Also concern for myeloma kidney. Creatinine peaked at 6.53 this admission -3.2 today. Creatinine in the range of 1.5-1.8 in January 2023 and as low as 0.96 in January 2019. No hydronephrosis noted on kidney ultrasound. 2. Urinary retention. Has Long catheter. On Proscar and Flomax. 3. Benign hypertension. Stable. 4. Metabolic acidosis secondary to acute kidney injury and IV fluids. On oral bicarbonate. Improved. 5. Hydrocephalus scheduled for shunt placement in near future. 6. Elevated kappa light chains with lytic lesions on bone scan confirming multiple myeloma. Oncology following. 7. Anemia. Iron replete. 8. Hypomagnesemia from poor intake. Plan: Encouraged oral intake. Avoid nephrotoxins. Add Aranesp. Replace magnesium. Continue to monitor renal function and urine output. Case discussed with oncology. Patient will be started on multiple myeloma treatment. Kidney biopsy canceled over the weekend and patient is back on anticoagulation. Patient and family wish to avoid other invasive procedures including kidney b iopsy at this time. Long catheter removed this morning. Monitor bladder scans and reinsert Long c atheter if greater than 300 mL urine present.
[2023-08-13] MEDS ORDERED: DARBEPOETIN ALFA 40 MCG/0.4 ML SYRINGE SQ SCH (12:00)
[2023-08-13] MEDS: HYDROcodone/APAP 5-325MG 1 EACH TAB PO PRN (17:21)
[2023-08-13] MEDS: ACETAMINOPHEN TAB 325 MG TAB PO PRN (20:14)
[2023-08-13] MEDS: MELATONIN 3 MG TABLET PO SCH (20:14)
[2023-08-13] MEDS: traZODone HCL 50 MG TAB PO SCH (20:15)
[2023-08-13] MEDS: MONTELUKAST 10 MG TAB PO SCH (20:15)
--- NOTE | 2023-08-13 21:41 | P.PN ---
Subjective Progress Note Date: 08/13/23 Patient remains on the medical floor pending bone marrow biopsy results, oncology following closely with plans to F/U with family tomorrow. Kidney biopsy cancelled at this time. Patient has been resumed on anticoagulation. Patients brain shunt for the hydrocephalus has been placed on hold at this time. Remains on oral sodium bicarbonate tablets. Indwelling catheter in place with plans to attempt voiding trial today. Creatinine 3.2 today. Magnesium 1.4, hemglobin 7.4. Review of Systems Constitutional: Denied any fatigue denied any fever. Cardio vascular: denied any chest pain, palpitations Gastrointestinal: denied any nausea, vomiting, diarrhea Pulmonary: Denied any shortness of breath cough Neurologic denied any new focal deficits All inpatient medications were reviewed and appropriate changes in these medications as dictated in the interval history and assessment and plan. PHYSICAL EXAMINATION: GENERAL: The patient is alert and oriented x3, not in any acute distress. Well developed, well nourished. HEENT: Pupils are round and equally reacting to light. EOMI. No scleral icterus. No conjunctival pallor. Normocephalic, atraumatic. No pharyngeal erythema. No thyromegaly. CARDIOVASCULAR: S1 and S2 present. No murmurs, rubs, or gallops. PULMONARY: Chest is clear to auscultation, no wheezing or crackles. ABDOMEN: Soft, nontender, nondistended, normoactive bowel sounds. No palpable organomegaly. MUSCULOSKELETAL: No joint swelling or deformity. EXTREMITIES: No cyanosis, clubbing, or pedal edema. NEUROLOGICAL: Gross neurological examination did not reveal any focal deficits. SKIN: No rashes. Assessment Acute kidney injury secondary to ATN, rule out myeloma kidney Elevated kappa light chains and lytic bone lesions with concern for underlying multiple myeloma status post bone marrow biopsy Acute urinary retention secondary to enlarged prostate most likely status post Juárez catheter placement Abnormal urine analysis, asymptomatic, unlikely the patient has infection Moderate hydrocephalus with gait and memory problems supposed to have brain shunt placed on 08.14.23 this is on hold. Paroxysmal atrial fibrillation on Eliquis at home chronic kidney disease stage III Hypertension Hyperlipidemia History of osteoarthritis Hypothyroidism GI prophylaxis DVT prophylaxis on eliquis DO NOT RESUSCITATE/DO NOT INTUBATE Plan Nephrology following renal function patient remains on oral sodium bicarbonate tablets Aranesp has been added and recommending to monitor CBC closely Replace electrolytes Pending bone marrow biopsy results and following with oncology inpatient vs. outpatient D/C juárez and attempt for voiding trial today. Recommend to monitor with bladder scan every 6 hours and re insert IDC if patient has urinary retention Repeat labs in AM PT/OT The impression and plan of care has been dictated by Shyla Granado, Nurse Practitioner as directed. Dr. Dimitry MD I have performed a history and physical examination and medical decision making of this patient, discussed the same with the dictator, and agree with the dictators assessment and plan as written, documented as a scribe. Based on total visit time, I have performed more than 50% of this visit. Objective - Vital Signs Vital signs: Vital Signs Temp 97.6 F 08/13/23 07:37 Pulse 72 08/13/23 08:22 Resp 17 08/13/23 07:37 BP 133/77 08/13/23 07:37 Pulse Ox 94 L 08/13/23 07:37 FiO2 Intake & Output 08/12/23 08/13/23 08/13/23 18:59 06:59 18:59 Intake Total 296.330 Output Total 1200 1600 Balance -903.670 -1600 Intake: Intake, IV Titration 296.330 Amount Heparin Sod,Pork in 0.45% 296.330 NaCl 25,000 unit In 0.45 % NaCl 1 250ml.bag @ 9. 585 UNITS/KG/HR 10 mls/hr IV .Q24H [facility] Rx#: [id number] Output: Urine 1200 1600 Other: Voiding Method Indwelling Catheter Indwelling Catheter - Labs CBC & Chem 7: 08/13/23 06:10 08/13/23 06:10 Labs: Abnormal Lab Results - Last 24 Hours (Table) 08/12/23 08/12/23 08/12/23 Range/Units 07:11 07:11 07:11 RBC 2.60 L (4.40-5.60) X 10*6/uL Hgb 8.2 L (13.0-17.0) g/dL Hct 25.1 L (39.6-50.0) % Lymphocytes # (0.90-5.00) X 10*3/uL Chloride 110 H (96-109) mmol/L BUN 39.4 H (9.0-27.0) mg/dL Creatinine 3.4 H (0.6-1.5) mg/dL Est GFR (CKD-EPI) 18 L (>=60) BUN/Creatinine Ratio 11.59 L (12.00-20.00) Ratio Calcium (8.7-10.3) mg/dL Magnesium (1.5-2.4) mg/dL TIBC 206 L (228-460) UG/DL Transferrin 147.0 L (204.0-354.0) mg/dL Ferritin 532.0 H (22.0-322.0) ng/mL Alkaline Phosphatase (41-126) U/L Total Protein (6.2-8.2) g/dL Albumin (3.8-4.9) g/dL Globulin (1.6-3.3) g/dL 08/13/23 08/13/23 Range/Units 06:10 06:10 RBC 2.39 L (4.40-5.60) X 10*6/uL Hgb 7.4 L (13.0-17.0) g/dL Hct 22.8 L (39.6-50.0) % Lymphocytes # 0.65 L (0.90-5.00) X 10*3/uL Chloride (96-109) mmol/L BUN 36.9 H (9.0-27.0) mg/dL Creatinine 3.2 H (0.6-1.5) mg/dL Est GFR (CKD-EPI) 19 L (>=60) BUN/Creatinine Ratio 11.53 L (12.00-20.00) Ratio Calcium 8.6 L (8.7-10.3) mg/dL Magnesium 1.4 L (1.5-2.4) mg/dL TIBC (228-460) UG/DL Transferrin (204.0-354.0) mg/dL Ferritin (22.0-322.0) ng/mL Alkaline Phosphatase 35 L (41-126) U/L Total Protein 4.6 L (6.2-8.2) g/dL Albumin 3.2 L (3.8-4.9) g/dL Globulin 1.4 L (1.6-3.3) g/dL Assessment and Plan Time with Patient: Less than 30
[2023-08-14] MEDS: LEVOTHYROXINE 75 MCG TAB PO SCH (06:10)
[2023-08-14 07:34] VITALS: BP 141/86; RESP 19; TEMP 98.6
[2023-08-14] MEDS: SYMBICORT 160-4.5 MCG INHALER INHALATION SCH (08:20)
[2023-08-14] MEDS: IPRATROPIUM-ALBUTEROL 3 ML NEB INHALATION PRN (08:20)
[2023-08-14] MEDS: carvediloL 6.25 MG TAB PO SCH (08:59)
[2023-08-14] MEDS: TAMSULOSIN 0.4 MG CAP.ER.24H PO SCH (08:59)
[2023-08-14] MEDS: SODIUM BICARBONATE TAB 650 MG TAB PO SCH (08:59)
[2023-08-14] MEDS: APIXABAN 5 MG TAB PO SCH (08:59)
[2023-08-14] MEDS: ATORVASTATIN 40 MG TAB PO SCH (08:59)
[2023-08-14] MEDS: FAMOTIDINE 20 MG TAB PO SCH (09:00)
[2023-08-14] MEDS: CLOPIDOGREL 75 MG TAB PO SCH (09:00)
[2023-08-14] MEDS: amLODIPine 5 MG TAB PO SCH (09:00)
[2023-08-14] MEDS: guaiFENesin 600 MG TABLET.ER PO SCH (09:00)
--- NOTE | 2023-08-14 10:58 | P.PN ---
Subjective Patient is seen in follow-up for acute kidney injury on chronic kidney disease. Renal function gradually improving. Oral intake fair. No vomiting or diarrhea. Sitting up in chair. Nonoliguric. Family present at bedside. No changes overnight. Vital signs are stable. General: No acute distress. HEENT: Head exam is unremarkable. LUNGS: No audible rhonchi or wheezes. HEART: Rate and Rhythm are regular. ABDOMEN: Nontender. EXTREMITITES: No edema. Objective - Vital Signs Vital signs: Vital Signs Temp 98.6 F 08/14/23 07:23 Pulse 76 08/14/23 08:28 Resp 19 08/14/23 07:23 BP 141/86 08/14/23 07:23 Pulse Ox 95 08/14/23 08:23 FiO2 Intake & Output 08/13/23 08/14/23 08/14/23 18:59 06:59 18:59 Intake Total 860 240 Balance 860 240 Weight 104.326 kg Intake: Oral 860 240 Other: Voiding Method External Catheter Diaper Incontinent # Voids 3 - Labs CBC & Chem 7: 08/13/23 06:10 08/13/23 06:10 Assessment and Plan Plan: Assessment: 1. Acute kidney injury secondary to ATN and urinary retention. Also concern for myeloma kidney. Creatinine peaked at 6.53 this admission - 3.2 yesterday. Creatinine in the range of 1.5-1.8 in January 2023 and as low as 0.96 in January 2019. No hydronephrosis noted on kidney ultrasound. 2. Urinary retention. Has Long catheter. On Proscar and Flomax. 3. Benign hypertension. Stable. 4. Metabolic acidosis secondary to acute kidney injury and IV fluids. On oral bicarbonate. Improved. 5. Hydrocephalus scheduled for shunt placement in near future. 6. Elevated kappa light chains with lytic lesions on bone scan confirming multiple myeloma. Oncology following. 7. Anemia. Iron replete. On Aranesp. 8. Hypomagnesemia from poor intake. Replaced. Plan: Encouraged oral intake. Avoid nephrotoxins. Continue to monitor renal function and urine output. Case discussed with oncology. Patient will be started on multiple myeloma treatment. Kidney biopsy canceled over the weekend and patient is back on anticoagulation. Patient and family wish to avoid other invasive procedures including kidney biopsy at this time. Long catheter removed 08/13/2023. Monitor bladder scans and reinsert Long catheter if greater than 300 mL urine present. Patient has been voiding on his own. Advised to follow up outpatient 1 week post discharge.
[2023-08-14 11:20] LABS: BUN/Creat Ratio 11.12 Ratio (12.00-20.00); Blood Urea Nitrogen 35.6 mg/dL (9.0-27.0); Carbon Dioxide 25.7 mmol/L (21.6-31.8); Chloride 108 mmol/L (96-109); Glucose 113 mg/dL (70-110); Magnesium 1.8 mg/dL (1.5-2.4); Potassium 4.5 mmol/L (3.5-5.5); Sodium 144 mmol/L (135-145)
[2023-08-14 12:25] LABS: Free Lambda Lt Chain Qt, Urine 0.97 mg/dL (0.00-0.38)
[2023-08-14 12:38] VITALS: PULSE 83
--- NOTE | 2023-08-14 18:55 | P.PN ---
Subjective Progress Note Date: 08/14/23 At today's visit patient is resting comfortably in bed. No acute events. Reports improvement in symptoms, feeling much better Objective - Vital Signs Vital signs: Vital Signs Temp 98.6 F 08/14/23 07:23 Pulse 83 08/14/23 08:40 Resp 19 08/14/23 08:40 BP 141/86 08/14/23 07:23 Pulse Ox 95 08/14/23 08:23 FiO2 Intake & Output 08/13/23 08/14/23 08/14/23 18:59 06:59 18:59 Intake Total 860 240 Balance 860 240 Weight 104.326 kg Intake: Oral 860 240 Other: Voiding Method External Catheter Diaper Diaper Incontinent Incontinent # Voids 3 - Constitutional General appearance: Present: no acute distress - EENT Eyes: Present: anicteric sclerae ENT: Present: hearing grossly normal - Respiratory Details: breathing is even and unlabored - Cardiovascular Details: skin warm and dry - Integumentary Integumentary: Absent: cyanotic - Neurologic Neurologic Comment(s): grossly intact - Musculoskeletal Musculoskeletal: Present: generalized weakness - Psychiatric Psychiatric: Present: A&O x's 3 - Labs CBC & Chem 7: 08/13/23 06:10 08/14/23 06:12 Labs: Abnormal Lab Results - Last 24 Hours (Table) 08/12/23 08/14/23 Range/Units 10:00 06:12 BUN 35.6 H (9.0-27.0) mg/dL Creatinine 3.2 H (0.6-1.5) mg/dL Est GFR (CKD-EPI) 19 L (>=60) BUN/Creatinine Ratio 11.12 L (12.00-20.00) Ratio Glucose 113 H (70-110) mg/dL U Free [place] Ch 242.09 H (0.00-3.29) mg/dL U Free Lambda Light Ch 0.97 H (0.00-0.38) mg/dL Assessment and Plan (1) HILDA (acute kidney injury) Status: Acute Priority: High Code(s): N17.9 - ACUTE KIDNEY FAILURE, UNSPECIFIED SNOMED Code(s): 24954093 (2) Monoclonal paraproteinemia Status: Acute Priority: High Code(s): D47.2 - MONOCLONAL GAMMOPATHY SNOMED Code(s): 793246097 Plan: Monoclonal paraproteinemia: -Status post bone marrow aspiration biopsy with pathology pending. Labs and bone survey indicate overt multiple myeloma. As long as kidney function is improving, the plan would be to start treatment with the specific regimen such as RVD in the first-line, once pathology is confirmed. It was discussed with patient and family in detail, that bone marrow results typically take 7-10 days to result, and as long as patient is stable he can be discharged home and outpt f/u will be scheduled to discuss pathology results and treatment options and goals of care. Spoke with IM team and informed team that patient is cleared from hem onc standpoint Pt and family verbalized understanding and are agreeable with POC HILDA: -Creatinine continues to improve, 3.2 today. -Continue to monitor. Spoke with nephrology, as kidney function has continued to improve, will hold kidney biopsy at this time. Patient can be switched from heparin, back to Eliquis.
[2023-08-16 12:06] LABS: Gamma Globulin 0.36 g/dL (0.70-1.50)
--- NOTE | 2023-08-16 16:56 | P.DS ---
Providers Date of admission: 08/01/23 19:04 Attending physician: Ryann Jansen Consults: 08/01/23 19:01 Consult Physician Routine Consulting Provider: Eh Blackwell Consult Reason/Comments: cesario Cr 6.38 Do you want consulting provider notified?: Yes, Notify in am 08/02/23 00:38 Consult Physician Routine Consulting Provider: Dom Steele Consult Reason/Comments: Unable to urinate, attempted 3 foleys, enlarged prostate Do you want consulting provider notified?: Yes 08/05/23 12:04 Consult Physician Routine Consulting Provider: Natanael Dumont Consult Reason/Comments: "Medication adjustments; worsening kidney function" Do you want consulting provider notified?: Yes 08/06/23 11:43 Consult Physician Routine Consulting Provider: Laith Boyle Consult Reason/Comments: possible multiple myeloma Do you want consulting provider notified?: Yes Primary care physician: [facility] Course: Final Diagnosis Acute kidney injury secondary to ATN, rule out myeloma kidney Elevated kappa light chains and lytic bone lesions with concern for underlying multiple myeloma status post bone marrow biopsy Acute urinary retention secondary to enlarged prostate most likely status post Juárez catheter placement Abnormal urine analysis, asymptomatic, unlikely the patient has infection Moderate hydrocephalus with gait and memory problems supposed to have brain shunt placed on 08.14.23 this is on hold. Paroxysmal atrial fibrillation on Eliquis at home Hx of DVT/PE Coronary artery disease with prior cardiac stenting chronic kidney disease stage III Hypertension Hyperlipidemia History of osteoarthritis Hypothyroidism GI prophylaxis DVT prophylaxis on eliquis DO NOT RESUSCITATE/DO NOT INTUBATE Discharge Disposition patient is stable for discharge home. Patient to follow up with oncology for bone marrow biopsy and treatment plan. Remains on oral sodium bicarbonate tablets. Aranesp has been added to continue weekly. and recommending to monitor CBC closely, patient to hold the aranesp for hemoglobin greater than 10.5 per nephrology given scripts for weekly monitoring. Recommend to follow up with your neurologist Dr Murphy. Brain shunt may be placed on hold discuss this with your neurosurgeon. Activity Limited until seen by Follow up with Dr. Boyle, Dr. Blackwell, Dr. Fernandes [facility]. Hospital Course This is a pleasant 78 years old male with multiple medical problems include Asthma, Deep Vein Thrombosis (DVT), Hyperlipidemia, Hypertension benign prostatic hypertrophy, hypothyroidism, previous history of UTI, coronary artery disease status post CABG and stent placement. Patient was supposed to get brain shunt and as part of the workup by his PCP his creatinine came back high as 6.3 so he was referred to the emergency room He was here the hospital for acute urinary tract infection and CAT scan of the brain showing dilated ventricle, on computed tomography scan on 01/21/2023 showing moderate normal pressure hydrocephalus. Patient was referred to his neurologist Dr. Murphy who sent him to neurosurgeon Dr. Damon in [place] where he did spinal tap, some of the fluid and referred him to his PCP to do some preoperative evaluation for shunt placement. Patient has been having some memory issue and problems with balance, but other than that he denies any new current symptom, even as per at bedside patient was has than to come to emergency room yesterday because he didn't complain from any symptoms. He denies chest pain dizziness weakness numbness. No dysuria or urinary complaints. No vomiting diarrhea or abdominal pain. No dyspnea. He denies smoking alcohol or illicit drugs. Renal ultrasound showed no evidence of hydronephrosis. Creatinine 6.3 and 6.5, baseline around 1. Patient admitted for consultation to nephrology. He was hydrated had juárez placed for retention. As part of his workup he had light chains ordered, that showed marked elevation of kappa light chain at 1082 mg/L, with lambda light chain actually normal. This is felt to be very suspi cious for overt multiple myeloma, due to which hematology oncology were consulted. Patient underwent bone marrow biopsy there was discussion for renal biopsy this was held off. He also had bone survery done showing a few scattered lytic lesions suspicious for multiple myeloma. Patient did improve renal function , creatine down to 3.2. He has been cleared by nephrology and oncology for discharge home and close outpatient follow up. Patients daughter agreeable with this plan. Juárez catheter is discontinued he is urinating without difficutly. He is alert and oriented, lungs are clear no chest pain no shortness of breath. Patient will be discharged home to follow up on bone marrow bx results. Please see medication reconciliation for a list of current medications. Thank you for allowing us to participate in the care of this patient. The impression and plan of care has been dictated by Shyla Granado, Nurse Practitioner as directed. Dr. Dimitry MD I have performed a history and physical examination and medical decision making of this patient, discussed the same with the dictator, and agree with the dictators assessment and plan as written, documented as a scribe. Based on total visit time, I have performed more than 50% of this visit. Patient Condition at Discharge: Stable Plan - Discharge Summary New Discharge Prescriptions: New amLODIPine [Norvasc] 5 mg PO DAILY #30 tab guaiFENesin SYRUP 100MG/5ML [Robitussin] 200 mg PO Q6HR PRN ml PRN Reason: Cough Darbepoetin Sam [Aranesp] 40 mcg SQ Q7D #2 each traZODone HCL [Desyrel] 25 mg PO HS #30 tab guaiFENesin [Mucinex] 600 mg PO Q12HR #0 tab Sodium Bicarbonate Tab 650 mg PO BID #60 tab Continue Montelukast [Singulair] 10 mg PO HS Tamsulosin [Flomax] 0.4 mg PO BID Carvedilol [Coreg] 6.25 mg PO BID Apixaban [Eliquis] 5 mg PO BID #70 tab Ubidecarenone [Coenzyme Q10] 200 mg PO DAILY Prevagen 1 cap PO DAILY Acetaminophen Tab [Tylenol] 1,000 mg PO BID Atorvastatin [Lipitor] 40 mg PO DAILY Fluticasone Propion/Salmeterol [Wixela 500-50 Inhub] 1 puff INHALATION RT-BID Ipratropium-Albuterol Nebulize [Duoneb 0.5 mg-3 mg/3 ml Soln] 3 ml INHALATION RT-QID 30 Days #120 each Levothyroxine Sodium [Synthroid] 150 mcg PO DAILY Cetirizine HCl [Zyrtec] 10 mg PO DAILY Triamcinolone 0.1% Lotion [Kenalog 0.1% Lotion] 1 applic TOPICAL DAILY PRN PRN Reason: irritation Ibuprofen [Motrin Ib] 200 mg PO Q4H PRN PRN Reason: Pain Or Fever > 100.5 Famotidine [Pepcid] 20 mg PO DAILY 90 Days #90 tab Finasteride [Proscar] 5 mg PO Q48H 45 Days #45 tab Clopidogrel [Plavix] 75 mg PO DAILY Discontinued Sacubitril/Valsartan [Entresto 24 mg-26 mg Tablet] 1 tab PO BID Discharge Medication List Carvedilol [Coreg] 6.25 mg PO BID 06/08/14 [History] Montelukast [Singulair] 10 mg PO HS 06/08/14 [History] Tamsulosin [Flomax] 0.4 mg PO BID 06/08/14 [History] Apixaban [Eliquis] 5 mg PO BID #70 tab 11/19/18 [Rx] Acetaminophen Tab [Tylenol] 1,000 mg PO BID 01/21/23 [History] Atorvastatin [Lipitor] 40 mg PO DAILY 01/21/23 [History] Cetirizine HCl [Zyrtec] 10 mg PO DAILY 01/21/23 [History] Fluticasone Propion/Salmeterol [Wixela 500-50 Inhub] 1 puff INHALATION RT-BID 01/21/23 [History] Ibuprofen [Motrin Ib] 200 mg PO Q4H PRN 01/21/23 [History] Levothyroxine Sodium [Synthroid] 150 mcg PO DAILY 01/21/23 [History] Prevagen 1 cap PO DAILY 01/21/23 [History] Triamcinolone 0.1% Lotion [Kenalog 0.1% Lotion] 1 applic TOPICAL DAILY PRN 01/21/23 [History] Ubidecarenone [Coenzyme Q10] 200 mg PO DAILY 01/21/23 [History] Famotidine [Pepcid] 20 mg PO DAILY 90 Days #90 tab 01/27/23 [Rx] Finasteride [Proscar] 5 mg PO Q48H 45 Days #45 tab 01/27/23 [Rx] Ipratropium-Albuterol Nebulize [Duoneb 0.5 mg-3 mg/3 ml Soln] 3 ml INHALATION RT-QID 30 Days #120 each 01/27/23 [Rx] Clopidogrel [Plavix] 75 mg PO DAILY 05/07/23 [History] Darbepoetin Sam [Aranesp] 40 mcg SQ Q7D #2 each 08/14/23 [Rx] Sodium Bicarbonate Tab 650 mg PO BID #60 tab 08/14/23 [Rx] amLODIPine [Norvasc] 5 mg PO DAILY #30 tab 08/14/23 [Rx] guaiFENesin SYRUP 100MG/5ML [Robitussin] 200 mg PO Q6HR PRN ml 08/14/23 [Rx] guaiFENesin [Mucinex] 600 mg PO Q12HR #0 tab 08/14/23 [Rx] traZODone HCL [Desyrel] 25 mg PO HS #30 tab 08/14/23 [Rx] Follow up Appointment(s)/Referral(s): Laith Boyle [STAFF PHYSICIAN] - 1 Week (The office will call to set up follow up appointment.) [facility] [NON-STAFF] - 1-2 Days (Homecare agency will call 24 hours after discharge to arrange a time to visit. ) Conrad Murphy DO [STAFF PHYSICIAN] - 08/16/23 4:00 pm (if need to reschedule the office is booking into September.) Eh Blackwell DO [STAFF PHYSICIAN] - 08/21/23 9:20 am (appointment with Mariangel GARZA) Dom Yeh MD [Primary Care Provider] - 08/15/23 1:15 pm (if need to reschedule the please call the office. They are closed next week.) Ambulatory/Diagnostic Orders: Basic Metabolic Panel [LAB.AMB] Time Frame: 3 Days, Location: None Selected Complete Blood Count w/diff [LAB.AMB] Time Frame: 1 Week, Location: None Selected Patient Instructions/Handouts: Acute Kidney Injury (DC), Urinary Tract Infection in Men (DC) Activity/Diet/Wound Care/Special Instructions: Check CBC weekly and continue on aranesp injections weekly, hold for hemoglobin less than 10. Recommend close hemoglobin monitoring. Follow up with oncology outpatient for bone marrow biopsy results. Recommend to follow up with your neurologist Dr Murphy Diet as tolerated Activity Limited until seen by DR. Carbone Disposition: HOME WITH HOME HEALTH SERVICES
--- NOTE | 2023-08-20 09:50 | CDI ---
Documentation Clarification Form Date: 08/20/2023 09:41:05 AM From: Sumaya العراقي Admit Date: 08/01/2023 07:04:00 PM Patient Name: Kash Kruse Visit Number: [id number] Discharge Date: 08/14/2023 04:15:00 PM ATTENTION: The Clinical Documentation Specialists (CDI) and [facility] Coding Staff appreciate your assistance in clarifying documentation. Please respond to the clarification below the line at the bottom and electronically sign. The CDI & [facility] Coding staff will review the response and follow-up if needed. Please note: Queries are made part of the Legal Health Record. If you have any questions, please contact the author of this message via ITS. Dr. Vani Moraes, The final diagnosis of the pathology report states: the bone marrow is consistent with multiple myeloma. Coding guidelines do not allow coding professionals to code based on pathology results; therefore, clarification is requested. History/risk factors: asthma, DVT, HLRD, HTN, BPH, hypothyroidism, CAD-s/o CABG & stent, hydrocephalus Clinical Indicators: Monoclonal gammopathy Treatment: Bone marrow aspiration biopsy Please clarify if you agree with the pathology report diagnosis of the bone marrow concistent with multiple myeloma: [ x] Yes [ ] No [ ] Other (please specify) [ ] Unable to determine MTDD
== END 2023-08-14 16:15 | disposition home health service (06) | DRG 840 ==
LOC: EC 15:26 → 4SSUR 19:04 → 5NMEDONC 22:16 → 3SCARD 08-02 00:04 → 5NMEDONC 08-09 23:35
PROVIDERS: ADMIT Hospitalist; ATTEND Hospitalist
PROC: 07DR3ZX Extraction of Iliac Bone Marrow, Percutaneous Approach, Diagnostic (ICD-10-PCS; principal; 2023-08-02)
PROC: 079T3ZX Drainage of Bone Marrow, Percutaneous Approach, Diagnostic (ICD-10-PCS; principal; 2023-08-02)
PROC: 0T9B70Z Drainage of Bladder with Drainage Device, Via Natural or Artificial Opening (ICD-10-PCS; 2023-08-02)
DX: C90.00 Multiple myeloma not having achieved remission (principal); N17.0 Acute kidney failure with tubular necrosis; E87.20 Acidosis, unspecified; G91.2 (Idiopathic) normal pressure hydrocephalus; N39.0 Urinary tract infection, site not specified; D63.1 Anemia in chronic kidney disease; I08.2 Rheumatic disorders of both aortic and tricuspid valves; D47.2 Monoclonal gammopathy; I12.9 Hypertensive chronic kidney disease with stage 1 through stage 4 chronic kidney disease, or unspecified chronic kidney disease; T83.031A Leakage of indwelling urethral catheter, initial encounter; N18.31 Chronic kidney disease, stage 3a; I48.0 Paroxysmal atrial fibrillation; Z66 Do not resuscitate; I25.10 Atherosclerotic heart disease of native coronary artery without angina pectoris; E83.42 Hypomagnesemia; E78.5 Hyperlipidemia, unspecified; E03.9 Hypothyroidism, unspecified; N40.1 Benign prostatic hyperplasia with lower urinary tract symptoms; R35.0 Frequency of micturition; R33.8 Other retention of urine; J45.909 Unspecified asthma, uncomplicated; M54.50 Low back pain, unspecified; I25.2 Old myocardial infarction; M19.90 Unspecified osteoarthritis, unspecified site; Z79.01 Long term (current) use of anticoagulants; Z79.02 Long term (current) use of antithrombotics/antiplatelets; Z79.51 Long term (current) use of inhaled steroids; Z79.890 Hormone replacement therapy; Z79.899 Other long term (current) drug therapy; Z95.1 Presence of aortocoronary bypass graft; Z95.5 Presence of coronary angioplasty implant and graft; Z87.440 Personal history of urinary (tract) infections; Z86.718 Personal history of other venous thrombosis and embolism; Z86.711 Personal history of pulmonary embolism; Z96.661 Presence of right artificial ankle joint
CPT/HCPCS: 36415; 38222; 71046; 76770; 77075; 80048; 80053; 81001; 82232; 82728; 83516; 83540; 83550; 83735; 83883; 84100; 84165; 84166; 85025; 85027; 85045; 85610; 85652; 85730; 86038; 86039; 86160; 86225; 86255; 86334; 86706; 86803; 86850; 86900; 86901; 87086; 87340; 93005; 93306; 94640; 94760; 96365; 96366; 99285

== ENCOUNTER → 2023-08-23 | Outpatient (CLI) | payer MEDICARE ==
--- NOTE | 2023-08-23 14:42 | US ---
EXAMINATION TYPE: US kidneys/renal and bladder DATE OF EXAM: 08/23/2023 COMPARISON: 08/01/2023 CLINICAL INDICATION: Male, 78 years old with history of R33.9 RETENTION OF URINE, UNSPECIFIED; Hx irene al cyst EXAM MEASUREMENTS: Right Kidney: 9.2 x 5.6 x 4.5 cm Left Kidney: 8.4 x 4.8 x 4.6 cm Difficult scan due to patient body habitus and overlying bowel gas Right Kidney: There is a 0.7cm echogenic foci located lateral/ mid right kidney. There is a 1.5 x 1.4 x 1.5cm anechoic area seen in the superior pole. Left Kidney: No discrete hydronephrosis or masses seen Bladder: wnl Bilateral Jets seen: Attempted, not visualized today. Incidental finding of known enlarged prostate, measuring 8.1 x 5.9 x 6.8cm. There is no evidence for hydronephrosis at this point in time.The urinary bladder is anechoic. IMPRESSION: 1. Echogenic cortices bilaterally consistent with medical renal disease. 2. No solid renal mass or hydronephrosis. 3. Marked prostatic hypertrophy.
== END | disposition home or self-care (01) ==
LOC: RADUSWWP 12:55
PROVIDERS: ATTEND Internal Medicine Nephrology
DX: N40.1 Benign prostatic hyperplasia with lower urinary tract symptoms (principal); R33.9 Retention of urine, unspecified
CPT/HCPCS: 76770

== ENCOUNTER 2023-09-30 10:53 | Observation (INO) | payer MEDICARE ==
[2023-09-30] MEDS ORDERED: SODIUM CHLORIDE 0.9% 500 ML 500 ML IV STA (11:55)
--- NOTE | 2023-09-30 11:57 | ED ---
General Adult HPI - General Chief complaint: Weakness Stated complaint: Weakness Time Seen by Provider: 09/30/23 11:25 Source: patient, RN notes reviewed, old records reviewed Mode of arrival: ambulatory Limitations: no limitations - History of Present Illness Initial comments: This is a 78-year-old male who presents emergency Department with his daughter daughter gives most history. Patient has recently been diagnosed with multiple myeloma and also recently noted to have kidney failure. Patient was originally coming to the hospital because he had hydrocephalus was having symptoms from that and was going to get a shunt and that is when they found the kidney failure and then subsequent to that found the multiple myeloma. Patient has been getti ng infusions for the multiple myeloma but over the last couple days he become weaker and weaker today he was unable to even help sit up in bed and so the daughter had to bring him into the emergency department evaluation to see if there was any cause for his weakness. Patient denies any fever chills per patient's chest pain difficulty breathing or shortness of breath. Patient denies any focal weakness. Patient denies any nausea vomiting diarrhea. Patient denies any dysuria or hematuria. - Related Data Home Medications Medication Instructions Recorded Confirmed Carvedilol [Coreg] 6.25 mg PO BID 06/08/14 09/30/23 Montelukast [Singulair] 10 mg PO HS 06/08/14 09/30/23 Tamsulosin [Flomax] 0.4 mg PO BID 06/08/14 09/30/23 Acetaminophen Tab [Tylenol] 1,000 mg PO BID 01/21/23 09/30/23 Fluticasone Propion/Salmeterol 2 puff INHALATION RT-BID 01/21/23 09/30/23 [Wixela 500-50 Inhub] Prevagen 1 cap PO DAILY 01/21/23 09/30/23 Ubidecarenone [Coenzyme Q10] 200 mg PO DAILY 01/21/23 09/30/23 hydrOXYzine HCL [Atarax] 25 mg PO TID 09/03/23 09/30/23 Omeprazole 20 mg PO DAILY 09/18/23 09/30/23 Ondansetron [Zofran] 4 mg PO Q8HR PRN 09/18/23 09/30/23 Acyclovir [Zovirax] 400 mg PO BID 09/30/23 09/30/23 Albuterol Nebulized [Ventolin 2.5 mg INHALATION RT-BID 09/30/23 09/30/23 Nebulized] dexAMETHasone [Decadron] 20 mg PO DIRECTED 09/30/23 09/30/23 Previous Rx's Medication Instructions Recorded Finasteride [Proscar] 5 mg PO Q48H 45 Days #45 tab 01/27/23 traZODone HCL [Desyrel] 25 mg PO HS #30 tab 08/14/23 Allergies Allergy/AdvReac Type Severity Reaction Status Date / Time No Known Allergies Allergy Verified 09/30/23 12:07 Review of Systems ROS Statement: Those systems with pertinent positive or pertinent negative responses have been documented in the HPI. ROS Other: All systems not noted in ROS Statement are negative. Past Medical History Past Medical History: Asthma, Chest Pain / Angina, Deep Vein Thrombosis (DVT), Hyperlipidemia, Hypertension, Myocardial Infarction ([place]), Prostate Disorder, Thyroid Disorder Additional Past Medical History / Comment(s): ENLARGED PROSTATE, hydrocephalus with shunt planned 08/15/23 Last Myocardial Infarction Date:: 2003 History of Any Multi-Drug Resistant Organisms: None Reported Past Surgical History: Coronary Bypass/CABG, Heart Catheterization, Heart Catheterization With Stent, Hernia Repair, Orthopedic Surgery Additional Past Surgical History / Comment(s): CABG-4 VESSEL 2003,UMBILICAL HERNIA REPAIR, RT ANKLE REPLACEMENT,HEART CATH , HEART CATH/ANGIO /STENT PLACEMENT Past Anesthesia/Blood Transfusion Reactions: No Reported Reaction Date of Last Stent Placement:: 06-18-14 Past Psychological History: No Psychological Hx Reported Smoking Status: Never smoker - Past Family History Father Family Medical History: Myocardial Infarction ([place]) Brother(s) Family Medical History: Myocardial Infarction ([place]) General Exam - General Exam Comments Initial Comments: GENERAL: Patient is well-developed and well-nourished. Patient is nontoxic and well- hydrated and is in no acute distress. ENT: Neck is soft and supple. No significant lymphadenopathy is noted. Oropharynx is clear. Moist mucous membranes. Neck has full range of motion without eliciting any pain. EYES: The sclera were anicteric and conjunctiva were pink and moist. Extraocular movements were intact and pupils were equal round and reactive to light. Eyelids were unremarkable. PULMONARY: Unlabored respirations. Good breath sounds bilaterally. No audible rales rhonchi or wheezing was noted. CARDIOVASCULAR: There is a regular rate and rhythm without any murmurs gallops or rubs. ABDOMEN: Soft and nontender with normal bowel sounds. SKIN: Skin is clear with no lesions or rashes and otherwise unremarkable. NEUROLOGIC: Patient is alert and oriented x3. Cranial nerves II through XII are grossly intact. Motor and sensory are also intact. Normal speech, volume and content. Symmetrical smile. MUSCULOSKELETAL: Normal extremities with adequate strength and full range of motion. LYMPHATICS: No significant lymphadenopathy is noted PSYCHIATRIC: Normal psychiatric evaluation. Limitations: no limitations Course Vital Signs 09/30/23 09/30/23 09/30/23 10:58 14:09 17:49 Temperature 98 F Pulse Rate 65 58 L 63 Respiratory 18 18 18 Rate Blood Pressure 100/60 121/75 132/98 O2 Sat by Pulse 97 96 95 Oximetry 09/30/23 09/30/23 09/30/23 19:40 19:53 21:15 Temperature Pulse Rate 76 80 65 Respiratory 16 Rate Blood Pressure 137/67 O2 Sat by Pulse 94 L Oximetry 09/30/23 10/01/23 10/01/23 22:42 00:08 01:50 Temperature Pulse Rate 48 L 74 Respiratory 14 19 19 Rate Blood Pressure 109/78 112/42 113/77 O2 Sat by Pulse 95 95 Oximetry 10/01/23 10/01/23 03:35 06:30 Temperature 97.5 F L Pulse Rate 52 L 66 Respiratory 19 19 Rate Blood Pressure 89/65 125/54 O2 Sat by Pulse 97 97 Oximetry Medical Decision Making - Medical Decision Making EKG is interpreted by myself. EKG shows sinus rhythm at 63 bpm RI interval is on a 51 QRS is 95 QT interval 452 QTC is 459. Patient's EKG shows no ST segment elevation or depression. - Lab Data Result diagrams: 10/01/23 09:42 10/01/23 09:42 Lab Results 09/30/23 09/30/23 09/30/23 Range/Units 12:30 12:30 12:30 WBC 3.7 L (3.8-10.6) k/uL RBC 3.41 L (4.30-5.90) m/uL Hgb 10.9 L (13.0-17.5) gm/dL Hct 32.0 L (39.0-53.0) % MCV 93.6 (80.0-100.0) fL MCH 32.0 (25.0-35.0) pg MCHC 34.2 (31.0-37.0) g/dL RDW 12.8 (11.5-15.5) % Plt Count 75 L (150-450) k/uL MPV 10.0 Neutrophils % (Manual) 77 % Band Neuts % (Manual) 6 % Lymphocytes % (Manual) 5 % Monocytes % (Manual) 9 % Eosinophils % (Manual) 3 % Other Cells % % Neutrophils # (Manual) 3.00 (1.3-7.7) k/uL Lymphocytes # (Manual) 0.19 L (1.0-4.8) k/uL Monocytes # (Manual) 0.33 (0-1.0) k/uL Eosinophils # (Manual) 0.11 (0-0.7) k/uL Nucleated RBCs 0 (0-0) /100 WBC PT 12.2 (10.0-12.5) sec INR 1.1 (<1.2) APTT 27.4 (22.0-30.0) sec Sodium (137-145) mmol/L Potassium (3.5-5.1) mmol/L Chloride (98-107) mmol/L Carbon Dioxide (22-30) mmol/L Anion Gap mmol/L BUN (9-20) mg/dL Creatinine (0.66-1.25) mg/dL Est GFR (CKD-EPI)AfAm (>60 ml/min/1.73 sqM) Est GFR (CKD-EPI)NonAf (>60 ml/min/1.73 sqM) Glucose (74-99) mg/dL Plasma Lactic Acid Ernie (0.7-2.0) mmol/L Calcium (8.4-10.2) mg/dL Magnesium (1.6-2.3) mg/dL Total Bilirubin (0.2-1.3) mg/dL AST (17-59) U/L ALT (4-49) U/L Alkaline Phosphatase (38-126) U/L Troponin I (0.000-0.034) ng/mL Total Protein (6.3-8.2) g/dL Albumin (3.5-5.0) g/dL Urine Color Light Yellow Urine Appearance Cloudy (Clear) Urine pH 5.5 (5.0-8.0) Ur Specific Thoreau 1.014 (1.001-1.035) Urine Protein 1+ H (Negative) Urine Glucose (UA) Negative (Negative) Urine Ketones Negative (Negative) Urine Blood Trace H (Negative) Urine Nitrite Negative (Negative) Urine Bilirubin Negative (Negative) Urine Urobilinogen <2.0 (<2.0) mg/dL Ur Leukocyte Esterase Trace H (Negative) Urine RBC 2 (0-5) /hpf Urine WBC 6 H (0-5) /hpf Ur Squamous Epith Cells <1 (0-4) /hpf Amorphous Sediment Rare H (None) /hpf Urine Bacteria Occasional H (None) /hpf Urine Mucus Rare H (None) /hpf Urine Yeast (Budding) Few H (None) /hpf 09/30/23 09/30/23 09/30/23 Range/Units 12:30 12:30 12:30 WBC (3.8-10.6) k/uL RBC (4.30-5.90) m/uL Hgb (13.0-17.5) gm/dL Hct (39.0-53.0) % MCV (80.0-100.0) fL MCH (25.0-35.0) pg MCHC (31.0-37.0) g/dL RDW (11.5-15.5) % Plt Count (150-450) k/uL MPV Neutrophils % (Manual) % Band Neuts % (Manual) % Lymphocytes % (Manual) % Monocytes % (Manual) % Eosinophils % (Manual) % Other Cells % % Neutrophils # (Manual) (1.3-7.7) k/uL Lymphocytes # (Manual) (1.0-4.8) k/uL Monocytes # (Manual) (0-1.0) k/uL Eosinophils # (Manual) (0-0.7) k/uL Nucleated RBCs (0-0) /100 WBC PT (10.0-12.5) sec INR (<1.2) APTT (22.0-30.0) sec Sodium 138 (137-145) mmol/L Potassium 4.5 (3.5-5.1) mmol/L Chloride 109 H (98-107) mmol/L Carbon Dioxide 23 (22-30) mmol/L Anion Gap 6 mmol/L BUN 46 H (9-20) mg/dL Creatinine 3.00 H (0.66-1.25) mg/dL Est GFR (CKD-EPI)AfAm 22 (>60 ml/min/1.73 sqM) Est GFR (CKD-EPI)NonAf 19 (>60 ml/min/1.73 sqM) Glucose 114 H (74-99) mg/dL Plasma Lactic Acid Ernie 0.7 (0.7-2.0) mmol/L Calcium 8.3 L (8.4-10.2) mg/dL Magnesium 1.8 (1.6-2.3) mg/dL Total Bilirubin 1.1 (0.2-1.3) mg/dL AST 23 (17-59) U/L ALT 21 (4-49) U/L Alkaline Phosphatase 52 (38-126) U/L Troponin I 0.019 (0.000-0.034) ng/mL Total Protein 5.0 L (6.3-8.2) g/dL Albumin 3.0 L (3.5-5.0) g/dL Urine Color Urine Appearance (Clear) Urine pH (5.0-8.0) Ur Specific Thoreau (1.001-1.035) Urine Protein (Negative) Urine Glucose (UA) (Negative) Urine Ketones (Negative) Urine Blood (Negative) Urine Nitrite (Negative) Urine Bilirubin (Negative) Urine Urobilinogen (<2.0) mg/dL Ur Leukocyte Esterase (Negative) Urine RBC (0-5) /hpf Urine WBC (0-5) /hpf Ur Squamous Epith Cells (0-4) /hpf Amorphous Sediment (None) /hpf Urine Bacteria (None) /hpf Urine Mucus (None) /hpf Urine Yeast (Budding) (None) /hpf Disposition Clinical Impression: Inability to walk, Generalized weakness Disposition: ADMITTED IP TO THIS [facility] Time of Disposition: 21:06
--- NOTE | 2023-09-30 12:50 | XR ---
EXAMINATION TYPE: XR chest 2V DATE OF EXAM: 09/30/2023 COMPARISON: 08/08/2023 TECHNIQUE: PA and lateral views submitted. HISTORY: Weakness FINDINGS: There is bibasilar subsegmental atelectasis or infiltrate. Diffuse osteopenia and AC joint arthropath y. Post median sternotomy changes. Suspect underlying COPD.. Heart size normal and no overt failure. Osseous structures demonstrate hypertrophic and degenerative changes of the spine. IMPRESSION: 1. Cardiomegaly with basilar atelectasis favored over pneumonia. No overt failure.
[2023-09-30 13:06] LABS: INR 1.1 (<1.2); Partial Thromboplastin Time 27.4 sec (22.0-30.0); Prothrombin Time 12.2 sec (10.0-12.5)
[2023-09-30 13:10] LABS: HGB 10.9 gm/dL (13.0-17.5); MCHC 34.2 g/dL (31.0-37.0); MCV 93.6 fL (80.0-100.0); RBC 3.41 m/uL (4.30-5.90); RDW 12.8 % (11.5-15.5); WBC 3.7 k/uL (3.8-10.6)
[2023-09-30 13:15] LABS: Platelet Count 75 k/uL (150-450)
[2023-09-30 13:37] LABS: ALT 21 U/L (4-49); AST 23 U/L (17-59); African American GFR (CKD) 22 (>60 ml/min/1.73 sqM); Alkaline Phosphatase 52 U/L (38-126); Anion Gap 6 mmol/L; Blood Urea Nitrogen 46 mg/dL (9-20); Calcium 8.3 mg/dL (8.4-10.2); Carbon Dioxide 23 mmol/L (22-30); Chloride 109 mmol/L (98-107); Glucose 114 mg/dL (74-99); Magnesium 1.8 mg/dL (1.6-2.3); Non-African American GFR(CKD) 19 (>60 ml/min/1.73 sqM); Potassium 4.5 mmol/L (3.5-5.1); Sodium 138 mmol/L (137-145); Total Bilirubin 1.1 mg/dL (0.2-1.3)
[2023-09-30 13:47] LABS: Band Neutrophils % 6 %; Eosinophils # (M) 0.11 k/uL (0-0.7); Lymphocytes # (M) 0.19 k/uL (1.0-4.8); Monocytes # (M) 0.33 k/uL (0-1.0); Neutrophils % (M) 77 %; Nucleated Red Blood Cells 0 /100 WBC (0-0); Total Cells Counted 100
[2023-09-30 14:08] LABS: Amorphous Sediment,Urine Rare /hpf; Appearance,Urine Cloudy (Clear); Bacteria,Urine Occasional /hpf; Bilirubin,Urine Negative (Negative); Blood,Urine Trace (Negative); Budding Yeast,Urine Few /hpf; Color,Urine Light Yellow; Glucose,Urine (UA) Negative (Negative); Ketones,Urine Negative (Negative); Leukocyte Esterase,Urine Trace (Negative); Mucus,Urine Rare /hpf; Nitrite,Urine Negative (Negative); PH, Urine 5.5 (5.0-8.0); Protein,Urine 1+ (Negative); RBC,Urine 2 /hpf (0-5); Specific Gravity,Urine 1.014 (1.001-1.035); Squamous Epithelial Cell,Urine <1 /hpf (0-4); Urobilinogen,Urine <2.0 mg/dL (<2.0); WBC,Urine 6 /hpf (0-5)
[2023-09-30] MEDS ORDERED: SODIUM CHLORIDE 0.9% 1,000 ML IV ONE (15:25)
[2023-09-30] MEDS ORDERED: ONDANSETRON 4 MG TAB PO PRN (19:04)
[2023-09-30] MEDS ORDERED: NALOXONE 0.4 MG/ML 1 ML VIAL IV PRN (19:06)
[2023-09-30] MEDS ORDERED: ONDANSETRON 4 MG/2 ML VIAL IVP PRN (19:06)
[2023-09-30] MEDS: SYMBICORT 160-4.5 MCG INHALER INHALATION SCH (19:40)
[2023-09-30] MEDS: ALBUTEROL NEBULIZED 2.5 MG/3 ML INHALATION SCH (19:40)
[2023-09-30] MEDS ORDERED: NON FORMULARY DRUG (Lenalidomide [Revlimid] 15 MG Capsule) PO SCH (20:00)
[2023-09-30] MEDS ORDERED: FINASTERIDE 5 MG TAB PO SCH (20:00)
[2023-09-30] MEDS ORDERED: traZODone HCL 50 MG TAB PO SCH (21:00)
[2023-09-30] MEDS ORDERED: MONTELUKAST 10 MG TAB PO SCH (21:00)
[2023-09-30] MEDS: ACETAMINOPHEN TAB 500 MG TAB PO SCH (21:02)
[2023-09-30] MEDS: TAMSULOSIN 0.4 MG CAP.ER.24H PO SCH (21:03)
[2023-09-30] MEDS: APIXABAN 5 MG TAB PO SCH (21:03)
[2023-09-30] MEDS: carvediloL 6.25 MG TAB PO SCH (21:10)
[2023-09-30] MEDS: ACYCLOVIR 200 MG CAP PO SCH (21:10)
[2023-09-30] MEDS: hydrOXYzine HCL 25 MG TAB PO SCH (22:48)
[2023-10-01] MEDS ORDERED: LEVOTHYROXINE 75 MCG TAB PO SCH (06:30)
[2023-10-01] MEDS ORDERED: PANTOPRAZOLE 40 MG TABLET PO SCH (07:30)
[2023-10-01] MEDS ORDERED: NON FORMULARY DRUG (Prevagen 1 CAP) PO SCH (09:00)
[2023-10-01] MEDS ORDERED: ATORVASTATIN 40 MG TAB PO SCH (09:00)
[2023-10-01] MEDS ORDERED: CLOPIDOGREL 75 MG TAB PO SCH (09:00)
[2023-10-01] MEDS ORDERED: FAMOTIDINE 20 MG TAB PO SCH (09:00)
[2023-10-01 09:27] LABS: HGB 9.1 g/dL (13.0-17.0); Immature Platelet Fraction 11.4 % (1.1-6.1); MCH 31.1 pg (27.0-32.0); MCHC 32.5 g/dL (32.0-37.0); MCV 95.6 FL (80.0-97.0); NRBC Per 100 WBC 0 X 10*3/uL (0.00-0.01); Platelet Count 69 X 10*3/uL (140-440); RBC 2.93 X 10*6/uL (4.40-5.60); RDW 12.9 % (11.5-14.5); WBC 7.41 X 10*3/uL (4.50-10.00)
[2023-10-01 09:54] VITALS: BP 121/71; PULSE 48; RESP 16; TEMP 98.1
[2023-10-01 10:16] LABS: African American GFR (CKD) 22 (>60 ml/min/1.73 sqM); Anion Gap 10 mmol/L; Basophils % (A) 0 %; Blood Urea Nitrogen 50 mg/dL (9-20); Calcium 8.7 mg/dL (8.4-10.2); Carbon Dioxide 21 mmol/L (22-30); Chloride 111 mmol/L (98-107); Eosinophils % (A) 0 %; Glucose 103 mg/dL (74-99); HCT 32.8 % (39.0-53.0); HGB 10.7 gm/dL (13.0-17.5); Hypochromasia Slight; Lymphocytes # (A) 0.2 k/uL (1.0-4.8); Lymphocytes % (A) 3 %; MCHC 32.6 g/dL (31.0-37.0); MCV 98.1 fL (80.0-100.0); Mean Platelet Volume 10.7; Monocytes # (A) 0.5 k/uL (0-1.0); Monocytes % (A) 7 %; Neutrophils # (A) 6.2 k/uL (1.3-7.7); Neutrophils % (A) 88 %; Non-African American GFR(CKD) 19 (>60 ml/min/1.73 sqM); Platelet Count 73 k/uL (150-450); Potassium 4.6 mmol/L (3.5-5.1); RBC 3.35 m/uL (4.30-5.90); RDW 13.1 % (11.5-15.5); Sodium 142 mmol/L (137-145)
[2023-10-01 10:43] LABS: BUN/Creat Ratio 14.47 Ratio (12.00-20.00); Blood Urea Nitrogen 46.3 mg/dL (9.0-27.0); Calcium 8.7 mg/dL (8.7-10.3); Carbon Dioxide 24.2 mmol/L (21.6-31.8); Chloride 109 mmol/L (96-109); Glucose 107 mg/dL (70-110); Potassium 4.6 mmol/L (3.5-5.5); Sodium 144 mmol/L (135-145)
--- NOTE | 2023-10-01 10:53 | CT ---
EXAMINATION TYPE: CT brain wo con DATE OF EXAM: 10/01/2023 COMPARISON: 01/21/2023 HISTORY: AMS. Pt not able to remove teeth CT DLP: 1683.40 mGycm Automated exposure control for dose reduction was used. FINDINGS: Extreme artifact involves skull base limiting the posterior fossa. There is moderate to severe centra l ventricular dilation. Normal pressure hydrocephalus or hydrocephalus in the differential diagnosis. Hypoattenuation in the white matter is most probable remote microvascular ischemia. No obvious acute hemorrhage given limitations in exam. No midline shift. Assessment for acute ischemia limited. Intra cranial vascular calcifications. Nasal septal deviation with mild changes of chronic sinusitis. Orbit s symmetric. IMPRESSION: 1. MARKEDLY LIMITED EXAM WITH EXTREME ARTIFACT DEMONSTRATES NO OBVIOUS ACUTE HEMORRHAGE OR MASS EFFEC T. EXAM LIMITED FOR ACUTE ISCHEMIA. 2. THERE IS PERSISTENT DEGENERATIVE CHANGE WITH GREATER CENTRAL VENTRICULAR DILATION STABLE FROM PRIO R EXAM. NORMAL PRESSURE HYDROCEPHALUS OR HYDROCEPHALUS THE MOST LIKELY ETIOLOGY. DEGREE OF VENTRICULA R DILATION IS UNCHANGED.
[2023-10-01] MEDS: SYMBICORT 160-4.5 MCG INHALER INHALATION SCH (11:11)
[2023-10-01] MEDS: ALBUTEROL NEBULIZED 2.5 MG/3 ML INHALATION SCH (11:11)
[2023-10-01] MEDS: carvediloL 6.25 MG TAB PO SCH (11:58)
[2023-10-01] MEDS: ACYCLOVIR 200 MG CAP PO SCH (12:51)
[2023-10-01] MEDS: ACETAMINOPHEN TAB 500 MG TAB PO SCH (12:51)
[2023-10-01] MEDS: TAMSULOSIN 0.4 MG CAP.ER.24H PO SCH (12:51)
[2023-10-01] MEDS: hydrOXYzine HCL 25 MG TAB PO SCH (12:51)
[2023-10-01] MEDS: APIXABAN 5 MG TAB PO SCH (12:52)
--- NOTE | 2023-10-01 13:55 | P.HPIM ---
History of Present Illness 78-year-old male with known history of multiple myeloma advanced came in with altered mental status patient had multiple myeloma related renal failure with creatinine of around 2.9 this has been stable since his last hospitalization. Patient is only limited abide as an outpatient patient has progressive weakness and worsening confusion has been going on for some time patient was started on IV fluids and was subsequently admitted after lengthy discussion with the family members plan was made that patient should be hospice and patient although slightly confused is agreeable with the plan blue order hospice evaluated the patient and patient is being discharged to hospice facility. Patient is on anticoagulation for atrial fibrillation patient has been falling lately this anti-correlation will be discontinued along with the not recommended due to his hospice status. REVIEW OF SYSTEMS: CONSTITUTIONAL: No fever, no malaise, no fatigue. HEENT: No recent visual problems or hearing problems. Denied any sore throat. CARDIOVASCULAR: No chest pain, orthopnea, PND, no palpitations, no syncope. PULMONARY: No shortness of breath, no cough, no hemoptysis. GASTROINTESTINAL: No diarrhea, no nausea, no vomiting, no abdominal pain. NEUROLOGICAL: No headaches, no weakness, no numbness. HEMATOLOGICAL: Denies any bleeding or petechiae. GENITOURINARY: Denies any burning micturition, frequency, or urgency. MUSCULOSKELETAL/RHEUMATOLOGICAL: Denies any joint pain, swelling, or any muscle pain. ENDOCRINE: Denies any polyuria or polydipsia. The rest of the 14-point review of systems is negative. PHYSICAL EXAMINATION: GENERAL: The patient is alert and oriented but slightly confused, not in any acute distress. Well developed, well nourished. HEENT: Pupils are round and equally reacting to light. EOMI. No scleral icterus. No conjunctival pallor. Normocephalic, atraumatic. No pharyngeal erythema. No thyromegaly. CARDIOVASCULAR: S1 and S2 present. No murmurs, rubs, or gallops. PULMONARY: Chest is clear to auscultation, no wheezing or crackles. ABDOMEN: Soft, nontender, nondistended, normoactive bowel sounds. No palpable organomegaly. MUSCULOSKELETAL: No joint swelling or deformity. EXTREMITIES: No cyanosis, clubbing, or pedal edema. NEUROLOGICAL: Gross neurological examination did not reveal any focal deficits. The pain generalized weakness SKIN: No rashes. Assessment and plan -Advanced multiple myeloma hospice evaluated the patient patient will be discharged to hospice facility and hospice status -Metabolic encephalopathy -History of DVT in the past Coronary artery disease -Hyperlipidemia -Hypertension -Hyperthyroidism -Acute renal failure secondary to multiple myeloma and myeloma proteins causing tubular damage in acute tubular necrosis Decision will be discharged to hospice today Past Medical History Past Medical History: Asthma, Chest Pain / Angina, Deep Vein Thrombosis (DVT), Hyperlipidemia, Hypertension, Myocardial Infarction ([place]), Prostate Disorder, Thyroid Disorder Additional Past Medical History / Comment(s): ENLARGED PROSTATE, hydrocephalus with shunt planned 08/15/23 Last Myocardial Infarction Date:: 2003 History of Any Multi-Drug Resistant Organisms: None Reported Past Surgical History: Coronary Bypass/CABG, Heart Catheterization, Heart Catheterization With Stent, Hernia Repair, Orthopedic Surgery Additional Past Surgical History / Comment(s): CABG-4 VESSEL 2003,UMBILICAL HERNIA REPAIR, RT ANKLE REPLACEMENT,HEART CATH , HEART CATH/ANGIO /STENT PLACEMENT Past Anesthesia/Blood Transfusion Reactions: No Reported Reaction Date of Last Stent Placement:: 06-18-14 Past Psychological History: No Psychological Hx Reported Smoking Status: Never smoker Past Alcohol Use History: None Reported Past Drug Use History: None Reported - Past Family History Father Family Medical History: Myocardial Infarction ([place]) Brother(s) Family Medical History: Myocardial Infarction ([place]) Medications and Allergies Home Medications Medication Instructions Recorded Confirmed Type Carvedilol [Coreg] 6.25 mg PO BID 06/08/14 09/30/23 History Montelukast [Singulair] 10 mg PO HS 06/08/14 09/30/23 History Tamsulosin [Flomax] 0.4 mg PO BID 06/08/14 09/30/23 History Acetaminophen Tab [Tylenol] 1,000 mg PO BID 01/21/23 09/30/23 History Fluticasone Propion/Salmeterol 2 puff INHALATION RT-BID 01/21/23 09/30/23 History [Wixela 500-50 Inhub] Prevagen 1 cap PO DAILY 01/21/23 09/30/23 History Ubidecarenone [Coenzyme Q10] 200 mg PO DAILY 01/21/23 09/30/23 History Finasteride [Proscar] 5 mg PO Q48H 45 Days #45 tab 01/27/23 09/30/23 Rx traZODone HCL [Desyrel] 25 mg PO HS #30 tab 08/14/23 09/30/23 Rx hydrOXYzine HCL [Atarax] 25 mg PO TID 09/03/23 09/30/23 History Omeprazole 20 mg PO DAILY 09/18/23 09/30/23 History Ondansetron [Zofran] 4 mg PO Q8HR PRN 09/18/23 09/30/23 History Acyclovir [Zovirax] 400 mg PO BID 09/30/23 09/30/23 History Albuterol Nebulized [Ventolin 2.5 mg INHALATION RT-BID 09/30/23 09/30/23 History Nebulized] dexAMETHasone [Decadron] 20 mg PO DIRECTED 09/30/23 09/30/23 History Allergies Allergy/AdvReac Type Severity Reaction Status Date / Time No Known Allergies Allergy Verified 09/30/23 12:07 Physical Exam Vitals: Vital Signs Temp Pulse Pulse Resp BP BP Pulse Ox 10/01/23 08:00 98.1 F 48 L 16 121/71 96 10/01/23 06:30 97.5 F L 66 19 125/54 97 10/01/23 03:35 52 L 19 89/65 97 10/01/23 01:50 19 113/77 10/01/23 00:08 74 19 112/42 95 09/30/23 22:42 48 L 14 109/78 95 09/30/23 21:15 65 16 137/67 94 L 09/30/23 19:53 80 09/30/23 19:40 76 09/30/23 17:49 63 18 132/98 95 09/30/23 14:09 58 L 18 121/75 96 Intake and Output 09/30/23 10/01/23 10/01/23 22:59 06:59 14:59 Intake Total 118 Balance 118 Intake: Oral 118 Other: Voiding Method Diaper Weight 111.13 kg Results CBC & Chem 7: 10/01/23 09:42 10/01/23 09:42 Labs: Abnormal Lab Results - Last 24 Hours (Table) 09/30/23 10/01/23 10/01/23 Range/Units 12:30 05:25 05:25 RBC 2.93 L (4.40-5.60) X 10*6/uL Hgb 9.1 L (13.0-17.0) g/dL Hct 28.0 L (39.6-50.0) % Plt Count 69 L (140-440) X 10*3/uL MPV 13.0 H (9.5-12.2) FL Lymphocytes # (1.0-4.8) k/uL Immature Plt Fraction 11.4 H (1.1-6.1) % Chloride (98-107) mmol/L Carbon Dioxide (22-30) mmol/L BUN 46.3 H (9.0-27.0) mg/dL Creatinine 3.2 H (0.6-1.5) mg/dL Est GFR (CKD-EPI) 19 L (>=60) Glucose (74-99) mg/dL Urine Protein 1+ H (Negative) Urine Blood Trace H (Negative) Ur Leukocyte Esterase Trace H (Negative) Urine WBC 6 H (0-5) /hpf Amorphous Sediment Rare H (None) /hpf Urine Bacteria Occasional H (None) /hpf Urine Mucus Rare H (None) /hpf Urine Yeast (Budding) Few H (None) /hpf 10/01/23 10/01/23 Range/Units 09:42 09:42 RBC 3.35 L (4.40-5.60) X 10*6/uL Hgb 10.7 L (13.0-17.0) g/dL Hct 32.8 L (39.6-50.0) % Plt Count 73 L (140-440) X 10*3/uL MPV (9.5-12.2) FL Lymphocytes # 0.2 L (1.0-4.8) k/uL Immature Plt Fraction (1.1-6.1) % Chloride 111 H (98-107) mmol/L Carbon Dioxide 21 L (22-30) mmol/L BUN 50 H (9.0-27.0) mg/dL Creatinine 2.99 H (0.6-1.5) mg/dL Est GFR (CKD-EPI) (>=60) Glucose 103 H (74-99) mg/dL Urine Protein (Negative) Urine Blood (Negative) Ur Leukocyte Esterase (Negative) Urine WBC (0-5) /hpf Amorphous Sediment (None) /hpf Urine Bacteria (None) /hpf Urine Mucus (None) /hpf Urine Yeast (Budding) (None) /hpf
--- NOTE | 2023-10-01 13:55 | P.DS ---
Providers Date of admission: 09/30/23 16:23 Attending physician: Ryann Jansen Consults: 09/30/23 15:25 Consult Physician Urgent Consulting Provider: Laith Boyle Consult Reason/Comments: Anemia, orthostatic hypotension Do you want consulting provider notified?: Yes Primary care physician: [facility] Course: 78-year-old male with known history of multiple myeloma advanced came in with altered mental status patient had multiple myeloma related renal failure with creatinine of around 2.9 this has been stable since his last hospitalization. Patient is only limited abide as an outpatient patient has progressive weakness and worsening confusion has been going on for some time patient was started on IV fluids and was subsequently admitted after lengthy discussion with the family members plan was made that patient should be hospice and patient although slightly confused is agreeable with the plan [facility] hosp[facility] evaluated the patient and patient is being discharged to hospice facility. Patient is on anticoagulation for atrial fibrillation patient has been falling lately this anti-correlation will be discontinued along with the not recommended due to his hospice status. REVIEW OF SYSTEMS: CONSTITUTIONAL: No fever, no malaise, no fatigue. HEENT: No recent visual problems or hearing problems. Denied any sore throat. CARDIOVASCULAR: No chest pain, orthopnea, PND, no palpitations, no syncope. PULMONARY: No shortness of breath, no cough, no hemoptysis. GASTROINTESTINAL: No diarrhea, no nausea, no vomiting, no abdominal pain. NEUROLOGICAL: No headaches, no weakness, no numbness. HEMATOLOGICAL: Denies any bleeding or petechiae. GENITOURINARY: Denies any burning micturition, frequency, or urgency. MUSCULOSKELETAL/RHEUMATOLOGICAL: Denies any joint pain, swelling, or any muscle pain. ENDOCRINE: Denies any polyuria or polydipsia. The rest of the 14-point review of systems is negative. PHYSICAL EXAMINATION: GENERAL: The patient is alert and oriented but slightly confused, not in any acute distress. Well developed, well nourished. HEENT: Pupils are round and equally reacting to light. EOMI. No scleral icterus. No conjunctival pallor. Normocephalic, atraumatic. No pharyngeal erythema. No thyromegaly. CARDIOVASCULAR: S1 and S2 present. No murmurs, rubs, or gallops. PULMONARY: Chest is clear to auscultation, no wheezing or crackles. ABDOMEN: Soft, nontender, nondistended, normoactive bowel sounds. No palpable organomegaly. MUSCULOSKELETAL: No joint swelling or deformity. EXTREMITIES: No cyanosis, clubbing, or pedal edema. NEUROLOGICAL: Gross neurological examination did not reveal any focal deficits. The pain generalized weakness SKIN: No rashes. Assessment and plan -Advanced multiple myeloma hospice evaluated the patient patient will be discharged to hospice facility and hospice status -Metabolic encephalopathy -History of DVT in the past Coronary artery disease -Hyperlipidemia -Hypertension -Hyperthyroidism -Acute renal failure secondary to multiple myeloma and myeloma proteins causing tubular damage in acute tubular necrosis Decision will be discharged to hospice today Plan - Discharge Summary New Discharge Prescriptions: Continue Montelukast [Singulair] 10 mg PO HS Tamsulosin [Flomax] 0.4 mg PO BID Carvedilol [Coreg] 6.25 mg PO BID Ubidecarenone [Coenzyme Q10] 200 mg PO DAILY Prevagen 1 cap PO DAILY Acetaminophen Tab [Tylenol] 1,000 mg PO BID Fluticasone Propion/Salmeterol [Wixela 500-50 Inhub] 2 puff INHALATION RT-BID hydrOXYzine HCL [Atarax] 25 mg PO TID dexAMETHasone [Decadron] 20 mg PO DIRECTED Finasteride [Proscar] 5 mg PO Q48H 45 Days #45 tab traZODone HCL [Desyrel] 25 mg PO HS #30 tab Omeprazole 20 mg PO DAILY Ondansetron [Zofran] 4 mg PO Q8HR PRN PRN Reason: Nausea Albuterol Nebulized [Ventolin Nebulized] 2.5 mg INHALATION RT-BID Acyclovir [Zovirax] 400 mg PO BID Discontinued Apixaban [Eliquis] 5 mg PO BID #70 tab Atorvastatin [Lipitor] 40 mg PO DAILY Lenalidomide [Revlimid] 15 mg PO Q48H Sulfamethox-Tmp 400-80Mg [Bactrim SS 400-80 mg] 1 tab PO MOWEFR Levothyroxine Sodium [Synthroid] 150 mcg PO DAILY Famotidine [Pepcid] 20 mg PO DAILY 90 Days #90 tab Clopidogrel [Plavix] 75 mg PO DAILY Discharge Medication List Carvedilol [Coreg] 6.25 mg PO BID 06/08/14 [History] Montelukast [Singulair] 10 mg PO HS 09/23/14 [History] Tamsulosin [Flomax] 0.4 mg PO BID 06/08/14 [History] Acetaminophen Tab [Tylenol] 1,000 mg PO BID 01/21/23 [History] Fluticasone Propion/Salmeterol [Wixela 500-50 Inhub] 2 puff INHALATION RT-BID 01/21/23 [History] Prevagen 1 cap PO DAILY 01/21/23 [History] Ubidecarenone [Coenzyme Q10] 200 mg PO DAILY 01/21/23 [History] Finasteride [Proscar] 5 mg PO Q48H 45 Days #45 tab 01/27/23 [Rx] traZODone HCL [Desyrel] 25 mg PO HS #30 tab 08/14/23 [Rx] hydrOXYzine HCL [Atarax] 25 mg PO TID 09/03/23 [History] Omeprazole 20 mg PO DAILY 09/18/23 [History] Ondansetron [Zofran] 4 mg PO Q8HR PRN 09/18/23 [History] Acyclovir [Zovirax] 400 mg PO BID 09/30/23 [History] Albuterol Nebulized [Ventolin Nebulized] 2.5 mg INHALATION RT-BID 09/30/23 [History] dexAMETHasone [Decadron] 20 mg PO DIRECTED 09/30/23 [History] Follow up Appointment(s)/Referral(s): [facility]osp[facility] [REFERRING] - 1 Week Dom Yeh MD [Primary Care Provider] - 1-2 days Discharge/Stand Alone Forms: [facility], Help In The Home, Personal Financial Institution Manager Discharge Disposition: DISCH TO HOSPICE MED FACIL
--- NOTE | 2023-10-01 15:18 | P.CONS ---
History of Present Illness - Reason for Consult Consult date: 10/01/23 anemia Requesting physician: Tex Isabel - Chief Complaint progressive weakness - History of Present Illness Mr Kruse is a pleasant male pt of Dr. Boyle with multiple medical problems, initially seen in consult at [facility] on 08/07/23. He had been admitted with acute renal failure found on outpatient blood work, with a creatinine of 5.8-6.3 range, compared to baseline of 1.8-1.9. As part of nephrology workup and was found to have marked elevation of serum kappa light chain at 108 2 mg/L, with lambda light chain normal. Systemic symptoms included increased fatigue, decrease in appetite and weight loss of about 10-12 pounds over the past 2 months. Case was completed by recent diagnosis of normal pressure hydrocephalus for which shunt surgery was actually scheduled in the last week of 08/08 but, this was postponed because of renal function. Patient's hemoglobin was in the 8-9 range. He is on Eliquis for history of DVT/PE diagnosed about 2-3 years ago. The patient underwent additional workup with bone survey revealing lytic lesions in the middle left humerus, and proximal left femur as well as abnormal appearance of C3- C7. Calcium was in the 8 range. Protein electrophoresis and immunofixation did not show any measurable M protein. 24-hour urine revealed kappa light chain excretion of 2420 mg/L. BM Bx and asp was performed on 08/09/23. This confirmed multiple myeloma, with a 40-45% similar bone marrow, with 50-55% involvement with sheets of plasma cells that were kappa restricted. The patient had additional investigations which indicated the possibility of obstructive uropathy, with prostatomegaly. With hydration and Long placement, his creatinine actually improved into the 3 range. We had considered treating him with bolus steroids, after the bone marrow was performed, but decided to hold off given the improvement in his creatinine with the above measures. The patient was subsequently able to be discharged and seen for his first office visit on 08/30/23 Echocardiogram LVEF 40-45%. Chest x-rays had not shown any major pathology. PSA was in the normal range He was started on treatment last week, he has had days 1,4 of cycles 1, due to start day 8 yesterday. Patient's family noted that he is been progressively weaker since starting treatment one week ago. Unfortunately, patient had a fall at home and daughter was not able to get him up. She contacted EMS to bring him to the hospital. Patient's strength is not significantly changed since admit. Patient and his family want to know about hospice.Patient is currently denying any difficulty in breathing or pain. Review of Systems 10 point review of systems is negative except as stated in HPI Past Medical History Past Medical History: Asthma, Chest Pain / Angina, Deep Vein Thrombosis (DVT), Hyperlipidemia, Hypertension, Myocardial Infarction ([place]), Prostate Disorder, Th yroid Disorder Additional Past Medical History / Comment(s): ENLARGED PROSTATE, hydrocephalus with shunt planned 08/15/23 Last Myocardial Infarction Date:: 2003 History of Any Multi-Drug Resistant Organisms: None Reported Past Surgical History: Coronary Bypass/CABG, Heart Catheterization, Heart Cath eterization With Stent, Hernia Repair, Orthopedic Surgery Additional Past Surgical History / Comment(s): CABG-4 VESSEL 2003,UMBILICAL HERNIA REPAIR, RT ANKLE REPLACEMENT,HEART CATH , HEART CATH/ANGIO /STENT PLACEMENT Past Anesthesia/Blood Transfusion Reactions: No Reported Reaction Date of Last Stent Placement:: 06-18-14 Past Psychological History: No Psychological Hx Reported Smoking Status: Never smoker Past Alcohol Use History: None Reported Past Drug Use History: None Reported - Past Family History Father Family Medical History: Myocardial Infarction ([place]) Brother(s) Family Medical History: Myocardial Infarction ([place]) Medications and Allergies Home Medications Medication Instructions Recorded Confirmed Type Carvedilol [Coreg] 6.25 mg PO BID 06/08/14 09/30/23 History Montelukast [Singulair] 10 mg PO HS 06/08/14 09/30/23 History Tamsulosin [Flomax] 0.4 mg PO BID 06/08/14 09/30/23 History Acetaminophen Tab [Tylenol] 1,000 mg PO BID 01/21/23 09/30/23 History Fluticasone Propion/Salmeterol 2 puff INHALATION RT-BID 01/21/23 09/30/23 History [Wixela 500-50 Inhub] Prevagen 1 cap PO DAILY 01/21/23 09/30/23 History Ubidecarenone [Coenzyme Q10] 200 mg PO DAILY 01/21/23 09/30/23 History Finasteride [Proscar] 5 mg PO Q48H 45 Days #45 tab 01/27/23 09/30/23 Rx traZODone HCL [Desyrel] 25 mg PO HS #30 tab 08/14/23 09/30/23 Rx hydrOXYzine HCL [Atarax] 25 mg PO TID 09/03/23 09/30/23 History Omeprazole 20 mg PO DAILY 09/18/23 09/30/23 History Ondansetron [Zofran] 4 mg PO Q8HR PRN 09/18/23 09/30/23 History Acyclovir [Zovirax] 400 mg PO BID 09/30/23 09/30/23 History Albuterol Nebulized [Ventolin 2.5 mg INHALATION RT-BID 09/30/23 09/30/23 History Nebulized] dexAMETHasone [Decadron] 20 mg PO DIRECTED 09/30/23 09/30/23 History Allergies Allergy/AdvReac Type Severity Reaction Status Date / Time No Known Allergies Allergy Verified 09/30/23 12:07 Physical Exam Vitals: Vital Signs Temp Pulse Resp BP Pulse Ox 10/01/23 06:30 97.5 F L 66 19 125/54 97 10/01/23 03:35 52 L 19 89/65 97 10/01/23 01:50 19 113/77 10/01/23 00:08 74 19 112/42 95 09/30/23 22:42 48 L 14 109/78 95 09/30/23 21:15 65 16 137/67 94 L 09/30/23 19:53 80 09/30/23 19:40 76 09/30/23 17:49 63 18 132/98 95 09/30/23 14:09 58 L 18 121/75 96 09/30/23 10:58 98 F 65 18 100/60 97 Intake and Output 09/30/23 10/01/23 10/01/23 22:59 06:59 14:59 Other: Weight 111.13 kg - Constitutional General appearance: average body habitus, cooperative, no acute distress - EENT Eyes: anicteric sclerae, EOMI ENT: hearing grossly normal - Respiratory Respiratory: bilateral: CTA - Cardiovascular Rhythm: regular Heart sounds: normal: S1, S2 Abnormal Heart Sounds: no systolic murmur, no diastolic murmur, no rub, no S3 Gallop, no S4 Gallop, no click, no other leg Peripheral Edema: bilateral: Trace - Gastrointestinal General gastrointestinal: soft - Neurologic Neurologic: CNII-XII intact - Musculoskeletal Musculoskeletal: generalized weakness - Psychiatric Psychiatric: A&O x's 3, appropriate affect, intact judgment & insight Results CBC & Chem 7: 10/01/23 09:42 10/01/23 09:42 Labs: Abnormal Lab Results - Last 24 Hours (Table) 09/30/23 09/30/23 09/30/23 Range/Units 12:30 12:30 12:30 WBC 3.7 L (3.8-10.6) k/uL RBC 3.41 L (4.30-5.90) m/uL Hgb 10.9 L (13.0-17.5) gm/dL Hct 32.0 L (39.0-53.0) % Plt Count 75 L (150-450) k/uL Lymphocytes # (Manual) 0.19 L (1.0-4.8) k/uL Chloride 109 H (98-107) mmol/L BUN 46 H (9-20) mg/dL Creatinine 3.00 H (0.66-1.25) mg/dL Glucose 114 H (74-99) mg/dL Calcium 8.3 L (8.4-10.2) mg/dL Total Protein 5.0 L (6.3-8.2) g/dL Albumin 3.0 L (3.5-5.0) g/dL Urine Protein 1+ H (Negative) Urine Blood Trace H (Negative) Ur Leukocyte Esterase Trace H (Negative) Urine WBC 6 H (0-5) /hpf Amorphous Sediment Rare H (None) /hpf Urine Bacteria Occasional H (None) /hpf Urine Mucus Rare H (None) /hpf Urine Yeast (Budding) Few H (None) /hpf Chest x-ray: report reviewed CT Scan - head: report reviewed Assessment and Plan (1) Multiple myeloma Status: Acute Priority: Medium Code(s): C90.00 - MULTIPLE MYELOMA NOT HAVING ACHIEVED REMISSION SNOMED Code(s): 421089147 (2) Physical debility Status: Acute Priority: High Code(s): R53.81 - OTHER MALAISE SNOMED Code(s): 95164905 Plan: Multiple myeloma -Her diagnosis. Treatment started 1 week ago. -The reason for treating myeloma was so that patient could proceed forward to have shunts for normal pressure hydrocephalus. -Patient has not tolerated treatment well. He has been on treatment for 1 week. His counts are stable, kidney function is stable but unfortunately, patient physically is not tolerating treatment well. Patient and family had questions about hospice. They have concerns for his progressive physical decline. Concerns for treating one thing to get him well enough to treat another but, causing other physical problems in the process. Based on patient's current situation, general physical condition, it is not unreasonable to pursue hospice. We discussed hospice philosophy. All patient a nd his family's questions were answered to their satisfaction. Discussed briefly with nursing. Patient's daughter has already contacted hospice of their choice.
[2023-10-02] MEDS ORDERED: SULFAMETHOX-TMP 400-80MG 1 EACH TAB PO SCH (09:00)
== END 2023-10-01 14:41 | disposition hospice, inpatient (51) ==
LOC: EC 10:53 → 6NMEDSUR 16:23
PROVIDERS: ADMIT Hospitalist; ATTEND Hospitalist
DX: C90.00 Multiple myeloma not having achieved remission (principal); G93.41 Metabolic encephalopathy; N17.0 Acute kidney failure with tubular necrosis; I25.10 Atherosclerotic heart disease of native coronary artery without angina pectoris; G91.2 (Idiopathic) normal pressure hydrocephalus; I10 Essential (primary) hypertension; I48.91 Unspecified atrial fibrillation; E78.5 Hyperlipidemia, unspecified; E05.90 Thyrotoxicosis, unspecified without thyrotoxic crisis or storm; J45.909 Unspecified asthma, uncomplicated; N40.0 Benign prostatic hyperplasia without lower urinary tract symptoms; I25.2 Old myocardial infarction; R53.81 Other malaise; Z86.711 Personal history of pulmonary embolism; W19.XXXA Unspecified fall, initial encounter; Y92.009 Unspecified place in unspecified non-institutional (private) residence as the place of occurrence of the external cause; Z79.01 Long term (current) use of anticoagulants; Z79.51 Long term (current) use of inhaled steroids; Z79.52 Long term (current) use of systemic steroids; Z79.899 Other long term (current) drug therapy; Z86.718 Personal history of other venous thrombosis and embolism; Z95.1 Presence of aortocoronary bypass graft; Z96.661 Presence of right artificial ankle joint; Z95.5 Presence of coronary angioplasty implant and graft; Z82.49 Family history of ischemic heart disease and other diseases of the circulatory system
CPT/HCPCS: 96360; 96361 ×2; 99285; 36415; 94640 ×2; 93005; 97162; 80053; 80048; 83605; 83735 ×2; 84484; 85025 ×2; 85027; 85610; 85730; 81001; 71046; 70450; G0378 ×2; S0138